=== PATIENT | female | born 1930 | race Hispanic/Latino ===

== ENCOUNTER 2017-12-21 19:34 | Emergency (ER) | payer MEDICARE, OTHER ==
[2017-12-21 19:35] VITALS: PULSE 132; BMI 21.7
[2017-12-21 19:49] VITALS: TEMP 98
--- NOTE | 2017-12-21 20:28 | ED PDOC ---
Lower Extremity Pain/Injury Time Seen by Provider: 12/21/17 20:11 Chief Complaint (Nursing): Trauma Chief Complaint (Provider): Left hip pain s/p fall History Per: Patient History/Exam Limitations: no limitations Onset/Duration Of Symptoms: Mins Current Symptoms Are (Timing): Still Present Severity: Moderate Pain Scale Rating Of: 6 Additional Complaint(s): 86 yo female with history of COPD and A.Fib presents with left hip pain after a slip and fall. PT states her daughter was on the phone when her phone rang and she was going to walk into the other room to answer her phone when she tripped over clear tubing from her nebulizer machine. Pt states she landed on the right side. Her family iced the area and had her stay on the floor for a few minutes before she got up. Pt states she was able to walk but had to use the rest room. When she sat on the toilet it resulted in severe left hip pain. PT states after she got up she had some pain on the left side of ribs which spontaneously resolved in a few seconds. Pt denies SOB, diaphoresis, headache, N/V. Past Medical History Reviewed: Historical Data, Nursing Documentation, Vital Signs Vital Signs: Last Vital Signs Temp 98 F 12/21/17 19:45 Pulse 56 L 12/21/17 19:45 Resp 18 12/21/17 19:45 BP 143/55 L 12/21/17 19:45 Pulse Ox 97 12/21/17 19:45 - Medical History PMH: Anxiety, Arthritis, Atrial Fibrillation, COPD, Emphysema, HTN, Hypercholesterolemia, Pneumonia Denies: Chronic Kidney Disease - Surgical History Surgical History: Tonsillectomy - Family History Family History: States: Unknown Family Hx - Living Arrangements Living Arrangements: With Family - Social History Current smoker - smoking cessation education provided: No - Immunization History Hx Tetanus Toxoid Vaccination: No Hx Influenza Vaccination: Yes Hx Pneumococcal Vaccination: Yes - Home Medications Home Medications: Ambulatory Orders Medication Instructions Recorded Aspirin [Ecotrin] 81 mg PO DAILY 05/18/16 Esomeprazole Magnesium [Nexium] 20 mg PO BID 05/18/16 Hydrochlorothiazide [Microzide] 12.5 mg PO DAILY 05/18/16 Lactobacillus Acidophilus 1 cap PO BID 05/18/16 [Acidophilus] diltiaZEM [Cardizem] 60 mg PO BID 05/18/16 - Allergies Allergies/Adverse Reactions: Allergies Allergy/AdvReac Type Severity Reaction Status Date / Time Penicillins Allergy ANAPHYLAXIS Verified 12/21/17 19:43 Review of Systems ROS Statement: Except As Marked, All Systems Reviewed And Found Negative Constitutional: Negative for: Fever, Chills Cardiovascular: Negative for: Chest Pain Respiratory: Negative for: Shortness of Breath Gastrointestinal: Positive for: Other (Left flank pain, resolved ) Musculoskeletal: Positive for: Other (Left hip pain) Skin: Negative for: Bruising Neurological: Negative for: Confusion, Headache, Dizziness Physical Exam - Reviewed Nursing Documentation Reviewed: Yes Vital Signs Reviewed: Yes - Physical Exam Appears: Positive for: Well, Non-toxic, No Acute Distress Head Exam: Positive for: ATRAUMATIC, NORMAL INSPECTION, NORMOCEPHALIC Skin: Positive for: Normal Color, Warm, DRY Eye Exam: Positive for: EOMI, Normal appearance, PERRL ENT: Positive for: Normal ENT Inspection Neck: Positive for: Normal, Painless ROM Cardiovascular/Chest: Positive for: Regular Rate, Rhythm Respiratory: Positive for: Normal Breath Sounds. Negative for: Accessory Muscle Use, Respiratory Distress Gastrointestinal/Abdominal: Positive for: Normal Exam, Soft. Negative for: Tenderness Back: Positive for: Normal Inspection. Negative for: Vertebral Tenderness Extremity: Positive for: Normal ROM. Negative for: Deformity, Swelling Neurologic/Psych: Positive for: Alert, Oriented - ECG O2 Sat by Pulse Oximetry: 97 Medical Decision Making Medical Decision Making: No acute fracture or dislocation seen on hip XR. Head CT normal. EKG - Sinus otilia Disposition - Clinical Impression Clinical Impression: Fall, Hip pain - Patient ED Disposition Is Patient to be Admitted: No Counseled Patient/Family Regarding: Diagnosis, Need For Followup - Disposition Disposition: Routine/Home Disposition Time: 23:08 Condition: STABLE Additional Instructions: Tylenol as needed for pain. Instructions: Preventing Falls in the Older Adult Forms: IWT ([place])
--- NOTE | 2017-12-21 22:15 | CT ---
EXAM: CT Head Without Intravenous Contrast EXAM DATE/TIME: 12/21/2017 8:28 PM CLINICAL HISTORY: 86 years old, female; Injury or trauma; Fall; Initial encounter; Laceration; Consciousness not specified; Without residual foreign body; Head, generalized; Injury date: Today; Injury details: Tripped. Hit head. Lung ca; Additional info: Head injury TECHNIQUE: Axial computed tomography images of the head/brain without intravenous contrast. All CT scans at this facility use one or more dose reduction techniques, viz.: automated exposure control; ma/kV adjustment per patient size (including targeted exams where dose is matched to indication; i.e. head); or iterative reconstruction technique. Coronal and sagittal reformatted images were created and reviewed. COMPARISON: No relevant prior studies available. FINDINGS: BRAIN: Areas of hypodensity in the white matter bilaterally, nonspecific in appearance, but most likely representing chronic small vessel ischemic changes, in a patient of this age. No acute abnormality identified. No acute hemorrhage seen within the brain. No acute extra-axial fluid collections visualized. No evidence of significant mass effect within the brain. VENTRICLES: No evidence of significant hydrocephalus. BONES/JOINTS: No acute fractures or other acute bony abnormality noted. SOFT TISSUES: No acute abnormality of the visualized soft tissues is seen. SINUSES: Visualized paranasal sinuses appear clear. MASTOID AIR CELLS: Small amount of fluid in the right mastoid air cells, consistent with mild right mastoiditis. No evidence of significant left mastoid fluid. IMPRESSION: - No evidence of acute intracranial injury or fractures. - See above for remaining findings.
[2017-12-21 23:35] VITALS: BP 137/54; PULSE 55; RESP 14; O2SAT 98
--- NOTE | 2017-12-22 09:41 | RAD ---
PROCEDURE: Left Hip X-ray Radiographs. HISTORY: Left hip pain s/p fall COMPARISON: None. FINDINGS: BONES: Bone alignment is normal. There is diffuse bone demineralization.There is no acute displaced fracture or bone destruction. JOINTS: Normal. SOFT TISSUES: Normal. OTHER FINDINGS: None. IMPRESSION: No acute displaced fracture or dislocation. Please note occult fractures cannot be excluded on plain radiographs. If there is a persistent clinical concern, an MRI of the hip may be performed for further evaluation.
--- NOTE | 2017-12-22 14:51 | CARD ---
APPROVED REPORT EKG Measurement Heart [id number] CO [id number] <Conclusion> Sinus bradycardia Otherwise normal ECG
== END 2017-12-21 23:47 | disposition home or self-care (01) ==
LOC: H.ER 19:34
DX: S79.912A Unspecified injury of left hip, initial encounter (principal); W01.0XXA Fall on same level from slipping, tripping and stumbling without subsequent striking against object, initial encounter; I10 Essential (primary) hypertension; J44.9 Chronic obstructive pulmonary disease, unspecified; Z79.82 Long term (current) use of aspirin; Z88.0 Allergy status to penicillin

== ENCOUNTER 2018-04-17 21:40 | Inpatient (IN) | payer MEDICARE, OTHER ==
[2018-04-17 21:40] VITALS: PULSE 132; BMI 21.7
[2018-04-17] MEDS ORDERED: Albuterol-Ipratrop 3 mg / 0.5 (3 ml) UD INH STA (22:18)
[2018-04-17] MEDS ORDERED: Albuterol-Ipratrop 3 mg / 0.5 (3 ml) UD ONE (22:26)
[2018-04-17 22:31] LABS: VENOUS BLOOD GAS BASE EXCESS 1.8 mmol/L (0.0-2.0); VENOUS BLOOD GAS PCO2 53 mmHg (40-60); VENOUS BLOOD GAS PO2 29 mm/Hg (30-55); VENOUS BLOOD PH 7.34 (7.32-7.43)
[2018-04-17 22:36] LABS: BASO # 0.1 K/uL (0.0-0.2); BASO % 1.1 % (0.0-2.0); EOS # 0.3 K/uL (0.0-0.7); EOS % 3.3 % (0.0-4.0); HEMOGLOBIN 12.7 g/dL (12.0-16.0); LYMPH # 1.2 K/uL (1.0-4.3); LYMPH % 15.7 % (20.0-40.0); MEAN CELL VOLUME 96.4 fl (81.0-99.0); MEAN CORPUSCULAR HEMOGLOBIN 32.7 pg (27.0-31.0); MEAN CORPUSCULAR HGB CONC 33.9 g/dL (33.0-37.0); MEAN PLATELET VOLUME 8.5 fl (7.2-11.7); MONO # 0.6 K/uL (0.0-0.8); MONO % 7.7 % (0.0-10.0); NEUT # 5.7 K/uL (1.8-7.0); NEUT % 72.2 % (50.0-75.0); RBC 3.89 Mil/uL (3.80-5.20); RED CELL DISTRIBUTION WIDTH 13.3 % (11.5-14.5); WHITE BLOOD COUNT 7.8 K/uL (4.8-10.8)
[2018-04-17 22:48] LABS: ALB/GLOB RATIO 1.3 (1.0-2.1); ALBUMIN 4.1 g/dL (3.5-5.0); CALCIUM 10.3 mg/dL (8.4-10.2)
--- NOTE | 2018-04-17 22:59 | ED PDOC ---
HPI: SOB/CHF/COPD Time Seen by Provider: 04/17/18 22:03 Chief Complaint (Nursing): Shortness Of Breath Chief Complaint (Provider): Shortness Of Breath History Per: Patient History/Exam Limitations: no limitations Onset/Duration Of Symptoms: Days (x 1) Current Symptoms Are (Timing): Still Present Additional Complaint(s): 87 year old female with a history of COPD and atrial fibrillation presents with worsening shortness of breath throughout today. At one point, patient felt like she had something stuck in her throat that she was unable to cough up. She then forced herself to vomit and excised a large ball of mucus with some relief. Patient had multiple UTIs and was started on bactrim 1 week ago. Patient then discovered she has an allergy to Bactrim and was started to macrobid. [place] like symptoms went away. Denies chest pain and cough. PMD: Dr. Rivera Past Medical History Reviewed: Historical Data, Nursing Documentation, Vital Signs Vital Signs: Last Vital Signs Temp 98.2 F 04/22/18 16:09 Pulse 62 04/22/18 16:09 Resp 20 04/22/18 16:09 BP 127/51 L 04/22/18 16:09 Pulse Ox 98 04/22/18 16:09 - Medical History PMH: Anxiety, Arthritis, Atrial Fibrillation, COPD, Emphysema, HTN, Hypercholesterolemia, Pneumonia Denies: Chronic Kidney Disease - Surgical History Surgical History: Tonsillectomy - Family History Family History: States: Unknown Family Hx - Social History Current smoker - smoking cessation education provided: No Alcohol: None Drugs: Denies - Immunization History Hx Tetanus Toxoid Vaccination: No Hx Influenza Vaccination: Yes Hx Pneumococcal Vaccination: Yes - Home Medications Home Medications: Ambulatory Orders Medication Instructions Recorded RX: Aspirin [Ecotrin] 81 mg PO DAILY 05/18/16 RX: Esomeprazole Magnesium [Nexium] 20 mg PO BID 05/18/16 RX: Hydrochlorothiazide [Microzide] 12.5 mg PO DAILY 05/18/16 RX: Lactobacillus Acidophilus 1 cap PO BID 05/18/16 [Acidophilus] RX: diltiaZEM [Cardizem] 60 mg PO BID 05/18/16 RX: traMADol [Ultram] 50 mg PO Q6H PRN #10 tab 12/21/17 RX: Albuterol 0.083% [Albuterol 3 ml NEB PRN PRN 04/17/18 0.083% Inhal Paulina (2.5 mg/3 ml) UD] RX: Esomeprazole Sodium [Nexium] 20 mg PO DAILY 04/17/18 RX: Losartan Potassium 100 mg PO DAILY 04/17/18 - Allergies Allergies/Adverse Reactions: Allergies Allergy/AdvReac Type Severity Reaction Status Date / Time Penicillins Allergy ANAPHYLAXIS Verified 04/17/18 21:51 Sulfa (Sulfonamide Allergy RASH Verified 04/17/18 21:51 Antibiotics) sulfamethoxazole Allergy RASH Verified 04/17/18 21:51 [From Bactrim] trimethoprim [From Bactrim] Allergy RASH Verified 04/17/18 21:51 Review of Systems ROS Statement: Except As Marked, All Systems Reviewed And Found Negative Respiratory: Positive for: Shortness of Breath Physical Exam - Reviewed Nursing Documentation Reviewed: Yes Vital Signs Reviewed: Yes - Physical Exam Appears: Positive for: No Acute Distress (short of breath on Room Air with saturation of 94%) Head Exam: Positive for: ATRAUMATIC, NORMAL INSPECTION, NORMOCEPHALIC Skin: Positive for: Normal Color, Warm, Dry Eye Exam: Positive for: EOMI, Normal appearance, PERRL Neck: Positive for: Normal, Painless ROM, Supple Cardiovascular/Chest: Positive for: Regular Rate, Rhythm. Negative for: Murmur Respiratory: Positive for: Normal Breath Sounds. Negative for: Respiratory Distress Gastrointestinal/Abdominal: Positive for: Normal Exam, Soft. Negative for: Tenderness Extremity: Positive for: Normal ROM (full x 4). Negative for: Calf Tenderness, Deformity, Swelling Neurologic/Psych: Positive for: Alert, Oriented. Negative for: Motor/Sensory Deficits - Laboratory Results Result Diagrams: 04/21/18 04:20 04/22/18 04:20 - ECG O2 Sat by Pulse Oximetry: 92 (RA) Pulse Ox Interpretation: Normal Medical Decision Making Medical Decision Makin;15 MDM: worsening sob workup for COPD exacerbation vs infectious process vs cardiac etiology Initially EKG with artifact otherwise normal; will repeat EKG Labs including POC lactate, troponin, chest x-ray, Nebs and Solumedrol Reassess 23:56 Labs reviewed, patient with elevated BNP and troponin, indicative of new onset CHF. Patient admitted to [facility] under Dr. Cornejo who is covering for Dr. Rivera. Patient given Aspirin 325mg PO and Lasix 60mg IV. Patient currently on O2 as well. Order placed for repeat Troponin Q8 x 2. Family at bedside and agreeable with plan. - Scribe Attestation: Documented by Jazmyn Barron acting as a scribe for Monique Craven MD Provider Scribe Attestation: All medical record entries made by the Scribe were at my direction and person ally dictated by me. I have reviewed the chart and agree that the record accurately reflects my personal performance of the history, physical exam, medical decision making, and the department course for this patient. I have also personally directed, reviewed, and agree with the discharge instructions and disposition. Disposition - Clinical Impression Clinical Impression: Chronic congestive heart failure, Chr obstructive pulmonary disease w/ acute lower respiratory infxn, Respiratory tract infection - Patient ED Disposition Is Patient to be Admitted: Yes - Disposition Disposition Time: 23:50 Condition: GUARDED
[2018-04-17 23:03] LABS: TROPONIN I 0.024 ng/mL (0.00-0.120)
[2018-04-18] MEDS ORDERED: Pneumococcal 23-Valent Vaccine IM ONE (06:30)
[2018-04-18] MEDS ORDERED: Influenza Vaccine (5 YR UP)/PF 60 MCG/0.5 ML SYR IM ONE (06:30)
[2018-04-18] MEDS ORDERED: Albuterol-Ipratrop 3 mg / 0.5 (3 ml) UD INH PRN (06:37)
--- NOTE | 2018-04-18 07:45 | CARD ---
APPROVED REPORT Date of service: 04/17/2018 EKG Measurement Heart [id number] <Conclusion> Normal sinus rhythm Possible Left atrial enlargement Borderline ECG
[2018-04-18] MEDS ORDERED: Lactobacillus Acidophilus 500 MU Cap PO SCH (09:00)
[2018-04-18] MEDS: Pantoprazole 40 mg EC Tab PO SCH (09:56)
--- NOTE | 2018-04-18 11:34 | RAD ---
Date of service: 04/17/2018 HISTORY: possible admission COMPARISON: 03/26/2016 FINDINGS: LUNGS: No active pulmonary disease. PLEURA: No significant pleural effusion identified, no pneumothorax apparent. CARDIOVASCULAR: No radiographic findings to suggest acute or significant cardiovascular disease. OSSEOUS STRUCTURES: No significant abnormalities. VISUALIZED UPPER ABDOMEN: Normal. OTHER FINDINGS: None. IMPRESSION: No active disease. No significant interval change compared to the prior examination(s).
[2018-04-18 12:32] LABS: CALCIUM 10.2 mg/dL (8.4-10.2)
--- NOTE | 2018-04-18 12:39 | CP.PCM.CON ---
History of Present Illness - History of Present Illness History of Present Illness: This 87-year-old female is well-known to me from the outpatient setting as well as prior hospitalization. She presented to the emergency room with a chief complaint of chest tightness and shortness of breath which had been present for a few days [employer]. She denied cough or sputum production and also denied any hemoptysis. She continued to take all her regular medications as instructed and was using her nebulizer as well without improvement in her symptomatology. There was no recorded fever or chills but she did have some sweats. There was 1 episode of self-induced vomiting which returned mucoid material without any blood. She denies any recent change in her bowel movements although she has been constipated. Her appetite has been extremely poor and she has lost a significant amount of weight, having lost approximately 22 pounds over the last few months. Review of Systems - Constitutional Constitutional: Anorexia, Weight Loss - Respiratory Respiratory: As Per HPI - Musculoskeletal Musculoskeletal: Back Pain - Psychiatric Psychiatric: Anxiety, Change in Appetite Past Patient History - Infectious Disease Hx of Infectious Diseases: None - Tetanus Immunizations Tetanus Immunization: Unknown - Past Medical History & Family History Past Medical History?: Yes Pertinent Family History: Lung cancer, degenerative joint disease, sarcoidosis, thyroid disease, stroke - Past Social History Smoking Status: Former Smoker Chewing Tobacco Use: No Cigar Use: No Alcohol: None Drugs: Denies Home Situation {Lives}: Alone - CARDIAC Hx Atrial Fibrillation: Yes Hx Congestive Heart Failure: Yes Hx Hypercholesterolemia: Yes Hx Hypertension: Yes - PULMONARY Hx Chronic Obstructive Pulmonary Disease (COPD): Yes Hx Lung Cancer: Yes (Adenocarcinoma, right upper lobe) Hx Pneumonia: Yes - NEUROLOGICAL Hx Neurological Disorder: No - HEENT Hx Glaucoma: Yes Hx Macular Degeneration: Yes - RENAL Hx Chronic Kidney Disease: No - ENDOCRINE/METABOLIC Hx Endocrine Disorders: No - HEMATOLOGICAL/ONCOLOGICAL Hx Anemia: Yes - INTEGUMENTARY Hx Dermatological Problems: No - MUSCULOSKELETAL/RHEUMATOLOGICAL Hx Arthritis: Yes Hx Falls: No Hx Fractures: Yes (Microfracture left tibial plateau) - GASTROINTESTINAL Other/Comment: Hiatal hernia - GENITOURINARY/GYNECOLOGICAL Hx Urinary Tract Infection: Yes (Recent) - PSYCHIATRIC Hx Anxiety: Yes Hx Substance Use: No Other/Comment: Insomnia - SURGICAL HISTORY Hx Orthopedic Surgery: Yes Hx Pulmonary Surgery: Yes Hx Tonsillectomy: Yes - ANESTHESIA Hx Anesthesia: Yes Hx Anesthesia Reactions: No Hx Malignant Hyperthermia: No Meds Allergies/Adverse Reactions: Allergies Allergy/AdvReac Type Severity Reaction Status Date / Time Penicillins Allergy ANAPHYLAXIS Verified 04/17/18 21:51 Sulfa (Sulfonamide Allergy RASH Verified 04/17/18 21:51 Antibiotics) sulfamethoxazole Allergy RASH Verified 04/17/18 21:51 [From Bactrim] trimethoprim [From Bactrim] Allergy RASH Verified 04/17/18 21:51 - Medications Medications: Current Medications Albuterol/Ipratropium (Duoneb 3 Mg/0.5 Mg (3 Ml) Ud) 3 ml INH RQ6 PRN PRN Reason: Shortness of Breath Aspirin (Ecotrin) 81 mg PO DAILY [facility] Last Admin: 04/18/18 09:57 Dose: 81 mg Diltiazem HCl (Cardizem) 60 mg PO BID [facility] Last Admin: 04/18/18 12:04 Dose: 60 mg Enoxaparin Sodium (Lovenox) 40 mg SC DAILY [facility] PRN Reason: Protocol Furosemide (Lasix) 20 mg IVP BID [facility] Last Admin: 04/18/18 09:57 Dose: 20 mg Hydrochlorothiazide (Microzide) 12.5 mg PO DAILY [facility] Last Admin: 04/18/18 12:05 Dose: Not Given Lactobacillus Acidophilus (Bacid Acidophilus) 1 cap PO BID [facility] Last Admin: 04/18/18 09:56 Dose: 1 cap Losartan Potassium (Cozaar) 100 mg PO DAILY [facility] Last Admin: 04/18/18 09:56 Dose: 100 mg Pantoprazole Sodium (Protonix Ec Tab) 40 mg PO DAILY [facility] Last Admin: 04/18/18 09:56 Dose: 40 mg Physical Exam - Additional Findings Additional findings: Thin female who appears comfortable during the examination. SPO2 98% with oxygen at 3 L/m. Appears forgetful but otherwise unremarkable neuro exam. No palpable lymphadenopathy. The neck is supple and trachea is midline. No neck vein distention or carotid bruit. No palpable thyromegaly. Pharynx is pink and mucous membranes are moist without exudate. Nasal passages are patent bilaterally without bleeding or exudate. Conjunctivae are pink and there is no scleral icterus. No dullness on chest percussion. Healed surgical scar in the right hemithorax. Slightly asymmetric expansion. Breath sounds are diminished bilaterally without any rales or wheezes appreciated. No bronchial breathing or egophony. No audible rhonchi. Heart sounds are distant and the rhythm is regular without murmur. Abdomen is soft and nontender with no CVA tenderness. Bowel sounds are normal. No dependent edema of the lower extremities. No calf tenderness or palpable venous cords. No cyanosis. Peripheral pulses are diminished in both feet. Results - Vital Signs Recent Vital Signs: Last Vital Signs Temp 97.0 F L 04/18/18 09:30 Pulse 63 04/18/18 09:56 Resp 16 04/18/18 09:30 BP 154/71 H 04/18/18 09:57 Pulse Ox 99 04/18/18 09:30 - Labs Result Diagrams: 04/17/18 22:20 04/18/18 12:19 Labs: Laboratory Results - last 24 hr 04/17/18 04/17/18 04/17/18 22:20 22:20 22:20 WBC 7.8 RBC 3.89 Hgb 12.7 Hct 37.5 MCV 96.4 D MCH 32.7 H MCHC 33.9 RDW 13.3 Plt Count 204 MPV 8.5 Neut % (Auto) 72.2 Lymph % (Auto) 15.7 L [place] % (Auto) 7.7 Eos % (Auto) 3.3 Baso % (Auto) 1.1 Neut # (Auto) 5.7 Lymph # (Auto) 1.2 [place] # (Auto) 0.6 Eos # (Auto) 0.3 Baso # (Auto) 0.1 pO2 VBG pH VBG pCO2 VBG HCO3 VBG Total CO2 VBG O2 Sat (Calc) VBG Base Excess VBG Potassium Glucose Lactate FiO2 Sodium 130 L Potassium 4.0 Chloride 92 L Carbon Dioxide 27 Anion Gap 15 BUN 27 H Creatinine 1.1 Est GFR ( Amer) 57 Est GFR (Non-Af Amer) 47 Random Glucose 130 H Calcium 10.3 H Total Bilirubin 0.6 AST 25 ALT 28 Alkaline Phosphatase 75 Troponin I 0.0240 NT-Pro-B Natriuret Pep 1150 H Total Protein 7.3 Albumin 4.1 Globulin 3.2 Albumin/Globulin Ratio 1.3 Lipase 38 Venous Blood Potassium Blood Type O NEGATIVE Antibody Screen Positive Antibody Identification Anti D BBK History Checked Patient has bt 04/17/18 04/18/18 04/18/18 22:27 02:30 08:42 WBC RBC Hgb Hct MCV MCH MCHC RDW Plt Count MPV Neut % (Auto) Lymph % (Auto) [place] % (Auto) Eos % (Auto) Baso % (Auto) Neut # (Auto) Lymph # (Auto) [place] # (Auto) Eos # (Auto) Baso # (Auto) pO2 29 L VBG pH 7.34 VBG pCO2 53 VBG HCO3 25.1 VBG Total CO2 30.2 H VBG O2 Sat (Calc) 59.1 VBG Base Excess 1.8 VBG Potassium 4.0 Glucose 137 H Lactate 1.2 FiO2 21.0 Sodium 126.0 L Potassium Chloride 92.0 L Carbon Dioxide Anion Gap BUN Creatinine Est GFR ( Amer) Est GFR (Non-Af Amer) Random Glucose Calcium Total Bilirubin AST ALT Alkaline Phosphatase Troponin I 0.0610 NT-Pro-B Natriuret Pep 4000 H Total Protein Albumin Globulin Albumin/Globulin Ratio Lipase Venous Blood Potassium 4.0 Blood Type Antibody Screen Antibody Identification BBK History Checked 04/18/18 04/18/18 10:12 12:19 WBC RBC Hgb Hct MCV MCH MCHC RDW Plt Count MPV Neut % (Auto) Lymph % (Auto) [place] % (Auto) Eos % (Auto) Baso % (Auto) Neut # (Auto) Lymph # (Auto) [place] # (Auto) Eos # (Auto) Baso # (Auto) pO2 VBG pH VBG pCO2 VBG HCO3 VBG Total CO2 VBG O2 Sat (Calc) VBG Base Excess VBG Potassium Glucose Lactate FiO2 Sodium 132 Potassium 4.4 Chloride 92 L Carbon Dioxide 29 Anion Gap 15 BUN 34 H Creatinine 1.2 Est GFR ( Amer) 51 Est GFR (Non-Af Amer) 42 Random Glucose 143 H Calcium 10.2 Total Bilirubin AST ALT Alkaline Phosphatase Troponin I 0.0560 NT-Pro-B Natriuret Pep Total Protein Albumin Globulin Albumin/Globulin Ratio Lipase Venous Blood Potassium Blood Type Antibody Screen Antibody Identification BBK History Checked Assessment & Plan (1) Congestive heart failure Status: Acute Priority: High (2) COPD (chronic obstructive pulmonary disease) Status: Chronic Priority: High (3) Status post thoracotomy Status: Inactive Priority: Medium Comment: Adenocarcinoma right upper lobe (4) Pulmonary nodules Status: Chronic Priority: High Comment: Stable on last CT thorax 3 months prior - Assessment and Plan (Free Text) Plan: Agree with current medical management. We'll request CT thorax without contrast because of elevated BUN/creatinine and decreased GFR. We will order VQ lung scan to rule out occult pulmonary emboli. Avoid long-acting muscarinic agents because of glaucoma history. Short acting beta adrenergic aerosol therapy on an as-needed basis. Request overnight recorded pulse oximetry on room air to look for oxygen desaturations. Arterial blood gas requested to assess oxygenation and possible hypercapnia. - Date & Time Date: 04/18/18 Time: 12:39
[2018-04-18] MEDS ORDERED: Albuterol 0.083% Inhal Sol (2.5 mg/3 mL) UD INH PRN (14:06)
--- NOTE | 2018-04-18 15:30 | CT ---
Date of service: 04/18/2018 PROCEDURE: CT Chest without contrast HISTORY: SOB COMPARISON: Comparison made with chest radiograph and CT scan chest dated 04/17/2018 and 01/02/2017 respectively. TECHNIQUE: Contiguous axial images were obtained through the chest without intravenous contrast enhancement. Sagittal and coronal reconstructions were performed. Radiation dose (DLP): 162.67 mGy-cm. This CT exam was performed using one or more of the following dose reduction techniques: Automated exposure control, adjustment of the mA and/or kV according to patient size, and/or use of iterative reconstruction technique. FINDINGS: LUNGS: Significant centrilobular-panlobular emphysematous changes with upper lobe predominance. There also on scattered areas of scarring in both lung bases including the middle lobe and lingular regions.. There is also a small elliptical shaped somewhat translucent opacity in the left lateral upper lobe bordering left lateral pleural surface.. No parenchymal masses. MEDIASTINUM: Heart size is within range of normal. Questionable trace or minimal pericardial effusion or pericardial thickening. Ascending thoracic aorta measures approximately 3.4 cm and descending thoracic aorta measures approximately 2.55 cm. Pulmonary trunk measures approximately 3.16 cm. There is prominence of the right and left main pulmonary arteries form larger than latter (2.7 cm and 2.1 cm respectively) . Several small nonspecific mediastinal lymph nodes are present. Evaluation for hilar adenopathy is limited due to the lack of circulating intravenous contrast material. Central airways midline and patent. No large central endoluminal lesions. Tiny hiatal hernia. PLEURA: No evidence of pleural effusion or pneumothorax. BONES: No fracture. No destructive lesion. UPPER ABDOMEN: Grossly unremarkable. OTHER FINDINGS: None. IMPRESSION: Significant centrilobular emphysematous changes with areas of linear/curvilinear scarring both lung bases including the lingular and middle lobe regions. There is a vague elliptical shaped translucent opacity in the left lateral upper lung field bordering the lateral pleural surface likely postinflammatory. A prominent right and left main pulmonary arteries.
[2018-04-18 16:07] LABS: ABG ALLEN TEST YES; ARTERIAL BLOOD GAS HCO3 28.8 mmol/L (21-28); ARTERIAL BLOOD GAS HEMOGLOBIN 13.7 g/dL (11.7-17.4); ARTERIAL BLOOD GAS O2 CAPACITY 18.8 mL/dL (16-24); ARTERIAL BLOOD GAS O2 CONTENT 18.5 ML/dL (15-23); ARTERIAL BLOOD GAS O2 SAT 98.6 % (95-98); ARTERIAL BLOOD GAS PCO2 40 mm/Hg (35-45); ARTERIAL BLOOD GAS PH 7.47 (7.35-7.45); ARTERIAL BLOOD GAS PO2 91 mm/Hg (80-100); ARTERIAL BLOOD GAS TCO2 30.3 mmol/L (22-28)
--- NOTE | 2018-04-18 17:08 | CP.PCM.HP ---
History of Present Illness - History of Present Illness History of Present Illness: HPI: Pt is an 87 y/o female with hx of COPD, Afibb, and Lung Ca (s/p Lobectomy 10+ years ago) who presented to [facility] ED with complaints of worsening SOB for the past week. States that the night before she had an coughing episode where she self induced herself to vomit/cough up a large amount of mucous. She has attempted to relief her sob with albuteral inhaler treatements without much relief. Also reports for the past year, her exercise capacity has reduced. currently she can only walk down hill but becomes very short of breathing walking up hill <1block. Also sleeps upright on a cough most nights due to orthopnea. Denies LE edema, weight gain, sick contacts, URI symptoms, recent travel, calf pain, wheezing, fever/chills, GI/ symptoms, or hemoptysis. ROS: 20lb + weight loss, loss of appetite, recent hx of UTI treated with Macrobid (course completed yesterday) PMD: Prior was Dr. Rivera. States Dr. Washington will be her new primary care provider. [employer] Consultant: Dr. Washington Supervisor Residential: Dr. Adam PMHX: Anxiety, Arthritis, Atrial Fibrillation, COPD, Emphysema, HTN, Hypercholesterolemia, Hx of Pneumonia SurgHx: Tonsillectomy Social: Non smoker Significant Radiology & Labs: - Chest Xray: no active disease - Elevated proBNP, 3k - Patient given Aspirin 325mg PO and Lasix 60mg IV. -Patient currently on O2 as well. - Order placed for repeat Troponin Q8 x 2. Present on Admission - Present on Admission Any Indicators Present on Admission: No History of DVT/PE: No Past Patient History - Infectious Disease Hx of Infectious Diseases: None - Tetanus Immunizations Tetanus Immunization: Unknown - Past Medical History & Family History Past Medical History?: Yes - Past Social History Smoking Status: Former Smoker Chewing Tobacco Use: No Cigar Use: No Alcohol: None Drugs: Denies Home Situation {Lives}: Alone - CARDIAC Hx Atrial Fibrillation: Yes Hx Congestive Heart Failure: Yes Hx Hypercholesterolemia: Yes Hx Hypertension: Yes - PULMONARY Hx Chronic Obstructive Pulmonary Disease (COPD): Yes Hx Lung Cancer: Yes (Adenocarcinoma, right upper lobe) Hx Pneumonia: Yes - NEUROLOGICAL Hx Neurological Disorder: No - HEENT Hx Glaucoma: Yes Hx Macular Degeneration: Yes - RENAL Hx Chronic Kidney Disease: No - ENDOCRINE/METABOLIC Hx Endocrine Disorders: No - HEMATOLOGICAL/ONCOLOGICAL Hx Anemia: Yes - INTEGUMENTARY Hx Dermatological Problems: No - MUSCULOSKELETAL/RHEUMATOLOGICAL Hx Arthritis: Yes Hx Falls: No Hx Fractures: Yes (Microfracture left tibial plateau) - GASTROINTESTINAL Other/Comment: Hiatal hernia - GENITOURINARY/GYNECOLOGICAL Hx Urinary Tract Infection: Yes (Recent) - PSYCHIATRIC Hx Anxiety: Yes Hx Substance Use: No Other/Comment: Insomnia - SURGICAL HISTORY Hx Orthopedic Surgery: Yes Hx Pulmonary Surgery: Yes Hx Tonsillectomy: Yes - ANESTHESIA Hx Anesthesia: Yes Hx Anesthesia Reactions: No Hx Malignant Hyperthermia: No Meds Allergies/Adverse Reactions: Allergies Allergy/AdvReac Type Severity Reaction Status Date / Time Penicillins Allergy ANAPHYLAXIS Verified 04/17/18 21:51 Sulfa (Sulfonamide Allergy RASH Verified 04/17/18 21:51 Antibiotics) sulfamethoxazole Allergy RASH Verified 04/17/18 21:51 [From Bactrim] trimethoprim [From Bactrim] Allergy RASH Verified 04/17/18 21:51 Physical Exam - Constitutional Appears: Well, Cachectic, Chronically Ill - Head Exam Head Exam: NORMAL INSPECTION - Eye Exam Eye Exam: Normal appearance - ENT Exam ENT Exam: Mucous Membranes Moist - Neck Exam Neck exam: Positive for: Full Rom - Respiratory Exam Respiratory Exam: Clear to Auscultation Bilateral. absent: Rales, Wheezes - Cardiovascular Exam Cardiovascular Exam: REGULAR RHYTHM, +S1, +S2. absent: Systolic Murmur (No JVD) - GI/Abdominal Exam GI & Abdominal Exam: Normal Bowel Sounds - Extremities Exam Extremities exam: Negative for: pedal edema - Neurological Exam Neurological exam: Alert, Oriented x3 - Psychiatric Exam Psychiatric exam: Normal Affect - Skin Skin Exam: Normal Color Results - Vital Signs Recent Vital Signs: Last Vital Signs Temp 98.1 F 04/18/18 16:37 Pulse 58 L 04/18/18 16:37 Resp 17 04/18/18 16:37 BP 116/70 04/18/18 16:37 Pulse Ox 99 04/18/18 16:37 - Labs Result Diagrams: 04/17/18 22:20 04/18/18 12:19 Labs: Laboratory Results - last 24 hr 04/17/18 04/17/18 04/17/18 22:20 22:20 22:20 WBC 7.8 RBC 3.89 Hgb 12.7 Hct 37.5 MCV 96.4 D MCH 32.7 H MCHC 33.9 RDW 13.3 Plt Count 204 MPV 8.5 Neut % (Auto) 72.2 Lymph % (Auto) 15.7 L [place] % (Auto) 7.7 Eos % (Auto) 3.3 Baso % (Auto) 1.1 Neut # (Auto) 5.7 Lymph # (Auto) 1.2 [place] # (Auto) 0.6 Eos # (Auto) 0.3 Baso # (Auto) 0.1 pCO2 pO2 HCO3 ABG pH ABG Total CO2 ABG O2 Saturation ABG O2 Content ABG Base Excess ABG Hemoglobin ABG Carboxyhemoglobin POC ABG HHb (Measured) ABG Methemoglobin ABG O2 Capacity Armando Test VBG pH VBG pCO2 VBG HCO3 VBG Total CO2 VBG O2 Sat (Calc) VBG Base Excess VBG Potassium A-a O2 Difference Hgb O2 Saturation Glucose Lactate FiO2 Sodium 130 L Potassium 4.0 Chloride 92 L Carbon Dioxide 27 Anion Gap 15 BUN 27 H Creatinine 1.1 Est GFR ( Amer) 57 Est GFR (Non-Af Amer) 47 Random Glucose 130 H Calcium 10.3 H Total Bilirubin 0.6 AST 25 ALT 28 Alkaline Phosphatase 75 Troponin I 0.0240 NT-Pro-B Natriuret Pep 1150 H Total Protein 7.3 Albumin 4.1 Globulin 3.2 Albumin/Globulin Ratio 1.3 Lipase 38 Venous Blood Potassium Blood Type O NEGATIVE Antibody Screen Positive Antibody Identification Anti D BBK History Checked Patient has bt 04/17/18 04/18/18 04/18/18 22:27 02:30 08:42 WBC RBC Hgb Hct MCV MCH MCHC RDW Plt Count MPV Neut % (Auto) Lymph % (Auto) [place] % (Auto) Eos % (Auto) Baso % (Auto) Neut # (Auto) Lymph # (Auto) [place] # (Auto) Eos # (Auto) Baso # (Auto) pCO2 pO2 29 L HCO3 ABG pH ABG Total CO2 ABG O2 Saturation ABG O2 Content ABG Base Excess ABG Hemoglobin ABG Carboxyhemoglobin POC ABG HHb (Measured) ABG Methemoglobin ABG O2 Capacity Armando Test VBG pH 7.34 VBG pCO2 53 VBG HCO3 25.1 VBG Total CO2 30.2 H VBG O2 Sat (Calc) 59.1 VBG Base Excess 1.8 VBG Potassium 4.0 A-a O2 Difference Hgb O2 Saturation Glucose 137 H Lactate 1.2 FiO2 21.0 Sodium 126.0 L Potassium Chloride 92.0 L Carbon Dioxide Anion Gap BUN Creatinine Est GFR ( Amer) Est GFR (Non-Af Amer) Random Glucose Calcium Total Bilirubin AST ALT Alkaline Phosphatase Troponin I 0.0610 NT-Pro-B Natriuret Pep 4000 H Total Protein Albumin Globulin Albumin/Globulin Ratio Lipase Venous Blood Potassium 4.0 Blood Type Antibody Screen Antibody Identification BBK History Checked 04/18/18 04/18/18 04/18/18 10:12 12:19 15:59 WBC RBC Hgb Hct MCV MCH MCHC RDW Plt Count MPV Neut % (Auto) Lymph % (Auto) [place] % (Auto) Eos % (Auto) Baso % (Auto) Neut # (Auto) Lymph # (Auto) [place] # (Auto) Eos # (Auto) Baso # (Auto) pCO2 40 pO2 91 HCO3 28.8 H ABG pH 7.47 H ABG Total CO2 30.3 H ABG O2 Saturation 98.6 H ABG O2 Content 18.5 ABG Base Excess 5.0 H ABG Hemoglobin 13.7 ABG Carboxyhemoglobin 1.7 H POC ABG HHb (Measured) 1.4 ABG Methemoglobin 1.5 ABG O2 Capacity 18.8 Armando Test Yes VBG pH VBG pCO2 VBG HCO3 VBG Total CO2 VBG O2 Sat (Calc) VBG Base Excess VBG Potassium A-a O2 Difference 59.0 Hgb O2 Saturation 95.4 Glucose Lactate FiO2 28.0 Sodium 132 Potassium 4.4 Chloride 92 L Carbon Dioxide 29 Anion Gap 15 BUN 34 H Creatinine 1.2 Est GFR ( Amer) 51 Est GFR (Non-Af Amer) 42 Random Glucose 143 H Calcium 10.2 Total Bilirubin AST ALT Alkaline Phosphatase Troponin I 0.0560 NT-Pro-B Natriuret Pep Total Protein Albumin Globulin Albumin/Globulin Ratio Lipase Venous Blood Potassium Blood Type Antibody Screen Antibody Identification BBK History Checked Assessment & Plan (1) Shortness of breath Status: Acute (2) COPD (chronic obstructive pulmonary disease) Status: Chronic Priority: High (3) Atrial fibrillation Status: Acute - Assessment and Plan (Free Text) Assessment: Pt is an 87 y/o female with hx of COPD, Afibb, and Lung Ca (s/p Lobectomy 10+ years ago) who presented to [facility] ED with worsening sob and found to have elevated proBNP. On re-evaluation this am, pt reports sob improved. Was on face mask overnight. #SOB -Unknown etiology: Cardiac vs Pulmonary. Possible CHF given elevated Probnp although pt is euvolemic on exam -Pulmonology and Cardio Consulted -Albuterol nebulizzer prn -Lasix 20mg IVP BID -Echo ordered #Afibb -C/W home meds #HTN -C/W home meds #Prevention of DVT -Lovenox sq daily Discussed case with Dr. Clemente Browning PGY2
--- NOTE | 2018-04-18 17:58 | NM ---
Date of service: 04/18/2018 COMPARISON: April 18, 2018. CT thorax 11/08/2014 ventilation-perfusion scan TECHNIQUE: 39.16 mCi technetium 99-m DTPA aerosol. 5.6 mCI technetium 99-m MAA administered intravenously. FINDINGS: VENTILATION COMPONENT: Markedly heterogeneous ventilation. Retention of radionuclide in the tracheobronchial tree and ingestion of radionuclide in the stomach, incidental findings PERFUSION COMPONENT: Heterogeneous distribution of radionuclide. No geographic, segmental, lobar abnormalities apparent on the present examination. IMPRESSION: Low probability ventilation perfusion scan for pulmonary embolism.
--- NOTE | 2018-04-18 17:59 | CARD ---
APPROVED REPORT Date of service: 04/18/2018 EXAM: Two-dimensional and M-mode echocardiogram with Doppler and color Doppler. Other Information Quality : GoodRhythm : NSR INDICATION Dyspnea Elevated BNP 2D DIMENSIONS IVSd1.02 (0.7-1.1cm)LVDd3.98 (3.9-5.9cm) LVOT Diameter2.09 (1.8-2.4cm)PWd0.89 (0.7-1.1cm) IVSs0.89 (0.8-1.2cm)LVDs2.38 (2.5-4.0cm) FS (%) 40.2 %PWs1.27 (0.8-1.2cm) M-Mode DIMENSIONS Left Atrium (MM)3.76 (2.5-4.0cm)IVSd1.13 (0.7-1.1cm) Aortic Root2.83 (2.2-3.7cm)LVDd4.45 (4.0-5.6cm) Aortic Cusp Exc.1.93 (1.5-2.0cm)PWd1.03 (0.7-1.1cm) IVSs1.52 cmFS (%) 37 % LVDs2.81 (2.0-3.8cm)PWs1.34 cm Aortic Valve AoV Peak Rbzvfnle184.1cm/sAoV VTI32.5cmAO Peak GR.12mmHg LVOT Peak Asctoumw567.9cm/sLVOT VTI28.67cmAO Mean GR.6mmHg Mitral Valve MV E Tzudvumb54.4cm/sMV DECEL [id number] A Anhcdwus90.7cm/s MV IRR86qfA/A ratio0.9MVA (PHT)3.03cm2 TDI Lateral E' Peak V5.70cm/sMedial E' Peak V6.44cm/sE/Lateral E'12.2 E/Medial E'10.8 Pulmonary Valve PV Peak Ddiozziw661.4cm/s Tricuspid Valve TR Peak Qjlealpd920hp/sRAP AKHWQUNB32wbHxJZ Peak Gr.32mmHg [id number] LEFT VENTRICLE The left ventricle is normal size. There is normal left ventricular wall thickness. The left ventricular systolic function is normal. The estimated ejection fraction is 60-65% No regional wall motion abnormalities noted.. Transmitral Doppler flow pattern is Grade I-abnormal relaxation pattern. No left ventricle thrombus noted on this study. There is no ventricular septal defect visualized. There is no mass noted in the left ventricle. RIGHT VENTRICLE The right ventricle is normal size. There is normal right ventricular wall thickness. The right ventricular systolic function is normal. ATRIA The left atrium size is normal. The right atrium size is normal. The interatrial septum is intact with no evidence for an atrial septal defect. AORTIC VALVE The aortic valve is normal in structure. No aortic regurgitation is present. There is no aortic valvular stenosis. MITRAL VALVE The mitral valve is normal in structure. Mild annular calcification There is no mitral valve stenosis. There is mild mitral valve regurgitation noted. TRICUSPID VALVE The tricuspid valve is normal in structure. There is mild tricuspid valve regurgitation noted. PASP mildly elevated PULMONIC VALVE The pulmonary valve is normal in structure. There is no pulmonic valvular regurgitation. GREAT VESSELS The aortic root is normal in size. The ascending aorta is normal in size. The pulmonary artery is normal. The IVC is normal in size and collapses >50% with inspiration. PERICARDIAL EFFUSION There is no pericardial effusion. <Conclusion> Mild mitral insufficiency Mild TR with mild pulmonary hypertension Normal LV systolic function with doppler hemodynamics consistent with abnormal relaxation The estimated ejection fraction is 60-65%
[2018-04-18] MEDS: Enoxaparin 40 mg Syringe SC SCH (20:32)
[2018-04-18 21:49] LABS: SQUAMOUS EPITHIAL < 1 /hpf (0-5); URINE BILIRUBIN NEGATIVE (NEGATIVE); URINE BLOOD SMALL (NEGATIVE); URINE CLARITY SLIGHTY-CLOUDY (Clear); URINE COLOR YELLOW (YELLOW); URINE GLUCOSE (UA) NEG (Normal); URINE LEUKOCYTE ESTERASE NEG Leu/uL (Negative); URINE PROTEIN NEGATIVE (NEGATIVE); URINE UROBILINOGEN 0.2-1.0 mg/dL (0.2-1.0)
[2018-04-19 07:24] LABS: BASO % 0.2 % (0.0-2.0); HEMOGLOBIN 13.8 g/dL (12.0-16.0); LYMPH # 1.3 K/uL (1.0-4.3); LYMPH % 13.3 % (20.0-40.0); MEAN CELL VOLUME 94.6 fl (81.0-99.0); MEAN CORPUSCULAR HEMOGLOBIN 32.7 pg (27.0-31.0); MEAN CORPUSCULAR HGB CONC 34.6 g/dL (33.0-37.0); MEAN PLATELET VOLUME 8.5 fl (7.2-11.7); MONO # 0.6 K/uL (0.0-0.8); MONO % 6.7 % (0.0-10.0); NEUT # 7.7 K/uL (1.8-7.0); NEUT % 79.8 % (50.0-75.0); NRBC % 0.1 % (0.0-0.0); RBC 4.22 Mil/uL (3.80-5.20); RED CELL DISTRIBUTION WIDTH 13.6 % (11.5-14.5); WHITE BLOOD COUNT 9.6 K/uL (4.8-10.8)
[2018-04-19 07:42] LABS: CALCIUM 10.4 mg/dL (8.4-10.2)
[2018-04-19] MEDS: Pantoprazole 40 mg EC Tab PO SCH (08:27)
[2018-04-19] MEDS: Enoxaparin 40 mg Syringe SC SCH (08:27)
--- NOTE | 2018-04-19 10:43 | CP.PCM.PN ---
Subjective - Date & Time of Evaluation Date of Evaluation: 04/19/18 Time of Evaluation: 10:24 - Subjective Subjective: Seen on morning rounds in telemetry. Vital signs remain stable and she continues to be afebrile. Her appetite may be slightly improved, and she apparently slept better last night. CT chest yesterday fails to reveal any new parenchymal lung lesions or pleural effusions, but does show significant emphysematous configuration. V/Q lung scan, also done yesterday because of pulmonary hypertension is 'low probability' for emboli, but ventilation aspect shows significantly poor exchange. Overnight oximetry not recorded, but routine SpO2 monitoring did not show any desaturation. CT chest did not show any obvious problems with liver or kidneys to the extent visualized. Labs show a stable Hgb, but reduced renal function, possibly related to volume contraction. ABG showed good oxygenation and normal CO2, but also suggests some mild alkalosis (met) maybe also from volume contraction. On exam the breath sounds remain very much diminished bilaterally. No audible wheezes are heard, no rhonchi or rales are appreciated. Hyper-resonance with caudally displaced hemidiaphragms bilaterally remains. No palpable lymphadenopathy, midline trachea, no neck vein distension. No dependant edema or peripheral cyanosis. Will add scheduled ipratropium/albuterol despite history of glaucoma and monitor for adverse effect. Patient has visit with furnace cooler this month and she will inquire about alternate eye drop than Timolol (as well as check the eye pressure). Awaiting overnight recorded oximetry, and probably would benefit from outpatient polysomnography. I have taken the liberty of stopping the IV diuretic and changing to low dose PO furosemide with repeat chemistries fro the AM. Objective - Vital Signs/Intake and Output Vital Signs (last 24 hours): Temp Pulse Resp BP Pulse Ox 97.7 F 55 L 18 116/62 96 04/19/18 08:12 04/19/18 08:26 04/19/18 08:12 04/19/18 08:26 04/19/18 08:12 - Medications Medications: Current Medications Albuterol Sulfate (Albuterol 0.083% Inhal Paulina (2.5 Mg/3 Ml) Ud) 2.5 mg INH RQ4 PRN PRN Reason: Shortness of Breath Albuterol/Ipratropium (Duoneb 3 Mg/0.5 Mg (3 Ml) Ud) 3 ml INH RQID TIFFANY Aspirin (Ecotrin) 81 mg PO DAILY [facility] Last Admin: 04/19/18 08:28 Dose: 81 mg Diltiazem HCl (Cardizem) 60 mg PO BID [facility] Stop: 04/19/18 23:59 Last Admin: 04/19/18 08:26 Dose: Not Given Diltiazem HCl (Cardizem Cd) 120 mg PO DAILY [facility] Enoxaparin Sodium (Lovenox) 40 mg SC DAILY [facility] PRN Reason: Protocol Last Admin: 04/19/18 08:27 Dose: 40 mg Furosemide (Lasix) 20 mg PO DAILY [facility] Losartan Potassium (Cozaar) 100 mg PO DAILY [facility] Last Admin: 04/18/18 09:56 Dose: 100 mg Pantoprazole Sodium (Protonix Ec Tab) 40 mg PO DAILY [facility] Last Admin: 04/19/18 08:27 Dose: 40 mg Zolpidem Tartrate (Ambien) 5 mg PO HS PRN PRN Reason: Insomnia Last Admin: 04/18/18 23:22 Dose: 5 mg - Labs Labs: 04/19/18 06:00 04/19/18 06:00 Assessment and Plan (1) Congestive heart failure Status: Acute (2) COPD (chronic obstructive pulmonary disease) Status: Chronic (3) Status post thoracotomy Status: Inactive (4) Pulmonary nodules Status: Chronic
[2018-04-19] MEDS: Albuterol-Ipratrop 3 mg / 0.5 (3 ml) UD INH SCH ×3 (12:16→19:00)
--- NOTE | 2018-04-19 13:32 | CP.PCM.CON ---
History of Present Illness - History of Present Illness History of Present Illness: THE PATIENT IS AN 87 YEAR OLD FEMALE WITH A HISTORY OF BEING A FORMER SMOKER, COPD AND RUL ADENOCARCINOMA WITH SURGERY. SHE STATES THAT SHE HAS HAD RECENT INCREASE IN [place] ESPECIALLY GOING [employer] AND GENERALIZED DECREASED EXERCISE CAPACITY. THE SOB HAS BEEN MUCH WORSE OVER THE PAST FEW DAYS. 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 SHE HAD AN ELEVATED PBNP OF 4000 AND WAS TREATED WITH IV FUROSEMIDE. SHE ALSO HAS A HISTORY OF HYPERTENSION AND ATRIAL FIBRILLATION AT THE TIME OF HER LUNG SURGERY AND WAS ON AMIODARONE BUT IT WAS STOPPED DUE TO HAIR LOSS AND SHE WAS PLACED ON CARDIZEM. CARDIOLOGY WAS ASKED TO SEE HER. Past Patient History - Infectious Disease Hx of Infectious Diseases: None - Tetanus Immunizations Tetanus Immunization: Unknown - Past Medical History & Family History Past Medical History?: Yes - Past Social History Smoking Status: Former Smoker Chewing Tobacco Use: No Cigar Use: No Alcohol: None Drugs: Denies Home Situation {Lives}: Alone - CARDIAC Hx Atrial Fibrillation: Yes Hx Congestive Heart Failure: Yes Hx Hypercholesterolemia: Yes Hx Hypertension: Yes - PULMONARY Hx Chronic Obstructive Pulmonary Disease (COPD): Yes Hx Lung Cancer: Yes (Adenocarcinoma, right upper lobe) Hx Pneumonia: Yes - NEUROLOGICAL Hx Neurological Disorder: No - HEENT Hx Glaucoma: Yes Hx Macular Degeneration: Yes - RENAL Hx Chronic Kidney Disease: No - ENDOCRINE/METABOLIC Hx Endocrine Disorders: No - HEMATOLOGICAL/ONCOLOGICAL Hx Anemia: Yes - INTEGUMENTARY Hx Dermatological Problems: No - MUSCULOSKELETAL/RHEUMATOLOGICAL Hx Arthritis: Yes Hx Falls: No Hx Fractures: Yes (Microfracture left tibial plateau) - GASTROINTESTINAL Other/Comment: Hiatal hernia - GENITOURINARY/GYNECOLOGICAL Hx Urinary Tract Infection: Yes (Recent) - PSYCHIATRIC Hx Anxiety: Yes Hx Substance Use: No Other/Comment: Insomnia - SURGICAL HISTORY Hx Orthopedic Surgery: Yes Hx Pulmonary Surgery: Yes Hx Tonsillectomy: Yes - ANESTHESIA Hx Anesthesia: Yes Hx Anesthesia Reactions: No Hx Malignant Hyperthermia: No Meds Allergies/Adverse Reactions: Allergies Allergy/AdvReac Type Severity Reaction Status Date / Time Penicillins Allergy ANAPHYLAXIS Verified 04/17/18 21:51 Sulfa (Sulfonamide Allergy RASH Verified 04/17/18 21:51 Antibiotics) sulfamethoxazole Allergy RASH Verified 04/17/18 21:51 [From Bactrim] trimethoprim [From Bactrim] Allergy RASH Verified 04/17/18 21:51 - Medications Medications: Current Medications Albuterol Sulfate (Albuterol 0.083% Inhal Paulina (2.5 Mg/3 Ml) Ud) 2.5 mg INH RQ4 PRN PRN Reason: Shortness of Breath Albuterol/Ipratropium (Duoneb 3 Mg/0.5 Mg (3 Ml) Ud) 3 ml INH RQID [facility] Last Admin: 04/19/18 12:16 Dose: 3 ml Aspirin (Ecotrin) 81 mg PO DAILY [facility] Last Admin: 04/19/18 08:28 Dose: 81 mg Diltiazem HCl (Cardizem) 60 mg PO BID [facility] Stop: 04/19/18 23:59 Last Admin: 04/19/18 08:26 Dose: Not Given Diltiazem HCl (Cardizem Cd) 120 mg PO DAILY [facility] Enoxaparin Sodium (Lovenox) 40 mg SC DAILY [facility] PRN Reason: Protocol Last Admin: 04/19/18 08:27 Dose: 40 mg Furosemide (Lasix) 20 mg PO DAILY [facility] Losartan Potassium (Cozaar) 100 mg PO DAILY [facility] Last Admin: 04/19/18 11:01 Dose: Not Given Pantoprazole Sodium (Protonix Ec Tab) 40 mg PO DAILY [facility] Last Admin: 04/19/18 08:27 Dose: 40 mg Zolpidem Tartrate (Ambien) 5 mg PO HS PRN PRN Reason: Insomnia Last Admin: 04/18/18 23:22 Dose: 5 mg Physical Exam - Respiratory Exam Respiratory Exam: Clear to Auscultation Bilateral - Cardiovascular Exam Cardiovascular Exam: REGULAR RHYTHM, +S1, +S2 - Extremities Exam Extremities exam: Positive for: normal inspection - Additional Findings Additional findings: EKG NSR PBNP 400 ON 2329 TODAY TROPONINS NORMAL K+ 4.2 ECHO NORMAL LV SYSTOLIC FUNCTION, DIASTOLIC DYSFUNCTION, LAE LOOKS AT LEAST MILDLY ENLARGED ON THE 2D STUDY, MILD MR AMD MILD TR WITH PASP OF ~ 44 PULMONARY NOTE REVIEWED Results - Vital Signs Recent Vital Signs: Last Vital Signs Temp 97.6 F 04/19/18 12:47 Pulse 57 L 04/19/18 12:47 Resp 18 04/19/18 12:47 BP 147/84 04/19/18 12:47 Pulse Ox 96 04/19/18 12:47 - Labs Result Diagrams: 04/19/18 06:00 04/19/18 06:00 Labs: Laboratory Results - last 24 hr 04/18/18 04/18/18 04/19/18 15:59 21:33 06:00 WBC 9.6 RBC 4.22 Hgb 13.8 Hct 39.9 MCV 94.6 MCH 32.7 H MCHC 34.6 RDW 13.6 Plt Count 246 MPV 8.5 Neut % (Auto) 79.8 H Lymph % (Auto) 13.3 L [place] % (Auto) 6.7 Eos % (Auto) 0.0 Baso % (Auto) 0.2 Neut # (Auto) 7.7 H Lymph # (Auto) 1.3 [place] # (Auto) 0.6 Eos # (Auto) 0.0 Baso # (Auto) 0.0 pCO2 40 pO2 91 HCO3 28.8 H ABG pH 7.47 H ABG Total CO2 30.3 H ABG O2 Saturation 98.6 H ABG O2 Content 18.5 ABG Base Excess 5.0 H ABG Hemoglobin 13.7 ABG Carboxyhemoglobin 1.7 H POC ABG HHb (Measured) 1.4 ABG Methemoglobin 1.5 ABG O2 Capacity 18.8 Armando Test Yes A-a O2 Difference 59.0 Hgb O2 Saturation 95.4 FiO2 28.0 Sodium Potassium Chloride Carbon Dioxide Anion Gap BUN Creatinine Est GFR ( Amer) Est GFR (Non-Af Amer) Random Glucose Calcium NT-Pro-B Natriuret Pep Urine Color Yellow Urine Clarity Slighty-cloudy Urine pH 5.0 Ur Specific [place] 1.010 Urine Protein Negative Urine Glucose (UA) Neg Urine Ketones Negative Urine Blood Small Urine Nitrate Negative Urine Bilirubin Negative Urine Urobilinogen 0.2-1.0 Ur Leukocyte Esterase Neg Urine RBC (Auto) 6 H Urine Microscopic WBC < 1 Ur Squamous Epith Cells < 1 Hyaline Casts 6-10 H 04/19/18 06:00 WBC RBC Hgb Hct MCV MCH MCHC RDW Plt Count MPV Neut % (Auto) Lymph % (Auto) [place] % (Auto) Eos % (Auto) Baso % (Auto) Neut # (Auto) Lymph # (Auto) [place] # (Auto) Eos # (Auto) Baso # (Auto) pCO2 pO2 HCO3 ABG pH ABG Total CO2 ABG O2 Saturation ABG O2 Content ABG Base Excess ABG Hemoglobin ABG Carboxyhemoglobin POC ABG HHb (Measured) ABG Methemoglobin ABG O2 Capacity Armando Test A-a O2 Difference Hgb O2 Saturation FiO2 Sodium 132 Potassium 4.2 Chloride 88 L Carbon Dioxide 33 H Anion Gap 15 BUN 51 H Creatinine 1.8 H Est GFR ( Amer) 32 Est GFR (Non-Af Amer) 27 Random Glucose 153 H Calcium 10.4 H NT-Pro-B Natriuret Pep 2330 H Urine Color Urine Clarity Urine pH Ur Specific [place] Urine Protein Urine Glucose (UA) Urine Ketones Urine Blood Urine Nitrate Urine Bilirubin Urine Urobilinogen Ur Leukocyte Esterase Urine RBC (Auto) Urine Microscopic WBC Ur Squamous Epith Cells Hyaline Casts Assessment & Plan - Assessment and Plan (Free Text) Assessment: MILD ACUTE DIASTOLIC CHF-IMPROVED COPD FORMER SMOKER WITH RUL ADENOCA WITH SURGERY ATRIAL FIBRILLATION HISTORY-NOW IN NSR HYPERTENSION Plan: CONTINUE O2, CARDIZEM, ASA, FUROSEMIDE, COZAAR, LOVENOX AND ALBUTEROL
[2018-04-19 14:04] LABS: SQUAMOUS EPITHIAL 1 /hpf (0-5); URINE BACTERIA RARE (<OCC); URINE BILIRUBIN NEGATIVE (NEGATIVE); URINE BLOOD NEGATIVE (NEGATIVE); URINE CLARITY SLIGHTY-CLOUDY (Clear); URINE COLOR YELLOW (YELLOW); URINE GLUCOSE (UA) NEG (Normal); URINE HYALINE CAST >20 /hpf (0-2); URINE LEUKOCYTE ESTERASE NEG Leu/uL (Negative); URINE PROTEIN NEGATIVE (NEGATIVE); URINE UROBILINOGEN 0.2-1.0 mg/dL (0.2-1.0)
--- NOTE | 2018-04-19 21:03 | CP.PCM.PN ---
Subjective - Date & Time of Evaluation Date of Evaluation: 04/19/18 Time of Evaluation: 09:00 - Subjective Subjective: patient seen and examined this AM. no acute events overnight. patient tolerating po well. no complaints offered at this time. breathing well. pending cardiac and pulm workup. Objective - Vital Signs/Intake and Output Vital Signs (last 24 hours): Temp Pulse Resp BP Pulse Ox 97.7 F 64 18 126/74 98 04/19/18 20:11 04/19/18 20:11 04/19/18 20:11 04/19/18 20:11 04/19/18 20:11 - Medications Medications: Current Medications Albuterol Sulfate (Albuterol 0.083% Inhal Paulina (2.5 Mg/3 Ml) Ud) 2.5 mg INH RQ4 PRN PRN Reason: Shortness of Breath Albuterol/Ipratropium (Duoneb 3 Mg/0.5 Mg (3 Ml) Ud) 3 ml INH RQID [facility] Last Admin: 04/19/18 19:00 Dose: 3 ml Aspirin (Ecotrin) 81 mg PO DAILY [facility] Last Admin: 04/19/18 08:28 Dose: 81 mg Diltiazem HCl (Cardizem) 60 mg PO BID [facility] Stop: 04/19/18 23:59 Last Admin: 04/19/18 17:43 Dose: 60 mg Diltiazem HCl (Cardizem Cd) 120 mg PO DAILY [facility] Enoxaparin Sodium (Lovenox) 40 mg SC DAILY [facility] PRN Reason: Protocol Last Admin: 04/19/18 08:27 Dose: 40 mg Furosemide (Lasix) 20 mg PO DAILY [facility] Losartan Potassium (Cozaar) 100 mg PO DAILY [facility] Last Admin: 04/19/18 11:01 Dose: Not Given Pantoprazole Sodium (Protonix Ec Tab) 40 mg PO DAILY [facility] Last Admin: 04/19/18 08:27 Dose: 40 mg Zolpidem Tartrate (Ambien) 5 mg PO HS PRN PRN Reason: Insomnia Last Admin: 04/18/18 23:22 Dose: 5 mg - Labs Labs: 04/19/18 06:00 04/19/18 06:00 - Constitutional Appears: Well, Non-toxic, No Acute Distress - Head Exam Head Exam: ATRAUMATIC, NORMAL INSPECTION, NORMOCEPHALIC - Eye Exam Eye Exam: Normal appearance - Neck Exam Neck Exam: Normal Inspection - Respiratory Exam Respiratory Exam: Decreased Breath Sounds, Clear to Ausculation Bilateral, NORMAL BREATHING PATTERN - Cardiovascular Exam Cardiovascular Exam: REGULAR RHYTHM, +S1, +S2. absent: Murmur - GI/Abdominal Exam GI & Abdominal Exam: Soft, Normal Bowel Sounds. absent: Tenderness - Extremities Exam Extremities Exam: Normal Inspection - Back Exam Back Exam: NORMAL INSPECTION - Neurological Exam Neurological Exam: Alert, Awake, Oriented x3 - Psychiatric Exam Psychiatric exam: Normal Affect, Normal Mood - Skin Skin Exam: Dry, Intact, Normal Color, Warm Assessment and Plan - Assessment and Plan (Free Text) Assessment: 87 y/o female with hx of COPD, Afibb, and Lung Ca (s/p Lobectomy 10+ years ago) admitted due to CHF exacerbation and COPD. Improvement from yesterday. plan appreciated cardio/pulm recommendations reviewed notes/studies c/w management as prescribed labs in am
[2018-04-20 07:23] LABS: ALB/GLOB RATIO 1.1 (1.0-2.1); ALBUMIN 3.5 g/dL (3.5-5.0); CALCIUM 9.6 mg/dL (8.4-10.2)
[2018-04-20] MEDS: Albuterol-Ipratrop 3 mg / 0.5 (3 ml) UD INH SCH ×4 (07:48→19:10)
[2018-04-20] MEDS: Enoxaparin 40 mg Syringe SC SCH (09:11)
[2018-04-20] MEDS: diltiaZEM 120 mg/24 Hours CD Cap PO SCH (09:12)
[2018-04-20] MEDS: Pantoprazole 40 mg EC Tab PO SCH (09:13)
--- NOTE | 2018-04-20 15:26 | CP.PCM.PN ---
Subjective - Date & Time of Evaluation Date of Evaluation: 04/20/18 Time of Evaluation: 10:00 - Subjective Subjective: patient seen and examined this AM. no acute events overnight. patient tolerating po well. no complaints offered at this time. breathing well. Objective - Vital Signs/Intake and Output Vital Signs (last 24 hours): Temp Pulse Resp BP Pulse Ox 97.8 F 54 L 18 105/68 98 04/20/18 12:12 04/20/18 12:12 04/20/18 12:12 04/20/18 12:12 04/20/18 12:12 - Medications Medications: Current Medications Albuterol Sulfate (Albuterol 0.083% Inhal Paulina (2.5 Mg/3 Ml) Ud) 2.5 mg INH RQ4 PRN PRN Reason: Shortness of Breath Albuterol/Ipratropium (Duoneb 3 Mg/0.5 Mg (3 Ml) Ud) 3 ml INH RQID [facility] Last Admin: 04/20/18 11:37 Dose: 3 ml Aspirin (Ecotrin) 81 mg PO DAILY [facility] Last Admin: 04/20/18 09:12 Dose: 81 mg Diltiazem HCl (Cardizem Cd) 120 mg PO DAILY [facility] Last Admin: 04/20/18 09:12 Dose: 120 mg Enoxaparin Sodium (Lovenox) 40 mg SC DAILY [facility] PRN Reason: Protocol Last Admin: 04/20/18 09:11 Dose: 40 mg Furosemide (Lasix) 20 mg PO DAILY [facility] Last Admin: 04/20/18 09:12 Dose: 20 mg Losartan Potassium (Cozaar) 100 mg PO DAILY [facility] Last Admin: 04/20/18 09:12 Dose: 100 mg Pantoprazole Sodium (Protonix Ec Tab) 40 mg PO DAILY [facility] Last Admin: 04/20/18 09:13 Dose: 40 mg Simethicone (Mylicon Chew Tab) 80 mg PO [facility] PRN PRN Reason: Flatulence Zolpidem Tartrate (Ambien) 5 mg PO HS PRN PRN Reason: Insomnia Last Admin: 04/19/18 21:32 Dose: 5 mg - Labs Labs: 04/19/18 06:00 04/20/18 05:20 - Additional Findings Additional findings: - Constitutional Appears: Well, Non-toxic, No Acute Distress - Head Exam Head Exam: ATRAUMATIC, NORMAL INSPECTION, NORMOCEPHALIC - Eye Exam Eye Exam: Normal appearance - Neck Exam Neck Exam: Normal Inspection - Respiratory Exam Respiratory Exam: Decreased Breath Sounds, Clear to Ausculation Bilateral, NORMAL BREATHING PATTERN - Cardiovascular Exam Cardiovascular Exam: REGULAR RHYTHM, +S1, +S2. absent: Murmur - GI/Abdominal Exam GI & Abdominal Exam: Soft, Normal Bowel Sounds. absent: Tenderness - Extremities Exam Extremities Exam: Normal Inspection - Back Exam Back Exam: NORMAL INSPECTION - Neurological Exam Neurological Exam: Alert, Awake, Oriented x3 - Psychiatric Exam Psychiatric exam: Normal Affect, Normal Mood - Skin Skin Exam: Dry, Intact, Normal Color, Warm Assessment and Plan - Assessment and Plan (Free Text) Assessment: 87 y/o female with hx of COPD, Afibb, and Lung Ca (s/p Lobectomy 10+ years ago) admitted due to CHF exacerbation and COPD. Improvement from yesterday. plan appreciate cardio/pulm recommendations reviewed chart c/w management as prescribed labs in am pending dispo as per cardio/pulm
[2018-04-20] MEDS: Simethicone 80 mg Chewtab PO PRN (17:08)
[2018-04-21 05:59] LABS: HEMOGLOBIN 11.9 g/dL (12.0-16.0); MEAN CELL VOLUME 94.7 fl (81.0-99.0); MEAN CORPUSCULAR HEMOGLOBIN 32.6 pg (27.0-31.0); MEAN CORPUSCULAR HGB CONC 34.4 g/dL (33.0-37.0); RBC 3.65 Mil/uL (3.80-5.20); RED CELL DISTRIBUTION WIDTH 13.3 % (11.5-14.5); WHITE BLOOD COUNT 7.2 K/uL (4.8-10.8)
[2018-04-21 06:13] LABS: CALCIUM 9.2 mg/dL (8.4-10.2)
[2018-04-21] MEDS: Albuterol-Ipratrop 3 mg / 0.5 (3 ml) UD INH SCH ×4 (07:34→18:59)
--- NOTE | 2018-04-21 07:48 | CP.PCM.PN ---
Subjective - Date & Time of Evaluation Date of Evaluation: 04/21/18 Time of Evaluation: 07:46 - Subjective Subjective: this patient whole is 87 years of age female I was called to see her for abnormal kidney function. Patient admitted from the emergency room complaining of coughing shortness of breath difficulty breathing and she was treated with intravenous diuretics with other medication for shortness of breath in addition to pulmonary consultation and cardiology consultation performed. Past medical history and surgical history Mcintosh stated she has right upper lobe lobectomy because of cancer of the lung few years ago H/O hypertension History of atrial fibrillation according to the patient social history not contributory Objective - Vital Signs/Intake and Output Vital Signs (last 24 hours): Temp Pulse Resp BP Pulse Ox 98.0 F 52 L 18 128/79 97 04/21/18 05:49 04/21/18 05:49 04/21/18 05:49 04/21/18 05:49 04/21/18 05:49 - Medications Medications: Current Medications Albuterol Sulfate (Albuterol 0.083% Inhal Paulina (2.5 Mg/3 Ml) Ud) 2.5 mg INH RQ4 PRN PRN Reason: Shortness of Breath Albuterol/Ipratropium (Duoneb 3 Mg/0.5 Mg (3 Ml) Ud) 3 ml INH RQID [facility] Last Admin: 04/21/18 07:34 Dose: 3 ml Aspirin (Ecotrin) 81 mg PO DAILY [facility] Last Admin: 04/20/18 09:12 Dose: 81 mg Diltiazem HCl (Cardizem Cd) 120 mg PO DAILY [facility] Last Admin: 04/20/18 09:12 Dose: 120 mg Enoxaparin Sodium (Lovenox) 40 mg SC DAILY [facility] PRN Reason: Protocol Last Admin: 04/20/18 09:11 Dose: 40 mg Fluticasone Propionate (Flonase) 1 spr JACQUIE BID [facility] Last Admin: 04/20/18 18:12 Dose: 1 spr Ondansetron HCl (Zofran Inj) 4 mg IVP Q6 PRN PRN Reason: Nausea/Vomiting Last Admin: 04/20/18 18:04 Dose: 4 mg Pantoprazole Sodium (Protonix Ec Tab) 40 mg PO DAILY [facility] Last Admin: 04/20/18 09:13 Dose: 40 mg Simethicone (Mylicon Chew Tab) 80 mg PO [facility] PRN PRN Reason: Flatulence Last Admin: 04/20/18 17:08 Dose: 80 mg Zolpidem Tartrate (Ambien) 5 mg PO HS PRN PRN Reason: Insomnia Last Admin: 04/20/18 21:20 Dose: 5 mg - Labs Labs: 04/21/18 04:20 04/21/18 04:20
--- NOTE | 2018-04-21 07:49 | CP.PCM.CON ---
History of Present Illness - History of Present Illness History of Present Illness: this patient whole is 87 years of age female I was called to see her for abnormal kidney function. Patient admitted from the emergency room complaining of coughing shortness of breath difficulty breathing and she was treated with intravenous diuretics with other medication for shortness of breath in addition to pulmonary consultation and cardiology consultation performed. Past medical history and surgical history Mcintosh stated she has right upper lobe lobectomy because of cancer of the lung few years ago H/O hypertension History of atrial fibrillation according to the patient social history not contributory Review of Systems - Constitutional Constitutional: Anorexia. absent: Chills - EENT Nose/Mouth/Throat: absent: Epistaxis - Cardiovascular Cardiovascular: Dyspnea on Exertion. absent: Edema, Irregular Heart Rhythm, Pedal Edema - Respiratory Respiratory: Cough, Dyspnea on Exertion, Chest Congestion - Musculoskeletal Musculoskeletal: Back Pain. absent: Numbness - Neurological Neurological: absent: Abnormal Movements, Confusion, Focal Weakness - Endocrine Endocrine: Fatigue - Hematologic/Lymphatic Hematologic: absent: Easy Bleeding Past Patient History - Infectious Disease Hx of Infectious Diseases: None - Tetanus Immunizations Tetanus Immunization: Unknown - Past Medical History & Family History Past Medical History?: Yes - Past Social History Smoking Status: Former Smoker Chewing Tobacco Use: No Cigar Use: No Alcohol: None Drugs: Denies Home Situation {Lives}: Alone - CARDIAC Hx Atrial Fibrillation: Yes Hx Congestive Heart Failure: Yes Hx Hypercholesterolemia: Yes Hx Hypertension: Yes - PULMONARY Hx Chronic Obstructive Pulmonary Disease (COPD): Yes Hx Lung Cancer: Yes (Adenocarcinoma, right upper lobe) Hx Pneumonia: Yes - NEUROLOGICAL Hx Neurological Disorder: No - HEENT Hx Glaucoma: Yes Hx Macular Degeneration: Yes - RENAL Hx Chronic Kidney Disease: No - ENDOCRINE/METABOLIC Hx Endocrine Disorders: No - HEMATOLOGICAL/ONCOLOGICAL Hx Anemia: Yes - INTEGUMENTARY Hx Dermatological Problems: No - MUSCULOSKELETAL/RHEUMATOLOGICAL Hx Arthritis: Yes Hx Falls: No Hx Fractures: Yes (Microfracture left tibial plateau) - GASTROINTESTINAL Other/Comment: Hiatal hernia - GENITOURINARY/GYNECOLOGICAL Hx Urinary Tract Infection: Yes (Recent) - PSYCHIATRIC Hx Anxiety: Yes Hx Substance Use: No Other/Comment: Insomnia - SURGICAL HISTORY Hx Orthopedic Surgery: Yes Hx Pulmonary Surgery: Yes Hx Tonsillectomy: Yes - ANESTHESIA Hx Anesthesia: Yes Hx Anesthesia Reactions: No Hx Malignant Hyperthermia: No Meds Allergies/Adverse Reactions: Allergies Allergy/AdvReac Type Severity Reaction Status Date / Time Penicillins Allergy ANAPHYLAXIS Verified 04/17/18 21:51 Sulfa (Sulfonamide Allergy RASH Verified 04/17/18 21:51 Antibiotics) sulfamethoxazole Allergy RASH Verified 04/17/18 21:51 [From Bactrim] trimethoprim [From Bactrim] Allergy RASH Verified 04/17/18 21:51 - Medications Medications: Current Medications Albuterol Sulfate (Albuterol 0.083% Inhal Paulina (2.5 Mg/3 Ml) Ud) 2.5 mg INH RQ4 PRN PRN Reason: Shortness of Breath Albuterol/Ipratropium (Duoneb 3 Mg/0.5 Mg (3 Ml) Ud) 3 ml INH RQID [facility] Last Admin: 04/21/18 07:34 Dose: 3 ml Aspirin (Ecotrin) 81 mg PO DAILY [facility] Last Admin: 04/20/18 09:12 Dose: 81 mg Diltiazem HCl (Cardizem Cd) 120 mg PO DAILY [facility] Last Admin: 04/20/18 09:12 Dose: 120 mg Enoxaparin Sodium (Lovenox) 40 mg SC DAILY [facility] PRN Reason: Protocol Last Admin: 04/20/18 09:11 Dose: 40 mg Fluticasone Propionate (Flonase) 1 spr JACQUIE BID [facility] Last Admin: 04/20/18 18:12 Dose: 1 spr Ondansetron HCl (Zofran Inj) 4 mg IVP Q6 PRN PRN Reason: Nausea/Vomiting Last Admin: 04/20/18 18:04 Dose: 4 mg Pantoprazole Sodium (Protonix Ec Tab) 40 mg PO DAILY [facility] Last Admin: 04/20/18 09:13 Dose: 40 mg Simethicone (Mylicon Chew Tab) 80 mg PO HS PRN PRN Reason: Flatulence Last Admin: 04/20/18 17:08 Dose: 80 mg Zolpidem Tartrate (Ambien) 5 mg PO HS PRN PRN Reason: Insomnia Last Admin: 04/20/18 21:20 Dose: 5 mg Physical Exam - Constitutional Appears: No Acute Distress - Eye Exam Eye Exam: Conjunctival injection - ENT Exam ENT Exam: Mucous Membranes Dry - Respiratory Exam Respiratory Exam: Rhonchi, NORMAL BREATHING PATTERN. absent: Chest Wall Tenderness - Cardiovascular Exam Cardiovascular Exam: REGULAR RHYTHM, RRR. absent: Gallop, JVD, Rubs - GI/Abdominal Exam GI & Abdominal Exam: Soft. absent: Guarding - Extremities Exam Extremities exam: Negative for: calf tenderness - Back Exam Back exam: absent: CVA tenderness (L), CVA tenderness (R) - Neurological Exam Neurological exam: Alert - Psychiatric Exam Psychiatric exam: Normal Affect Results - Vital Signs Recent Vital Signs: Last Vital Signs Temp 98.0 F 04/21/18 05:49 Pulse 52 L 04/21/18 05:49 Resp 18 04/21/18 05:49 BP 128/79 04/21/18 05:49 Pulse Ox 97 04/21/18 05:49 - Labs Result Diagrams: 04/21/18 04:20 04/21/18 04:20 Labs: Laboratory Results - last 24 hr 04/21/18 04/21/18 04:20 04:20 WBC 7.2 RBC 3.65 L Hgb 11.9 L Hct 34.5 MCV 94.7 MCH 32.6 H MCHC 34.4 RDW 13.3 Plt Count 211 Sodium 128 L Potassium 3.6 Chloride 88 L Carbon Dioxide 37 H Anion Gap 7 L BUN 48 H Creatinine 1.6 H Est GFR ( Amer) 37 Est GFR (Non-Af Amer) 30 Random Glucose 103 Calcium 9.2 Assessment & Plan (1) BRENDA (acute kidney injury) Assessment and Plan: Rule out acute kidney injury serum creatinine worsening the latest 1.6 perhaps related to dehydration? ARB? Patient also has hyponatremia which has been worsening Hypochloremia Metabolic alkalosis was rising CO2 All above finding appeared to be consistent with the diuretic In addition the patient was history of lung CVA with previous lobal resection history of atrial fibrillation COPD My recommendation and plan Hold losartan temporarily Hold Lasix temporarily Normal saline perhaps 10 mL/h very gently Spot urine for sodium osmolality and creatinine to rule out SIADH Status: Acute (2) Hyponatremia Status: Acute (3) Hypochloremia Status: Acute (4) COPD (chronic obstructive pulmonary disease) Status: Chronic Priority: High (5) Atrial fibrillation Status: Acute
[2018-04-21] MEDS ORDERED: Sodium Chloride 0.9% 1,000 ML IV SCH (08:00)
[2018-04-21] MEDS: Pantoprazole 40 mg EC Tab PO SCH (08:08)
[2018-04-21] MEDS: Simethicone 80 mg Chewtab PO PRN (08:08)
[2018-04-21] MEDS: Enoxaparin 40 mg Syringe SC SCH (08:12)
[2018-04-21] MEDS: diltiaZEM 120 mg/24 Hours CD Cap PO SCH ×2 (08:13→08:44)
--- NOTE | 2018-04-21 09:14 | CP.PCM.PN ---
Subjective - Date & Time of Evaluation Date of Evaluation: 04/21/18 Time of Evaluation: 08:15 - Subjective Subjective: NO CHEST PAIN STILL SOB Objective - Vital Signs/Intake and Output Vital Signs (last 24 hours): Temp Pulse Resp BP Pulse Ox 97.6 F 50 L 18 103/65 97 04/21/18 08:05 04/21/18 08:44 04/21/18 08:05 04/21/18 08:44 04/21/18 08:05 - Medications Medications: Current Medications Albuterol Sulfate (Albuterol 0.083% Inhal Paulina (2.5 Mg/3 Ml) Ud) 2.5 mg INH RQ4 PRN PRN Reason: Shortness of Breath Albuterol/Ipratropium (Duoneb 3 Mg/0.5 Mg (3 Ml) Ud) 3 ml INH RQID [facility] Last Admin: 04/21/18 07:34 Dose: 3 ml Aspirin (Ecotrin) 81 mg PO DAILY [facility] Last Admin: 04/21/18 08:14 Dose: 81 mg Diltiazem HCl (Cardizem Cd) 120 mg PO DAILY [facility] Last Admin: 04/21/18 08:44 Dose: Not Given Enoxaparin Sodium (Lovenox) 40 mg SC DAILY [facility] PRN Reason: Protocol Last Admin: 04/21/18 08:12 Dose: 40 mg Fluticasone Propionate (Flonase) 1 spr JACQUIE BID [facility] Last Admin: 04/20/18 18:12 Dose: 1 spr Sodium Chloride (Sodium Chloride 0.9%) 1,000 mls @ 15 mls/hr IV .Q24H [facility] Stop: 04/22/18 07:59 Last Admin: 04/21/18 08:21 Dose: 15 mls/hr Latanoprost (Xalatan Opht) 1 drop OU HS [facility] Ondansetron HCl (Zofran Inj) 4 mg IVP Q6 PRN PRN Reason: Nausea/Vomiting Last Admin: 04/20/18 18:04 Dose: 4 mg Pantoprazole Sodium (Protonix Ec Tab) 40 mg PO DAILY [facility] Last Admin: 04/21/18 08:08 Dose: 40 mg Simethicone (Mylicon Chew Tab) 80 mg PO [facility] PRN PRN Reason: Flatulence Last Admin: 04/21/18 08:08 Dose: 80 mg Zolpidem Tartrate (Ambien) 5 mg PO HS PRN PRN Reason: Insomnia Last Admin: 04/20/18 21:20 Dose: 5 mg - Labs Labs: 04/21/18 04:20 04/21/18 04:20 - Respiratory Exam Respiratory Exam: Decreased Breath Sounds - Cardiovascular Exam Cardiovascular Exam: REGULAR RHYTHM, +S1, +S2 - Extremities Exam Extremities Exam: Normal Inspection - Additional Findings Additional findings: [employer] NSR NEPHROLOGY NOTE REVIEWED WITH WORSENING RENAL FUNCTION AND STOPPING OF FUROSEMIDE AND LOSARTAN AND POSSIBLE DEHYDRATION Assessment and Plan - Assessment and Plan (Free Text) Assessment: COPD ACUTE DIASTOLIC CHF-TREATED DECREASING RENAL FUNCTION HISTORY OF ATRIAL FIBRILLATION-NOW IN SINUS RHYTHM Plan: LOSARTAN AND FUROSEMIDE WERE STOPPED AND SMALL AMOUNT OF IV NS GIVEN CONTINUE LOVENOX AND ASPIRIN CONTINUE CARDIZEM PER BP
--- NOTE | 2018-04-21 09:28 | CP.PCM.PN ---
Subjective - Date & Time of Evaluation Date of Evaluation: 04/21/18 Time of Evaluation: 09:20 - Subjective Subjective: Continues to complain of poor appetite, early satiety and nausea. Slept poorly again last night despite Ambien. Not complaining of SOB, but remains inactive, mostly in bed. Had small bowel movement yesterday. Renal consult appreciated, BUN/Creat seem a little improved today. Remains hyponatremic, normoglycemic. SpO2 98% on nasal O2 @ 2 LPM. Mood does appear somewhat depressed. No dependant edema, no cyanosis or rash. Neck is supple and trachea midline, no palpable lymphadenopathy. Hyper-resonant chest percussion bilaterally. Diminished breath sounds bilaterally w/o wheezes. Rare dry rales in lower lobes posteriorly, no bronchial breath sounds. Heart sounds are distant, bradycardic at 48BPM. Abdomen is soft and non-tender. COPD exacerbation appears improved. Hyponatemia/BRENDA possibly diuretic related. Bradycardia likely related to Cardizem and Timolol. No ill effect from use of Duoneb; continue to monitor. Psych eval? GI eval? Objective - Vital Signs/Intake and Output Vital Signs (last 24 hours): Temp Pulse Resp BP Pulse Ox 97.6 F 50 L 18 103/65 97 04/21/18 08:05 04/21/18 08:44 04/21/18 08:05 04/21/18 08:44 04/21/18 08:05 - Medications Medications: Current Medications Albuterol Sulfate (Albuterol 0.083% Inhal Paulina (2.5 Mg/3 Ml) Ud) 2.5 mg INH RQ4 PRN PRN Reason: Shortness of Breath Albuterol/Ipratropium (Duoneb 3 Mg/0.5 Mg (3 Ml) Ud) 3 ml INH RQID [facility] Last Admin: 04/21/18 07:34 Dose: 3 ml Aspirin (Ecotrin) 81 mg PO DAILY [facility] Last Admin: 04/21/18 08:14 Dose: 81 mg Diltiazem HCl (Cardizem Cd) 120 mg PO DAILY [facility] Last Admin: 04/21/18 08:44 Dose: Not Given Enoxaparin Sodium (Lovenox) 40 mg SC DAILY [facility] PRN Reason: Protocol Last Admin: 04/21/18 08:12 Dose: 40 mg Fluticasone Propionate (Flonase) 1 spr JACQUIE BID [facility] Last Admin: 04/20/18 18:12 Dose: 1 spr Sodium Chloride (Sodium Chloride 0.9%) 1,000 mls @ 15 mls/hr IV .Q24H [facility] Stop: 04/22/18 07:59 Last Admin: 04/21/18 08:21 Dose: 15 mls/hr Latanoprost (Xalatan Opht) 1 drop OU HS [facility] Ondansetron HCl (Zofran Inj) 4 mg IVP Q6 PRN PRN Reason: Nausea/Vomiting Last Admin: 04/20/18 18:04 Dose: 4 mg Pantoprazole Sodium (Protonix Ec Tab) 40 mg PO DAILY [facility] Last Admin: 04/21/18 08:08 Dose: 40 mg Simethicone (Mylicon Chew Tab) 80 mg PO [facility] PRN PRN Reason: Flatulence Last Admin: 04/21/18 08:08 Dose: 80 mg Zolpidem Tartrate (Ambien) 5 mg PO HS PRN PRN Reason: Insomnia Last Admin: 04/20/18 21:20 Dose: 5 mg - Labs Labs: 04/21/18 04:20 04/21/18 04:20 Assessment and Plan (1) Congestive heart failure Status: Acute (2) COPD (chronic obstructive pulmonary disease) Status: Chronic (3) Status post thoracotomy Status: Inactive (4) Pulmonary nodules Status: Chronic
--- NOTE | 2018-04-21 11:29 | CP.PCM.PN ---
Subjective - Date & Time of Evaluation Date of Evaluation: 04/21/18 Time of Evaluation: 10:29 - Subjective Subjective: patient seen and examined this AM. no acute events overnight. patient tolerating po well though still complaints of poor appetite and weight loss. breathing well. no cp, sob, palpitations, dizziness. continues with occasionally bloating. Objective - Vital Signs/Intake and Output Vital Signs (last 24 hours): Temp Pulse Resp BP Pulse Ox 97.6 F 50 L 18 103/65 97 04/21/18 09:00 04/21/18 09:00 04/21/18 09:00 04/21/18 09:00 04/21/18 09:00 - Medications Medications: Current Medications Albuterol Sulfate (Albuterol 0.083% Inhal Paulina (2.5 Mg/3 Ml) Ud) 2.5 mg INH RQ4 PRN PRN Reason: Shortness of Breath Albuterol/Ipratropium (Duoneb 3 Mg/0.5 Mg (3 Ml) Ud) 3 ml INH RQID [facility] Last Admin: 04/21/18 11:03 Dose: 3 ml Aspirin (Ecotrin) 81 mg PO DAILY [facility] Last Admin: 04/21/18 08:14 Dose: 81 mg Diltiazem HCl (Cardizem Cd) 120 mg PO DAILY [facility] Last Admin: 04/21/18 08:44 Dose: Not Given Enoxaparin Sodium (Lovenox) 40 mg SC DAILY [facility] PRN Reason: Protocol Last Admin: 04/21/18 08:12 Dose: 40 mg Fluticasone Propionate (Flonase) 1 spr JACQUIE BID [facility] Last Admin: 04/21/18 09:30 Dose: 1 spr Sodium Chloride (Sodium Chloride 0.9%) 1,000 mls @ 15 mls/hr IV .Q24H [facility] Stop: 04/22/18 07:59 Last Admin: 04/21/18 08:21 Dose: 15 mls/hr Latanoprost (Xalatan Opht) 1 drop OU HS [facility] Ondansetron HCl (Zofran Inj) 4 mg IVP Q6 PRN PRN Reason: Nausea/Vomiting Last Admin: 04/20/18 18:04 Dose: 4 mg Pantoprazole Sodium (Protonix Ec Tab) 40 mg PO DAILY [facility] Last Admin: 04/21/18 08:08 Dose: 40 mg Simethicone (Mylicon Chew Tab) 80 mg PO [facility] PRN PRN Reason: Flatulence Last Admin: 04/21/18 08:08 Dose: 80 mg Zolpidem Tartrate (Ambien) 5 mg PO HS PRN PRN Reason: Insomnia Last Admin: 04/20/18 21:20 Dose: 5 mg - Labs Labs: 04/21/18 04:20 04/21/18 04:20 - Additional Findings Additional findings: - Constitutional Appears: Well, Non-toxic, No Acute Distress - Head Exam Head Exam: ATRAUMATIC, NORMAL INSPECTION, NORMOCEPHALIC - Eye Exam Eye Exam: Normal appearance - Neck Exam Neck Exam: Normal Inspection - Respiratory Exam Respiratory Exam: Decreased Breath Sounds, Clear to Ausculation Bilateral, NORMAL BREATHING PATTERN - Cardiovascular Exam Cardiovascular Exam: REGULAR RHYTHM, +S1, +S2. absent: Murmur - GI/Abdominal Exam GI & Abdominal Exam: Soft, Normal Bowel Sounds. absent: Tenderness - Extremities Exam Extremities Exam: Normal Inspection - Back Exam Back Exam: NORMAL INSPECTION - Neurological Exam Neurological Exam: Alert, Awake, Oriented x3 - Psychiatric Exam Psychiatric exam: Normal Affect, Normal Mood - Skin Skin Exam: Dry, Intact, Normal Color, Warm Assessment and Plan - Assessment and Plan (Free Text) Assessment: 87 y/o female with hx of COPD, Afibb, and Lung Ca (s/p Lobectomy 10+ years ago) admitted due to CHF exacerbation and COPD. Improvement from yesterday breathing. however still with poor appetite, weight loss, and abdominal bloating. Noted to be bradycardic as well. plan appreciate cardio/pulm recommendations reviewed chart c/w management as prescribed obtain EKG GI consulted labs in AM if EKG normal, will transfer to med/surg
[2018-04-21 11:52] LABS: CREATININE, RANDOM URINE 76.2 mg/dL
--- NOTE | 2018-04-21 11:54 | CP.PCM.CON ---
History of Present Illness - History of Present Illness History of Present Illness: PGY-4 GI Fellow Consult Note Pt is a 87yo WF with COPD, Afib, h/o Lung CA (s/p lobectomy 2 yrs ago), HTN, Anxiety who presented on 04/18/18 with worsening shortness of breath and admitted for COPD/CHF exacerbation and BRENDA. On ROS, she reported 20 lbs weight loss and abd pain; therfore, GI consulted. She states over the last several weeks or more she has had sensation of abdominal fullness and early satiety. States that she has minimal appetite and as a result has lost about 20 lbs over that time period. She reports feeling nauseous but denied any emesis. She cannot identify any precipitating or alleviating factors, but thinks a medication she has been receiving in the hospital has helped some with her symtoms, but she is not sure which one. She denies any dysphagia, melena, hematochezia or abd pain. As far as BMs, she reports that she normally had daily, soft bowel movement, but thinks over the last few weeks she has had less frequent and smaller BMs that are brown in color. She thinks she had a colonoscopy within the last several years but is unsure of results. EGD from Apr 2016 below. 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), denied EtOH or illicits All: Reviewed, PCN, sulfa Past Patient History - Infectious Disease Hx of Infectious Diseases: None - Tetanus Immunizations Tetanus Immunization: Unknown - Past Medical History & Family History Past Medical History?: Yes - Past Social History Smoking Status: Former Smoker Chewing Tobacco Use: No Cigar Use: No Alcohol: None Drugs: Denies Home Situation {Lives}: Alone - CARDIAC Hx Atrial Fibrillation: Yes Hx Congestive Heart Failure: Yes Hx Hypercholesterolemia: Yes Hx Hypertension: Yes - PULMONARY Hx Chronic Obstructive Pulmonary Disease (COPD): Yes Hx Lung Cancer: Yes (Adenocarcinoma, right upper lobe) Hx Pneumonia: Yes - NEUROLOGICAL Hx Neurological Disorder: No - HEENT Hx Glaucoma: Yes Hx Macular Degeneration: Yes - RENAL Hx Chronic Kidney Disease: No - ENDOCRINE/METABOLIC Hx Endocrine Disorders: No - HEMATOLOGICAL/ONCOLOGICAL Hx Anemia: Yes - INTEGUMENTARY Hx Dermatological Problems: No - MUSCULOSKELETAL/RHEUMATOLOGICAL Hx Arthritis: Yes Hx Falls: No Hx Fractures: Yes (Microfracture left tibial plateau) - GASTROINTESTINAL Other/Comment: Hiatal hernia - GENITOURINARY/GYNECOLOGICAL Hx Urinary Tract Infection: Yes (Recent) - PSYCHIATRIC Hx Anxiety: Yes Hx Substance Use: No Other/Comment: Insomnia - SURGICAL HISTORY Hx Orthopedic Surgery: Yes Hx Pulmonary Surgery: Yes Hx Tonsillectomy: Yes - ANESTHESIA Hx Anesthesia: Yes Hx Anesthesia Reactions: No Hx Malignant Hyperthermia: No Meds Allergies/Adverse Reactions: Allergies Allergy/AdvReac Type Severity Reaction Status Date / Time Penicillins Allergy ANAPHYLAXIS Verified 04/17/18 21:51 Sulfa (Sulfonamide Allergy RASH Verified 04/17/18 21:51 Antibiotics) sulfamethoxazole Allergy RASH Verified 04/17/18 21:51 [From Bactrim] trimethoprim [From Bactrim] Allergy RASH Verified 04/17/18 21:51 - Medications Medications: Current Medications Albuterol Sulfate (Albuterol 0.083% Inhal Paulina (2.5 Mg/3 Ml) Ud) 2.5 mg INH RQ4 PRN PRN Reason: Shortness of Breath Albuterol/Ipratropium (Duoneb 3 Mg/0.5 Mg (3 Ml) Ud) 3 ml INH RQID [facility] Last Admin: 04/21/18 11:03 Dose: 3 ml Aspirin (Ecotrin) 81 mg PO DAILY [facility] Last Admin: 04/21/18 08:14 Dose: 81 mg Diltiazem HCl (Cardizem Cd) 120 mg PO DAILY [facility] Last Admin: 04/21/18 08:44 Dose: Not Given Enoxaparin Sodium (Lovenox) 40 mg SC DAILY [facility] PRN Reason: Protocol Last Admin: 04/21/18 08:12 Dose: 40 mg Fluticasone Propionate (Flonase) 1 spr JACQUIE BID [facility] Last Admin: 04/21/18 09:30 Dose: 1 spr Sodium Chloride (Sodium Chloride 0.9%) 1,000 mls @ 15 mls/hr IV .Q24H [facility] Stop: 04/22/18 07:59 Last Admin: 04/21/18 08:21 Dose: 15 mls/hr Latanoprost (Xalatan Opht) 1 drop OU HS [facility] Ondansetron HCl (Zofran Inj) 4 mg IVP Q6 PRN PRN Reason: Nausea/Vomiting Last Admin: 04/20/18 18:04 Dose: 4 mg Pantoprazole Sodium (Protonix Ec Tab) 40 mg PO DAILY [facility] Last Admin: 04/21/18 08:08 Dose: 40 mg Simethicone (Mylicon Chew Tab) 80 mg PO P[facility]S PRN PRN Reason: Flatulence Last Admin: 04/21/18 08:08 Dose: 80 mg Zolpidem Tartrate (Ambien) 5 mg PO HS PRN PRN Reason: Insomnia Last Admin: 04/20/18 21:20 Dose: 5 mg Physical Exam - Constitutional Appears: No Acute Distress, Chronically Ill - Head Exam Head Exam: ATRAUMATIC, NORMAL INSPECTION - Eye Exam Eye Exam: EOMI. absent: Conjunctival injection, Scleral icterus - ENT Exam ENT Exam: Mucous Membranes Moist, Normal External Ear Exam. absent: Mucous Membranes Dry - Respiratory Exam Respiratory Exam: Clear to Auscultation Bilateral, NORMAL BREATHING PATTERN. absent: Accessory Muscle Use, Wheezes - Cardiovascular Exam Cardiovascular Exam: REGULAR RHYTHM, RRR - GI/Abdominal Exam GI & Abdominal Exam: Normal Bowel Sounds, Soft. absent: Bruit, Diminished Bowel Sounds, Distended, Firm, Guarding, Hernia, Hyperactive Bowel Sounds, Hypoactive Bowel Sounds, Mass, Organomegaly, Pulsatile Mass, Rebound, Rigid, Tenderness - Rectal Exam Rectal Exam: Deferred - Extremities Exam Extremities exam: Positive for: normal inspection. Negative for: pedal edema - Neurological Exam Neurological exam: Alert, CN II-XII Intact, Oriented x3 - Psychiatric Exam Psychiatric exam: Normal Affect, Normal Mood - Skin Skin Exam: Normal Color, Warm Results - Vital Signs Recent Vital Signs: Last Vital Signs Temp 97.6 F 04/21/18 09:00 Pulse 50 L 04/21/18 09:00 Resp 18 04/21/18 09:00 BP 103/65 04/21/18 09:00 Pulse Ox 97 04/21/18 09:00 - Labs Result Diagrams: 04/21/18 04:20 04/21/18 04:20 Labs: Laboratory Results - last 24 hr 04/21/18 04/21/18 04/21/18 04:20 04:20 09:45 WBC 7.2 RBC 3.65 L Hgb 11.9 L Hct 34.5 MCV 94.7 MCH 32.6 H MCHC 34.4 RDW 13.3 Plt Count 211 Sodium 128 L Potassium 3.6 Chloride 88 L Carbon Dioxide 37 H Anion Gap 7 L BUN 48 H Creatinine 1.6 H Est GFR ( Amer) 37 Est GFR (Non-Af Amer) 30 Random Glucose 103 Serum Osmolality 286 Calcium 9.2 Carcinoembryonic Ag Urine Osmolality 04/21/18 04/21/18 10:00 11:15 WBC RBC Hgb Hct MCV MCH MCHC RDW Plt Count Sodium Potassium Chloride Carbon Dioxide Anion Gap BUN Creatinine Est GFR ( Amer) Est GFR (Non-Af Amer) Random Glucose Serum Osmolality Calcium Carcinoembryonic Ag 2.0 Urine Osmolality 363 Assessment & Plan - Assessment and Plan (Free Text) Assessment: 87 yo WF with h/o Lung CA, Tob Abuse, COPD, Diastolic CHF admitted for COPD/CHF exacerbation, also complaining of weight loss and abd fullness. # Weight loss, Abd Fullness: Unclear etiology. Concerning given reported weight loss, but no signs of bleeding nor dysphagia. Reassuringly, pt states symptoms somewhat improved with PPI therapy while inpatient. EGD from 2016 w/o sig findings. CSPY done at somepoint in last several years, but patient is not sure where, when nor the results. DDx dyspepsia, malignancy, gastritis, celiac , etc. Plan: - KUB - PPI daily, 30 min before first meal of the day - ADAT - Will reassess in AM Pt seen and examined with Dr. Stern. See attestation for further recs/ changes.
[2018-04-21] MEDS ORDERED: Iohexol 240 (50 ml) PO ONE (12:06)
--- NOTE | 2018-04-21 12:49 | CARD ---
APPROVED REPORT Date of service: 04/21/2018 <Conclusion> Sinus bradycardia Otherwise normal ECG
--- NOTE | 2018-04-21 15:58 | RAD ---
Date of service: 04/21/2018 HISTORY: abdominal pain COMPARISON: No prior. FINDINGS: BOWEL: Retained high density material within small bowel loops. No obstruction. No free air. BONES: Normal. OTHER FINDINGS: None. IMPRESSION: No active disease.
[2018-04-21] MEDS: Latanoprost 0.005% Opht SOUTION OU SCH (21:09)
[2018-04-22 07:18] LABS: CALCIUM 9.6 mg/dL (8.4-10.2)
[2018-04-22] MEDS: Albuterol-Ipratrop 3 mg / 0.5 (3 ml) UD INH SCH ×3 (08:05→19:38)
--- NOTE | 2018-04-22 08:25 | CP.PCM.PN ---
Subjective - Date & Time of Evaluation Date of Evaluation: 04/22/18 Time of Evaluation: 07:40 - Subjective Subjective: PGY-4 GI Fellow Prog Note Pt sitting up in bed when seen this AM. States still with similar epigastric fullness. Breath stable to slightly improved from yesterday. 5 point ROS negative other than stated above Objective - Vital Signs/Intake and Output Vital Signs (last 24 hours): Temp Pulse Resp BP Pulse Ox 97.9 F 55 L 18 149/53 L 98 04/22/18 05:28 04/22/18 05:28 04/22/18 05:28 04/22/18 05:28 04/22/18 05:28 - Medications Medications: Current Medications Albuterol Sulfate (Albuterol 0.083% Inhal Paulina (2.5 Mg/3 Ml) Ud) 2.5 mg INH RQ4 PRN PRN Reason: Shortness of Breath Albuterol/Ipratropium (Duoneb 3 Mg/0.5 Mg (3 Ml) Ud) 3 ml INH RQID [facility] Last Admin: 04/21/18 18:59 Dose: 3 ml Aspirin (Ecotrin) 81 mg PO DAILY [facility] Last Admin: 04/21/18 08:14 Dose: 81 mg Diltiazem HCl (Cardizem Cd) 120 mg PO DAILY [facility] Last Admin: 04/21/18 08:44 Dose: Not Given Enoxaparin Sodium (Lovenox) 40 mg SC DAILY [facility]; Protocol Last Admin: 04/21/18 08:12 Dose: 40 mg Fluticasone Propionate (Flonase) 1 spr JACQUIE BID [facility] Last Admin: 04/21/18 17:17 Dose: 1 spr Latanoprost (Xalatan Opht) 1 drop OU HS [facility] Last Admin: 04/21/18 21:09 Dose: 1 drop Ondansetron HCl (Zofran Inj) 4 mg IVP Q6 PRN PRN Reason: Nausea/Vomiting Last Admin: 04/20/18 18:04 Dose: 4 mg Pantoprazole Sodium (Protonix Ec Tab) 40 mg PO DAILY [facility] Last Admin: 04/21/18 08:08 Dose: 40 mg Simethicone (Mylicon Chew Tab) 80 mg PO PCHS PRN PRN Reason: Flatulence Last Admin: 04/21/18 08:08 Dose: 80 mg Zolpidem Tartrate (Ambien) 5 mg PO HS PRN PRN Reason: Insomnia Last Admin: 04/21/18 21:08 Dose: 5 mg - Labs Labs: 04/21/18 04:20 04/22/18 04:20 - Constitutional Appears: Well, Non-toxic, No Acute Distress, Chronically Ill - Head Exam Head Exam: ATRAUMATIC, NORMAL INSPECTION - Eye Exam Eye Exam: EOMI. absent: Conjunctival injection, Scleral icterus - ENT Exam ENT Exam: Mucous Membranes Moist. absent: Mucous Membranes Dry, Normal External Ear Exam - Respiratory Exam Respiratory Exam: Clear to Ausculation Bilateral, NORMAL BREATHING PATTERN - Cardiovascular Exam Cardiovascular Exam: REGULAR RHYTHM, RRR - GI/Abdominal Exam GI & Abdominal Exam: Soft, Normal Bowel Sounds. absent: Bruit, Distended, Firm, Guarding, Rigid, Tenderness, Diminished Bowel Sounds, Hernia, Hyperactive Bowel Sounds, Mass, Organomegaly, Pulsatile Mass, Rebound Assessment and Plan - Assessment and Plan (Free Text) Assessment: 87 yo WF with h/o Lung CA, Tob Abuse, COPD, Diastolic CHF admitted for COPD/CHF exacerbation, also complaining of weight loss and abd fullness. # Weight loss, Abd Fullness: Unclear etiology. Concerning given reported weight loss, but no signs of bleeding nor dysphagia. Reassuringly, pt states symptoms somewhat improved with PPI therapy while inpatient. EGD from 2016 w/o sig findings. CSPY done at somepoint in last several years, but patient is not sure where, when nor the results. DDx dyspepsia, malignancy, gastritis, celiac, etc. Plan: - PPI daily, 30 min before first meal of the day - ADAT - Recommend outpatient followup of symptoms after PPI trial, consider EGD pending course Pt discussed with Dr. Stern. See attestation for further recs/changes.
--- NOTE | 2018-04-22 09:28 | CP.PCM.PN ---
Subjective - Date & Time of Evaluation Date of Evaluation: 04/22/18 Time of Evaluation: 08:30 - Subjective Subjective: NO CHEST PAIN BREATHING BETTER Objective - Vital Signs/Intake and Output Vital Signs (last 24 hours): Temp Pulse Resp BP Pulse Ox 97.9 F 55 L 18 149/53 L 98 04/22/18 05:28 04/22/18 05:28 04/22/18 05:28 04/22/18 05:28 04/22/18 05:28 - Medications Medications: Current Medications Albuterol Sulfate (Albuterol 0.083% Inhal Paulina (2.5 Mg/3 Ml) Ud) 2.5 mg INH RQ4 PRN PRN Reason: Shortness of Breath Albuterol/Ipratropium (Duoneb 3 Mg/0.5 Mg (3 Ml) Ud) 3 ml INH RQID [facility] Last Admin: 04/21/18 18:59 Dose: 3 ml Aspirin (Ecotrin) 81 mg PO DAILY [facility] Last Admin: 04/21/18 08:14 Dose: 81 mg Diltiazem HCl (Cardizem Cd) 120 mg PO DAILY [facility] Last Admin: 04/21/18 08:44 Dose: Not Given Enoxaparin Sodium (Lovenox) 40 mg SC DAILY [facility]; Protocol Last Admin: 04/21/18 08:12 Dose: 40 mg Fluticasone Propionate (Flonase) 1 spr JACQUIE BID [facility] Last Admin: 04/21/18 17:17 Dose: 1 spr Latanoprost (Xalatan Opht) 1 drop OU HS [facility] Last Admin: 04/21/18 21:09 Dose: 1 drop Ondansetron HCl (Zofran Inj) 4 mg IVP Q6 PRN PRN Reason: Nausea/Vomiting Last Admin: 04/20/18 18:04 Dose: 4 mg Pantoprazole Sodium (Protonix Ec Tab) 40 mg PO DAILY [facility] Last Admin: 04/21/18 08:08 Dose: 40 mg Simethicone (Mylicon Chew Tab) 80 mg PO PCHS PRN PRN Reason: Flatulence Last Admin: 04/21/18 08:08 Dose: 80 mg Trazodone HCl (Desyrel) 50 mg PO [facility] - Labs Labs: 04/21/18 04:20 04/22/18 04:20 - Respiratory Exam Respiratory Exam: Decreased Breath Sounds - Cardiovascular Exam Cardiovascular Exam: REGULAR RHYTHM, +S1, +S2 - Extremities Exam Extremities Exam: Normal Inspection - Additional Findings Additional findings: [employer] [facility] Assessment and Plan - Assessment and Plan (Free Text) Assessment: RECENT MILD DIASTOLIC CHF COPD HISTORY OF ATRIAL FIBRILLATION-REMAINS IN NSR Plan: CONTINUE CARDIZEM, ASPIRIN, LOVENOX AND PULMONARY MEDS
[2018-04-22] MEDS: Pantoprazole 40 mg EC Tab PO SCH (09:47)
[2018-04-22] MEDS: Enoxaparin 40 mg Syringe SC SCH (09:47)
[2018-04-22] MEDS: diltiaZEM 120 mg/24 Hours CD Cap PO SCH (09:47)
--- NOTE | 2018-04-22 10:12 | CP.PCM.PN ---
Subjective - Date & Time of Evaluation Date of Evaluation: 04/22/18 Time of Evaluation: 10:09 - Subjective Subjective: Seen on morning rounds in telemetry. Sitting up in bed, eating bkfst, but still c/o 'full feeling'. Appears to become disoriented and confused intermittently. Apparently had some visual hallucinations last night. Seems calm at the present time when interviewed. Had flat plate of abdomen done yesterday. Claims she had two large BM's, one last night another this morning. No documentation of same by nursing. Found in the bathroom last night, as well as walking in the hallway. Found to be 'very forgetful' requiring redirection. Vital signs appear to have remained stable, and she remains afebrile. Renal function has improved significantly, still hyponatremic, slightly better chloride. No cyanosis or dependant edema, no ecchymosis. speech is fluent, memory poor. Follows simple commands, +fine tremors. No focal motor weakness, gait not tested. Neck is supple and trachea is midline. No dullness on chest percussion. Markedly diminished breath sounds bilaterally w/o audible wheezing. Few scattered dependant rhonchi and rare dry rales. Appears to have improved CHF and exacerbation of COPD. Has significant/advanced emphysematous changes in the upper lobes. Needs to have a follow up PFT done after discharge. Has tolerated the use of ipratropium and albuterol w/o adverse effect thus far. May have now developed some degree of delirium compounding cognitive decline or dementia. Persistent GI complaint is confounding. Probably would do well with ADRIANA. May need psych eval as well. Objective - Vital Signs/Intake and Output Vital Signs (last 24 hours): Temp Pulse Resp BP Pulse Ox 97.9 F 55 L 18 149/53 L 98 04/22/18 05:28 04/22/18 05:28 04/22/18 05:28 04/22/18 05:28 04/22/18 05:28 Intake and Output: 04/21/18 04/22/18 23:59 11:59 Intake Total 1150 Balance 1150 - Medications Medications: Current Medications Albuterol Sulfate (Albuterol 0.083% Inhal Paulina (2.5 Mg/3 Ml) Ud) 2.5 mg INH RQ4 PRN PRN Reason: Shortness of Breath Albuterol/Ipratropium (Duoneb 3 Mg/0.5 Mg (3 Ml) Ud) 3 ml INH RQID [facility] Last Admin: 04/21/18 18:59 Dose: 3 ml Aspirin (Ecotrin) 81 mg PO DAILY [facility] Last Admin: 04/22/18 09:47 Dose: 81 mg Diltiazem HCl (Cardizem Cd) 120 mg PO DAILY [facility] Last Admin: 04/22/18 09:47 Dose: 120 mg Enoxaparin Sodium (Lovenox) 40 mg SC DAILY [facility]; Protocol Last Admin: 04/22/18 09:47 Dose: 40 mg Fluticasone Propionate (Flonase) 1 spr JACQUIE BID [facility] Last Admin: 04/22/18 09:47 Dose: 1 spr Latanoprost (Xalatan Opht) 1 drop OU HS [facility] Last Admin: 04/21/18 21:09 Dose: 1 drop Ondansetron HCl (Zofran Inj) 4 mg IVP Q6 PRN PRN Reason: Nausea/Vomiting Last Admin: 04/20/18 18:04 Dose: 4 mg Pantoprazole Sodium (Protonix Ec Tab) 40 mg PO DAILY [facility] Last Admin: 04/22/18 09:47 Dose: 40 mg Simethicone (Mylicon Chew Tab) 80 mg PO PCHS PRN PRN Reason: Flatulence Last Admin: 04/21/18 08:08 Dose: 80 mg Trazodone HCl (Desyrel) 50 mg PO HS [facility] - Labs Labs: 04/21/18 04:20 04/22/18 04:20 Assessment and Plan (1) Congestive heart failure Status: Acute (2) COPD (chronic obstructive pulmonary disease) Status: Chronic (3) Status post thoracotomy Status: Inactive (4) Pulmonary nodules Status: Chronic
--- NOTE | 2018-04-22 12:13 | CP.PCM.PN ---
Subjective - Date & Time of Evaluation Date of Evaluation: 04/22/18 Time of Evaluation: 08:00 - Subjective Subjective: Pt seen and examined this morning. States she had an episode of confusion and hallucinations (dream?). Also states she had periods last week that she cannot remember anything. Otherwise states sob has improved. Had 2 BM this morning, st ill feels abdominal fullness with slight improvement. Appetite low but she is attempting to eat what she can. Objective - Vital Signs/Intake and Output Vital Signs (last 24 hours): Temp Pulse Resp BP Pulse Ox 97.9 F 55 L 18 149/53 L 98 04/22/18 05:28 04/22/18 05:28 04/22/18 05:28 04/22/18 05:28 04/22/18 05:28 - Medications Medications: Current Medications Albuterol Sulfate (Albuterol 0.083% Inhal Paulina (2.5 Mg/3 Ml) Ud) 2.5 mg INH RQ4 PRN PRN Reason: Shortness of Breath Albuterol/Ipratropium (Duoneb 3 Mg/0.5 Mg (3 Ml) Ud) 3 ml INH RQID [facility] Last Admin: 04/22/18 08:05 Dose: Not Given Aspirin (Ecotrin) 81 mg PO DAILY [facility] Last Admin: 04/22/18 09:47 Dose: 81 mg Diltiazem HCl (Cardizem Cd) 120 mg PO DAILY [facility] Last Admin: 04/22/18 09:47 Dose: 120 mg Enoxaparin Sodium (Lovenox) 40 mg SC DAILY [facility]; Protocol Last Admin: 04/22/18 09:47 Dose: 40 mg Fluticasone Propionate (Flonase) 1 spr JACQUIE BID [facility] Last Admin: 04/22/18 09:47 Dose: 1 spr Latanoprost (Xalatan Opht) 1 drop OU HS [facility] Last Admin: 04/21/18 21:09 Dose: 1 drop Ondansetron HCl (Zofran Inj) 4 mg IVP Q6 PRN PRN Reason: Nausea/Vomiting Last Admin: 04/20/18 18:04 Dose: 4 mg Pantoprazole Sodium (Protonix Ec Tab) 40 mg PO DAILY [facility] Last Admin: 04/22/18 09:47 Dose: 40 mg Simethicone (Mylicon Chew Tab) 80 mg PO [facility] PRN PRN Reason: Flatulence Last Admin: 04/21/18 08:08 Dose: 80 mg Trazodone HCl (Desyrel) 50 mg PO HS [facility] - Labs Labs: 04/21/18 04:20 04/22/18 04:20 - Constitutional Appears: Cachectic - Head Exam Head Exam: NORMAL INSPECTION - Eye Exam Eye Exam: Normal appearance - ENT Exam ENT Exam: Mucous Membranes Moist - Respiratory Exam Respiratory Exam: Clear to Ausculation Bilateral. absent: Rales, Wheezes - Cardiovascular Exam Cardiovascular Exam: REGULAR RHYTHM, +S1, +S2 - GI/Abdominal Exam GI & Abdominal Exam: Soft, Normal Bowel Sounds. absent: Tenderness - Extremities Exam Extremities Exam: Normal Inspection. absent: Pedal Edema - Neurological Exam Neurological Exam: Alert, Awake, Oriented x3 - Psychiatric Exam Psychiatric exam: Anxious - Skin Skin Exam: Normal Color Assessment and Plan (1) Shortness of breath Status: Acute (2) COPD (chronic obstructive pulmonary disease) Status: Chronic (3) Atrial fibrillation Status: Acute - Assessment and Plan (Free Text) Assessment: 87 y/o female with hx of COPD, Afibb, and Lung Ca (s/p Lobectomy 10+ years ago) admitted due to CHF exacerbation and COPD. Additionally complaining of poor varsha etite, fullness, and weight loss. Plan: -Transfer to Med/Surg -Walk Test ordered -PT: home, no rec for TCU/Rehab -Psych consulted for episodes of impaired sensorium -appreciate cardio/pulm recommendations -c/w management as prescribed -GI recs appreciated- ADAT, PPI trial, Outpatient f/u Discussed case w/ Dr. Clemente Browning, PGY2
[2018-04-22] MEDS ORDERED: Sodium Chloride 0.9% 1,000 ML IV SCH (14:45)
[2018-04-22] MEDS: Latanoprost 0.005% Opht SOUTION OU SCH (22:39)
[2018-04-22 23:43] VITALS: RESP 18
[2018-04-23 06:00] LABS: CALCIUM 9.1 mg/dL (8.4-10.2)
[2018-04-23] MEDS: Albuterol-Ipratrop 3 mg / 0.5 (3 ml) UD INH SCH ×2 (07:58→11:15)
[2018-04-23 08:27] VITALS: BP 117/49; PULSE 57; TEMP 97.5; O2SAT 100
--- NOTE | 2018-04-23 08:49 | PN ---
DATE: 04/22/2018 SUBJECTIVE: The patient up and around, out of bed with less shortness of breath, complaining of weakness. No nausea. No vomiting. OBJECTIVE: VITAL SIGNS: Noted to be stable. CHEST: Few rhonchi. HEART: No rubs. ABDOMEN: Soft. EXTREMITIES: No edema. LABORATORY DATA: Still pending at this point. We have to follow up serum sodium and serum creatinine. PLAN: Continue normal saline gently and continue monitoring electrolytes. Jeremiah Pastor MD
[2018-04-23] MEDS: Pantoprazole 40 mg EC Tab PO SCH (09:04)
[2018-04-23] MEDS: diltiaZEM 120 mg/24 Hours CD Cap PO SCH (09:04)
[2018-04-23] MEDS: Enoxaparin 40 mg Syringe SC SCH (09:05)
--- NOTE | 2018-04-23 09:14 | CP.PCM.PN ---
Subjective - Date & Time of Evaluation Date of Evaluation: 04/13/18 Time of Evaluation: 08:30 - Subjective Subjective: NO CHEST PAIN BREATHING BETTER TODAY Objective - Vital Signs/Intake and Output Vital Signs (last 24 hours): Temp Pulse Resp BP Pulse Ox 97.5 F L 57 L 18 117/49 L 100 04/23/18 08:27 04/23/18 08:27 04/23/18 08:27 04/23/18 08:27 04/23/18 08:27 - Medications Medications: Current Medications Albuterol Sulfate (Albuterol 0.083% Inhal Paulina (2.5 Mg/3 Ml) Ud) 2.5 mg INH RQ4 PRN PRN Reason: Shortness of Breath Albuterol/Ipratropium (Duoneb 3 Mg/0.5 Mg (3 Ml) Ud) 3 ml INH RQID [facility] Last Admin: 04/23/18 07:58 Dose: 3 ml Aspirin (Ecotrin) 81 mg PO DAILY [facility] Last Admin: 04/23/18 09:04 Dose: 81 mg Diltiazem HCl (Cardizem Cd) 120 mg PO DAILY [facility] Last Admin: 04/23/18 09:04 Dose: 120 mg Enoxaparin Sodium (Lovenox) 40 mg SC DAILY [facility]; Protocol Last Admin: 04/23/18 09:05 Dose: 40 mg Fluticasone Propionate (Flonase) 1 spr JACQUIE BID [facility] Last Admin: 04/23/18 09:05 Dose: 1 spr Sodium Chloride (Sodium Chloride 0.9%) 1,000 mls @ 20 mls/hr IV .Q24H [facility] Stop: 04/23/18 14:39 Latanoprost (Xalatan Opht) 1 drop OU HS [facility] Last Admin: 04/22/18 22:39 Dose: 1 drop Ondansetron HCl (Zofran Inj) 4 mg IVP Q6 PRN PRN Reason: Nausea/Vomiting Last Admin: 04/20/18 18:04 Dose: 4 mg Pantoprazole Sodium (Protonix Ec Tab) 40 mg PO DAILY [facility] Last Admin: 04/23/18 09:04 Dose: 40 mg Simethicone (Mylicon Chew Tab) 80 mg PO P[facility] PRN PRN Reason: Flatulence Last Admin: 04/21/18 08:08 Dose: 80 mg Trazodone HCl (Desyrel) 50 mg PO HS [facility] Last Admin: 04/22/18 22:38 Dose: 50 mg - Labs Labs: 04/21/18 04:20 04/23/18 04:50 - Respiratory Exam Respiratory Exam: Decreased Breath Sounds - Cardiovascular Exam Cardiovascular Exam: REGULAR RHYTHM, +S1, +S2 - Extremities Exam Extremities Exam: Normal Inspection Assessment and Plan - Assessment and Plan (Free Text) Assessment: S/P MILD DIASTOLIC CHF HISTORY OF ATRIAL FIBRILLATION HYPERTENSION COPD DECONDITIONING Plan: CONTINUE ASPIRIN, CARDIZEM, LOVENOX AND PULMONARY MEDICATIONS FOR POSSIBLE DISCHARGE TO TCU TODAY
--- NOTE | 2018-04-23 10:42 | CP.PCM.PN ---
Subjective - Date & Time of Evaluation Date of Evaluation: 04/23/18 Time of Evaluation: 10:36 - Subjective Subjective: Seen on morning rounds in telemetry. Seated on edge of bed conversing on the phone with family. Appears comfortable, well oriented this morning. Admits to failing memory, but seems more alert. Not aware of any 'dreams' or 'hallucinations'. Found wandering in hallway looking for bathroom last night. Awaiting psych consultation. Not complaining of that bloated/full feeling as before. Had first dose of trazodone last night. No dependant edema, no cyanosis. SpO2 on room air at rest 93%. Had ambulatory testing done with drop in SpO2 to 87%, qualifying for home O2. Pharynx is pink and moist w/o exudate. Neck is supple and trachea midline. Breath sounds are diminished equalli in both lungs. No audible wheezes are appreciated. Few scattered dry rales in lower lobes. Heart sounds are very distant, rhythm is regular. Appears her diastolic CHF has improved and her COPD exacerbation as well. Now appears to be approaching her baseline functional status. Her neurological/psych status still needs better understanding. She has had no ill effect from using ipratropium as far as her glaucoma. I agree she would likely do well with short course of physical therapy. Medical regimen will remain the same. Home oxygen on discharge. Objective - Vital Signs/Intake and Output Vital Signs (last 24 hours): Temp Pulse Resp BP Pulse Ox 97.5 F L 57 L 18 117/49 L 100 04/23/18 08:27 04/23/18 08:27 04/23/18 08:27 04/23/18 08:27 04/23/18 08:27 - Medications Medications: Current Medications Albuterol Sulfate (Albuterol 0.083% Inhal Paulina (2.5 Mg/3 Ml) Ud) 2.5 mg INH RQ4 PRN PRN Reason: Shortness of Breath Albuterol/Ipratropium (Duoneb 3 Mg/0.5 Mg (3 Ml) Ud) 3 ml INH RQID [facility] Last Admin: 04/23/18 07:58 Dose: 3 ml Aspirin (Ecotrin) 81 mg PO DAILY [facility] Last Admin: 04/23/18 09:04 Dose: 81 mg Diltiazem HCl (Cardizem Cd) 120 mg PO DAILY [facility] Last Admin: 04/23/18 09:04 Dose: 120 mg Enoxaparin Sodium (Lovenox) 40 mg SC DAILY [facility]; Protocol Last Admin: 04/23/18 09:05 Dose: 40 mg Fluticasone Propionate (Flonase) 1 spr JACQUIE BID [facility] Last Admin: 04/23/18 09:05 Dose: 1 spr Sodium Chloride (Sodium Chloride 0.9%) 1,000 mls @ 20 mls/hr IV .Q24H [facility] Stop: 04/23/18 14:39 Latanoprost (Xalatan Opht) 1 drop OU HS [facility] Last Admin: 04/22/18 22:39 Dose: 1 drop Ondansetron HCl (Zofran Inj) 4 mg IVP Q6 PRN PRN Reason: Nausea/Vomiting Last Admin: 04/20/18 18:04 Dose: 4 mg Pantoprazole Sodium (Protonix Ec Tab) 40 mg PO DAILY [facility] Last Admin: 04/23/18 09:04 Dose: 40 mg Simethicone (Mylicon Chew Tab) 80 mg PO HS PRN PRN Reason: Flatulence Last Admin: 04/21/18 08:08 Dose: 80 mg Trazodone HCl (Desyrel) 50 mg PO HS [facility] Last Admin: 04/22/18 22:38 Dose: 50 mg - Labs Labs: 04/21/18 04:20 04/23/18 04:50 Assessment and Plan (1) Congestive heart failure Status: Acute (2) COPD (chronic obstructive pulmonary disease) Status: Chronic (3) Status post thoracotomy Status: Inactive (4) Pulmonary nodules Status: Chronic
--- NOTE | 2018-04-23 13:57 | CP.PCM.DIS ---
Addendum entered and electronically signed by Bryanna Browning MD 04/23/18 14:39: Physical Exam: Elderly women, alert and oriented, derek cute distress Cardiac: RRR, no murmurs Pulm: CTABL Ex:no edema Psych: Mood normal, linear thought process Addendum entered and electronically signed by Bryanna Browning MD 04/23/18 14:31: Discussed case with Dr. Clemente Browning, PGY2 Original Note: Provider - Provider Date of Admission: 04/18/18 00:06 Attending physician: Tim Cornejo MD Time Spent in preparation of Discharge (in minutes): 35 Diagnosis - Discharge Diagnosis (1) Shortness of breath Status: Resolved (2) COPD (chronic obstructive pulmonary disease) Status: Chronic Priority: High (3) Atrial fibrillation Status: Acute (4) Chronic congestive heart failure Status: Chronic Hospital Course - Lab Results Lab Results: Most Recent Lab Values WBC 7.2 K/uL (4.8-10.8) 04/21/18 04:20 RBC 3.65 Mil/uL (3.80-5.20) L 04/21/18 04:20 Hgb 11.9 g/dL (12.0-16.0) L 04/21/18 04:20 Hct 34.5 % (34.0-47.0) 04/21/18 04:20 MCV 94.7 fl (81.0-99.0) 04/21/18 04:20 MCH 32.6 pg (27.0-31.0) H 04/21/18 04:20 MCHC 34.4 g/dL (33.0-37.0) 04/21/18 04:20 RDW 13.3 % (11.5-14.5) 04/21/18 04:20 Plt Count 211 K/uL (130-400) 04/21/18 04:20 MPV 8.5 fl (7.2-11.7) 04/19/18 06:00 Neut % (Auto) 79.8 % (50.0-75.0) H 04/19/18 06:00 Lymph % (Auto) 13.3 % (20.0-40.0) L 04/19/18 06:00 Saunders % (Auto) 6.7 % (0.0-10.0) 04/19/18 06:00 Eos % (Auto) 0.0 % (0.0-4.0) 04/19/18 06:00 Baso % (Auto) 0.2 % (0.0-2.0) 04/19/18 06:00 Neut # (Auto) 7.7 K/uL (1.8-7.0) H 04/19/18 06:00 Lymph # (Auto) 1.3 K/uL (1.0-4.3) 04/19/18 06:00 Saunders # (Auto) 0.6 K/uL (0.0-0.8) 04/19/18 06:00 Eos # (Auto) 0.0 K/uL (0.0-0.7) 04/19/18 06:00 Baso # (Auto) 0.0 K/uL (0.0-0.2) 04/19/18 06:00 pCO2 40 mm/Hg (35-45) 04/18/18 15:59 pO2 91 mm/Hg (80-100) 04/18/18 15:59 HCO3 28.8 mmol/L (21-28) H 04/18/18 15:59 ABG pH 7.47 (7.35-7.45) H 04/18/18 15:59 ABG Total CO2 30.3 mmol/L (22-28) H 04/18/18 15:59 ABG O2 Saturation 98.6 % (95-98) H 04/18/18 15:59 ABG O2 Content 18.5 ML/dL (15-23) 04/18/18 15:59 ABG Base Excess 5.0 mmol/L (-2.0-3.0) H 04/18/18 15:59 ABG Hemoglobin 13.7 g/dL (11.7-17.4) 04/18/18 15:59 ABG Carboxyhemoglobin 1.7 % (0.5-1.5) H 04/18/18 15:59 POC ABG HHb (Measured) 1.4 % (0.0-5.0) 04/18/18 15:59 ABG Methemoglobin 1.5 % (0.0-3.0) 04/18/18 15:59 ABG O2 Capacity 18.8 mL/dL (16-24) 04/18/18 15:59 Armando Test Yes 04/18/18 15:59 VBG pH 7.34 (7.32-7.43) 04/17/18 22:27 VBG pCO2 53 mmHg (40-60) 04/17/18 22:27 VBG HCO3 25.1 mmol/L 04/17/18 22:27 VBG Total CO2 30.2 mmol/L (22-28) H 04/17/18 22:27 VBG O2 Sat (Calc) 59.1 % (40-65) 04/17/18 22:27 VBG Base Excess 1.8 mmol/L (0.0-2.0) 04/17/18 22: VBG Potassium 4.0 mmol/L (3.6-5.2) 04/17/18 22:27 A-a O2 Difference 59.0 mm/Hg 04/18/18 15:59 Hgb O2 Saturation 95.4 % (95.0-98.0) 04/18/18 15:59 Sodium 126.0 mmol/L (132-148) L 04/17/18 22:27 Chloride 92.0 mmol/L (98-107) L 04/17/18 22:27 Glucose 137 mg/dL (65-105) H 04/17/18 22:27 Lactate 1.2 mmol/L (0.7-2.1) 04/17/18 22:27 FiO2 28.0 % 04/18/18 15:59 Sodium 130 mmol/l (132-148) L 04/23/18 04:50 Potassium 3.7 MMOL/L (3.6-5.0) 04/23/18 04:50 Chloride 89 mmol/L (98-107) L 04/23/18 04:50 Carbon Dioxide 33 mmol/L (22-30) H 04/23/18 04:50 Anion Gap 12 (10-20) 04/23/18 04:50 BUN 30 mg/dl (7-17) H 04/23/18 04:50 Creatinine 1.1 mg/dl (0.7-1.2) 04/23/18 04:50 Est GFR ( Amer) 57 04/23/18 04:50 Est GFR (Non-Af Amer) 47 04/23/18 04:50 Random Glucose 100 mg/dL (65-105) 04/23/18 04:50 Serum Osmolality 286 mosm/kg (272-300) 04/21/18 09:45 Calcium 9.1 mg/dL (8.4-10.2) 04/23/18 04:50 Total Bilirubin 0.4 mg/dl (0.2-1.3) 04/20/18 05:20 AST 29 U/L (14-36) 04/20/18 05:20 ALT 33 U/L (9-52) 04/20/18 05:20 Alkaline Phosphatase 54 U/L (38-126) 04/20/18 05:20 Troponin I 0.0560 ng/mL (0.00-0.120) 04/18/18 10:12 NT-Pro-B Natriuret Pep 632 pg/ml (0-900) 04/20/18 05:20 Total Protein 6.6 G/DL (6.3-8.2) 04/20/18 05:20 Albumin 3.5 g/dL (3.5-5.0) 04/20/18 05:20 Globulin 3.1 gm/dL (2.2-3.9) 04/20/18 05:20 Albumin/Globulin Ratio 1.1 (1.0-2.1) 04/20/18 05:20 Lipase 38 U/L (23-300) 04/17/18 22:20 Carcinoembryonic Ag 2.0 ng/mL (0-3.0) 04/21/18 10:00 CA 19-9 Antigen 8.8 U/mL (0-37) 04/21/18 10:00 CA 125 Antigen 14.6 U/mL (0-35) 04/21/18 10:00 Venous Blood Potassium 4.0 mmol/L (3.6-5.2) 04/17/18 22:27 Urine Color Yellow (YELLOW) 04/19/18 13:52 Urine Clarity Slighty-cloudy (Clear) 04/19/18 13:52 Urine pH 5.0 (5.0-8.0) 04/19/18 13:52 Ur Specific [place] 1.009 (1.003-1.030) 04/19/18 13:52 Urine Protein Negative mg/dL (NEGATIVE) 04/19/18 13:52 Urine Glucose (UA) Neg mg/dL (Normal) 04/19/18 13:52 Urine Ketones Negative mg/dL (NEGATIVE) 04/19/18 13:52 Urine Blood Negative (NEGATIVE) 04/19/18 13:52 Urine Nitrate Negative (NEGATIVE) 04/19/18 13:52 Urine Bilirubin Negative (NEGATIVE) 04/19/18 13:52 Urine Urobilinogen 0.2-1.0 mg/dL (0.2-1.0) 04/19/18 13:52 Ur Leukocyte Esterase Neg [place]/uL (Negative) 04/19/18 13:52 Urine RBC (Auto) 6 /hpf (0-3) H 04/18/18 21:33 Urine Microscopic WBC 2 /hpf (0-5) 04/19/18 13:52 Ur Squamous Epith Cells 1 /hpf (0-5) 04/19/18 13:52 Urine Bacteria Rare (<OCC) 04/19/18 13:52 Hyaline Casts >20 /hpf (0-2) H 04/19/18 13:52 Urine Osmolality 363 mosm/kg (300-1000) 04/21/18 11:15 Ur Random Creatinine 76.2 mg/dL 04/21/18 11:15 Ur Random Sodium 14 mmol/L 04/21/18 11:15 Blood Type O NEGATIVE 04/17/18 22:20 Antibody Screen Positive 04/17/18 22:20 Antibody Identification Anti D 04/17/18 22:20 BBK History Checked Patient has bt 04/17/18 22:20 - Hospital Course Hospital Course: Pt is a 87 y/o female who presented to [facility] with complaints of worsening SOB for the past week and admitted for Diastolic CHF exacerbation. Pt was treated with bronchodilators, lasix, and intermittent BIPAP until clinical improvement. She was followed by Knit Goods Mender, Dr. Washington, and Client Technical Support Associate, Dr. Adam. During her stay, pt complained of chronic abdominal fullness and weight loss for which GI was consulted. She was instructed to complete a trial of PPI's and f/u with GI outpatient for possible endoscopy. Pt was noted to have episodes of confusion and hallucinations in the evening and psych was consulted. Pt was stable for discharge to TCU for gait training and functional mobility. Discharge Medication: Pantoprazole 40mg po daily x 14 days Activity: Ambulating independently Discharge Instructions: F/U with Dr. Rivera, Dr. Washington, Dr. Adam, and GI in 1-2 weeks. Discharge Exam - Head Exam Head Exam: ATRAUMATIC, NORMAL INSPECTION, NORMOCEPHALIC Discharge Plan - Discharge Medications Prescriptions: Pantoprazole [Protonix EC Tab] 40 mg PO DAILY 14 Days #14 ect - Follow Up Plan Condition: GUARDED Disposition: REHAB FACILITY/REHAB UNIT Instructions: Heart Failure, Adult (DC), Exacerbation of COPD (DC) Referrals: Rohan Rivera MD [Family Provider] - Rajiv Washington MD [Staff Provider] - Rush Adam MD [Staff Provider] -
--- NOTE | 2018-04-23 14:12 | CP.PCM.PN ---
Subjective - Date & Time of Evaluation Date of Evaluation: 04/23/18 Time of Evaluation: 14:11 - Subjective Subjective: patient is up and around awake not in acute distress No significant chest pain reported Minor coughing Objective - Vital Signs/Intake and Output Vital Signs (last 24 hours): Temp Pulse Resp BP Pulse Ox 97.5 F L 57 L 18 117/49 L 100 04/23/18 08:27 04/23/18 08:27 04/23/18 08:27 04/23/18 08:27 04/23/18 08:27 - Medications Medications: Current Medications Albuterol Sulfate (Albuterol 0.083% Inhal Paulina (2.5 Mg/3 Ml) Ud) 2.5 mg INH RQ4 PRN PRN Reason: Shortness of Breath Albuterol/Ipratropium (Duoneb 3 Mg/0.5 Mg (3 Ml) Ud) 3 ml INH RQID [facility] Last Admin: 04/23/18 11:15 Dose: 3 ml Aspirin (Ecotrin) 81 mg PO DAILY [facility] Last Admin: 04/23/18 09:04 Dose: 81 mg Diltiazem HCl (Cardizem Cd) 120 mg PO DAILY [facility] Last Admin: 04/23/18 09:04 Dose: 120 mg Enoxaparin Sodium (Lovenox) 40 mg SC DAILY [facility]; Protocol Last Admin: 04/23/18 09:05 Dose: 40 mg Fluticasone Propionate (Flonase) 1 spr JACQUIE BID [facility] Last Admin: 04/23/18 09:05 Dose: 1 spr Latanoprost (Xalatan Opht) 1 drop OU HS [facility] Last Admin: 04/22/18 22:39 Dose: 1 drop Mirtazapine (Remeron) 7.5 mg PO HS [facility] Ondansetron HCl (Zofran Inj) 4 mg IVP Q6 PRN PRN Reason: Nausea/Vomiting Last Admin: 04/20/18 18:04 Dose: 4 mg Pantoprazole Sodium (Protonix Ec Tab) 40 mg PO DAILY [facility] Last Admin: 04/23/18 09:04 Dose: 40 mg Simethicone (Mylicon Chew Tab) 80 mg PO [facility] PRN PRN Reason: Flatulence Last Admin: 04/21/18 08:08 Dose: 80 mg Tolvaptan (Samsca) 15 mg PO ONCE ONE Stop: 04/23/18 14:10 - Labs Labs: 04/21/18 04:20 04/23/18 04:50 - Constitutional Appears: No Acute Distress - Eye Exam Eye Exam: Conjunctival injection - ENT Exam ENT Exam: Mucous Membranes Moist - Neck Exam Neck Exam: absent: Lymphadenopathy - Respiratory Exam Respiratory Exam: absent: Chest Wall Tenderness - GI/Abdominal Exam GI & Abdominal Exam: Soft, Normal Bowel Sounds - Back Exam Back Exam: absent: CVA tenderness (L) - Neurological Exam Neurological Exam: Alert - Psychiatric Exam Psychiatric exam: Anxious - Skin Skin Exam: absent: Cyanosis Assessment and Plan (1) BRENDA (acute kidney injury) Assessment & Plan: acute kidney injury appeared to be improving serum creatinine coming down Metabolic alkalosis improving CO2 came down from 37 to 33 hyponatremia improving somewhat up to 130 The plan Urine osmolality inappropriately higher than serum osmolarity consistent with SIADH We will give Samsca 15 mg dose now monitor serum sodium not to exceed 10 mEq in the next 24 hours DC intravenous normal saline Status: Acute (2) Hyponatremia Status: Acute (3) Hypochloremia Status: Acute (4) COPD (chronic obstructive pulmonary disease) Status: Chronic (5) Atrial fibrillation Status: Acute
[2018-04-23] MEDS ORDERED: Tolvaptan 15 MG TAB PO ONE (14:30)
--- NOTE | 2018-04-23 17:25 | CP.PCM.CON ---
History of Present Illness - History of Present Illness History of Present Illness: pt evaluated for dementia and depression Pt is an 87 y/o female with hx of COPD, Afibb, and Lung Ca (s/p Lobectomy 10+ years ago) who presented to [facility] ED with complaints of worsening SOB pt on evaluation reported has been feeling down for past few weeks, related that to her current medical condition which limits her ability to go outside the house and to practice any activity,she also feels frustrated as she has been having recent memory problems, forgetting conversations and misplacing objects pt stated at times she feels edgy and irritable, reported decreased sleep and decreased appetite, pt denied any suicidal ideation denied perceptual disturbances, no reported substance use Past Patient History - Infectious Disease Hx of Infectious Diseases: None - Tetanus Immunizations Tetanus Immunization: Unknown - Past Medical History & Family History Past Medical History?: Yes - Past Social History Alcohol: None Drugs: Denies - CARDIAC Hx Atrial Fibrillation: Yes Hx Hypercholesterolemia: Yes Hx Hypertension: Yes - PULMONARY Hx Chronic Obstructive Pulmonary Disease (COPD): Yes Hx Emphysema: Yes Hx Pneumonia: Yes - NEUROLOGICAL Hx Neurological Disorder: No - HEENT Hx Glaucoma: Yes Hx Macular Degeneration: Yes - RENAL Hx Chronic Kidney Disease: No - ENDOCRINE/METABOLIC Hx Endocrine Disorders: No - HEMATOLOGICAL/ONCOLOGICAL Hx Anemia: Yes - INTEGUMENTARY Hx Dermatological Problems: No - MUSCULOSKELETAL/RHEUMATOLOGICAL Hx Arthritis: Yes - GASTROINTESTINAL Other/Comment: Hiatal hernia - GENITOURINARY/GYNECOLOGICAL Hx Urinary Tract Infection: Yes (Recent) - PSYCHIATRIC Hx Anxiety: Yes - SURGICAL HISTORY Hx Tonsillectomy: Yes - ANESTHESIA Hx Anesthesia: Yes Hx Anesthesia Reactions: No Hx Malignant Hyperthermia: No Meds Home Medications: Home Medication List Medication Instructions Recorded Confirmed Type Albuterol 0.083% [Albuterol 0.083% 2.5 mg INH RQ4 PRN neb 04/23/18 Rx Inhal Paulina (2.5 mg/3 ml) UD] Albuterol/Ipratropium [Duoneb 3 3 ml INH RQID neb 04/23/18 Rx mg/0.5 mg (3 ml) UD] Enoxaparin [Lovenox] 40 mg SC DAILY syr 04/23/18 Rx Fluticasone Propionate [Flonase] 1 spr JACQUIE BID bottle 04/23/18 Rx Latanoprost 0.005% Opht [Xalatan 1 drop OU HS bottle 04/23/18 Rx Opht] Mirtazapine [Remeron] 7.5 mg PO HS tab 04/23/18 Rx Pantoprazole [Protonix EC Tab] 40 mg PO DAILY 14 Days #14 ect 04/23/18 Rx Simethicone [Mylicon Chew Tab] 80 mg PO [facility] PRN chew 04/23/18 Rx diltiaZEM CD [Cardizem CD] 120 mg PO DAILY cap 04/23/18 Rx Allergies/Adverse Reactions: Allergies Allergy/AdvReac Type Severity Reaction Status Date / Time Penicillins Allergy ANAPHYLAXIS Verified 04/23/18 15:24 Sulfa (Sulfonamide Allergy RASH Verified 04/23/18 15:24 Antibiotics) sulfamethoxazole Allergy RASH Verified 04/23/18 15:24 [From Bactrim] trimethoprim [From Bactrim] Allergy RASH Verified 04/23/18 15:24 Results - Vital Signs Recent Vital Signs: Last Vital Signs Temp 97.5 F L 04/23/18 08:27 Pulse 57 L 04/23/18 08:27 Resp 18 04/23/18 08:27 BP 117/49 L 04/23/18 08:27 Pulse Ox 100 04/23/18 08:27 - Labs Result Diagrams: 04/21/18 04:20 04/23/18 04:50 Labs: Laboratory Results - last 24 hr 04/23/18 04:50 Sodium 130 L Potassium 3.7 Chloride 89 L Carbon Dioxide 33 H Anion Gap 12 BUN 30 H Creatinine 1.1 Est GFR ( Amer) 57 Est GFR (Non-Af Amer) 47 Random Glucose 100 Calcium 9.1 Assessment & Plan - Assessment and Plan (Free Text) Assessment: 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
== END 2018-04-23 14:30 | DRG 190 ==
LOC: H.ER 21:40 → H.ERHOLD 04-18 00:06 → H.TEL 04-18 02:04
PROVIDERS: ADMIT Family Medicine; ATTEND Family Medicine
PROC: 3E0234Z Introduction of Serum, Toxoid and Vaccine into Muscle, Percutaneous Approach (ICD-10-PCS; principal; 2018-04-18)
DX: J44.1 Chronic obstructive pulmonary disease with (acute) exacerbation (principal); I50.33 Acute on chronic diastolic (congestive) heart failure; N17.9 Acute kidney failure, unspecified; E87.1 Hypo-osmolality and hyponatremia; E87.3 Alkalosis; I11.0 Hypertensive heart disease with heart failure; Z87.891 Personal history of nicotine dependence; Z88.2 Allergy status to sulfonamides; Z88.0 Allergy status to penicillin; Z23 Encounter for immunization; Z85.118 Personal history of other malignant neoplasm of bronchus and lung; I48.91 Unspecified atrial fibrillation; F41.9 Anxiety disorder, unspecified; R00.1 Bradycardia, unspecified; T46.1X5A Adverse effect of calcium-channel blockers, initial encounter; T44.7X5A Adverse effect of beta-adrenoreceptor antagonists, initial encounter; I27.20 Pulmonary hypertension, unspecified; E78.00 Pure hypercholesterolemia, unspecified

== ENCOUNTER 2018-04-23 13:46 | Inpatient (IN) | payer OTHER ==
[2018-04-23 15:24] VITALS: BMI 17.0
[2018-04-23] MEDS ORDERED: Simethicone 80 mg Chewtab PO PRN (16:05)
[2018-04-23] MEDS: Latanoprost 0.005% Opht SOUTION OU SCH (21:08)
[2018-04-24] MEDS: Albuterol-Ipratrop 3 mg / 0.5 (3 ml) UD INH SCH ×4 (07:38→19:02)
[2018-04-24] MEDS: Enoxaparin 30 mg Syringe SC SCH (08:24)
[2018-04-24] MEDS: diltiaZEM 120 mg/24 Hours CD Cap PO SCH (08:25)
[2018-04-24] MEDS: Pantoprazole 40 mg EC Tab PO SCH (08:25)
--- NOTE | 2018-04-24 09:02 | CP.PCM.CON ---
History of Present Illness - History of Present Illness History of Present Illness: Psychiatry consult Patient seen by Psychiatry Consult yesterday at 17:[address] Harkins, see note below: pt evaluated for dementia and depression Pt is an 87 y/o female with hx of COPD, Afibb, and Lung Ca (s/p Lobectomy 10+ years ago) who presented to [facility] ED with complaints of worsening SOB pt on evaluation reported has been feeling down for past few weeks, related that to her current medical condition which limits her ability to go outside the house and to practice any activity,she also feels frustrated as she has been having recent memory problems, forgetting conversations and misplacing objects pt stated at times she feels edgy and irritable, reported decreased sleep and decreased appetite, pt denied any suicidal ideation denied perceptual disturbances, no reported substance use Assessment: 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 Past Patient History - Infectious Disease Hx of Infectious Diseases: None - Tetanus Immunizations Tetanus Immunization: Unknown - Past Medical History & Family History Past Medical History?: Yes - Past Social History Smoking Status: Never Smoked - CARDIAC Hx Atrial Fibrillation: Yes Hx Hypercholesterolemia: Yes Hx Hypertension: Yes - PULMONARY Hx Chronic Obstructive Pulmonary Disease (COPD): Yes Hx Emphysema: Yes Hx Pneumonia: Yes Hx Respiratory Tract Infection: Yes - NEUROLOGICAL Hx Neurological Disorder: No - HEENT Hx Glaucoma: Yes Hx Macular Degeneration: Yes - RENAL Hx Chronic Kidney Disease: No - ENDOCRINE/METABOLIC Hx Endocrine Disorders: No - HEMATOLOGICAL/ONCOLOGICAL Hx AIDS: No Hx Anemia: Yes Hx Human Immunodeficiency Virus (HIV): No - INTEGUMENTARY Hx Dermatological Problems: No - MUSCULOSKELETAL/RHEUMATOLOGICAL Hx Arthritis: Yes Hx Falls: Yes Hx Unsteady Gait: Yes - GASTROINTESTINAL Other/Comment: Hiatal hernia - GENITOURINARY/GYNECOLOGICAL Hx Urinary Tract Infection: Yes (Recent) - PSYCHIATRIC Hx Anxiety: Yes Hx Substance Use: No - SURGICAL HISTORY Hx Tonsillectomy: Yes - ANESTHESIA Hx Anesthesia: Yes Hx Anesthesia Reactions: No Hx Malignant Hyperthermia: No Meds Allergies/Adverse Reactions: Allergies Allergy/AdvReac Type Severity Reaction Status Date / Time Penicillins Allergy ANAPHYLAXIS Verified 04/23/18 15:24 Sulfa (Sulfonamide Allergy RASH Verified 04/23/18 15:24 Antibiotics) sulfamethoxazole Allergy RASH Verified 04/23/18 15:24 [From Bactrim] trimethoprim [From Bactrim] Allergy RASH Verified 04/23/18 15:24 - Medications Medications: Current Medications Albuterol/Ipratropium (Duoneb 3 Mg/0.5 Mg (3 Ml) Ud) 3 ml INH RQID [facility] Last Admin: 04/24/18 07:38 Dose: 3 ml Aspirin (Ecotrin) 81 mg PO DAILY [facility] Last Admin: 04/24/18 08:25 Dose: 81 mg Diltiazem HCl (Cardizem Cd) 120 mg PO DAILY [facility] Last Admin: 04/24/18 08:25 Dose: 120 mg Enoxaparin Sodium (Lovenox) 30 mg SC DAILY [facility]; Protocol Last Admin: 04/24/18 08:24 Dose: 30 mg Fluticasone Propionate (Flonase) 1 spr JACQUIE BID [facility] Last Admin: 04/24/18 08:23 Dose: 1 spr Latanoprost (Xalatan Opht) 1 drop OU HS [facility] Last Admin: 04/23/18 21:08 Dose: 1 drop Pantoprazole Sodium (Protonix Ec Tab) 40 mg PO DAILY [facility] Last Admin: 04/24/18 08:25 Dose: 40 mg Simethicone (Mylicon Chew Tab) 80 mg PO [facility] PRN PRN Reason: Flatulence Results - Vital Signs Recent Vital Signs: Last Vital Signs Temp 97.6 F 04/24/18 08:50 Pulse 63 04/24/18 08:50 Resp 20 04/24/18 08:50 BP 128/61 04/24/18 08:50 Pulse Ox 97 04/24/18 08:50
--- NOTE | 2018-04-24 09:47 | CP.PCM.CON ---
History of Present Illness - History of Present Illness History of Present Illness: This 87 year old female with COPD was admitted to the acute medical floor with SOB and was treated for diastolic CHF and exacerbation of her underlying COPD. She has had very poor oral intake and has lost over 20 pounds in weight. There has been significant cognitive decline associated with some dementia and a depressed mood because of chronic medical illness. She did well with medical therapy and has been seen by Cardiology as well as Psychiatry apart from myself. She is now discharged to Transitional Care for continued medical treatment and physical therapy. She does have oxygen desaturation with ambulation, and I suspect there is probably nocturnal desaturation as well. At rest, on room air she has had stable, acceptable O2 saturation. Past Patient History - Infectious Disease Hx of Infectious Diseases: None - Tetanus Immunizations Tetanus Immunization: Unknown - Past Medical History & Family History Past Medical History?: Yes - Past Social History Smoking Status: Former Smoker Chewing Tobacco Use: No Cigar Use: No Alcohol: None Drugs: Denies Home Situation {Lives}: Alone - CARDIAC Hx Atrial Fibrillation: Yes Hx Congestive Heart Failure: Yes Hx Hypercholesterolemia: Yes Hx Hypertension: Yes - PULMONARY Hx Chronic Obstructive Pulmonary Disease (COPD): Yes Hx Emphysema: Yes Hx Lung Cancer: Yes Hx Pneumonia: Yes - NEUROLOGICAL Other/Comment: currently diagnosed with dementia - HEENT Hx Glaucoma: Yes Hx Macular Degeneration: Yes - RENAL Hx Chronic Kidney Disease: No - ENDOCRINE/METABOLIC Hx Endocrine Disorders: No - HEMATOLOGICAL/ONCOLOGICAL Hx Anemia: Yes Hx Human Immunodeficiency Virus (HIV): No - INTEGUMENTARY Hx Dermatological Problems: No - MUSCULOSKELETAL/RHEUMATOLOGICAL Hx Arthritis: Yes Hx Falls: Yes Hx Fractures: Yes (tibial plateau) Hx Unsteady Gait: Yes - GASTROINTESTINAL Other/Comment: Hiatal hernia - GENITOURINARY/GYNECOLOGICAL Hx Urinary Tract Infection: Yes (Recent) - PSYCHIATRIC Hx Anxiety: Yes Hx Depression: Yes Hx Substance Use: No - SURGICAL HISTORY 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) Hx Tonsillectomy: Yes - ANESTHESIA Hx Anesthesia: Yes Hx Anesthesia Reactions: No Hx Malignant Hyperthermia: No Meds Allergies/Adverse Reactions: Allergies Allergy/AdvReac Type Severity Reaction Status Date / Time Penicillins Allergy ANAPHYLAXIS Verified 04/23/18 15:24 Sulfa (Sulfonamide Allergy RASH Verified 04/23/18 15:24 Antibiotics) sulfamethoxazole Allergy RASH Verified 04/23/18 15:24 [From Bactrim] trimethoprim [From Bactrim] Allergy RASH Verified 04/23/18 15:24 - Medications Medications: Current Medications Albuterol/Ipratropium (Duoneb 3 Mg/0.5 Mg (3 Ml) Ud) 3 ml INH RQID [facility] Last Admin: 04/24/18 07:38 Dose: 3 ml Aspirin (Ecotrin) 81 mg PO DAILY [facility] Last Admin: 04/24/18 08:25 Dose: 81 mg Diltiazem HCl (Cardizem Cd) 120 mg PO DAILY [facility] Last Admin: 04/24/18 08:25 Dose: 120 mg Enoxaparin Sodium (Lovenox) 30 mg SC DAILY [facility]; Protocol Last Admin: 04/24/18 08:24 Dose: 30 mg Fluticasone Propionate (Flonase) 1 spr JACQUIE BID [facility] Last Admin: 04/24/18 08:23 Dose: 1 spr Latanoprost (Xalatan Opht) 1 drop OU HS [facility] Last Admin: 04/23/18 21:08 Dose: 1 drop Memantine (Namenda) 5 mg PO DAILY [facility] Mirtazapine (Remeron) 7.5 mg PO HS [facility] Pantoprazole Sodium (Protonix Ec Tab) 40 mg PO DAILY [facility] Last Admin: 04/24/18 08:25 Dose: 40 mg Simethicone (Mylicon Chew Tab) 80 mg PO [facility] PRN PRN Reason: Flatulence Physical Exam - Additional Findings Additional findings: Thin, pleasant, lying in bed in no distress. Memory is fair, but she is very forgetful. Speech is fluent, no focal motor weakness. Pharynx is pink and moist w/o exudate. Neck is supple and trachea midline, no JVD. Chest is hyper-resonant on percussion bilaterally. Breath sounds are diminished bilaterallt w/o audible wheezing. Few scattered dry basal rales, occasional sonorous rhonchi. No bronchial breath sounds or egophony. Heart sounds are distant, rhythm regular w/o murmur. Abdomen is soft and non-tender with normal BS. No dependant edema, no cyanosis. Results - Vital Signs Recent Vital Signs: Last Vital Signs Temp 97.6 F 04/24/18 08:50 Pulse 63 04/24/18 08:50 Resp 20 04/24/18 08:50 BP 128/61 04/24/18 08:50 Pulse Ox 97 04/24/18 08:50 Assessment & Plan (1) Hyponatremia Status: Acute Priority: High (2) COPD (chronic obstructive pulmonary disease) Status: Chronic Priority: High (3) Dementia Status: Chronic Priority: High (4) Depression Status: Chronic Priority: High - Assessment and Plan (Free Text) Plan: Continue present medical regimen and physical therapy. Have added Mirtazapine 7.5MG at HS and Namenda 5MG OD. Labs requested for AM. - Date & Time Date: 04/24/18 Time: 09:44
[2018-04-24] MEDS: Cholecalciferol 1,000 INTLU TAB PO SCH (11:51)
[2018-04-24] MEDS: Multivitamin With Minerals Tab PO SCH (11:51)
--- NOTE | 2018-04-24 16:17 | CP.PCM.HP ---
History of Present Illness - History of Present Illness History of Present Illness: Pt is a 87 y/o female w/ pmh xof CHF, COPD, HTN, Lung resection 2 years ago, HLD, and mood disorder, who was recently admitted and treated for Diastolic CHF exacerbation to full resolution. She is now being admitted to TCU for functional mobility and gait training. Of note: Pt has chronic abdominal fullness, was evaluated by GI and placed on trial of PPI's to be f/u outpatient. Also evaluated by Psych for "sundowning" and night time hallucinations- started on Namenda and Remeron. PMD: Prior was Dr. Rivera. States Dr. Washington will be her new primary care provider. Plant Maintenance Supervisor: Dr. Washington Meat Passer: Dr. Adam PMHX: Anxiety, Arthritis, Atrial Fibrillation, COPD, Emphysema, HTN, Hypercholesterolemia, Hx of Pneumonia SurgHx: Tonsillectomy Social: Non smoker Present on Admission - Present on Admission Any Indicators Present on Admission: No Past Patient History - Infectious Disease Hx of Infectious Diseases: None - Tetanus Immunizations Tetanus Immunization: Unknown - Past Medical History & Family History Past Medical History?: Yes - Past Social History Smoking Status: Former Smoker Chewing Tobacco Use: No Cigar Use: No Alcohol: None Drugs: Denies Home Situation {Lives}: Alone - CARDIAC Hx Congestive Heart Failure: Yes Hx Hypercholesterolemia: Yes Hx Hypertension: Yes - PULMONARY Hx Chronic Obstructive Pulmonary Disease (COPD): Yes - NEUROLOGICAL Other/Comment: currently diagnosed with dementia - HEENT Hx Glaucoma: Yes Hx Macular Degeneration: Yes - RENAL Hx Chronic Kidney Disease: No - ENDOCRINE/METABOLIC Hx Endocrine Disorders: No - HEMATOLOGICAL/ONCOLOGICAL Hx Anemia: Yes Hx Human Immunodeficiency Virus (HIV): No - INTEGUMENTARY Hx Dermatological Problems: No - MUSCULOSKELETAL/RHEUMATOLOGICAL Hx Arthritis: Yes - GASTROINTESTINAL Other/Comment: Hiatal hernia - GENITOURINARY/GYNECOLOGICAL Hx Urinary Tract Infection: Yes (Recent) - PSYCHIATRIC Hx Anxiety: Yes Hx Depression: Yes Hx Substance Use: No - SURGICAL HISTORY 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) Hx Tonsillectomy: Yes - ANESTHESIA Hx Anesthesia: Yes Hx Anesthesia Reactions: No Hx Malignant Hyperthermia: No Meds Allergies/Adverse Reactions: Allergies Allergy/AdvReac Type Severity Reaction Status Date / Time Penicillins Allergy ANAPHYLAXIS Verified 04/23/18 15:24 Sulfa (Sulfonamide Allergy RASH Verified 04/23/18 15:24 Antibiotics) sulfamethoxazole Allergy RASH Verified 04/23/18 15:24 [From Bactrim] trimethoprim [From Bactrim] Allergy RASH Verified 04/23/18 15:24 Physical Exam - Constitutional Appears: No Acute Distress, Cachectic - Head Exam Head Exam: NORMAL INSPECTION - Eye Exam Eye Exam: Normal appearance - ENT Exam ENT Exam: Mucous Membranes Moist - Respiratory Exam Respiratory Exam: Clear to Auscultation Bilateral. absent: Rales, Wheezes - Cardiovascular Exam Cardiovascular Exam: REGULAR RHYTHM. absent: Systolic Murmur - Extremities Exam Extremities exam: Negative for: pedal edema - Neurological Exam Neurological exam: Alert, Altered, Oriented x3 - Psychiatric Exam Psychiatric exam: Normal Affect - Skin Skin Exam: Normal Color Results - Vital Signs Recent Vital Signs: Last Vital Signs Temp 97.6 F 04/24/18 08:50 Pulse 63 04/24/18 08:50 Resp 20 04/24/18 08:50 BP 128/61 04/24/18 08:50 Pulse Ox 97 04/24/18 08:50 Assessment & Plan - Assessment and Plan (Free Text) Assessment: Pt is a 87 y/o female w/ pmh xof CHF, COPD, HTN, Lung resection 2 years ago, HLD, and mood disorder, who was recently admitted and treated for Diastolic CHF exacerbation to full resolution. She is now being admitted to TCU for functional mobility and gait training. -Physical therapy -COPD,chronic, duonecherie angel, Dr. Washington following -CHF, diastolic, ASA -Afibb, chronic, diltiazem -GERD, Pantaprazole -Lovenox for DVT ppx -Mood disorder/Dementia (?) Remeron, Memantine Discussed case with Dr. Clemente Browning, PGY2
[2018-04-24] MEDS: Latanoprost 0.005% Opht SOUTION OU SCH (21:29)
[2018-04-25 06:30] LABS: HEMOGLOBIN 11.2 g/dL (12.0-16.0); MEAN CELL VOLUME 95.7 fl (81.0-99.0); MEAN CORPUSCULAR HEMOGLOBIN 32.4 pg (27.0-31.0); MEAN CORPUSCULAR HGB CONC 33.9 g/dL (33.0-37.0); RBC 3.47 Mil/uL (3.80-5.20); RED CELL DISTRIBUTION WIDTH 13.2 % (11.5-14.5)
[2018-04-25 06:47] LABS: BLOOD UREA NITROGEN 23 mg/dl (7-17); CALCIUM 9.4 mg/dL (8.4-10.2); GFR NON-AFRICAN AMERICAN > 60
[2018-04-25] MEDS: Albuterol-Ipratrop 3 mg / 0.5 (3 ml) UD INH SCH ×4 (08:39→19:02)
[2018-04-25] MEDS: Enoxaparin 30 mg Syringe SC SCH (08:46)
[2018-04-25] MEDS: Cholecalciferol 1,000 INTLU TAB PO SCH (08:46)
[2018-04-25] MEDS: Pantoprazole 40 mg EC Tab PO SCH (08:46)
[2018-04-25] MEDS: Multivitamin With Minerals Tab PO SCH (08:47)
[2018-04-25] MEDS: diltiaZEM 120 mg/24 Hours CD Cap PO SCH (08:48)
--- NOTE | 2018-04-25 10:10 | CP.PCM.CON ---
History of Present Illness - History of Present Illness History of Present Illness: THE PATIENT IS AN 87 YEAR OLD FEMALE WHO WAS RECENT ADMITTED TO FOR SOB WITH ACUTE MILD DIASTOLIC CHF AND COPD. SHE HAD RUL SURGERY IN 2016 FOR LUNG CA AND STATES THAT SHE WAS IN ATRIAL FIBRILLATION AFTER THAT AND WAS IN SINUS RHYTHM ON AMIODARONE BUT IT WAS CHANGED TO CARDIZEM DUE TO HAIR LOSS. SHE ALSO HAS HYPERTENSION, DEPRESSION, MILD DEMENTIA AND IS VERY DECONDITIONED. SHE IS BREATHING BETTER NOW AND WAS ADMITTED TO TCU TO CONTINUE HER MEDICAL TREATMENT AND TO RECEIVE SUBACUTE REHAB. SHE DENIES CHEST PAIN. CARDIOLOGY WAS ASKED TO FOLLOW HER. Past Patient History - Infectious Disease Hx of Infectious Diseases: None - Tetanus Immunizations Tetanus Immunization: Unknown - Past Medical History & Family History Past Medical History?: Yes - Past Social History Smoking Status: Former Smoker Chewing Tobacco Use: No Cigar Use: No Alcohol: None Drugs: Denies Home Situation {Lives}: Alone - CARDIAC Hx Congestive Heart Failure: Yes Hx Hypercholesterolemia: Yes Hx Hypertension: Yes - PULMONARY Hx Chronic Obstructive Pulmonary Disease (COPD): Yes - NEUROLOGICAL Other/Comment: currently diagnosed with dementia - HEENT Hx Glaucoma: Yes Hx Macular Degeneration: Yes - RENAL Hx Chronic Kidney Disease: No - ENDOCRINE/METABOLIC Hx Endocrine Disorders: No - HEMATOLOGICAL/ONCOLOGICAL Hx Anemia: Yes Hx Human Immunodeficiency Virus (HIV): No - INTEGUMENTARY Hx Dermatological Problems: No - MUSCULOSKELETAL/RHEUMATOLOGICAL Hx Arthritis: Yes - GASTROINTESTINAL Other/Comment: Hiatal hernia - GENITOURINARY/GYNECOLOGICAL Hx Urinary Tract Infection: Yes (Recent) - PSYCHIATRIC Hx Anxiety: Yes Hx Depression: Yes Hx Substance Use: No - SURGICAL HISTORY 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) Hx Tonsillectomy: Yes - ANESTHESIA Hx Anesthesia: Yes Hx Anesthesia Reactions: No Hx Malignant Hyperthermia: No Meds Allergies/Adverse Reactions: Allergies Allergy/AdvReac Type Severity Reaction Status Date / Time Penicillins Allergy ANAPHYLAXIS Verified 04/23/18 15:24 Sulfa (Sulfonamide Allergy RASH Verified 04/23/18 15:24 Antibiotics) sulfamethoxazole Allergy RASH Verified 04/23/18 15:24 [From Bactrim] trimethoprim [From Bactrim] Allergy RASH Verified 04/23/18 15:24 - Medications Medications: Current Medications Acetaminophen (Tylenol 325mg Tab) 650 mg PO Q6 PRN PRN Reason: Pain, Mild (1-3) Last Admin: 04/25/18 08:49 Dose: 650 mg Albuterol/Ipratropium (Duoneb 3 Mg/0.5 Mg (3 Ml) Ud) 3 ml INH RQID [facility] Last Admin: 04/25/18 08:39 Dose: Not Given Aspirin (Ecotrin) 81 mg PO DAILY [facility] Last Admin: 04/25/18 08:47 Dose: 81 mg Cholecalciferol (Vitamin D) 1,000 intlu PO DAILY [facility] Last Admin: 04/25/18 08:46 Dose: 1,000 intlu Diltiazem HCl (Cardizem Cd) 120 mg PO DAILY [facility] Last Admin: 04/25/18 08:48 Dose: 120 mg Enoxaparin Sodium (Lovenox) 30 mg SC DAILY [facility]; Protocol Last Admin: 04/25/18 08:46 Dose: 30 mg Fluticasone Propionate (Flonase) 1 spr JACQUIE BID [facility] Last Admin: 04/25/18 08:47 Dose: 1 spr Gabapentin (Neurontin) 100 mg PO DAILY [facility] Lactulose (Enulose) 20 gm PO DAILY PRN PRN Reason: Constipation Latanoprost (Xalatan Opht) 1 drop OU HS [facility] Last Admin: 04/24/18 21:29 Dose: 1 drop Memantine (Namenda) 5 mg PO DAILY [facility] Last Admin: 04/25/18 08:46 Dose: 5 mg Mirtazapine (Remeron) 7.5 mg PO HS [facility] Last Admin: 04/24/18 21:26 Dose: 7.5 mg Multivitamins/Minerals (Therapeutic-M Tab) 1 tab PO DAILY [facility] Last Admin: 04/25/18 08:47 Dose: 1 tab Pantoprazole Sodium (Protonix Ec Tab) 40 mg PO DAILY [facility] Last Admin: 04/25/18 08:46 Dose: 40 mg Simethicone (Mylicon Chew Tab) 80 mg PO HS PRN PRN Reason: Flatulence Physical Exam - Respiratory Exam Respiratory Exam: Decreased Breath Sounds - Cardiovascular Exam Cardiovascular Exam: REGULAR RHYTHM, +S1, +S2 - Extremities Exam Extremities exam: Positive for: normal inspection - Additional Findings Additional findings: EKGS AND TELEMETRY MONITORING ON 4N SHOWED THAT SHE IS IN SINUS RHYTHM Results - Vital Signs Recent Vital Signs: Last Vital Signs Temp 98.2 F 04/25/18 09:17 Pulse 62 04/25/18 09:17 Resp 18 04/25/18 09:17 BP 148/52 L 04/25/18 09:17 Pulse Ox 96 04/25/18 09:17 - Labs Result Diagrams: 04/25/18 05:45 04/25/18 05:45 Labs: Laboratory Results - last 24 hr 04/25/18 04/25/18 05:45 05:45 WBC 7.0 RBC 3.47 L Hgb 11.2 L Hct 33.2 L MCV 95.7 MCH 32.4 H MCHC 33.9 RDW 13.2 Plt Count 210 Sodium 134 Potassium 4.5 Chloride 96 L Carbon Dioxide 36 H Anion Gap 7 L BUN 23 H Creatinine 0.8 Est GFR ( Amer) > 60 Est GFR (Non-Af Amer) > 60 Random Glucose 91 Calcium 9.4 Assessment & Plan - Assessment and Plan (Free Text) Assessment: DECONDITIONING RECENT MILD DIASTOLIC CHF S/P ATRIAL FIBRILLATION-NOW IN NSR HYPERTENSION SMOKING HISTORY WITH RUL CA WITH SURGERY AND COPD DEPRESSION MILD DEMENTIA Plan: CONTINUE DILTIAZEM, ASPIRIN, LOVENOX AND COPD MEDICATIONS CONTINUE SUBACUTE REHAB
--- NOTE | 2018-04-25 13:44 | CP.PCM.PN ---
Subjective - Date & Time of Evaluation Date of Evaluation: 04/25/18 Time of Evaluation: 13:44 - Subjective Subjective: Patient was seen on rounds in transitional care. She appears to be comfortable seated in the bedside chair with her daughter present. Her appetite appears to be improving slightly over time. She has gained approximately 2 pounds of weight. She does relate a feeling of "numbness" over her entire body. This was present yesterday but limited to the pelvic region. Her breathing is comfortable at rest and her oxygenation is satisfactory. Namenda and mirtazapine have been begun and she was given a low dose of gabapentin today because of her complaint of paresthesia. Objective - Vital Signs/Intake and Output Vital Signs (last 24 hours): Temp Pulse Resp BP Pulse Ox 98.2 F 62 18 148/52 L 96 04/25/18 09:17 04/25/18 09:17 04/25/18 09:17 04/25/18 09:17 04/25/18 09:17 - Medications Medications: Current Medications Acetaminophen (Tylenol 325mg Tab) 650 mg PO Q6 PRN PRN Reason: Pain, Mild (1-3) Last Admin: 04/25/18 08:49 Dose: 650 mg Albuterol/Ipratropium (Duoneb 3 Mg/0.5 Mg (3 Ml) Ud) 3 ml INH RQID [facility] Last Admin: 04/25/18 11:42 Dose: 3 ml Aspirin (Ecotrin) 81 mg PO DAILY [facility] Last Admin: 04/25/18 08:47 Dose: 81 mg Cholecalciferol (Vitamin D) 1,000 intlu PO DAILY [facility] Last Admin: 04/25/18 08:46 Dose: 1,000 intlu Diltiazem HCl (Cardizem Cd) 120 mg PO DAILY [facility] Last Admin: 04/25/18 08:48 Dose: 120 mg Enoxaparin Sodium (Lovenox) 30 mg SC DAILY [facility]; Protocol Last Admin: 04/25/18 08:46 Dose: 30 mg Fluticasone Propionate (Flonase) 1 spr JACQUIE BID [facility] Last Admin: 04/25/18 08:47 Dose: 1 spr Gabapentin (Neurontin) 100 mg PO DAILY [facility] Last Admin: 04/25/18 10:09 Dose: 100 mg Lactulose (Enulose) 20 gm PO DAILY PRN PRN Reason: Constipation Latanoprost (Xalatan Opht) 1 drop OU HS [facility] Last Admin: 04/24/18 21:29 Dose: 1 drop Memantine (Namenda) 5 mg PO DAILY [facility] Last Admin: 04/25/18 08:46 Dose: 5 mg Mirtazapine (Remeron) 7.5 mg PO HS [facility] Last Admin: 04/24/18 21:26 Dose: 7.5 mg Multivitamins/Minerals (Therapeutic-M Tab) 1 tab PO DAILY [facility] Last Admin: 04/25/18 08:47 Dose: 1 tab Pantoprazole Sodium (Protonix Ec Tab) 40 mg PO DAILY [facility] Last Admin: 04/25/18 08:46 Dose: 40 mg Simethicone (Mylicon Chew Tab) 80 mg PO [facility] PRN PRN Reason: Flatulence - Labs Labs: 04/25/18 05:45 04/25/18 05:45 Assessment and Plan (1) Hyponatremia Status: Acute (2) COPD (chronic obstructive pulmonary disease) Status: Chronic (3) Dementia Status: Chronic (4) Depression Status: Chronic
--- NOTE | 2018-04-25 16:37 | CP.PCM.PN ---
Subjective - Date & Time of Evaluation Date of Evaluation: 04/25/18 Time of Evaluation: 09:00 - Subjective Subjective: Pt seen and examined this am with Dr. Rivera. Complained of duffuse numbness for the past day. States she feels anxious. Denies any motor deficits, headache, blurry vision. Pt has mild tremor and appears anxious. Neurontin ordered. Pt re- examined after receiving medication and feels symptoms improved. Objective - Vital Signs/Intake and Output Vital Signs (last 24 hours): Temp Pulse Resp BP Pulse Ox 98.2 F 62 18 148/52 L 96 04/25/18 09:17 04/25/18 09:17 04/25/18 09:17 04/25/18 09:17 04/25/18 09:17 - Medications Medications: Current Medications Acetaminophen (Tylenol 325mg Tab) 650 mg PO Q6 PRN PRN Reason: Pain, Mild (1-3) Last Admin: 04/25/18 08:49 Dose: 650 mg Albuterol/Ipratropium (Duoneb 3 Mg/0.5 Mg (3 Ml) Ud) 3 ml INH RQID [facility] Last Admin: 04/25/18 15:03 Dose: 3 ml Aspirin (Ecotrin) 81 mg PO DAILY [facility] Last Admin: 04/25/18 08:47 Dose: 81 mg Cholecalciferol (Vitamin D) 1,000 intlu PO DAILY [facility] Last Admin: 04/25/18 08:46 Dose: 1,000 intlu Diltiazem HCl (Cardizem Cd) 120 mg PO DAILY [facility] Last Admin: 04/25/18 08:48 Dose: 120 mg Enoxaparin Sodium (Lovenox) 30 mg SC DAILY [facility]; Protocol Last Admin: 04/25/18 08:46 Dose: 30 mg Fluticasone Propionate (Flonase) 1 spr JACQUIE BID [facility] Last Admin: 04/25/18 08:47 Dose: 1 spr Gabapentin (Neurontin) 100 mg PO DAILY [facility] Last Admin: 04/25/18 10:09 Dose: 100 mg Lactulose (Enulose) 20 gm PO DAILY PRN PRN Reason: Constipation Latanoprost (Xalatan Opht) 1 drop OU HS [facility] Last Admin: 04/24/18 21:29 Dose: 1 drop Memantine (Namenda) 5 mg PO DAILY [facility] Last Admin: 04/25/18 08:46 Dose: 5 mg Mirtazapine (Remeron) 7.5 mg PO [facility] Last Admin: 04/24/18 21:26 Dose: 7.5 mg Multivitamins/Minerals (Therapeutic-M Tab) 1 tab PO DAILY [facility] Last Admin: 04/25/18 08:47 Dose: 1 tab Pantoprazole Sodium (Protonix Ec Tab) 40 mg PO DAILY [facility] Last Admin: 04/25/18 08:46 Dose: 40 mg Simethicone (Mylicon Chew Tab) [address] [facility] PRN PRN Reason: Flatulence - Labs Labs: 04/25/18 05:45 04/25/18 05:45 - Constitutional Appears: No Acute Distress - Eye Exam Eye Exam: Normal appearance, PERRL. absent: Nystagmus - ENT Exam ENT Exam: Mucous Membranes Moist - Neck Exam Neck Exam: Full ROM, Normal Inspection. absent: Meningismus - Respiratory Exam Respiratory Exam: Clear to Ausculation Bilateral. absent: Rales, Wheezes - Cardiovascular Exam Cardiovascular Exam: REGULAR RHYTHM, +S1, +S2. absent: Murmur - GI/Abdominal Exam GI & Abdominal Exam: Soft. absent: Tenderness - Extremities Exam Extremities Exam: absent: Pedal Edema - Neurological Exam Neurological Exam: Alert, CN II-XII Intact, Normal Gait, Reflexes Normal Neuro motor strength exam: Left Upper Extremity: 5, Right Upper Extremity: 5, Left Lower Extremity: 5, Right Lower Extremity: 5 - Psychiatric Exam Psychiatric exam: Anxious - Skin Skin Exam: Normal Color Assessment and Plan - Assessment and Plan (Free Text) Assessment: Pt is a 87 y/o female w/ pmh xof CHF, COPD, HTN, Lung resection 2 years ago, HLD, and mood disorder, who was recently admitted and treated for Diastolic CHF exacerbation to full resolution. She is now being admitted to TCU for functional mobility and gait training. -Paresthesias, may be psychogenic in etiology. Neurontin po daily. Continue to monitor. -Physical therapy -COPD,chronic, duonebs, flonase, Dr. Washington following -CHF, diastolic, ASA -Afibb, chronic, diltiazem -GERD, Pantaprazole -Lovenox for DVT ppx -Mood disorder/Dementia (?) Remeron, Memantine Discussed case with Dr. Miguel Browning, PGY2
[2018-04-25 17:34] LABS: SQUAMOUS EPITHIAL 1 /hpf (0-5); URINE BILIRUBIN NEGATIVE (NEGATIVE); URINE BLOOD NEGATIVE (NEGATIVE); URINE CLARITY SLIGHTY-CLOUDY (Clear); URINE COLOR AMBER (YELLOW); URINE GLUCOSE (UA) NEG (Normal); URINE LEUKOCYTE ESTERASE NEG Leu/uL (Negative); URINE PROTEIN NEGATIVE (NEGATIVE); URINE UROBILINOGEN 0.2-1.0 mg/dL (0.2-1.0)
[2018-04-25] MEDS: Latanoprost 0.005% Opht SOUTION OU SCH (21:14)
[2018-04-26] MEDS: Multivitamin With Minerals Tab PO SCH (08:07)
[2018-04-26] MEDS: diltiaZEM 120 mg/24 Hours CD Cap PO SCH (08:07)
[2018-04-26] MEDS: Enoxaparin 30 mg Syringe SC SCH (08:07)
[2018-04-26] MEDS: Pantoprazole 40 mg EC Tab PO SCH (08:08)
[2018-04-26] MEDS: Cholecalciferol 1,000 INTLU TAB PO SCH (08:08)
[2018-04-26] MEDS: Albuterol-Ipratrop 3 mg / 0.5 (3 ml) UD INH SCH ×4 (08:48→20:01)
--- NOTE | 2018-04-26 15:35 | PN ---
DATE: 04/26/2018 SUBJECTIVE: The patient is seen and examined. The patient is seen for Dr. while he is away. The patient remains in transitional care unit. The patient feels okay. Denies any specific complaint. No chest pain. No shortness of breath. PHYSICAL EXAMINATION: GENERAL: The patient is in no acute distress. VITAL SIGNS: Stable. CARDIOPULMONARY: S1 and S2, normal and regular. LUNGS: Good bilateral air entry. ABDOMEN: Soft, nontender. EXTREMITIES: No edema, no calf swelling, no tenderness, no acute ischemia. MD PHYSICIAN DERMATOLOGIST: Exam is essentially unchanged. LABORATORY DATA: Available diagnostic data reviewed. ASSESSMENT AND PLAN: Overall, the patient's general clinical condition is stable. Plan as ordered. Augie Aleman MD
--- NOTE | 2018-04-26 15:44 | CP.PCM.PN ---
Subjective - Date & Time of Evaluation Date of Evaluation: 04/26/18 Time of Evaluation: 15:00 - Subjective Subjective: NO CHEST PAIN BREATHING SOMEWHAT BETTER Objective - Vital Signs/Intake and Output Vital Signs (last 24 hours): Temp Pulse Resp BP Pulse Ox 98.3 F 97 H 20 131/61 100 04/26/18 08:33 04/26/18 08:33 04/26/18 08:33 04/26/18 09:51 04/26/18 08:33 - Medications Medications: Current Medications Acetaminophen (Tylenol 325mg Tab) 650 mg PO Q6 PRN PRN Reason: Pain, Mild (1-3) Last Admin: 04/25/18 22:33 Dose: 650 mg Albuterol/Ipratropium (Duoneb 3 Mg/0.5 Mg (3 Ml) Ud) 3 ml INH RQID [facility] Last Admin: 04/26/18 11:48 Dose: 3 ml Aspirin (Ecotrin) 81 mg PO DAILY [facility] Last Admin: 04/26/18 08:07 Dose: 81 mg Cholecalciferol (Vitamin D) 1,000 intlu PO DAILY [facility] Last Admin: 04/26/18 08:08 Dose: 1,000 intlu Diltiazem HCl (Cardizem Cd) 120 mg PO DAILY [facility] Last Admin: 04/26/18 08:07 Dose: 120 mg Enoxaparin Sodium (Lovenox) 30 mg SC DAILY [facility]; Protocol Last Admin: 04/26/18 08:07 Dose: 30 mg Fluticasone Propionate (Flonase) 1 spr JACQUIE BID [facility] Last Admin: 04/26/18 08:08 Dose: 1 spr Gabapentin (Neurontin) 100 mg PO DAILY [facility] Last Admin: 04/26/18 08:07 Dose: 100 mg Lactulose (Enulose) 20 gm PO DAILY PRN PRN Reason: Constipation Latanoprost (Xalatan Opht) 1 drop OU HS [facility] Last Admin: 04/25/18 21:14 Dose: 1 drop Memantine (Namenda) 5 mg PO DAILY [facility] Last Admin: 04/26/18 08:07 Dose: 5 mg Mirtazapine (Remeron) 7.5 mg PO HS [facility] Last Admin: 04/25/18 21:13 Dose: 7.5 mg Multivitamins/Minerals (Therapeutic-M Tab) 1 tab PO DAILY [facility] Last Admin: 04/26/18 08:07 Dose: 1 tab Pantoprazole Sodium (Protonix Ec Tab) 40 mg PO DAILY [facility] Last Admin: 04/26/18 08:08 Dose: 40 mg Simethicone (Mylicon Chew Tab) 80 mg PO [facility] PRN PRN Reason: Flatulence - Labs Labs: 04/25/18 05:45 04/25/18 05:45 - Respiratory Exam Respiratory Exam: Clear to Ausculation Bilateral - Cardiovascular Exam Cardiovascular Exam: REGULAR RHYTHM, +S1, +S2 - Extremities Exam Extremities Exam: Normal Inspection Assessment and Plan - Assessment and Plan (Free Text) Assessment: HYPERTENSION HISTORY OF ATRIAL FIBRILLATION-NOW IN SINUS RHYTHM RECENT MILD DIASTOLIC CHF COPD LUNG CA WITH SURGICAL TREATMENT DECONDITIONING Plan: CONTINUE ASPIRIN, LOVENOX, CARDIZEM AND DUONEB CONTINUE SUBACUTE REHAB
[2018-04-26] MEDS: Latanoprost 0.005% Opht SOUTION OU SCH (21:10)
[2018-04-27 07:16] LABS: HEMOGLOBIN 9.9 g/dL (12.0-16.0); MEAN CELL VOLUME 95.4 fl (81.0-99.0); MEAN CORPUSCULAR HEMOGLOBIN 32.6 pg (27.0-31.0); MEAN CORPUSCULAR HGB CONC 34.1 g/dL (33.0-37.0); RBC 3.03 Mil/uL (3.80-5.20); RED CELL DISTRIBUTION WIDTH 13.7 % (11.5-14.5)
[2018-04-27 07:44] LABS: ALB/GLOB RATIO 1.2 (1.0-2.1); CALCIUM 9.1 mg/dL (8.4-10.2)
[2018-04-27] MEDS: Albuterol-Ipratrop 3 mg / 0.5 (3 ml) UD INH SCH ×4 (07:57→19:20)
[2018-04-27] MEDS: diltiaZEM 120 mg/24 Hours CD Cap PO SCH (08:37)
[2018-04-27] MEDS: Enoxaparin 30 mg Syringe SC SCH (08:38)
[2018-04-27] MEDS: Cholecalciferol 1,000 INTLU TAB PO SCH (08:39)
[2018-04-27] MEDS: Multivitamin With Minerals Tab PO SCH (08:39)
[2018-04-27] MEDS: Pantoprazole 40 mg EC Tab PO SCH (08:41)
--- NOTE | 2018-04-27 14:48 | CP.PCM.PN ---
Subjective - Date & Time of Evaluation Date of Evaluation: 04/27/18 Time of Evaluation: 13:30 - Subjective Subjective: NO CHEST PAIN OR SOB Objective - Vital Signs/Intake and Output Vital Signs (last 24 hours): Temp Pulse Resp BP Pulse Ox 97.7 F 68 18 127/52 L 98 04/27/18 09:03 04/27/18 09:03 04/27/18 09:03 04/27/18 09:03 04/27/18 09:03 - Medications Medications: Current Medications Acetaminophen (Tylenol 325mg Tab) 650 mg PO Q6 PRN PRN Reason: Pain, Mild (1-3) Last Admin: 04/25/18 22:33 Dose: 650 mg Albuterol/Ipratropium (Duoneb 3 Mg/0.5 Mg (3 Ml) Ud) 3 ml INH RQID [facility] Last Admin: 04/27/18 11:41 Dose: 3 ml Aspirin (Ecotrin) 81 mg PO DAILY [facility] Last Admin: 04/27/18 08:37 Dose: 81 mg Cholecalciferol (Vitamin D) 1,000 intlu PO DAILY [facility] Last Admin: 04/27/18 08:39 Dose: 1,000 intlu Diltiazem HCl (Cardizem Cd) 120 mg PO DAILY [facility] Last Admin: 04/27/18 08:37 Dose: 120 mg Enoxaparin Sodium (Lovenox) 30 mg SC DAILY [facility]; Protocol Last Admin: 04/27/18 08:38 Dose: 30 mg Fluticasone Propionate (Flonase) 1 spr JACQUIE BID [facility] Last Admin: 04/27/18 08:38 Dose: 1 spr Gabapentin (Neurontin) 100 mg PO DAILY [facility] Last Admin: 04/27/18 08:39 Dose: 100 mg Lactulose (Enulose) 20 gm PO DAILY PRN PRN Reason: Constipation Last Admin: 04/26/18 17:01 Dose: 20 gm Latanoprost (Xalatan Opht) 1 drop OU HS [facility] Last Admin: 04/26/18 21:10 Dose: 1 drop Memantine (Namenda) 5 mg PO DAILY [facility] Last Admin: 04/27/18 08:38 Dose: 5 mg Mirtazapine (Remeron) 7.5 mg PO HS@2100 [facility] Multivitamins/Minerals (Therapeutic-M Tab) 1 tab PO DAILY [facility] Last Admin: 04/27/18 08:39 Dose: 1 tab Pantoprazole Sodium (Protonix Ec Tab) 40 mg PO DAILY [facility] Last Admin: 04/27/18 08:41 Dose: 40 mg Simethicone (Mylicon Chew Tab) 80 mg PO [facility] PRN PRN Reason: Flatulence - Labs Labs: 04/27/18 05:30 04/27/18 05:30 - Respiratory Exam Respiratory Exam: Decreased Breath Sounds - Cardiovascular Exam Cardiovascular Exam: REGULAR RHYTHM, +S1, +S2 - Extremities Exam Extremities Exam: Normal Inspection Assessment and Plan - Assessment and Plan (Free Text) Assessment: S/P ATRIAL FIBRILLATION-NOW IN NSR HYPERTENSION COPD DECONDITIONING Plan: CONTINUE ASPIRIN, CARDIZEM, LOVENOX AND PULMONARY MEDICATIONS
--- NOTE | 2018-04-27 16:59 | PN ---
DATE: 04/27/2018 SUBJECTIVE: The patient seen and examined. The patient remains in Transitional Care Unit. Denies any specific complaint. No specific issue reported by Nursing staff. PHYSICAL EXAMINATION: GENERAL: The patient is in no acute distress. VITAL SIGNS: Stable. Physical exam is essentially unchanged. DIAGNOSTIC DATA: Available diagnostic data reviewed. ASSESSMENT AND PLAN: Overall, the patient's general medical condition is stable. Plan as ordered. Augie Aleman MD
[2018-04-27] MEDS: Latanoprost 0.005% Opht SOUTION OU SCH (21:10)
[2018-04-28] MEDS: Albuterol-Ipratrop 3 mg / 0.5 (3 ml) UD INH SCH ×4 (06:59→19:40)
[2018-04-28] MEDS: diltiaZEM 120 mg/24 Hours CD Cap PO SCH (08:21)
[2018-04-28] MEDS: Enoxaparin 30 mg Syringe SC SCH (08:21)
[2018-04-28] MEDS: Multivitamin With Minerals Tab PO SCH (08:22)
[2018-04-28] MEDS: Cholecalciferol 1,000 INTLU TAB PO SCH (08:22)
[2018-04-28] MEDS: Pantoprazole 40 mg EC Tab PO SCH (08:23)
--- NOTE | 2018-04-28 10:20 | CP.PCM.PN ---
Subjective - Date & Time of Evaluation Date of Evaluation: 04/28/18 Time of Evaluation: 10:20 - Subjective Subjective: Seen on morning rounds in transitional care. Interim events were reviewed. Vital signs are grossly within normal limits/stable. Oxygenation is 96%. The patient continues to have difficulty with sleep and awakens confused. She remains very forgetful and there appears to be continued visual hallucinations overnight. She continues to complain of a generalized sense of "numbness" over her entire body except for her hands. Pharynx is pink and the mucous membranes are moist. The neck is supple and trachea is midline. Carotid impulse is well felt bilaterally without any bruit. No palpable lymphadenopathy. No dullness on chest percussion. Breath sounds are relatively well heard bilaterally with only occasional, scattered dry rales. No audible wheezing or bronchial breath sounds. Heart sounds are well heard the rhythm is regular. Abdomen is soft with normal bowel sounds. No dependent edema. No peripheral cyanosis. No calf tenderness. Current medical regimen will remain unchanged. We'll consult neurology regarding dementia and sleep abnormality as well as her complaint of generalized numbness. Objective - Vital Signs/Intake and Output Vital Signs (last 24 hours): Temp Pulse Resp BP Pulse Ox 97.9 F 68 20 148/102 H 95 04/28/18 09:31 04/28/18 09:31 04/28/18 09:31 04/28/18 09:31 04/28/18 09:31 - Medications Medications: Current Medications Acetaminophen (Tylenol 325mg Tab) 650 mg PO Q6 PRN PRN Reason: Pain, Mild (1-3) Last Admin: 04/25/18 22:33 Dose: 650 mg Albuterol/Ipratropium (Duoneb 3 Mg/0.5 Mg (3 Ml) Ud) 3 ml INH RQID [facility] Last Admin: 04/28/18 06:59 Dose: 3 ml Aspirin (Ecotrin) 81 mg PO DAILY [facility] Last Admin: 04/28/18 08:22 Dose: 81 mg Cholecalciferol (Vitamin D) 1,000 intlu PO DAILY [facility] Last Admin: 04/28/18 08:22 Dose: 1,000 intlu Diltiazem HCl (Cardizem Cd) 120 mg PO DAILY [facility] Last Admin: 04/28/18 08:21 Dose: 120 mg Enoxaparin Sodium (Lovenox) 30 mg SC DAILY [facility]; Protocol Last Admin: 04/28/18 08:21 Dose: 30 mg Fluticasone Propionate (Flonase) 1 spr JACQUIE BID [facility] Last Admin: 04/28/18 08:21 Dose: 1 spr Gabapentin (Neurontin) 100 mg PO DAILY [facility] Last Admin: 04/28/18 08:21 Dose: 100 mg Lactulose (Enulose) 20 gm PO DAILY PRN PRN Reason: Constipation Last Admin: 04/26/18 17:01 Dose: 20 gm Latanoprost (Xalatan Opht) 1 drop OU HS [facility] Last Admin: 04/27/18 21:10 Dose: 1 drop Memantine (Namenda) 5 mg PO DAILY [facility] Last Admin: 04/28/18 08:22 Dose: 5 mg Mirtazapine (Remeron) 7.5 mg PO HS@2100 [facility] Last Admin: 04/27/18 21:11 Dose: 7.5 mg Multivitamins/Minerals (Therapeutic-M Tab) 1 tab PO DAILY [facility] Last Admin: 04/28/18 08:22 Dose: 1 tab Pantoprazole Sodium (Protonix Ec Tab) 40 mg PO DAILY [facility] Last Admin: 04/28/18 08:23 Dose: 40 mg Simethicone (Mylicon Chew Tab) 80 mg PO [facility] PRN PRN Reason: Flatulence - Labs Labs: 04/27/18 05:30 04/27/18 05:30 Assessment and Plan (1) Hyponatremia Status: Acute (2) COPD (chronic obstructive pulmonary disease) Status: Chronic (3) Dementia Status: Chronic (4) Depression Status: Chronic
--- NOTE | 2018-04-28 14:10 | PN ---
DATE: 04/28/2018 SUBJECTIVE: The patient seen and examined. Interim events noted. The patient remains in transitional care unit. The patient feels okay. Denies any specific complaint. No specific issue reported by nursing staff. PHYSICAL EXAMINATION: GENERAL: The patient is in no acute distress. VITAL SIGNS: Stable. Physical exam is essentially unchanged. DIAGNOSTIC DATA: Available diagnostic data reviewed. ASSESSMENT AND PLAN: Overall, the patient's general medical condition is stable. Plan as ordered. Augie Aleman MD
[2018-04-28] MEDS: Latanoprost 0.005% Opht SOUTION OU SCH (21:14)
[2018-04-29] MEDS: Albuterol-Ipratrop 3 mg / 0.5 (3 ml) UD INH SCH ×4 (07:38→20:06)
[2018-04-29] MEDS: diltiaZEM 120 mg/24 Hours CD Cap PO SCH (08:13)
[2018-04-29] MEDS: Enoxaparin 30 mg Syringe SC SCH (08:13)
[2018-04-29] MEDS: Multivitamin With Minerals Tab PO SCH (08:14)
[2018-04-29] MEDS: Cholecalciferol 1,000 INTLU TAB PO SCH (08:14)
[2018-04-29] MEDS: Pantoprazole 40 mg EC Tab PO SCH (08:15)
--- NOTE | 2018-04-29 10:07 | CP.PCM.PN ---
Subjective - Date & Time of Evaluation Date of Evaluation: 04/29/18 Time of Evaluation: 09:30 - Subjective Subjective: NO COMPLAINTS BREATHING BETTER TODAY PATIENT HAS DECIDED TO STAY ON ASPIRIN AND NOT ELIQUIS Objective - Vital Signs/Intake and Output Vital Signs (last 24 hours): Temp Pulse Resp BP Pulse Ox 97.7 F 60 20 114/53 L 95 04/29/18 08:08 04/29/18 08:13 04/29/18 08:08 04/29/18 08:13 04/29/18 08:08 - Medications Medications: Current Medications Acetaminophen (Tylenol 325mg Tab) 650 mg PO Q6 PRN PRN Reason: Pain, Mild (1-3) Last Admin: 04/25/18 22:33 Dose: 650 mg Albuterol/Ipratropium (Duoneb 3 Mg/0.5 Mg (3 Ml) Ud) 3 ml INH RQID [facility] Last Admin: 04/29/18 07:38 Dose: 3 ml Aspirin (Ecotrin) 81 mg PO DAILY [facility] Last Admin: 04/29/18 08:13 Dose: 81 mg Cholecalciferol (Vitamin D) 1,000 intlu PO DAILY [facility] Last Admin: 04/29/18 08:14 Dose: 1,000 intlu Diltiazem HCl (Cardizem Cd) 120 mg PO DAILY [facility] Last Admin: 04/29/18 08:13 Dose: 120 mg Enoxaparin Sodium (Lovenox) 30 mg SC DAILY [facility]; Protocol Last Admin: 04/29/18 08:13 Dose: 30 mg Fluticasone Propionate (Flonase) 1 spr JACQUIE BID [facility] Last Admin: 04/29/18 08:13 Dose: 1 spr Gabapentin (Neurontin) 100 mg PO DAILY [facility] Last Admin: 04/29/18 08:14 Dose: 100 mg Lactulose (Enulose) 20 gm PO DAILY PRN PRN Reason: Constipation Last Admin: 04/26/18 17:01 Dose: 20 gm Latanoprost (Xalatan Opht) 1 drop OU HS [facility] Last Admin: 04/28/18 21:14 Dose: 1 drop Memantine (Namenda) 5 mg PO DAILY [facility] Last Admin: 04/29/18 08:14 Dose: 5 mg Mirtazapine (Remeron) 7.5 mg PO HS@2100 [facility] Last Admin: 04/28/18 20:15 Dose: 7.5 mg Multivitamins/Minerals (Therapeutic-M Tab) 1 tab PO DAILY [facility] Last Admin: 04/29/18 08:14 Dose: 1 tab Pantoprazole Sodium (Protonix Ec Tab) 40 mg PO DAILY [facility] Last Admin: 04/29/18 08:15 Dose: 40 mg Simethicone (Mylicon Chew Tab) 80 mg PO [facility] PRN PRN Reason: Flatulence - Labs Labs: 04/27/18 05:30 04/27/18 05:30 - Respiratory Exam Respiratory Exam: Decreased Breath Sounds - Cardiovascular Exam Cardiovascular Exam: REGULAR RHYTHM, +S1, +S2 - Extremities Exam Extremities Exam: Normal Inspection Assessment and Plan - Assessment and Plan (Free Text) Assessment: HISTORY OF ATRIAL FIBRILLATION-NOW IN SINUS RHYTHM HYPERTENSION COPD DECONDITIONING Plan: CONTINUE ASPIRIN, CARDIZEM AND LOVENOX NEUROLOGY TO SEE FOR NUMBNESS
--- NOTE | 2018-04-29 11:02 | CP.PCM.PN ---
Subjective - Date & Time of Evaluation Date of Evaluation: 04/29/18 Time of Evaluation: 10:57 - Subjective Subjective: Seen on rounds lying in bed. Mood appears good, slept better w/o any hallucinations. No confusion this morning, but memory is still poor. Appetite has improved gradually as well. No cyanosis or dependant edema. Breath sounds are equally heard in both lungs. Occasional dry rales in bases, no wheezes. For 6 minute walk test with SpO2. Neuro to evaluate later today. Tentative for discharge to home or Saturday. Objective - Vital Signs/Intake and Output Vital Signs (last 24 hours): Temp Pulse Resp BP Pulse Ox 97.7 F 60 20 114/53 L 95 04/29/18 08:08 04/29/18 08:13 04/29/18 08:08 04/29/18 08:13 04/29/18 08:08 - Medications Medications: Current Medications Acetaminophen (Tylenol 325mg Tab) 650 mg PO Q6 PRN PRN Reason: Pain, Mild (1-3) Last Admin: 04/25/18 22:33 Dose: 650 mg Albuterol/Ipratropium (Duoneb 3 Mg/0.5 Mg (3 Ml) Ud) 3 ml INH RQID [facility] Last Admin: 04/29/18 07:38 Dose: 3 ml Aspirin (Ecotrin) 81 mg PO DAILY [facility] Last Admin: 04/29/18 08:13 Dose: 81 mg Cholecalciferol (Vitamin D) 1,000 intlu PO DAILY [facility] Last Admin: 04/29/18 08:14 Dose: 1,000 intlu Diltiazem HCl (Cardizem Cd) 120 mg PO DAILY [facility] Last Admin: 04/29/18 08:13 Dose: 120 mg Enoxaparin Sodium (Lovenox) 30 mg SC DAILY [facility]; Protocol Last Admin: 04/29/18 08:13 Dose: 30 mg Fluticasone Propionate (Flonase) 1 spr JACQUIE BID [facility] Last Admin: 04/29/18 08:13 Dose: 1 spr Gabapentin (Neurontin) 100 mg PO DAILY [facility] Last Admin: 04/29/18 08:14 Dose: 100 mg Lactulose (Enulose) 20 gm PO DAILY PRN PRN Reason: Constipation Last Admin: 04/26/18 17:01 Dose: 20 gm Latanoprost (Xalatan Opht) 1 drop OU HS [facility] Last Admin: 04/28/18 21:14 Dose: 1 drop Memantine (Namenda) 5 mg PO DAILY [facility] Last Admin: 04/29/18 08:14 Dose: 5 mg Mirtazapine (Remeron) 7.5 mg PO HS@2100 [facility] Last Admin: 04/28/18 20:15 Dose: 7.5 mg Multivitamins/Minerals (Therapeutic-M Tab) 1 tab PO DAILY [facility] Last Admin: 04/29/18 08:14 Dose: 1 tab Pantoprazole Sodium (Protonix Ec Tab) 40 mg PO DAILY [facility] Last Admin: 04/29/18 08:15 Dose: 40 mg Simethicone (Mylicon Chew Tab) 80 mg PO [facility] PRN PRN Reason: Flatulence - Labs Labs: 04/27/18 05:30 04/27/18 05:30 Assessment and Plan (1) Hyponatremia Status: Acute (2) COPD (chronic obstructive pulmonary disease) Status: Chronic (3) Dementia Status: Chronic (4) Depression Status: Chronic
[2018-04-29 11:25] LABS: HEMOGLOBIN 10.2 g/dL (12.0-16.0); MEAN CELL VOLUME 95.7 fl (81.0-99.0); MEAN CORPUSCULAR HEMOGLOBIN 32.4 pg (27.0-31.0); MEAN CORPUSCULAR HGB CONC 33.9 g/dL (33.0-37.0); RBC 3.16 Mil/uL (3.80-5.20); RED CELL DISTRIBUTION WIDTH 13.9 % (11.5-14.5); WHITE BLOOD COUNT 5.9 K/uL (4.8-10.8)
[2018-04-29 11:36] LABS: BLOOD UREA NITROGEN 26 mg/dl (7-17); CALCIUM 9.2 mg/dL (8.4-10.2); GFR NON-AFRICAN AMERICAN 52
--- NOTE | 2018-04-29 16:10 | CP.PCM.CON ---
History of Present Illness - History of Present Illness History of Present Illness: neurology consult dictated Plan: 1. MRI brain 2. neurontin 300mg qhs if discomfort continues Thank you for consulting neurology Dr. fontanez Past Patient History - Infectious Disease Hx of Infectious Diseases: None - Tetanus Immunizations Tetanus Immunization: Unknown - Past Medical History & Family History Past Medical History?: Yes - Past Social History Smoking Status: Former Smoker Chewing Tobacco Use: No Cigar Use: No Alcohol: None Drugs: Denies Home Situation {Lives}: Alone - CARDIAC Hx Congestive Heart Failure: Yes Hx Hypercholesterolemia: Yes Hx Hypertension: Yes - PULMONARY Hx Chronic Obstructive Pulmonary Disease (COPD): Yes - NEUROLOGICAL Other/Comment: currently diagnosed with dementia - HEENT Hx Glaucoma: Yes Hx Macular Degeneration: Yes - RENAL Hx Chronic Kidney Disease: No - ENDOCRINE/METABOLIC Hx Endocrine Disorders: No - HEMATOLOGICAL/ONCOLOGICAL Hx Anemia: Yes Hx Human Immunodeficiency Virus (HIV): No - INTEGUMENTARY Hx Dermatological Problems: No - MUSCULOSKELETAL/RHEUMATOLOGICAL Hx Arthritis: Yes - GASTROINTESTINAL Other/Comment: Hiatal hernia - GENITOURINARY/GYNECOLOGICAL Hx Urinary Tract Infection: Yes (Recent) - PSYCHIATRIC Hx Anxiety: Yes Hx Depression: Yes Hx Substance Use: No - SURGICAL HISTORY 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) Hx Tonsillectomy: Yes - ANESTHESIA Hx Anesthesia: Yes Hx Anesthesia Reactions: No Hx Malignant Hyperthermia: No Meds Allergies/Adverse Reactions: Allergies Allergy/AdvReac Type Severity Reaction Status Date / Time Penicillins Allergy ANAPHYLAXIS Verified 04/23/18 15:24 Sulfa (Sulfonamide Allergy RASH Verified 04/23/18 15:24 Antibiotics) sulfamethoxazole Allergy RASH Verified 04/23/18 15:24 [From Bactrim] trimethoprim [From Bactrim] Allergy RASH Verified 04/23/18 15:24 - Medications Medications: Current Medications Acetaminophen (Tylenol 325mg Tab) 650 mg PO Q6 PRN PRN Reason: Pain, Mild (1-3) Last Admin: 04/25/18 22:33 Dose: 650 mg Albuterol/Ipratropium (Duoneb 3 Mg/0.5 Mg (3 Ml) Ud) 3 ml INH RQID [facility] Last Admin: 04/29/18 15:55 Dose: 3 ml Aspirin (Ecotrin) 81 mg PO DAILY [facility] Last Admin: 04/29/18 08:13 Dose: 81 mg Cholecalciferol (Vitamin D) 1,000 intlu PO DAILY [facility] Last Admin: 04/29/18 08:14 Dose: 1,000 intlu Diltiazem HCl (Cardizem Cd) 120 mg PO DAILY [facility] Last Admin: 04/29/18 08:13 Dose: 120 mg Enoxaparin Sodium (Lovenox) 30 mg SC DAILY [facility]; Protocol Fluticasone Propionate (Flonase) 1 spr JACQUIE BID [facility] Last Admin: 04/29/18 08:13 Dose: 1 spr Gabapentin (Neurontin) 100 mg PO DAILY [facility] Last Admin: 04/29/18 08:14 Dose: 100 mg Lactulose (Enulose) 20 gm PO DAILY PRN PRN Reason: Constipation Last Admin: 04/26/18 17:01 Dose: 20 gm Latanoprost (Xalatan Opht) 1 drop OU HS [facility] Last Admin: 04/28/18 21:14 Dose: 1 drop Memantine (Namenda) 5 mg PO DAILY [facility] Last Admin: 04/29/18 08:14 Dose: 5 mg Mirtazapine (Remeron) 7.5 mg PO HS@2100 [facility] Last Admin: 04/28/18 20:15 Dose: 7.5 mg Multivitamins/Minerals (Therapeutic-M Tab) 1 tab PO DAILY [facility] Last Admin: 04/29/18 08:14 Dose: 1 tab Pantoprazole Sodium (Protonix Ec Tab) 40 mg PO DAILY [facility] Last Admin: 04/29/18 08:15 Dose: 40 mg Simethicone (Mylicon Chew Tab) 80 mg PO HS PRN PRN Reason: Flatulence Results - Vital Signs Recent Vital Signs: Last Vital Signs Temp 97.7 F 04/29/18 15:40 Pulse 57 L 04/29/18 15:40 Resp 20 04/29/18 15:40 BP 129/56 L 04/29/18 15:40 Pulse Ox 100 04/29/18 15:40 - Labs Result Diagrams: 04/29/18 11:19 04/29/18 11:19 Labs: Laboratory Results - last 24 hr 04/29/18 04/29/18 11:19 11:19 WBC 5.9 RBC 3.16 L Hgb 10.2 L Hct 30.2 L MCV 95.7 MCH 32.4 H MCHC 33.9 RDW 13.9 Plt Count 213 Sodium 135 Potassium 4.2 Chloride 100 Carbon Dioxide 32 H Anion Gap 7 L BUN 26 H Creatinine 1.0 Est GFR ( Amer) > 60 Est GFR (Non-Af Amer) 52 Random Glucose 98 Calcium 9.2
[2018-04-29] MEDS: Latanoprost 0.005% Opht SOUTION OU SCH (21:13)
[2018-04-30] MEDS: Albuterol-Ipratrop 3 mg / 0.5 (3 ml) UD INH SCH ×4 (07:20→19:09)
[2018-04-30] MEDS: diltiaZEM 120 mg/24 Hours CD Cap PO SCH (08:33)
[2018-04-30] MEDS: Enoxaparin 30 mg Syringe SC SCH (08:34)
[2018-04-30] MEDS: Multivitamin With Minerals Tab PO SCH (08:34)
[2018-04-30] MEDS: Cholecalciferol 1,000 INTLU TAB PO SCH (08:35)
[2018-04-30] MEDS: Pantoprazole 40 mg EC Tab PO SCH (08:37)
--- NOTE | 2018-04-30 08:43 | CON ---
DATE: 04/29/2018 HISTORY OF PRESENT ILLNESS: This is an 87-year-old woman, who was admitted and treated for diastolic CHF exacerbation. She is admitted to TCU for gait training and physical therapy. PAST MEDICAL HISTORY: Mrs. Hooper has a past medical history of CHF, COPD, hypertension, lung resection two years ago, HIV and mood disorder. There is a history in the chart of her owning . Neurology consult was placed for numbness and tingling of arms, legs, toes, torso and all areas below the neck. Duration throughout the day exacerbated by movement, relived by rest and not responsive to any medications. REVIEW OF SYSTEMS: Negative for nausea, vomiting, diarrhea, weakness, aphagia or any other complaints. A 12-point review of system was done and was found to be negative. PAST SURGICAL HISTORY: As above, including tonsillectomy. FAMILY AND SOCIAL HISTORY: She is nonsmoker. ALLERGIES: ALLERGIC TO PENICILLIN, SULPHA, AND SULFAMETHIZOLE. PHYSICAL EXAMINATION: GENERAL: Alert and oriented x3. NEUROLOGIC: Pupils equal, round, and reactive to light. Cranial nerves II through XII normal. , motor strength is 5/5 upper and lower bilaterally. . Mrs. Hooper is very intelligent and is able to converse with me . There is no sensory level appreciated. +1 upper and lower limb bilaterally deep tendon refluxes. Toes are downgoing. There is clonus. LABORATORY DATA: CT scan was done in the past and it was normal. White count 5.9, hemoglobin 10.2, hematocrit 30.2, platelets 213. Chemistry; sodium 135, potassium 4.2, chloride 100, bicarb 32, BUN 26, and creatinine 1. AST is 42 and ALT is 48. Urine is normal except for 3-5 hyaline cast. 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 There is no anatomical location for her numbness, but we will obtain MRI of the brain without contrast to assure that there is no thalamic stroke. Thanku for consulting neurology. Cesar Mullen MD
--- NOTE | 2018-04-30 11:19 | CP.PCM.PN ---
Subjective - Date & Time of Evaluation Date of Evaluation: 04/30/18 Time of Evaluation: 11:19 - Subjective Subjective: Seems to be doing well on the current regimen. A little more nervous today with c/o 'numbness'. Respiratory status is stable. Vital signs remain stable. Tentative for discharge to home tomorrow. Objective - Vital Signs/Intake and Output Vital Signs (last 24 hours): Temp Pulse Resp BP Pulse Ox 97.0 F L 62 18 134/59 L 96 04/30/18 08:02 04/30/18 09:08 04/30/18 08:02 04/30/18 08:33 04/30/18 09:08 - Medications Medications: Current Medications Acetaminophen (Tylenol 325mg Tab) 650 mg PO Q6 PRN PRN Reason: Pain, Mild (1-3) Last Admin: 04/25/18 22:33 Dose: 650 mg Albuterol/Ipratropium (Duoneb 3 Mg/0.5 Mg (3 Ml) Ud) 3 ml INH RQID [facility] Last Admin: 04/30/18 07:20 Dose: 3 ml Aspirin (Ecotrin) 81 mg PO DAILY [facility] Last Admin: 04/30/18 08:33 Dose: 81 mg Cholecalciferol (Vitamin D) 1,000 intlu PO DAILY [facility] Last Admin: 04/30/18 08:35 Dose: 1,000 intlu Diltiazem HCl (Cardizem Cd) 120 mg PO DAILY [facility] Last Admin: 04/30/18 08:33 Dose: 120 mg Enoxaparin Sodium (Lovenox) 30 mg SC DAILY [facility]; Protocol Last Admin: 04/30/18 08:34 Dose: 30 mg Fluticasone Propionate (Flonase) 1 spr JACQUIE BID [facility] Last Admin: 04/30/18 08:33 Dose: 1 spr Gabapentin (Neurontin) 100 mg PO DAILY [facility] Last Admin: 04/30/18 08:34 Dose: 100 mg Lactulose (Enulose) 20 gm PO DAILY PRN PRN Reason: Constipation Last Admin: 04/26/18 17:01 Dose: 20 gm Latanoprost (Xalatan Opht) 1 drop OU HS [facility] Last Admin: 04/29/18 21:13 Dose: 1 drop Memantine (Namenda) 5 mg PO DAILY [facility] Last Admin: 04/30/18 08:34 Dose: 5 mg Mirtazapine (Remeron) 7.5 mg PO HS@2100 [facility] Last Admin: 04/29/18 21:09 Dose: 7.5 mg Multivitamins/Minerals (Therapeutic-M Tab) 1 tab PO DAILY [facility] Last Admin: 04/30/18 08:34 Dose: 1 tab Pantoprazole Sodium (Protonix Ec Tab) 40 mg PO DAILY [facility] Last Admin: 04/30/18 08:37 Dose: 40 mg Simethicone (Mylicon Chew Tab) 80 mg PO [facility] PRN PRN Reason: Flatulence - Labs Labs: 04/29/18 11:19 04/29/18 11:19 Assessment and Plan (1) Hyponatremia Status: Acute (2) COPD (chronic obstructive pulmonary disease) Status: Chronic (3) Dementia Status: Chronic (4) Depression Status: Chronic
[2018-04-30 21:01] VITALS: O2SAT 98
[2018-04-30] MEDS: Latanoprost 0.005% Opht SOUTION OU SCH (21:17)
[2018-05-01] MEDS: Albuterol-Ipratrop 3 mg / 0.5 (3 ml) UD INH SCH ×2 (07:49→11:40)
[2018-05-01] MEDS: Enoxaparin 30 mg Syringe SC SCH (08:38)
[2018-05-01] MEDS: Cholecalciferol 1,000 INTLU TAB PO SCH (08:39)
[2018-05-01] MEDS: Pantoprazole 40 mg EC Tab PO SCH (08:39)
[2018-05-01] MEDS: diltiaZEM 120 mg/24 Hours CD Cap PO SCH (08:39)
[2018-05-01] MEDS: Multivitamin With Minerals Tab PO SCH (08:39)
[2018-05-01 08:40] VITALS: BP 134/52; PULSE 63
[2018-05-01 09:55] VITALS: RESP 18; TEMP 97.9
--- NOTE | 2018-05-01 10:20 | CP.PCM.PN ---
Subjective - Date & Time of Evaluation Date of Evaluation: 05/01/18 Time of Evaluation: 10:10 - Subjective Subjective: Doing well on current regimen. For discharge to home today. Mood appears good, memory is fair. Respiratory status seems quite stable. Medications reviewed: new rx at this time will be- Cardizem CD 120 daily, ASA 81MG OD, Flonase spray OD, Namenda 5MG OD, Gabapentin 100MG HS, Mirtazapine 7.5MG HS, Xalatan ophthalmic OU HS. Continued rx are- Albuterol neb and inhaler, Alprazolam prn, Calcium, Vitamin D, Bevespi Aerosphere 2 puffs Q12H, MVI/Preservision. Asked to call for followup appt next week. Objective - Vital Signs/Intake and Output Vital Signs (last 24 hours): Temp Pulse Resp BP Pulse Ox 97.9 F 63 18 134/52 L 98 05/01/18 08:00 05/01/18 08:39 05/01/18 08:00 05/01/18 08:39 04/30/18 21:00 - Medications Medications: Current Medications Acetaminophen (Tylenol 325mg Tab) 650 mg PO Q6 PRN PRN Reason: Pain, Mild (1-3) Last Admin: 04/25/18 22:33 Dose: 650 mg Albuterol/Ipratropium (Duoneb 3 Mg/0.5 Mg (3 Ml) Ud) 3 ml INH RQID [facility] Last Admin: 05/01/18 07:49 Dose: 3 ml Aspirin (Ecotrin) 81 mg PO DAILY [facility] Last Admin: 05/01/18 08:39 Dose: 81 mg Cholecalciferol (Vitamin D) 1,000 intlu PO DAILY [facility] Last Admin: 05/01/18 08:39 Dose: 1,000 intlu Diltiazem HCl (Cardizem Cd) 120 mg PO DAILY [facility] Last Admin: 05/01/18 08:39 Dose: 120 mg Enoxaparin Sodium (Lovenox) 30 mg SC DAILY [facility]; Protocol Last Admin: 05/01/18 08:38 Dose: 30 mg Fluticasone Propionate (Flonase) 1 spr JACQUIE BID [facility] Last Admin: 05/01/18 08:41 Dose: 1 spr Gabapentin (Neurontin) 100 mg PO DAILY [facility] Last Admin: 05/01/18 08:39 Dose: 100 mg Lactulose (Enulose) 20 gm PO DAILY PRN PRN Reason: Constipation Last Admin: 04/26/18 17:01 Dose: 20 gm Latanoprost (Xalatan Opht) 1 drop OU HS [facility] Last Admin: 04/30/18 21:17 Dose: 1 drop Memantine (Namenda) 5 mg PO DAILY [facility] Last Admin: 05/01/18 08:38 Dose: 5 mg Mirtazapine (Remeron) 7.5 mg PO HS@2100 [facility] Last Admin: 04/30/18 21:17 Dose: 7.5 mg Multivitamins/Minerals (Therapeutic-M Tab) 1 tab PO DAILY [facility] Last Admin: 05/01/18 08:39 Dose: 1 tab Pantoprazole Sodium (Protonix Ec Tab) 40 mg PO DAILY [facility] Last Admin: 05/01/18 08:39 Dose: 40 mg Simethicone (Mylicon Chew Tab) 80 mg PO [facility] PRN PRN Reason: Flatulence - Labs Labs: 04/29/18 11:19 04/29/18 11:19 Assessment and Plan (1) Hyponatremia Status: Acute (2) COPD (chronic obstructive pulmonary disease) Status: Chronic (3) Dementia Status: Chronic (4) Depression Status: Chronic
--- NOTE | 2018-05-01 10:42 | CP.PCM.PN ---
Subjective - Date & Time of Evaluation Date of Evaluation: 05/01/18 Time of Evaluation: 09:00 - Subjective Subjective: NO CHEST PAIN OR PALPITATIONS BREATHING BETTER BELIEVES SHE BENEFITTED FROM [facility] Objective - Vital Signs/Intake and Output Vital Signs (last 24 hours): Temp Pulse Resp BP Pulse Ox 97.9 F 63 18 134/52 L 98 05/01/18 08:00 05/01/18 08:39 05/01/18 08:00 05/01/18 08:39 04/30/18 21:00 - Medications Medications: Current Medications Acetaminophen (Tylenol 325mg Tab) 650 mg PO Q6 PRN PRN Reason: Pain, Mild (1-3) Last Admin: 04/25/18 22:33 Dose: 650 mg Albuterol/Ipratropium (Duoneb 3 Mg/0.5 Mg (3 Ml) Ud) 3 ml INH RQID [facility] Last Admin: 05/01/18 07:49 Dose: 3 ml Aspirin (Ecotrin) 81 mg PO DAILY [facility] Last Admin: 05/01/18 08:39 Dose: 81 mg Cholecalciferol (Vitamin D) 1,000 intlu PO DAILY [facility] Last Admin: 05/01/18 08:39 Dose: 1,000 intlu Diltiazem HCl (Cardizem Cd) 120 mg PO DAILY [facility] Last Admin: 05/01/18 08:39 Dose: 120 mg Enoxaparin Sodium (Lovenox) 30 mg SC DAILY [facility]; Protocol Last Admin: 05/01/18 08:38 Dose: 30 mg Fluticasone Propionate (Flonase) 1 spr JACQUIE BID [facility] Last Admin: 05/01/18 08:41 Dose: 1 spr Gabapentin (Neurontin) 100 mg PO DAILY [facility] Last Admin: 05/01/18 08:39 Dose: 100 mg Lactulose (Enulose) 20 gm PO DAILY PRN PRN Reason: Constipation Last Admin: 04/26/18 17:01 Dose: 20 gm Latanoprost (Xalatan Opht) 1 drop OU HS [facility] Last Admin: 04/30/18 21:17 Dose: 1 drop Memantine (Namenda) 5 mg PO DAILY [facility] Last Admin: 05/01/18 08:38 Dose: 5 mg Mirtazapine (Remeron) 7.5 mg PO HS@2100 [facility] Last Admin: 04/30/18 21:17 Dose: 7.5 mg Multivitamins/Minerals (Therapeutic-M Tab) 1 tab PO DAILY [facility] Last Admin: 05/01/18 08:39 Dose: 1 tab Pantoprazole Sodium (Protonix Ec Tab) 40 mg PO DAILY [facility] Last Admin: 05/01/18 08:39 Dose: 40 mg Simethicone (Mylicon Chew Tab) 80 mg PO [facility] PRN PRN Reason: Flatulence - Labs Labs: 04/29/18 11:19 04/29/18 11:19 - Respiratory Exam Respiratory Exam: Clear to Ausculation Bilateral - Cardiovascular Exam Cardiovascular Exam: REGULAR RHYTHM, +S1, +S2 - Extremities Exam Extremities Exam: Normal Inspection Assessment and Plan - Assessment and Plan (Free Text) Assessment: STABLE CARDIAC STATUS. HISTORY OF ATRIAL FIBRILLATION BUT REMAINS IN SINUS RHYTHM HYPERTENSION COPD DECONDITIONING Plan: FOR DISCHARGE TO HOME TODAY PATIENT ADVISED TO SEE ME IN THE OFFICE IN ABOUT 2-3 WEEKS AND WILL HAVE AN EKG
--- NOTE | 2018-05-01 11:20 | CP.PCM.DIS ---
Provider - Provider Date of Admission: 04/23/18 15:24 Attending physician: Tim Cornejo MD Time Spent in preparation of Discharge (in minutes): 35 Diagnosis - Discharge Diagnosis (1) BRENDA (acute kidney injury) Status: Resolved (2) Atrial fibrillation Status: Chronic (3) Congestive heart failure Status: Chronic Priority: High (4) Anemia in chronic illness Status: Chronic (5) COPD (chronic obstructive pulmonary disease) Status: Chronic Priority: High (6) Dementia Status: Chronic Priority: High (7) Depression Status: Chronic Priority: High Hospital Course - Lab Results Lab Results: Most Recent Lab Values WBC 5.9 K/uL (4.8-10.8) 04/29/18 11:19 RBC 3.16 Mil/uL (3.80-5.20) L 04/29/18 11:19 Hgb 10.2 g/dL (12.0-16.0) L 04/29/18 11:19 Hct 30.2 % (34.0-47.0) L 04/29/18 11:19 MCV 95.7 fl (81.0-99.0) 04/29/18 11:19 MCH 32.4 pg (27.0-31.0) H 04/29/18 11:19 MCHC 33.9 g/dL (33.0-37.0) 04/29/18 11:19 RDW 13.9 % (11.5-14.5) 04/29/18 11:19 Plt Count 213 K/uL (130-400) 04/29/18 11:19 Sodium 135 mmol/l (132-148) 04/29/18 11:19 Potassium 4.2 MMOL/L (3.6-5.0) 04/29/18 11:19 Chloride 100 mmol/L (98-107) 04/29/18 11:19 Carbon Dioxide 32 mmol/L (22-30) H 04/29/18 11:19 Anion Gap 7 (10-20) L 04/29/18 11:19 BUN 26 mg/dl (7-17) H 04/29/18 11:19 Creatinine 1.0 mg/dl (0.7-1.2) 04/29/18 11:19 Est GFR ( Amer) > 60 04/29/18 11:19 Est GFR (Non-Af Amer) 52 04/29/18 11:19 Random Glucose 98 mg/dL (65-105) 04/29/18 11:19 Calcium 9.2 mg/dL (8.4-10.2) 04/29/18 11:19 Total Bilirubin 0.3 mg/dl (0.2-1.3) 04/27/18 05:30 AST 42 U/L (14-36) H D 04/27/18 05:30 ALT 48 U/L (9-52) 04/27/18 05:30 Alkaline Phosphatase 52 U/L (38-126) 04/27/18 05:30 Total Protein 5.6 G/DL (6.3-8.2) L 04/27/18 05:30 Albumin 3.0 g/dL (3.5-5.0) L 04/27/18 05:30 Globulin 2.6 gm/dL (2.2-3.9) 04/27/18 05:30 Albumin/Globulin Ratio 1.2 (1.0-2.1) 04/27/18 05:30 Vitamin B12 615 pg/mL (239-931) 04/26/18 08:40 TSH 3rd Generation 0.60 mIU/ML (0.46-4.68) 04/26/18 08:40 Urine Color Ani (YELLOW) 04/25/18 17:16 Urine Clarity Slighty-cloudy (Clear) 04/25/18 17:16 Urine pH 5.0 (5.0-8.0) 04/25/18 17:16 Ur Specific [place] 1.017 (1.003-1.030) 04/25/18 17:16 Urine Protein Negative mg/dL (NEGATIVE) 04/25/18 17:16 Urine Glucose (UA) Neg mg/dL (Normal) 04/25/18 17:16 Urine Ketones Negative mg/dL (NEGATIVE) 04/25/18 17:16 Urine Blood Negative (NEGATIVE) 04/25/18 17:16 Urine Nitrate Negative (NEGATIVE) 04/25/18 17:16 Urine Bilirubin Negative (NEGATIVE) 04/25/18 17:16 Urine Urobilinogen 0.2-1.0 mg/dL (0.2-1.0) 04/25/18 17:16 Ur Leukocyte Esterase Neg [place]/uL (Negative) 04/25/18 17:16 Urine RBC (Auto) 3 /hpf (0-3) 04/25/18 17:16 Urine Microscopic WBC 5 /hpf (0-5) 04/25/18 17:16 Ur Squamous Epith Cells 1 /hpf (0-5) 04/25/18 17:16 Hyaline Casts 3-5 /hpf (0-2) H 04/25/18 17:16 - Hospital Course Hospital Course: 87 y/o female w/ pmhx of CHF, COPD, HTN, Lung resection 2 years ago, HLD, and mood disorder, who was admitted on 04/18/18 and treated for Diastolic CHF exacerbation to full resolution. She was admitted to TCU on 04/24/18 for functional mobility and gait training. Of note: Pt has chronic abdominal fullness, was evaluated by GI and placed on trial of PPI's to be f/u outpatient. Also evaluated by Psych for "sundowning" and night time hallucinations- started on Namenda and Remeron. While in TCU, patients gait and strength improved and medically stable to discharge to home today. Advised to F/U with PMD in 1 week. Patients daughter discussed with Dr. Washington about medication reconciliation Discharge Exam - Head Exam Head Exam: NORMAL INSPECTION - Eye Exam Eye Exam: Normal appearance - ENT Exam ENT Exam: Mucous Membranes Moist - Respiratory Exam Respiratory Exam: Clear to PA & Lateral, NORMAL BREATHING PATTERN. absent: Rhonchi, Wheezes - Cardiovascular Exam Cardiovascular Exam: REGULAR RHYTHM, +S1, +S2 - GI/Abdominal Exam GI & Abdominal Exam: Normal Bowel Sounds, Soft. absent: Tenderness - Extremities Exam Extremities exam: normal inspection - Neurological Exam Neurological exam: Alert, Oriented x3 - Psychiatric Exam Psychiatric exam: Normal Affect - Skin Skin Exam: Normal Color, Warm Discharge Plan - Discharge Medications Prescriptions: diltiaZEM CD [Cardizem CD] 120 mg PO DAILY #30 cap Gabapentin [Neurontin] 100 mg PO HS #30 cap Latanoprost 0.005% Opht [Xalatan Opht] 1 drop OU HS #1 bottle Memantine [Namenda] 5 mg PO DAILY #30 tab Mirtazapine [Remeron] 7.5 mg PO HS@2100 #30 tab - Follow Up Plan Condition: GOOD Disposition: HOME/ ROUTINE Instructions: Preventing Falls, Heart Failure (DC), Heart Failure (GEN), Pacemaker (DC), Pacemaker (GEN), Pulmonary Edema (DC), Pulmonary Edema (GEN), Ascites (DC), Ascites (GEN), Depression (DC) Referrals: Rohan Rivera MD [Family Provider] - Rajiv Washington MD [Staff Provider] - Cesar Mullen MD [Medical Doctor] -
== END 2018-05-01 13:40 | disposition home or self-care (01) | DRG 191 ==
LOC: H.TCU 15:24
PROVIDERS: ADMIT Family Medicine; ATTEND Family Medicine
PROC: F07Z9FZ Gait Training/Functional Ambulation Treatment using Assistive, Adaptive, Supportive or Protective Equipment (ICD-10-PCS; 2018-04-23)
PROC: F07K6ZZ Therapeutic Exercise Treatment of Musculoskeletal System - Upper Back / Upper Extremity (ICD-10-PCS; 2018-04-23)
PROC: F07Z5FZ Bed Mobility Treatment using Assistive, Adaptive, Supportive or Protective Equipment (ICD-10-PCS; 2018-04-23)
PROC: F07Z8FZ Transfer Training Treatment using Assistive, Adaptive, Supportive or Protective Equipment (ICD-10-PCS; 2018-04-23)
PROC: 3E02340 Introduction of Influenza Vaccine into Muscle, Percutaneous Approach (ICD-10-PCS; principal; 2018-04-30)
DX: J43.9 Emphysema, unspecified (principal); N17.9 Acute kidney failure, unspecified; I50.32 Chronic diastolic (congestive) heart failure; I11.0 Hypertensive heart disease with heart failure; Z85.118 Personal history of other malignant neoplasm of bronchus and lung; I48.2 Chronic atrial fibrillation; E78.00 Pure hypercholesterolemia, unspecified; E78.5 Hyperlipidemia, unspecified; K21.9 Gastro-esophageal reflux disease without esophagitis; Z87.891 Personal history of nicotine dependence; M19.90 Unspecified osteoarthritis, unspecified site; F41.9 Anxiety disorder, unspecified; Z88.0 Allergy status to penicillin; Z88.2 Allergy status to sulfonamides; Z23 Encounter for immunization; F06.31 Mood disorder due to known physiological condition with depressive features; D63.8 Anemia in other chronic diseases classified elsewhere; R20.0 Anesthesia of skin

== ENCOUNTER 2018-05-07 15:47 | Inpatient (IN) | payer MEDICARE, OTHER ==
[2018-05-07 15:47] VITALS: PULSE 132; BMI 17.0
[2018-05-07] MEDS ORDERED: Albuterol-Ipratrop 3 mg / 0.5 (3 ml) UD INH STA ×2 (16:27→17:58)
[2018-05-07] MEDS ORDERED: Albuterol-Ipratrop 3 mg / 0.5 (3 ml) UD ONE ×2 (16:45→18:36)
--- NOTE | 2018-05-07 16:55 | ED PDOC ---
HPI: SOB/CHF/COPD Time Seen by Provider: 05/07/18 16:03 Chief Complaint (Nursing): Shortness Of Breath Chief Complaint (Provider): Shortness Of Breath History Per: Patient History/Exam Limitations: no limitations Onset/Duration Of Symptoms: Days (x1) Current Symptoms Are (Timing): Still Present Additional Complaint(s): 87 year old female presenting for evaluation of shortness of breath x1 day. Patient reports 102 fever at home and states she took Mucinex and Tylenol. Patient states she feels like there's mucous stuck in her chest. Patient reports using 2L O2 at home. Patient denies any chest pain. Of note, patient was discharged from the hospital 05/01/2018. Past Medical History Reviewed: Historical Data, Nursing Documentation, Vital Signs Vital Signs: Last Vital Signs Temp 99.8 F H 05/07/18 15:56 Pulse 81 05/07/18 15:56 Resp 19 05/07/18 16:03 BP 141/60 05/07/18 15:56 Pulse Ox 98 05/07/18 16:03 - Medical History PMH: Anemia, Anxiety, Arthritis, Atrial Fibrillation, CHF, COPD, Depression, Emphysema, Fractures (tibial plateau), HTN, Hypercholesterolemia, Pneumonia Denies: HIV, Chronic Kidney Disease - Surgical History Surgical History: Tonsillectomy - Family History Family History: States: Unknown Family Hx - Immunization History Hx Tetanus Toxoid Vaccination: No Hx Influenza Vaccination: Yes Hx Pneumococcal Vaccination: Yes - Home Medications Home Medications: Ambulatory Orders Medication Instructions Recorded Aspirin [Ecotrin] 81 mg PO DAILY 05/18/16 Albuterol 0.083% [Albuterol 0.083% 2.5 mg INH RQ4 PRN neb 04/23/18 Inhal Paulina (2.5 mg/3 ml) UD] Albuterol/Ipratropium [Duoneb 3 3 ml INH RQID neb 04/23/18 mg/0.5 mg (3 ml) UD] Fluticasone Propionate [Flonase] 1 spr JACQUIE BID bottle 04/23/18 Mirtazapine [Remeron] 7.5 mg PO HS tab 04/23/18 Cholecalciferol [Vitamin D 1000 IU] 1,000 intlu PO DAILY tab 05/01/18 Gabapentin [Neurontin] 100 mg PO HS #30 cap 05/01/18 Latanoprost 0.005% Opht [Xalatan 1 drop OU HS #1 bottle 05/01/18 Opht] Memantine [Namenda] 5 mg PO DAILY #30 tab 05/01/18 Mirtazapine [Remeron] 7.5 mg PO HS@2100 #30 tab 05/01/18 diltiaZEM CD [Cardizem CD] 120 mg PO DAILY #30 cap 05/01/18 - Allergies Allergies/Adverse Reactions: Allergies Allergy/AdvReac Type Severity Reaction Status Date / Time Penicillins Allergy ANAPHYLAXIS Verified 05/07/18 15:55 Sulfa (Sulfonamide Allergy RASH Verified 05/07/18 15:55 Antibiotics) sulfamethoxazole Allergy RASH Verified 05/07/18 15:55 [From Bactrim] trimethoprim [From Bactrim] Allergy RASH Verified 05/07/18 15:55 Review of Systems ROS Statement: Except As Marked, All Systems Reviewed And Found Negative Constitutional: Positive for: Fever Cardiovascular: Negative for: Chest Pain Respiratory: Positive for: Shortness of Breath Physical Exam - Reviewed Nursing Documentation Reviewed: Yes Vital Signs Reviewed: Yes - Physical Exam Appears: Positive for: Non-toxic, No Acute Distress Head Exam: Positive for: ATRAUMATIC, NORMAL INSPECTION, NORMOCEPHALIC Skin: Positive for: Normal Color, Warm, Dry. Negative for: Rash Eye Exam: Positive for: EOMI, Normal appearance, PERRL ENT: Positive for: Normal ENT Inspection Neck: Positive for: Normal, Painless ROM, Supple Cardiovascular/Chest: Positive for: Regular Rate, Rhythm. Negative for: Murmur Respiratory: Positive for: Wheezing (bilateral). Negative for: Respiratory Distress (Patient is speaking in full sentences) Gastrointestinal/Abdominal: Positive for: Normal Exam, Soft. Negative for: Tenderness Back: Positive for: Normal Inspection. Negative for: L CVA Tenderness, R CVA Tenderness, Vertebral Tenderness Extremity: Positive for: Normal ROM. Negative for: Deformity Neurologic/Psych: Positive for: Alert, Oriented. Negative for: Motor/Sensory Deficits - ECG O2 Sat by Pulse Oximetry: 98 (RA) Pulse Ox Interpretation: Normal Medical Decision Making Medical Decision Making: Impression: COPD vs pneumonia vs bronchitis Plan: -VBG shock panel -EKG -CMP -CBC -PTT/PT -CXR -Duoneb 3mL INH -Solu-Medrol 125mg IVP -Blood culture -PEFR -Reevaluation Scribe Attestation: Documented by Ken Bragg, acting as a scribe for Kelsey Grigsby MD. Provider Scribe Attestation: All medical record entries made by the Scribe were at my direction and personally dictated by me. I have reviewed the chart and agree that the record accurately reflects my personal performance of the history, physical exam, medical decision making, and the department course for this patient. I have also personally directed, reviewed, and agree with the discharge instructions and disposition. Disposition - Disposition Forms: 1bib (Telugu)
--- NOTE | 2018-05-07 17:27 | RAD ---
Date of service: 05/07/2018 PROCEDURE: CHEST RADIOGRAPH, 1 VIEW HISTORY: Shortness of breath COMPARISON: CT chest without contrast from 04/18/2018 FINDINGS: LUNGS: The lungs are hyperinflated and there is peribronchial thickening with chronic changes in both lungs. No focal consolidation. There is bibasilar atelectasis/scarring. PLEURA: No pneumothorax or pleural fluid seen. CARDIOVASCULAR: There is mild cardiomegaly. OSSEOUS STRUCTURES: No significant abnormalities. VISUALIZED UPPER ABDOMEN: Normal. OTHER FINDINGS: None. IMPRESSION: No active pulmonary disease. COPD.
[2018-05-07 17:34] LABS: VENOUS BLOOD GAS BASE EXCESS 8.2 mmol/L (0.0-2.0); VENOUS BLOOD GAS PCO2 61 mmHg (40-60); VENOUS BLOOD GAS PO2 18 mm/Hg (30-55); VENOUS BLOOD PH 7.37 (7.32-7.43)
[2018-05-07 17:43] LABS: BASO % 0.4 % (0.0-2.0); EOS % 0.1 % (0.0-4.0); HEMOGLOBIN 10.8 g/dL (12.0-16.0); LYMPH # 1.3 K/uL (1.0-4.3); LYMPH % 11.3 % (20.0-40.0); MEAN CELL VOLUME 96.6 fl (81.0-99.0); MEAN CORPUSCULAR HEMOGLOBIN 32.8 pg (27.0-31.0); MEAN CORPUSCULAR HGB CONC 33.9 g/dL (33.0-37.0); MEAN PLATELET VOLUME 8.9 fl (7.2-11.7); MONO # 0.8 K/uL (0.0-0.8); MONO % 7.2 % (0.0-10.0); NEUT # 9.5 K/uL (1.8-7.0); RBC 3.28 Mil/uL (3.80-5.20); RED CELL DISTRIBUTION WIDTH 14.6 % (11.5-14.5); WHITE BLOOD COUNT 11.8 K/uL (4.8-10.8)
[2018-05-07 17:47] LABS: PROTHROMBIN TIME 11.1 Seconds (9.8-13.1)
[2018-05-07 17:50] LABS: PARTIAL THROMBOPLASTIN TIME 31.7 Seconds (25.6-37.1)
[2018-05-07 17:54] LABS: ALB/GLOB RATIO 1.2 (1.0-2.1); ALBUMIN 3.7 g/dL (3.5-5.0); ALT/SGPT 43 U/L (9-52); AST/SGOT 39 U/L (14-36); BLOOD UREA NITROGEN 20 mg/dl (7-17); CALCIUM 9.6 mg/dL (8.4-10.2); GFR NON-AFRICAN AMERICAN > 60
[2018-05-07] MEDS ORDERED: Azithromycin 500 MG in Sodium Chloride 0.9% 250 ML IV STA (18:56)
[2018-05-07] MEDS ORDERED: Sodium Chloride 0.9% 0 ML IV ONE (19:44)
[2018-05-07] MEDS ORDERED: Iohexol 300 100 ML IJ ONE (19:44)
[2018-05-07] MEDS ORDERED: Azithromycin 500 MG IV IVPB ONE (19:53)
[2018-05-07 21:30] LABS: URINE BACTERIA RARE (<OCC); URINE BILIRUBIN NEGATIVE (NEGATIVE); URINE BLOOD NEGATIVE (NEGATIVE); URINE CLARITY CLEAR (Clear); URINE COLOR YELLOW (YELLOW); URINE GLUCOSE (UA) NEG (Normal); URINE LEUKOCYTE ESTERASE NEG Leu/uL (Negative); URINE PROTEIN NEGATIVE (NEGATIVE); URINE UROBILINOGEN 0.2-1.0 mg/dL (0.2-1.0)
[2018-05-07] MEDS ORDERED: Albuterol 0.083% Inhal Sol (2.5 mg/3 mL) UD INH PRN (22:44)
[2018-05-08 05:31] LABS: HEMOGLOBIN 10.1 g/dL (12.0-16.0); MEAN CELL VOLUME 96.2 fl (81.0-99.0); MEAN CORPUSCULAR HGB CONC 34.3 g/dL (33.0-37.0); RBC 3.05 Mil/uL (3.80-5.20); RED CELL DISTRIBUTION WIDTH 14.5 % (11.5-14.5); WHITE BLOOD COUNT 9.2 K/uL (4.8-10.8)
[2018-05-08] MEDS: Albuterol-Ipratrop 3 mg / 0.5 (3 ml) UD INH SCH ×4 (08:16→19:38)
--- NOTE | 2018-05-08 08:41 | CP.PCM.CON ---
History of Present Illness - History of Present Illness History of Present Illness: This 87 year old female is well known to me from the outpatient setting as well as prior admission. She had been discharged to home from [facility] only one week ago after being interned for exacerbation COPD, diastolic CHF and new onset Dementis with depression. She complained of a congested cough with inability to expectorate, increased shortness of breath and developed fever of 101.2 degrees prompting referral to the emergency room. On presentation there was noted to be a mild elevation of her leukocyte count and her chest x-ray showed increased markings in the lower lobes bilaterally without consolidation when compared to her prior study. She denied chest pain, chills and hemoptysis. Past Patient History - Infectious Disease Hx of Infectious Diseases: None - Tetanus Immunizations Tetanus Immunization: Unknown - Past Medical History & Family History Past Medical History?: Yes - Past Social History Smoking Status: Former Smoker Chewing Tobacco Use: No Cigar Use: No Alcohol: None Drugs: Denies Home Situation {Lives}: Alone - CARDIAC Hx Atrial Fibrillation: Yes Hx Congestive Heart Failure: Yes (diastolic) Hx Hypertension: Yes - PULMONARY Hx Chronic Obstructive Pulmonary Disease (COPD): Yes Hx Lung Cancer: Yes - NEUROLOGICAL Hx Dementia: Yes - HEENT Hx Glaucoma: Yes Other/Comment: Rhinitis - RENAL Hx Chronic Kidney Disease: No Other/Comment: BRENDA-resolved - ENDOCRINE/METABOLIC Hx Endocrine Disorders: No - HEMATOLOGICAL/ONCOLOGICAL Hx Anemia: Yes Hx Cancer: Yes (adenocarcinoma lung; resected) - INTEGUMENTARY Hx Dermatological Problems: No - MUSCULOSKELETAL/RHEUMATOLOGICAL Hx Arthritis: Yes - GASTROINTESTINAL Other/Comment: Hiatal hernia - PSYCHIATRIC Hx Depression: Yes - SURGICAL HISTORY Hx Pulmonary Surgery: Yes (RUL resected) Hx Tonsillectomy: Yes - ANESTHESIA Hx Anesthesia: Yes Hx Anesthesia Reactions: No Hx Malignant Hyperthermia: No Meds Allergies/Adverse Reactions: Allergies Allergy/AdvReac Type Severity Reaction Status Date / Time Penicillins Allergy ANAPHYLAXIS Verified 05/07/18 15:55 Sulfa (Sulfonamide Allergy RASH Verified 05/07/18 15:55 Antibiotics) sulfamethoxazole Allergy RASH Verified 05/07/18 15:55 [From Bactrim] trimethoprim [From Bactrim] Allergy RASH Verified 05/07/18 15:55 - Medications Medications: Current Medications Albuterol Sulfate (Albuterol 0.083% Inhal Paulina (2.5 Mg/3 Ml) Ud) 2.5 mg INH RQ4 PRN PRN Reason: Shortness of Breath Albuterol/Ipratropium (Duoneb 3 Mg/0.5 Mg (3 Ml) Ud) 3 ml INH RQID [facility] Last Admin: 05/08/18 08:16 Dose: 3 ml Alprazolam (Xanax) 1 mg PO BID [facility] Aspirin (Ecotrin) 81 mg PO DAILY [facility] Cholecalciferol (Vitamin D) 1,000 intlu PO DAILY [facility] Diltiazem HCl (Cardizem Cd) 120 mg PO DAILY [facility] Fluticasone Propionate (Flonase) 1 spr JACQUIE BID [facility] Gabapentin (Neurontin) 100 mg PO HS [facility] Latanoprost (Xalatan Opht) 1 drop OU HS [facility] Memantine (Namenda) 5 mg PO DAILY [facility] Methylprednisolone (Solu-Medrol) 60 mg IVP Q8H [facility] Mirtazapine (Remeron) 7.5 mg PO HS [facility] Physical Exam - Additional Findings Additional findings: Thin, pleasant, sitting up in bed in no distress. Memory is fair, but she is very forgetful. Speech is fluent, no focal motor weakness. Pharynx is pink and moist w/o exudate. Neck is supple and trachea midline, no JVD. Chest is hyper-resonant on percussion bilaterally. Breath sounds are diminished bilaterally w/o audible wheezing. Medium rales are present in the lower lobes, L>R with sonorous rhonchi. No bronchial breath sounds or egophony. Heart sounds are distant, rhythm regular w/o murmur. Abdomen is soft and non-tender with normal BS. No dependant edema, no cyanosis, no calf tenderness. Results - Vital Signs Recent Vital Signs: Last Vital Signs Temp 97.5 F L 05/08/18 08:16 Pulse 60 05/08/18 08:16 Resp 20 05/08/18 08:16 BP 130/68 05/08/18 08:16 Pulse Ox 97 05/08/18 08:16 - Labs Result Diagrams: 05/08/18 05:19 05/07/18 17:33 Labs: Laboratory Results - last 24 hr 05/07/18 05/07/18 05/07/18 16:42 17:33 17:33 WBC 11.8 H D RBC 3.28 L Hgb 10.8 L Hct 31.7 L MCV 96.6 MCH 32.8 H MCHC 33.9 RDW 14.6 H Plt Count 166 MPV 8.9 Neut % (Auto) 81.0 H Lymph % (Auto) 11.3 L [place] % (Auto) 7.2 Eos % (Auto) 0.1 Baso % (Auto) 0.4 Neut # (Auto) 9.5 H Lymph # (Auto) 1.3 [place] # (Auto) 0.8 Eos # (Auto) 0.0 Baso # (Auto) 0.0 PT INR APTT pO2 18 L VBG pH 7.37 VBG pCO2 61 H VBG HCO3 29.8 VBG Total CO2 37.2 H VBG O2 Sat (Calc) 31.7 L VBG Base Excess 8.2 H VBG Potassium 4.1 Sodium 132.0 134 Chloride 99.0 99 Glucose 109 H Lactate 1.0 FiO2 21.0 Potassium 5.1 H Carbon Dioxide 28 Anion Gap 12 BUN 20 H Creatinine 0.7 Est GFR ( Amer) > 60 Est GFR (Non-Af Amer) > 60 Random Glucose 106 H Calcium 9.6 Total Bilirubin 0.6 AST 39 H ALT 43 Alkaline Phosphatase 76 Troponin I Total Protein 7.0 Albumin 3.7 Globulin 3.2 Albumin/Globulin Ratio 1.2 Venous Blood Potassium 4.1 Urine Color Urine Clarity Urine pH Ur Specific [place] Urine Protein Urine Glucose (UA) Urine Ketones Urine Blood Urine Nitrate Urine Bilirubin Urine Urobilinogen Ur Leukocyte Esterase Urine RBC (Auto) Urine Microscopic WBC Urine Bacteria 05/07/18 05/07/18 05/07/18 17:33 21:14 23:50 WBC RBC Hgb Hct MCV MCH MCHC RDW Plt Count MPV Neut % (Auto) Lymph % (Auto) [place] % (Auto) Eos % (Auto) Baso % (Auto) Neut # (Auto) Lymph # (Auto) [place] # (Auto) Eos # (Auto) Baso # (Auto) PT 11.1 INR 1.0 APTT 31.7 pO2 VBG pH VBG pCO2 VBG HCO3 VBG Total CO2 VBG O2 Sat (Calc) VBG Base Excess VBG Potassium Sodium Chloride Glucose Lactate FiO2 Potassium Carbon Dioxide Anion Gap BUN Creatinine Est GFR ( Amer) Est GFR (Non-Af Amer) Random Glucose Calcium Total Bilirubin AST ALT Alkaline Phosphatase Troponin I 0.0520 Total Protein Albumin Globulin Albumin/Globulin Ratio Venous Blood Potassium Urine Color Yellow Urine Clarity Clear Urine pH 7.0 Ur Specific [place] 1.011 Urine Protein Negative Urine Glucose (UA) Neg Urine Ketones Negative Urine Blood Negative Urine Nitrate Negative Urine Bilirubin Negative Urine Urobilinogen 0.2-1.0 Ur Leukocyte Esterase Neg Urine RBC (Auto) 3 Urine Microscopic WBC < 1 Urine Bacteria Rare 05/08/18 05/08/18 05:19 07:50 WBC 9.2 RBC 3.05 L Hgb 10.1 L Hct 29.3 L MCV 96.2 MCH 33.0 H MCHC 34.3 RDW 14.5 Plt Count 149 MPV Neut % (Auto) Lymph % (Auto) [place] % (Auto) Eos % (Auto) Baso % (Auto) Neut # (Auto) Lymph # (Auto) [place] # (Auto) Eos # (Auto) Baso # (Auto) PT INR APTT pO2 VBG pH VBG pCO2 VBG HCO3 VBG Total CO2 VBG O2 Sat (Calc) VBG Base Excess VBG Potassium Sodium Chloride Glucose Lactate FiO2 Potassium Carbon Dioxide Anion Gap BUN Creatinine Est GFR ( Amer) Est GFR (Non-Af Amer) Random Glucose Calcium Total Bilirubin AST ALT Alkaline Phosphatase Troponin I 0.0260 Total Protein Albumin Globulin Albumin/Globulin Ratio Venous Blood Potassium Urine Color Urine Clarity Urine pH Ur Specific [place] Urine Protein Urine Glucose (UA) Urine Ketones Urine Blood Urine Nitrate Urine Bilirubin Urine Urobilinogen Ur Leukocyte Esterase Urine RBC (Auto) Urine Microscopic WBC Urine Bacteria Assessment & Plan (1) Shortness of breath Status: Acute Priority: High (2) Chr obstructive pulmonary disease w/ acute lower respiratory infxn Status: Acute Priority: High (3) Atrial fibrillation Status: Resolved Priority: Medium (4) Dementia Status: Chronic Priority: High (5) Anemia in chronic illness Status: Chronic Priority: Medium - Assessment and Plan (Free Text) Assessment: Appears to have developed acute exacerbation of chronic bronchitis. Need to have follow up chest x-ray to check increased BV markings seen in lower lobes, especially left, to rule in/out pneumonia. Will treat with azithromycin initially because of PCN and Sulfa allergies. Hesitant to use Quinolones in consideration of her Dementia. Recent discharge makes hospital acquired infection a possibility so I will give one dose of Vancomycin at this time to cover for staph. Will need to monitor electrolytes and renal function because of recent BRENDA and Hyponatremia. Reduce corticosteroid dosing as early as tomorrow. CPT and PO mucolytic; sputum culture. - Date & Time Date: 05/08/18 Time: 08:41
[2018-05-08] MEDS: diltiaZEM 120 mg/24 Hours CD Cap PO SCH (08:43)
[2018-05-08] MEDS: Cholecalciferol 1,000 INTLU TAB PO SCH (08:45)
[2018-05-08] MEDS ORDERED: Sodium Chloride 3% for Inhalation 4 ML VIAL.NEB IH PRN (09:16)
--- NOTE | 2018-05-08 09:52 | CARD ---
APPROVED REPORT Date of service: 05/07/2018 EKG Measurement Heart [id number] <Conclusion> Normal sinus rhythm Possible Left atrial enlargement Borderline ECG
[2018-05-08] MEDS: guaiFENesin 600 mg ER Tab PO SCH ×2 (12:25→21:20)
--- NOTE | 2018-05-08 17:01 | CP.PCM.HP ---
History of Present Illness - History of Present Illness History of Present Illness: 87 y/o female w/ pmhx of CHF, COPD, HTN, Lung resection 2 years ago, HLD , dementia and depression presented to [facility] ED yesterday with complaints of cough, shortness of breath and fever of 102 F at home. Denies chest pain, nausea, vomi ting, headache, dizziness or focal weakness. Of note, patient was admitted to hospital on 04/18/18 for CHF exacerbation and discharged to home from TCU on 05/01/18. Patient is admitted yesterday for COPD exacerbation with bronchitis. PMD: Dr. Washington (Prior was Dr. Rivera) Assembler Wire Mesh Gate: Dr. Washington Log Handling Equipment Operator: Dr. Adam PMHX: Anxiety, Arthritis, Atrial Fibrillation, COPD, Emphysema, HTN, Hypercholesterolemia, Hx of Pneumonia SurgHx: Tonsillectomy Social: Non smoker This morning, patient seen and examined with Dr. Rivera. States her shortness of breath and cough are improving. Denies any other complaints. Present on Admission - Present on Admission Any Indicators Present on Admission: No Review of Systems - Review of Systems All systems: reviewed and no additional remarkable complaints except (as mentioned in HPI) Past Patient History - Infectious Disease Hx of Infectious Diseases: None - Tetanus Immunizations Tetanus Immunization: Unknown - Past Medical History & Family History Past Medical History?: Yes - Past Social History Smoking Status: Former Smoker Chewing Tobacco Use: No Cigar Use: No Alcohol: None Drugs: Denies Home Situation {Lives}: Alone - CARDIAC Hx Atrial Fibrillation: Yes Hx Congestive Heart Failure: Yes (diastolic) Hx Hypertension: Yes - PULMONARY Hx Chronic Obstructive Pulmonary Disease (COPD): Yes Hx Lung Cancer: Yes - NEUROLOGICAL Hx Dementia: Yes - HEENT Hx Glaucoma: Yes Other/Comment: Rhinitis - RENAL Hx Chronic Kidney Disease: No Other/Comment: BRENDA-resolved - ENDOCRINE/METABOLIC Hx Endocrine Disorders: No - HEMATOLOGICAL/ONCOLOGICAL Hx Anemia: Yes Hx Cancer: Yes (adenocarcinoma lung; resected) - INTEGUMENTARY Hx Dermatological Problems: No - MUSCULOSKELETAL/RHEUMATOLOGICAL Hx Arthritis: Yes - GASTROINTESTINAL Other/Comment: Hiatal hernia - GENITOURINARY/GYNECOLOGICAL Hx Genitourinary Disorders: Yes - PSYCHIATRIC Hx Depression: Yes - SURGICAL HISTORY Hx Pulmonary Surgery: Yes (RUL resected) Hx Tonsillectomy: Yes - ANESTHESIA Hx Anesthesia: Yes Hx Anesthesia Reactions: No Hx Malignant Hyperthermia: No Meds Allergies/Adverse Reactions: Allergies Allergy/AdvReac Type Severity Reaction Status Date / Time Penicillins Allergy ANAPHYLAXIS Verified 05/07/18 15:55 Sulfa (Sulfonamide Allergy RASH Verified 05/07/18 15:55 Antibiotics) sulfamethoxazole Allergy RASH Verified 05/07/18 15:55 [From Bactrim] trimethoprim [From Bactrim] Allergy RASH Verified 05/07/18 15:55 Physical Exam - Constitutional Appears: Non-toxic, No Acute Distress - Head Exam Head Exam: NORMAL INSPECTION - Eye Exam Eye Exam: Normal appearance - ENT Exam ENT Exam: Mucous Membranes Moist - Respiratory Exam Respiratory Exam: Rales (B/L lower lobes). absent: Accessory Muscle Use, Respiratory Distress - Cardiovascular Exam Cardiovascular Exam: REGULAR RHYTHM, +S1, +S2 - GI/Abdominal Exam GI & Abdominal Exam: Normal Bowel Sounds, Soft. absent: Tenderness - Extremities Exam Extremities exam: Positive for: normal inspection - Neurological Exam Neurological exam: Alert - Psychiatric Exam Psychiatric exam: Normal Affect, Normal Mood - Skin Skin Exam: Normal Color, Warm Results - Vital Signs Recent Vital Signs: Last Vital Signs Temp 97.6 F 05/08/18 16:43 Pulse 67 05/08/18 16:43 Resp 18 05/08/18 16:43 BP 111/53 L 05/08/18 16:43 Pulse Ox 98 05/08/18 16:43 - Labs Result Diagrams: 05/08/18 05:19 05/07/18 17:33 Labs: Laboratory Results - last 24 hr 05/07/18 05/07/18 05/07/18 16:42 17:33 17:33 WBC 11.8 H D RBC 3.28 L Hgb 10.8 L Hct 31.7 L MCV 96.6 MCH 32.8 H MCHC 33.9 RDW 14.6 H Plt Count 166 MPV 8.9 Neut % (Auto) 81.0 H Lymph % (Auto) 11.3 L [place] % (Auto) 7.2 Eos % (Auto) 0.1 Baso % (Auto) 0.4 Neut # (Auto) 9.5 H Lymph # (Auto) 1.3 [place] # (Auto) 0.8 Eos # (Auto) 0.0 Baso # (Auto) 0.0 PT INR APTT pO2 18 L VBG pH 7.37 VBG pCO2 61 H VBG HCO3 29.8 VBG Total CO2 37.2 H VBG O2 Sat (Calc) 31.7 L VBG Base Excess 8.2 H VBG Potassium 4.1 Sodium 132.0 134 Chloride 99.0 99 Glucose 109 H Lactate 1.0 FiO2 21.0 Potassium 5.1 H Carbon Dioxide 28 Anion Gap 12 BUN 20 H Creatinine 0.7 Est GFR ( Amer) > 60 Est GFR (Non-Af Amer) > 60 Random Glucose 106 H Calcium 9.6 Total Bilirubin 0.6 AST 39 H ALT 43 Alkaline Phosphatase 76 Troponin I Total Protein 7.0 Albumin 3.7 Globulin 3.2 Albumin/Globulin Ratio 1.2 Venous Blood Potassium 4.1 Urine Color Urine Clarity Urine pH Ur Specific Crocker Urine Protein Urine Glucose (UA) Urine Ketones Urine Blood Urine Nitrate Urine Bilirubin Urine Urobilinogen Ur Leukocyte Esterase Urine RBC (Auto) Urine Microscopic WBC Urine Bacteria 05/07/18 05/07/18 05/07/18 17:33 21:14 23:50 WBC RBC Hgb Hct MCV MCH MCHC RDW Plt Count MPV Neut % (Auto) Lymph % (Auto) [place] % (Auto) Eos % (Auto) Baso % (Auto) Neut # (Auto) Lymph # (Auto) [place] # (Auto) Eos # (Auto) Baso # (Auto) PT 11.1 INR 1.0 APTT 31.7 pO2 VBG pH VBG pCO2 VBG HCO3 VBG Total CO2 VBG O2 Sat (Calc) VBG Base Excess VBG Potassium Sodium Chloride Glucose Lactate FiO2 Potassium Carbon Dioxide Anion Gap BUN Creatinine Est GFR ( Amer) Est GFR (Non-Af Amer) Random Glucose Calcium Total Bilirubin AST ALT Alkaline Phosphatase Troponin I 0.0520 Total Protein Albumin Globulin Albumin/Globulin Ratio Venous Blood Potassium Urine Color Yellow Urine Clarity Clear Urine pH 7.0 Ur Specific Crocker 1.011 Urine Protein Negative Urine Glucose (UA) Neg Urine Ketones Negative Urine Blood Negative Urine Nitrate Negative Urine Bilirubin Negative Urine Urobilinogen 0.2-1.0 Ur Leukocyte Esterase Neg Urine RBC (Auto) 3 Urine Microscopic WBC < 1 Urine Bacteria Rare 05/08/18 05/08/18 05:19 07:50 WBC 9.2 RBC 3.05 L Hgb 10.1 L Hct 29.3 L MCV 96.2 MCH 33.0 H MCHC 34.3 RDW 14.5 Plt Count 149 MPV Neut % (Auto) Lymph % (Auto) [place] % (Auto) Eos % (Auto) Baso % (Auto) Neut # (Auto) Lymph # (Auto) [place] # (Auto) Eos # (Auto) Baso # (Auto) PT INR APTT pO2 VBG pH VBG pCO2 VBG HCO3 VBG Total CO2 VBG O2 Sat (Calc) VBG Base Excess VBG Potassium Sodium Chloride Glucose Lactate FiO2 Potassium Carbon Dioxide Anion Gap BUN Creatinine Est GFR ( Amer) Est GFR (Non-Af Amer) Random Glucose Calcium Total Bilirubin AST ALT Alkaline Phosphatase Troponin I 0.0260 Total Protein Albumin Globulin Albumin/Globulin Ratio Venous Blood Potassium Urine Color Urine Clarity Urine pH Ur Specific Crocker Urine Protein Urine Glucose (UA) Urine Ketones Urine Blood Urine Nitrate Urine Bilirubin Urine Urobilinogen Ur Leukocyte Esterase Urine RBC (Auto) Urine Microscopic WBC Urine Bacteria Assessment & Plan - Assessment and Plan (Free Text) Assessment: 87 y/o female w/ pmhx of CHF, COPD, HTN, Lung resection 2 years ago, HLD , dementia and depression presented to [facility] ED yesterday with complaints of cough, shortness of breath and fever of 102 F at home. Patient was admitted yesterday for COPD exacerbation with bronchitis. Plan: Pulmonary consult Dr. Washington, recommendation appreciated. c/w azithromycin c/w duoneb and methylprednisolone ( will taper from tomorrow AM) c/w home medications. f/u labs, CXR Rest of the plan as ordered. Patient seen, examined and plan d/w Dr. Miguel Erazo, pgy-2
[2018-05-08] MEDS: Azithromycin 500 MG in Sodium Chloride 0.9% 250 ML IVPB SCH (17:46)
[2018-05-08] MEDS: Latanoprost 0.005% Opht SOUTION OU SCH (21:20)
[2018-05-09 05:52] LABS: MEAN CORPUSCULAR HEMOGLOBIN 32.7 pg (27.0-31.0); MEAN CORPUSCULAR HGB CONC 34.4 g/dL (33.0-37.0); RBC 3.05 Mil/uL (3.80-5.20); RED CELL DISTRIBUTION WIDTH 14.4 % (11.5-14.5); WHITE BLOOD COUNT 8.9 K/uL (4.8-10.8)
[2018-05-09 05:57] LABS: BLOOD UREA NITROGEN 37 mg/dl (7-17); CALCIUM 9.4 mg/dL (8.4-10.2); GFR NON-AFRICAN AMERICAN 59
[2018-05-09] MEDS: Albuterol-Ipratrop 3 mg / 0.5 (3 ml) UD INH SCH ×4 (07:13→19:54)
[2018-05-09] MEDS: diltiaZEM 120 mg/24 Hours CD Cap PO SCH (08:51)
[2018-05-09] MEDS: Cholecalciferol 1,000 INTLU TAB PO SCH (08:52)
[2018-05-09] MEDS: guaiFENesin 600 mg ER Tab PO SCH ×2 (08:52→21:18)
--- NOTE | 2018-05-09 10:27 | RAD ---
Date of service: 05/09/2018 HISTORY: SOB COMPARISON: 05/07/2018 TECHNIQUE: Chest PA and lateral FINDINGS: LUNGS: No active pulmonary disease. PLEURA: Small bilateral pleural effusion, right greater than left. No pneumothorax. CARDIOVASCULAR: Normal. OSSEOUS STRUCTURES: No significant abnormalities. VISUALIZED UPPER ABDOMEN: Normal. OTHER FINDINGS: None. IMPRESSION: Small bilateral pleural effusion.
--- NOTE | 2018-05-09 11:53 | CP.PCM.PN ---
Subjective - Date & Time of Evaluation Date of Evaluation: 05/09/18 Time of Evaluation: 10:35 - Subjective Subjective: Patient seen and examined this morning with Dr. Rivera. Reports +wheezing and cough but improving with treatment. No chest pain, fever, chills,nausea, or vomiting. No other complaints. Objective - Vital Signs/Intake and Output Vital Signs (last 24 hours): Temp Pulse Resp BP Pulse Ox 97.6 F 70 18 110/50 L 97 05/09/18 09:34 05/09/18 09:34 05/09/18 09:34 05/09/18 09:34 05/09/18 09:34 - Medications Medications: Current Medications Albuterol Sulfate (Albuterol 0.083% Inhal Paulina (2.5 Mg/3 Ml) Ud) 2.5 mg INH RQ4 PRN PRN Reason: Shortness of Breath Albuterol/Ipratropium (Duoneb 3 Mg/0.5 Mg (3 Ml) Ud) 3 ml INH RQID [facility] Last Admin: 05/09/18 11:26 Dose: 3 ml Alprazolam (Xanax) 1 mg PO BID [facility] Last Admin: 05/09/18 09:04 Dose: 1 mg Aspirin (Ecotrin) 81 mg PO DAILY [facility] Last Admin: 05/09/18 08:51 Dose: 81 mg Cholecalciferol (Vitamin D) 1,000 intlu PO DAILY [facility] Last Admin: 05/09/18 08:52 Dose: 1,000 intlu Diltiazem HCl (Cardizem Cd) 120 mg PO DAILY [facility] Last Admin: 05/09/18 08:51 Dose: 120 mg Fluticasone Propionate (Flonase) 1 spr JACQUIE BID [facility] Last Admin: 05/09/18 08:52 Dose: 1 spr Gabapentin (Neurontin) 100 mg PO HS [facility] Last Admin: 05/08/18 21:20 Dose: 100 mg Guaifenesin (Mucinex La) 600 mg PO Q12 [facility] Last Admin: 05/09/18 08:52 Dose: 600 mg Azithromycin 500 mg/ Sodium (Chloride) 250 mls @ 250 mls/hr IVPB QPM [facility]; Protocol Last Admin: 05/08/18 17:46 Dose: 250 mls/hr Latanoprost (Xalatan Opht) 1 drop OU HS [facility] Last Admin: 05/08/18 21:20 Dose: 1 drop Memantine (Namenda) 5 mg PO DAILY [facility] Last Admin: 05/09/18 08:53 Dose: 5 mg Methylprednisolone (Solu-Medrol) 40 mg IVP Q12 [facility] Mirtazapine (Remeron) 7.5 mg PO HS [facility] Last Admin: 05/08/18 21:20 Dose: 7.5 mg - Labs Labs: 05/09/18 05:00 05/09/18 05:00 PT 11.1 Seconds (9.8-13.1) 05/07/18 17:33 INR 1.0 05/07/18 17:33 APTT 31.7 Seconds (25.6-37.1) 05/07/18 17:33 - Constitutional Appears: Non-toxic, No Acute Distress - Head Exam Head Exam: NORMAL INSPECTION - Eye Exam Eye Exam: Normal appearance - ENT Exam ENT Exam: Mucous Membranes Moist - Respiratory Exam Respiratory Exam: Prolonged Expiratory Phase, Wheezes (diffuse), NORMAL BREATHING PATTERN. absent: Accessory Muscle Use, Respiratory Distress - Cardiovascular Exam Cardiovascular Exam: REGULAR RHYTHM, +S1, +S2 - GI/Abdominal Exam GI & Abdominal Exam: Soft, Normal Bowel Sounds. absent: Tenderness - Extremities Exam Extremities Exam: absent: Calf Tenderness - Neurological Exam Neurological Exam: Alert, Awake - Psychiatric Exam Psychiatric exam: Normal Affect, Normal Mood - Skin Skin Exam: Normal Color, Warm Assessment and Plan - Assessment and Plan (Free Text) Assessment: 87 y/o female w/ pmhx of CHF, COPD, HTN, Lung resection 2 years ago, HLD , dementia and depression presented to [facility] ED yesterday with complaints of cough, shortness of breath and fever of 102 F at home. Patient was admitted yesterday for COPD exacerbation with bronchitis. Plan: Pulmonary consult Dr. Washington, recommendation appreciated. CXR this morning: small B/L pleural effusion. c/w azithromycin c/w duoneb Reduce methylprednisolone to 40 mg q12 hr c/w home medications. f/u AM labs, Rest of the plan as ordered. Patient seen, examined and plan d/w Dr. Miguel Erazo, pgy-2
--- NOTE | 2018-05-09 12:41 | CP.PCM.PN ---
Subjective - Date & Time of Evaluation Date of Evaluation: 05/09/18 Time of Evaluation: 12:41 - Subjective Subjective: Seen on rounds in telemetry in the p.m. The patient is seated upright in bed having finished lunch. She appears comfortable and her mood is good. She claims to have slept relatively well and has not had any nocturnal hallucinations or bizarre dreams. She has been receiving chest physical therapy and is able to expectorate a small quantity of yellowish sputum. Culture has been obtained and sent to the laboratory. Blood culture (one bottle) has been reported as showing gram-positive bacilli on stain. She has remained afebrile since presentation. Leukocytosis has resolved. She remains on azithromycin 500 mg once daily and did receive 1 dose of vancomycin, 1 g, yesterday. There has been slight increase in her BUN/creatinine and decreased in her eGFR after having this single dose. She has had acute kidney injury on her last admission recently. The pharynx is pink and the mucous membranes are moist without exudate. The neck is supple and trachea is midline. No neck vein distention or carotid bruit. No dullness on chest percussion. Both hemidiaphragms displaced caudally. Breath sounds are markedly diminished bilaterally and scattered rhonchi and medium rales are heard more so in the right base than the left. No audible whe ezes. No bronchial breathing or egophony. Heart sounds are distant and rhythm is regular. No dependent edema or cyanosis. Case was discussed with the infectious disease specialist and further antibiotic therapy will be dependent on the results of the culture. Remainder of her current medical regimen will continue unchanged. Physical therapy as well as continued chest PT are required. Agree with rapid decrease in methylprednisolone. Objective - Vital Signs/Intake and Output Vital Signs (last 24 hours): Temp Pulse Resp BP Pulse Ox 97.6 F 70 18 110/50 L 97 05/09/18 09:34 05/09/18 09:34 05/09/18 09:34 05/09/18 09:34 05/09/18 09:34 - Medications Medications: Current Medications Albuterol Sulfate (Albuterol 0.083% Inhal Paulina (2.5 Mg/3 Ml) Ud) 2.5 mg INH RQ4 PRN PRN Reason: Shortness of Breath Albuterol/Ipratropium (Duoneb 3 Mg/0.5 Mg (3 Ml) Ud) 3 ml INH RQID [facility] Last Admin: 05/09/18 11:26 Dose: 3 ml Alprazolam (Xanax) 1 mg PO BID [facility] Last Admin: 05/09/18 09:04 Dose: 1 mg Aspirin (Ecotrin) 81 mg PO DAILY [facility] Last Admin: 05/09/18 08:51 Dose: 81 mg Cholecalciferol (Vitamin D) 1,000 intlu PO DAILY [facility] Last Admin: 05/09/18 08:52 Dose: 1,000 intlu Diltiazem HCl (Cardizem Cd) 120 mg PO DAILY [facility] Last Admin: 05/09/18 08:51 Dose: 120 mg Fluticasone Propionate (Flonase) 1 spr JACQUIE BID [facility] Last Admin: 05/09/18 08:52 Dose: 1 spr Gabapentin (Neurontin) 100 mg PO HS [facility] Last Admin: 05/08/18 21:20 Dose: 100 mg Guaifenesin (Mucinex La) 600 mg PO Q12 [facility] Last Admin: 05/09/18 08:52 Dose: 600 mg Azithromycin 500 mg/ Sodium (Chloride) 250 mls @ 250 mls/hr IVPB QPM [facility]; Protocol Last Admin: 05/08/18 17:46 Dose: 250 mls/hr Latanoprost (Xalatan Opht) 1 drop OU HS [facility] Last Admin: 05/08/18 21:20 Dose: 1 drop Memantine (Namenda) 5 mg PO DAILY [facility] Last Admin: 05/09/18 08:53 Dose: 5 mg Methylprednisolone (Solu-Medrol) 40 mg IVP Q12 [facility] Mirtazapine (Remeron) 7.5 mg PO HS [facility] Last Admin: 05/08/18 21:20 Dose: 7.5 mg - Labs Labs: 05/09/18 05:00 05/09/18 05:00 PT 11.1 Seconds (9.8-13.1) 05/07/18 17:33 INR 1.0 05/07/18 17:33 APTT 31.7 Seconds (25.6-37.1) 05/07/18 17:33 Assessment and Plan (1) Shortness of breath Status: Acute (2) Chr obstructive pulmonary disease w/ acute lower respiratory infxn Status: Acute (3) Atrial fibrillation Status: Resolved (4) Dementia Status: Chronic (5) Anemia in chronic illness Status: Chronic
[2018-05-09] MEDS: MethylPREDNISolone 40 mg Vial IVP SCH ×2 (12:46→21:18)
--- NOTE | 2018-05-09 13:04 | PQF ---
PROVIDER RESPONSE TEXT: Chronic Diastolic CHF REVIEWER QUERY TEXT: CHF Acuity and Type Congestive Heart Failure Diastolic is documented in the Medical Record. Please document the acuity (i ncludes probable or suspected) Such as: Acuity: -- Acute Diastolic CHF -- Chronic Diastolic CHF -- Acute on chronic Diastolic CHF -- Other, please specify The patient's Clinical Indicators include: Pulmonary consult: Recent admission for COPD exacerbation, Diastolic CHF and new onset Dementia Query created by: Ericka Vargas on 05/09/2018 8:08 AM Electronically signed by: Rohan Rivera MD 05/09/2018 1:01 PM
[2018-05-09] MEDS: Azithromycin 500 MG in Sodium Chloride 0.9% 250 ML IVPB SCH (17:01)
[2018-05-09] MEDS: Latanoprost 0.005% Opht SOUTION OU SCH (21:19)
[2018-05-10] MEDS: Albuterol-Ipratrop 3 mg / 0.5 (3 ml) UD INH SCH ×4 (07:22→19:32)
[2018-05-10] MEDS: diltiaZEM 120 mg/24 Hours CD Cap PO SCH (09:09)
[2018-05-10] MEDS: guaiFENesin 600 mg ER Tab PO SCH ×2 (09:10→21:47)
[2018-05-10] MEDS: MethylPREDNISolone 40 mg Vial IVP SCH ×2 (09:10→21:46)
[2018-05-10] MEDS: Cholecalciferol 1,000 INTLU TAB PO SCH (09:11)
--- NOTE | 2018-05-10 12:16 | CP.PCM.PN ---
Subjective - Date & Time of Evaluation Date of Evaluation: 05/10/18 Time of Evaluation: 12:03 - Subjective Subjective: Semi-upright in bed, just finishing aerosol treatment. Still has congested cough. Coached on proper use of Acapella and coughing technique. Awake and alert, easily confused, but terminal operations manager memory appears intact. Vital signs have been stable and she remains afebrile. Neck is supple and trachea midline. No dullness on chest percussion. Breath sounds very much diminished bilaterally. Sonorous rhonchi in both lower lobes, no wheezes or bronchial breath sounds. Heart sounds are distant, rhythm regular ~80. No cyanosis or dependant edema. Continue present regimen. CPT and aerosol therapy. Increase mucinex to 1200 BID. Physical therapy. Reduce steroids. Objective - Vital Signs/Intake and Output Vital Signs (last 24 hours): Temp Pulse Resp BP Pulse Ox 98.3 F 66 97 H 123/53 L 97 05/10/18 04:00 05/10/18 09:09 05/10/18 04:00 05/10/18 09:09 05/10/18 04:00 - Medications Medications: Current Medications Albuterol Sulfate (Albuterol 0.083% Inhal Paulina (2.5 Mg/3 Ml) Ud) 2.5 mg INH RQ4 PRN PRN Reason: Shortness of Breath Albuterol/Ipratropium (Duoneb 3 Mg/0.5 Mg (3 Ml) Ud) 3 ml INH RQID [facility] Last Admin: 05/10/18 11:35 Dose: 3 ml Alprazolam (Xanax) 1 mg PO BID [facility] Last Admin: 05/10/18 09:14 Dose: 1 mg Aspirin (Ecotrin) 81 mg PO DAILY [facility] Last Admin: 05/10/18 09:08 Dose: 81 mg Cholecalciferol (Vitamin D) 1,000 intlu PO DAILY [facility] Last Admin: 05/10/18 09:11 Dose: 1,000 intlu Diltiazem HCl (Cardizem Cd) 120 mg PO DAILY [facility] Last Admin: 05/10/18 09:09 Dose: 120 mg Fluticasone Propionate (Flonase) 1 spr JACQUIE BID [facility] Last Admin: 05/10/18 09:09 Dose: 1 spr Gabapentin (Neurontin) 100 mg PO HS [facility] Last Admin: 05/09/18 21:18 Dose: 100 mg Guaifenesin (Mucinex La) 600 mg PO Q12 [facility] Last Admin: 05/10/18 09:10 Dose: 600 mg Azithromycin 500 mg/ Sodium (Chloride) 250 mls @ 250 mls/hr IVPB QPM [facility]; Protocol Last Admin: 05/09/18 17:01 Dose: 250 mls/hr Latanoprost (Xalatan Opht) 1 drop OU HS [facility] Last Admin: 05/09/18 21:19 Dose: 1 drop Memantine (Namenda) 5 mg PO DAILY [facility] Last Admin: 05/10/18 09:10 Dose: 5 mg Methylprednisolone (Solu-Medrol) 40 mg IVP Q12 [facility] Last Admin: 05/10/18 09:10 Dose: 40 mg Mirtazapine (Remeron) 7.5 mg PO HS [facility] Last Admin: 05/09/18 21:18 Dose: 7.5 mg - Labs Labs: 05/09/18 05:00 05/09/18 05:00 PT 11.1 Seconds (9.8-13.1) 05/07/18 17:33 INR 1.0 05/07/18 17:33 APTT 31.7 Seconds (25.6-37.1) 05/07/18 17:33 Assessment and Plan (1) Shortness of breath Status: Acute (2) Chr obstructive pulmonary disease w/ acute lower respiratory infxn Status: Acute (3) Dementia Status: Chronic (4) Anemia in chronic illness Status: Chronic
[2018-05-10] MEDS: Azithromycin 500 MG in Sodium Chloride 0.9% 250 ML IVPB SCH (17:23)
[2018-05-10] MEDS: Latanoprost 0.005% Opht SOUTION OU SCH (21:48)
[2018-05-11] MEDS: Albuterol-Ipratrop 3 mg / 0.5 (3 ml) UD INH SCH ×2 (08:46→11:20)
[2018-05-11] MEDS ORDERED: methylPREDNISolone 30 MG in Sodium Chloride 0.9% 50 ML IV SCH (09:00)
[2018-05-11] MEDS ORDERED: MethylPREDNISolone 40 mg Vial IVP SCH (09:00)
[2018-05-11] MEDS: guaiFENesin 600 mg ER Tab PO SCH (09:17)
[2018-05-11] MEDS: MethylPREDNISolone 40 mg Vial IVP SCH ×2 (09:17→09:19)
[2018-05-11] MEDS: Cholecalciferol 1,000 INTLU TAB PO SCH (09:17)
[2018-05-11] MEDS: diltiaZEM 120 mg/24 Hours CD Cap PO SCH (09:20)
[2018-05-11 09:48] VITALS: O2SAT 96
--- NOTE | 2018-05-11 12:30 | CP.PCM.PN ---
Subjective - Date & Time of Evaluation Date of Evaluation: 05/10/18 Time of Evaluation: 17:00 - Subjective Subjective: patient is doing a lot better. Objective - Vital Signs/Intake and Output Vital Signs (last 24 hours): Temp Pulse Resp BP Pulse Ox 97.7 F 65 18 145/67 96 05/11/18 09:46 05/11/18 09:46 05/11/18 09:46 05/11/18 09:46 05/11/18 09:46 - Medications Medications: Current Medications Albuterol Sulfate (Albuterol 0.083% Inhal Paulina (2.5 Mg/3 Ml) Ud) 2.5 mg INH RQ4 PRN PRN Reason: Shortness of Breath Albuterol/Ipratropium (Duoneb 3 Mg/0.5 Mg (3 Ml) Ud) 3 ml INH RQID [facility] Last Admin: 05/11/18 11:20 Dose: 3 ml Aspirin (Ecotrin) 81 mg PO DAILY [facility] Last Admin: 05/11/18 09:17 Dose: 81 mg Cholecalciferol (Vitamin D) 1,000 intlu PO DAILY [facility] Last Admin: 05/11/18 09:17 Dose: 1,000 intlu Diltiazem HCl (Cardizem Cd) 120 mg PO DAILY [facility] Last Admin: 05/11/18 09:20 Dose: 120 mg Fluticasone Propionate (Flonase) 1 spr JACQUIE BID [facility] Last Admin: 05/11/18 09:16 Dose: 1 spr Gabapentin (Neurontin) 100 mg PO HS [facility] Last Admin: 05/10/18 21:46 Dose: 100 mg Guaifenesin (Mucinex La) 1,200 mg PO Q12 [facility] Last Admin: 05/11/18 09:17 Dose: 1,200 mg Azithromycin 500 mg/ Sodium (Chloride) 250 mls @ 250 mls/hr IVPB QPM [facility]; Protocol Last Admin: 05/10/18 17:23 Dose: 250 mls/hr Latanoprost (Xalatan Opht) 1 drop OU HS [facility] Last Admin: 05/10/18 21:48 Dose: 1 drop Memantine (Namenda) 5 mg PO DAILY [facility] Last Admin: 05/11/18 09:19 Dose: 5 mg Methylprednisolone (Solu-Medrol) 30 mg IVP Q12 [facility] Last Admin: 05/11/18 09:18 Dose: 30 mg Mirtazapine (Remeron) 7.5 mg PO HS [facility] Last Admin: 05/10/18 21:47 Dose: 7.5 mg - Labs Labs: 05/09/18 05:00 05/09/18 05:00 PT 11.1 Seconds (9.8-13.1) 05/07/18 17:33 INR 1.0 05/07/18 17:33 APTT 31.7 Seconds (25.6-37.1) 05/07/18 17:33
--- NOTE | 2018-05-11 12:31 | CP.PCM.DIS ---
Provider - Provider Date of Admission: 05/07/18 20:12 Attending physician: Tim Cornejo MD Hospital Course - Lab Results Lab Results: Micro Results 05/07/18 18:00 Blood Blood Culture - Final Corynebacterium Species 05/07/18 18:00 Blood Gram Stain - Final 05/08/18 10:10 Blood-Venous Blood Culture - Preliminary NO GROWTH AFTER 3 DAYS 05/08/18 08:00 Sputum Gram Stain - Final 05/08/18 08:00 Sputum Sputum Culture - Final NORMAL ORAL DANIEL 05/07/18 17:33 Blood Blood Culture - Final Corynebacterium Species 05/07/18 17:33 Blood Gram Stain - Final 05/09/18 14:50 Blood Blood Culture - Preliminary NO GROWTH AFTER 24 HOURS 05/07/18 21:14 Urine,Clean Catch Urine Culture - Final No Growth (<1,000 CFU/ML) Most Recent Lab Values WBC 8.9 K/uL (4.8-10.8) 05/09/18 05:00 RBC 3.05 Mil/uL (3.80-5.20) L 05/09/18 05:00 Hgb 10.0 g/dL (12.0-16.0) L 05/09/18 05:00 Hct 28.9 % (34.0-47.0) L 05/09/18 05:00 MCV 95.0 fl (81.0-99.0) 05/09/18 05:00 MCH 32.7 pg (27.0-31.0) H 05/09/18 05:00 MCHC 34.4 g/dL (33.0-37.0) 05/09/18 05:00 RDW 14.4 % (11.5-14.5) 05/09/18 05:00 Plt Count 155 K/uL (130-400) 05/09/18 05:00 MPV 8.9 fl (7.2-11.7) 05/07/18 17:33 Neut % (Auto) 81.0 % (50.0-75.0) H 05/07/18 17:33 Lymph % (Auto) 11.3 % (20.0-40.0) L 05/07/18 17:33 [place] % (Auto) 7.2 % (0.0-10.0) 05/07/18 17:33 Eos % (Auto) 0.1 % (0.0-4.0) 05/07/18 17:33 Baso % (Auto) 0.4 % (0.0-2.0) 05/07/18 17:33 Neut # (Auto) 9.5 K/uL (1.8-7.0) H 05/07/18 17:33 Lymph # (Auto) 1.3 K/uL (1.0-4.3) 05/07/18 17:33 [place] # (Auto) 0.8 K/uL (0.0-0.8) 05/07/18 17:33 Eos # (Auto) 0.0 K/uL (0.0-0.7) 05/07/18 17:33 Baso # (Auto) 0.0 K/uL (0.0-0.2) 05/07/18 17:33 PT 11.1 Seconds (9.8-13.1) 05/07/18 17:33 INR 1.0 05/07/18 17:33 APTT 31.7 Seconds (25.6-37.1) 05/07/18 17:33 pO2 18 mm/Hg (30-55) L 05/07/18 16:42 VBG pH 7.37 (7.32-7.43) 05/07/18 16:42 VBG pCO2 61 mmHg (40-60) H 05/07/18 16:42 VBG HCO3 29.8 mmol/L 05/07/18 16:42 VBG Total CO2 37.2 mmol/L (22-28) H 05/07/18 16:42 VBG O2 Sat (Calc) 31.7 % (40-65) L 05/07/18 16:42 VBG Base Excess 8.2 mmol/L (0.0-2.0) H 05/07/18 16:42 VBG Potassium 4.1 mmol/L (3.6-5.2) 05/07/18 16:42 Sodium 132.0 mmol/L (132-148) 05/07/18 16:42 Chloride 99.0 mmol/L (98-107) 05/07/18 16:42 Glucose 109 mg/dL (65-105) H 05/07/18 16:42 Lactate 1.0 mmol/L (0.7-2.1) 05/07/18 16:42 FiO2 21.0 % 05/07/18 16:42 Sodium 135 mmol/l (132-148) 05/09/18 05:00 Potassium 4.5 MMOL/L (3.6-5.0) 05/09/18 05:00 Chloride 101 mmol/L (98-107) 05/09/18 05:00 Carbon Dioxide 31 mmol/L (22-30) H 05/09/18 05:00 Anion Gap 8 (10-20) L 05/09/18 05:00 BUN 37 mg/dl (7-17) H 05/09/18 05:00 Creatinine 0.9 mg/dl (0.7-1.2) 05/09/18 05:00 Est GFR ( Amer) > 60 05/09/18 05:00 Est GFR (Non-Af Amer) 59 05/09/18 05:00 Random Glucose 156 mg/dL (65-105) H 05/09/18 05:00 Calcium 9.4 mg/dL (8.4-10.2) 05/09/18 05:00 Total Bilirubin 0.6 mg/dl (0.2-1.3) 05/07/18 17:33 AST 39 U/L (14-36) H 05/07/18 17:33 ALT 43 U/L (9-52) 05/07/18 17:33 Alkaline Phosphatase 76 U/L (38-126) 05/07/18 17:33 Troponin I 0.0260 ng/mL (0.00-0.120) 05/08/18 07:50 Total Protein 7.0 G/DL (6.3-8.2) 05/07/18 17:33 Albumin 3.7 g/dL (3.5-5.0) 05/07/18 17:33 Globulin 3.2 gm/dL (2.2-3.9) 05/07/18 17:33 Albumin/Globulin Ratio 1.2 (1.0-2.1) 05/07/18 17:33 Oglgu-[id number] 221 mg/dL (83-199) H 05/08/18 10:10 25-OH Vitamin D Total 61 ng/mL (30-100) 05/08/18 10:10 Venous Blood Potassium 4.1 mmol/L (3.6-5.2) 05/07/18 16:42 Urine Color Yellow (YELLOW) 05/07/18 21:14 Urine Clarity Clear (Clear) 05/07/18 21:14 Urine pH 7.0 (5.0-8.0) 05/07/18 21:14 Ur Specific [place] 1.011 (1.003-1.030) 05/07/18 21:14 Urine Protein Negative mg/dL (NEGATIVE) 05/07/18 21:14 Urine Glucose (UA) Neg mg/dL (Normal) 05/07/18 21:14 Urine Ketones Negative mg/dL (NEGATIVE) 05/07/18 21:14 Urine Blood Negative (NEGATIVE) 05/07/18 21:14 Urine Nitrate Negative (NEGATIVE) 05/07/18 21:14 Urine Bilirubin Negative (NEGATIVE) 05/07/18 21:14 Urine Urobilinogen 0.2-1.0 mg/dL (0.2-1.0) 05/07/18 21:14 Ur Leukocyte Esterase Neg [place]/uL (Negative) 05/07/18 21:14 Urine RBC (Auto) 3 /hpf (0-3) 05/07/18 21:14 Urine Microscopic WBC < 1 /hpf (0-5) 05/07/18 21:14 Urine Bacteria Rare (<OCC) 05/07/18 21:14 - Hospital Course Hospital Course: This is an 87 y/o female amitted for exacerbation of COPD. Discharge Exam - Head Exam Head Exam: NORMAL INSPECTION Discharge Plan - Follow Up Plan Condition: FAIR Disposition: HOME/ ROUTINE
[2018-05-11 13:27] VITALS: BP 136/80; PULSE 80; RESP 16; TEMP 97.8
== END 2018-05-11 14:14 | DRG 191 ==
LOC: H.ER 15:47 → H.ERHOLD 20:12 → H.TEL 21:49
PROVIDERS: ADMIT Family Medicine; ATTEND Family Medicine
PROC: 3E0F7GC Introduction of Other Therapeutic Substance into Respiratory Tract, Via Natural or Artificial Opening (ICD-10-PCS; principal; 2018-05-08)
DX: J44.0 Chronic obstructive pulmonary disease with (acute) lower respiratory infection (principal); I50.32 Chronic diastolic (congestive) heart failure; E87.1 Hypo-osmolality and hyponatremia; N17.9 Acute kidney failure, unspecified; J20.9 Acute bronchitis, unspecified; I11.0 Hypertensive heart disease with heart failure; J44.1 Chronic obstructive pulmonary disease with (acute) exacerbation; F03.90 Unspecified dementia, unspecified severity, without behavioral disturbance, psychotic disturbance, mood disturbance, and anxiety; F32.9 Major depressive disorder, single episode, unspecified; H40.9 Unspecified glaucoma; I48.91 Unspecified atrial fibrillation; J31.0 Chronic rhinitis; Z79.82 Long term (current) use of aspirin; Z85.118 Personal history of other malignant neoplasm of bronchus and lung; Z87.01 Personal history of pneumonia (recurrent); Z87.891 Personal history of nicotine dependence; Z88.2 Allergy status to sulfonamides; Z99.81 Dependence on supplemental oxygen; D64.9 Anemia, unspecified; E78.00 Pure hypercholesterolemia, unspecified; F41.9 Anxiety disorder, unspecified; K44.9 Diaphragmatic hernia without obstruction or gangrene; M19.90 Unspecified osteoarthritis, unspecified site; Z87.81 Personal history of (healed) traumatic fracture; D63.8 Anemia in other chronic diseases classified elsewhere; E78.5 Hyperlipidemia, unspecified

== ENCOUNTER 2018-05-11 13:50 | Inpatient (IN) | payer OTHER ==
[2018-05-11 14:23] VITALS: BMI 21.0
[2018-05-11] MEDS ORDERED: Albuterol 0.083% Inhal Sol (2.5 mg/3 mL) UD INH PRN (15:38)
[2018-05-11] MEDS: Albuterol-Ipratrop 3 mg / 0.5 (3 ml) UD INH SCH ×2 (16:26→19:22)
[2018-05-11] MEDS: Azithromycin 500 MG in Sodium Chloride 0.9% 250 ML IVPB SCH (20:35)
[2018-05-11] MEDS: MethylPREDNISolone 40 mg Vial IVP SCH (20:39)
[2018-05-11] MEDS: guaiFENesin 600 mg ER Tab PO SCH (20:47)
[2018-05-11] MEDS: Latanoprost 0.005% Opht SOUTION OU SCH (21:29)
[2018-05-12 07:04] LABS: HEMOGLOBIN 9.6 g/dL (12.0-16.0); MEAN CELL VOLUME 95.2 fl (81.0-99.0); MEAN CORPUSCULAR HEMOGLOBIN 31.8 pg (27.0-31.0); MEAN CORPUSCULAR HGB CONC 33.3 g/dL (33.0-37.0); RBC 3.02 Mil/uL (3.80-5.20); RED CELL DISTRIBUTION WIDTH 14.6 % (11.5-14.5); WHITE BLOOD COUNT 5.3 K/uL (4.8-10.8)
[2018-05-12 07:20] LABS: BLOOD UREA NITROGEN 42 mg/dl (7-17); CALCIUM 8.9 mg/dL (8.4-10.2); GFR NON-AFRICAN AMERICAN 59
[2018-05-12] MEDS: Albuterol-Ipratrop 3 mg / 0.5 (3 ml) UD INH SCH ×4 (07:25→19:26)
[2018-05-12] MEDS: diltiaZEM 120 mg/24 Hours CD Cap PO SCH (08:13)
[2018-05-12] MEDS: guaiFENesin 600 mg ER Tab PO SCH ×2 (08:13→20:39)
[2018-05-12] MEDS: MethylPREDNISolone 40 mg Vial IVP SCH (08:13)
[2018-05-12] MEDS: Cholecalciferol 1,000 INTLU TAB PO SCH (08:14)
--- NOTE | 2018-05-12 10:50 | CP.PCM.CON ---
Past Patient History - Infectious Disease Hx of Infectious Diseases: None - Tetanus Immunizations Tetanus Immunization: Unknown - Past Medical History & Family History Past Medical History?: Yes - Past Social History Smoking Status: Former Smoker - CARDIAC Hx Atrial Fibrillation: Yes Hx Congestive Heart Failure: Yes (diastolic) Hx Hypertension: Yes - PULMONARY Hx Chronic Obstructive Pulmonary Disease (COPD): Yes Hx Lung Cancer: Yes - NEUROLOGICAL Hx Dementia: Yes (forgetful at times) - HEENT Hx Glaucoma: Yes Other/Comment: Rhinitis - RENAL Hx Chronic Kidney Disease: No Other/Comment: BRENDA-resolved - ENDOCRINE/METABOLIC Hx Endocrine Disorders: No - HEMATOLOGICAL/ONCOLOGICAL Hx Anemia: Yes Hx Cancer: Yes (adenocarcinoma lung; resected) - INTEGUMENTARY Hx Dermatological Problems: No - MUSCULOSKELETAL/RHEUMATOLOGICAL Hx Arthritis: Yes Hx Falls: No - GASTROINTESTINAL Other/Comment: Hiatal hernia - GENITOURINARY/GYNECOLOGICAL Hx Genitourinary Disorders: Yes - PSYCHIATRIC Hx Anxiety: Yes Hx Depression: Yes Hx Substance Use: No - SURGICAL HISTORY Hx Pulmonary Surgery: Yes (RUL resected) Hx Tonsillectomy: Yes - ANESTHESIA Hx Anesthesia: Yes Hx Anesthesia Reactions: No Hx Malignant Hyperthermia: No Meds Allergies/Adverse Reactions: Allergies Allergy/AdvReac Type Severity Reaction Status Date / Time Penicillins Allergy ANAPHYLAXIS Verified 05/11/18 14:22 Sulfa (Sulfonamide Allergy RASH Verified 05/11/18 14:22 Antibiotics) sulfamethoxazole Allergy RASH Verified 05/11/18 14:22 [From Bactrim] trimethoprim [From Bactrim] Allergy RASH Verified 05/11/18 14:22 - Medications Medications: Current Medications Albuterol Sulfate (Albuterol 0.083% Inhal Paulina (2.5 Mg/3 Ml) Ud) 2.5 mg INH RQ4 PRN PRN Reason: Shortness of Breath Albuterol/Ipratropium (Duoneb 3 Mg/0.5 Mg (3 Ml) Ud) 3 ml INH RQID [facility] Last Admin: 05/12/18 07:25 Dose: 3 ml Alprazolam (Xanax) 1 mg PO Q12 [facility] Last Admin: 05/12/18 08:16 Dose: 1 mg Aspirin (Ecotrin) 81 mg PO DAILY [facility] Last Admin: 05/12/18 08:16 Dose: 81 mg Cholecalciferol (Vitamin D) 1,000 intlu PO DAILY [facility] Last Admin: 05/12/18 08:14 Dose: 1,000 intlu Diltiazem HCl (Cardizem Cd) 120 mg PO DAILY [facility] Last Admin: 05/12/18 08:13 Dose: 120 mg Fluticasone Propionate (Flonase) 1 spr JACQUIE BID [facility] Last Admin: 05/12/18 08:14 Dose: 1 spr Gabapentin (Neurontin) 100 mg PO HS [facility] Last Admin: 05/11/18 21:26 Dose: 100 mg Guaifenesin (Mucinex La) 1,200 mg PO Q12 [facility] Last Admin: 05/12/18 08:13 Dose: 1,200 mg Azithromycin 500 mg/ Sodium (Chloride) 250 mls @ 250 mls/hr IVPB DAILY@2100 [facility]; Protocol Last Admin: 05/11/18 20:35 Dose: 250 mls/hr Latanoprost (Xalatan Opht) 1 drop OU HS [facility] Last Admin: 05/11/18 21:29 Dose: 1 drop Memantine (Namenda) 5 mg PO DAILY [facility] Last Admin: 05/12/18 08:14 Dose: 5 mg Methylprednisolone (Medrol) 12 mg PO DAILY [facility] Mirtazapine (Remeron) 7.5 mg PO HS [facility] Last Admin: 05/11/18 21:26 Dose: 7.5 mg Results - Vital Signs Recent Vital Signs: Last Vital Signs Temp 97.1 F L 05/12/18 07:51 Pulse 61 05/12/18 09:39 Resp 20 05/12/18 07:51 BP 130/54 L 05/12/18 09:39 Pulse Ox 98 05/12/18 09:39 - Labs Result Diagrams: 05/12/18 05:45 05/12/18 05:45 Labs: Laboratory Results - last 24 hr 05/12/18 05/12/18 05:45 05:45 WBC 5.3 RBC 3.02 L Hgb 9.6 L Hct 28.8 L MCV 95.2 MCH 31.8 H MCHC 33.3 RDW 14.6 H Plt Count 177 Sodium 135 Potassium 5.1 H Chloride 101 Carbon Dioxide 31 H Anion Gap 8 L BUN 42 H Creatinine 0.9 Est GFR ( Amer) > 60 Est GFR (Non-Af Amer) 59 Random Glucose 137 H Calcium 8.9 TSH 3rd Generation < 0.02 L Assessment & Plan (1) Anemia in chronic illness Status: Chronic Priority: Medium Comment: Check folate and iron levels, has normal B12 level. Heather guiac was negative. (2) Dementia Status: Chronic Priority: High Comment: Appears to be doing better with addition of Namenda. (3) Emphysema with chronic bronchitis Status: Chronic Priority: High Comment: Recent exacerbation appears to be improved on current drug regimen. Continue Aerosol therapy with DuoNeb QID and change steroid dosing to PO medrol 12MG daily. Continue azithromycin and discontinue after tomorrow's dose. (4) Depression Status: Chronic Priority: High Comment: Beneficial effect of mirtazapine noted. - Date & Time Date: 05/12/18 Time: 11:02
[2018-05-12 11:56] LABS: IRON 33 ug/dL (37-170)
[2018-05-12 12:05] LABS: % IRON SATURATION 12 % (20-55); TOTAL IRON BINDING CAPACITY 265 ug/dL (250-450)
[2018-05-12 16:53] LABS: FOLATE 14.7 ng/mL
[2018-05-12] MEDS: Azithromycin 500 MG in Sodium Chloride 0.9% 250 ML IVPB SCH (20:40)
[2018-05-12] MEDS: Latanoprost 0.005% Opht SOUTION OU SCH (22:02)
[2018-05-13] MEDS: Albuterol-Ipratrop 3 mg / 0.5 (3 ml) UD INH SCH ×4 (07:35→19:32)
[2018-05-13] MEDS: diltiaZEM 120 mg/24 Hours CD Cap PO SCH (09:27)
[2018-05-13] MEDS: guaiFENesin 600 mg ER Tab PO SCH ×2 (09:29→21:32)
[2018-05-13] MEDS: Cholecalciferol 1,000 INTLU TAB PO SCH (09:29)
--- NOTE | 2018-05-13 10:43 | CP.PCM.PN ---
Subjective - Date & Time of Evaluation Date of Evaluation: 05/13/18 Time of Evaluation: 10:43 - Subjective Subjective: Seated in the bedside chair when seen on rounds. She appears comfortable and is well oriented. She continues to use her chest physical therapy device appropriately. She claimed to expectorated small amount of pale yellow sputum earlier this morning. Her cough appears much less congested than it had been previously. Breath sounds are markedly diminished bilaterally with only few sonorous rhonchi heard in the lower lobes posteriorly. No audible wheezes. No bronchial breath sounds. Rare dry rales are present bilaterally as well in the lower lobes. Progressing appropriately on current regimen. We'll maintain present dose of oral Medrol at 12 mg today and tomorrow after which it will be reduced to 8 mg daily. Discontinue azithromycin after tonight's dose. Objective - Vital Signs/Intake and Output Vital Signs (last 24 hours): Temp Pulse Resp BP Pulse Ox 97.7 F 60 20 129/66 100 05/13/18 09:37 05/13/18 09:37 05/13/18 09:37 05/13/18 09:37 05/13/18 09:37 - Medications Medications: Current Medications Albuterol Sulfate (Albuterol 0.083% Inhal Paulina (2.5 Mg/3 Ml) Ud) 2.5 mg INH RQ4 PRN PRN Reason: Shortness of Breath Albuterol/Ipratropium (Duoneb 3 Mg/0.5 Mg (3 Ml) Ud) 3 ml INH RQID [facility] Last Admin: 05/13/18 07:35 Dose: 3 ml Alprazolam (Xanax) 1 mg PO Q12 [facility] Last Admin: 05/13/18 09:29 Dose: 1 mg Aspirin (Ecotrin) 81 mg PO DAILY [facility] Last Admin: 05/13/18 09:28 Dose: 81 mg Cholecalciferol (Vitamin D) 1,000 intlu PO DAILY [facility] Last Admin: 05/13/18 09:29 Dose: 1,000 intlu Diltiazem HCl (Cardizem Cd) 120 mg PO DAILY [facility] Last Admin: 05/13/18 09:27 Dose: 120 mg Fluticasone Propionate (Flonase) 1 spr JACQUIE BID [facility] Last Admin: 05/13/18 09:28 Dose: 1 spr Gabapentin (Neurontin) 100 mg PO HS [facility] Last Admin: 05/12/18 22:01 Dose: 100 mg Guaifenesin (Mucinex La) 1,200 mg PO Q12 [facility] Last Admin: 05/13/18 09:29 Dose: 1,200 mg Azithromycin 500 mg/ Sodium (Chloride) 250 mls @ 250 mls/hr IVPB DAILY@2100 [facility]; Protocol Stop: 05/13/18 23:59 Last Admin: 05/12/18 20:40 Dose: 250 mls/hr Latanoprost (Xalatan Opht) 1 drop OU [facility] Last Admin: 05/12/18 22:02 Dose: 1 drop Memantine (Namenda) 5 mg PO DAILY [facility] Last Admin: 05/13/18 09:29 Dose: 5 mg Methylprednisolone (Medrol) 12 mg PO DAILY [facility] Last Admin: 05/13/18 09:29 Dose: 12 mg Mirtazapine (Remeron) 7.5 mg PO [facility] Last Admin: 05/12/18 22:01 Dose: 7.5 mg - Labs Labs: 05/12/18 05:45 05/12/18 05:45 Assessment and Plan (1) Anemia in chronic illness Status: Chronic (2) Dementia Status: Chronic (3) Emphysema with chronic bronchitis Status: Chronic (4) Depression Status: Chronic
--- NOTE | 2018-05-13 12:01 | CP.PCM.HP ---
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 Denies chest pain, nausea, vomiting, headache, dizziness or focal weakness. Of note, patient was transferred to TCU to continue with chest therapy and treatment. PMD: Dr. Washington (Prior was Dr. Rivera) Frame Table Operator: Dr. Washington Quality Engineer Medical Device: Dr. Adam PMHX: Anxiety, Arthritis, Atrial Fibrillation, COPD, Emphysema, HTN, Hypercholesterolemia, Hx of Pneumonia SurgHx: Tonsillectomy Social: Non smoker Present on Admission - Present on Admission Any Indicators Present on Admission: No Past Patient History - Infectious Disease Hx of Infectious Diseases: None - Tetanus Immunizations Tetanus Immunization: Unknown - Past Medical History & Family History Past Medical History?: Yes - Past Social History Smoking Status: Former Smoker - CARDIAC Hx Atrial Fibrillation: Yes Hx Congestive Heart Failure: Yes (diastolic) Hx Hypertension: Yes - PULMONARY Hx Chronic Obstructive Pulmonary Disease (COPD): Yes Hx Lung Cancer: Yes - NEUROLOGICAL Hx Dementia: Yes (forgetful at times) - HEENT Hx Glaucoma: Yes Other/Comment: Rhinitis - RENAL Hx Chronic Kidney Disease: No Other/Comment: BRENDA-resolved - ENDOCRINE/METABOLIC Hx Endocrine Disorders: No - HEMATOLOGICAL/ONCOLOGICAL Hx Anemia: Yes Hx Cancer: Yes (adenocarcinoma lung; resected) - INTEGUMENTARY Hx Dermatological Problems: No - MUSCULOSKELETAL/RHEUMATOLOGICAL Hx Arthritis: Yes Hx Falls: No - GASTROINTESTINAL Other/Comment: Hiatal hernia - GENITOURINARY/GYNECOLOGICAL Hx Genitourinary Disorders: Yes - PSYCHIATRIC Hx Anxiety: Yes Hx Depression: Yes Hx Substance Use: No - SURGICAL HISTORY Hx Pulmonary Surgery: Yes (RUL resected) Hx Tonsillectomy: Yes - ANESTHESIA Hx Anesthesia: Yes Hx Anesthesia Reactions: No Hx Malignant Hyperthermia: No Meds Allergies/Adverse Reactions: Allergies Allergy/AdvReac Type Severity Reaction Status Date / Time Penicillins Allergy ANAPHYLAXIS Verified 05/11/18 14:22 Sulfa (Sulfonamide Allergy RASH Verified 05/11/18 14:22 Antibiotics) sulfamethoxazole Allergy RASH Verified 05/11/18 14:22 [From Bactrim] trimethoprim [From Bactrim] Allergy RASH Verified 05/11/18 14:22 Physical Exam - Constitutional Appears: No Acute Distress - Head Exam Head Exam: NORMAL INSPECTION - Respiratory Exam Respiratory Exam: Decreased Breath Sounds. absent: Wheezes - Cardiovascular Exam Cardiovascular Exam: REGULAR RHYTHM, +S1, +S2 - GI/Abdominal Exam GI & Abdominal Exam: Soft. absent: Distended, Normal Bowel Sounds - Extremities Exam Extremities exam: Negative for: calf tenderness - Neurological Exam Neurological exam: Alert, CN II-XII Intact, Oriented x3 - Skin Skin Exam: Dry, Warm Results - Vital Signs Recent Vital Signs: Last Vital Signs Temp 97.7 F 05/13/18 09:37 Pulse 60 05/13/18 09:37 Resp 20 05/13/18 09:37 BP 129/66 05/13/18 09:37 Pulse Ox 100 05/13/18 09:37 - Labs Result Diagrams: 05/12/18 05:45 05/12/18 05:45 Labs: Laboratory Results - last 24 hr 05/12/18 05/12/18 11:40 11:40 TIBC 265 % Saturation 12 L Ferritin 128.0 Folate 14.7 Assessment & Plan - Assessment and Plan (Free Text) Assessment: 87 y/o female w/ pmhx of CHF, COPD, HTN, Lung resection 2 years ago, HLD , dementia and depression admitted to TCU for COPD exacerbation with bronchitis. Plan: Pulmonary consult Dr. Washington, recommendation appreciated. c/w azithromycin c/w duoneb Taper methylprednisolone to 12 mg PO daily c/w home medications. f/u AM labs, Rest of the plan as ordered. Patient seen, examined and plan d/w Dr Cornejo
[2018-05-13] MEDS: Azithromycin 500 MG in Sodium Chloride 0.9% 250 ML IVPB SCH (20:22)
[2018-05-13] MEDS: Latanoprost 0.005% Opht SOUTION OU SCH (21:33)
[2018-05-14 06:40] LABS: BLOOD UREA NITROGEN 28 mg/dl (7-17); CALCIUM 8.9 mg/dL (8.4-10.2); GFR NON-AFRICAN AMERICAN > 60
[2018-05-14] MEDS: Albuterol-Ipratrop 3 mg / 0.5 (3 ml) UD INH SCH ×4 (08:42→19:07)
[2018-05-14] MEDS: diltiaZEM 120 mg/24 Hours CD Cap PO SCH (09:19)
[2018-05-14] MEDS: Cholecalciferol 1,000 INTLU TAB PO SCH (09:20)
[2018-05-14] MEDS: guaiFENesin 600 mg ER Tab PO SCH ×2 (09:22→21:19)
--- NOTE | 2018-05-14 09:44 | CP.PCM.PN ---
Subjective - Date & Time of Evaluation Date of Evaluation: 05/14/18 Time of Evaluation: 09:43 - Subjective Subjective: Patient seen in AM ambulating with physical therapist. She has been improving steadily on the current regimen. Methylprednisolone decreased to 8MG PO OD. Objective - Vital Signs/Intake and Output Vital Signs (last 24 hours): Temp Pulse Resp BP Pulse Ox 97.3 F L 61 20 129/57 L 94 L 05/14/18 08:12 05/14/18 09:19 05/14/18 08:12 05/14/18 09:19 05/14/18 08:12 - Medications Medications: Current Medications Albuterol Sulfate (Albuterol 0.083% Inhal Paulina (2.5 Mg/3 Ml) Ud) 2.5 mg INH RQ4 PRN PRN Reason: Shortness of Breath Albuterol/Ipratropium (Duoneb 3 Mg/0.5 Mg (3 Ml) Ud) 3 ml INH RQID [facility] Last Admin: 05/14/18 08:42 Dose: 3 ml Alprazolam (Xanax) 1 mg PO Q12 [facility] Last Admin: 05/14/18 09:24 Dose: 1 mg Aspirin (Ecotrin) 81 mg PO DAILY [facility] Last Admin: 05/14/18 09:19 Dose: 81 mg Cholecalciferol (Vitamin D) 1,000 intlu PO DAILY [facility] Last Admin: 05/14/18 09:20 Dose: 1,000 intlu Diltiazem HCl (Cardizem Cd) 120 mg PO DAILY [facility] Last Admin: 05/14/18 09:19 Dose: 120 mg Fluticasone Propionate (Flonase) 1 spr JACQUIE BID [facility] Last Admin: 05/14/18 09:21 Dose: 1 spr Gabapentin (Neurontin) 100 mg PO HS [facility] Last Admin: 05/13/18 21:32 Dose: 100 mg Guaifenesin (Mucinex La) 1,200 mg PO Q12 [facility] Last Admin: 05/14/18 09:22 Dose: 1,200 mg Lactulose (Enulose) 20 gm PO DAILY PRN PRN Reason: Constipation Last Admin: 05/13/18 18:10 Dose: 20 gm Latanoprost (Xalatan Opht) 1 drop OU HS [facility] Last Admin: 05/13/18 21:33 Dose: 1 drop Memantine (Namenda) 5 mg PO DAILY [facility] Last Admin: 05/14/18 09:20 Dose: 5 mg Methylprednisolone (Medrol) 8 mg PO DAILY [facility] Mirtazapine (Remeron) 7.5 mg PO [facility] Last Admin: 05/13/18 21:32 Dose: 7.5 mg - Labs Labs: 05/12/18 05:45 05/14/18 05:30 Assessment and Plan (1) Anemia in chronic illness Status: Chronic (2) Dementia Status: Chronic (3) Emphysema with chronic bronchitis Status: Chronic (4) Depression Status: Chronic
[2018-05-14] MEDS ORDERED: Simethicone 80 mg Chewtab PO PRN (13:26)
--- NOTE | 2018-05-14 16:14 | CP.PCM.PN ---
Subjective - Date & Time of Evaluation Date of Evaluation: 05/14/18 Time of Evaluation: 11:00 - Subjective Subjective: patient seen and examined at bedside. no acute events overnight. feels well. tolerating po well. spoke with daughter. no complaints offered at this time. participating in PT. Objective - Vital Signs/Intake and Output Vital Signs (last 24 hours): Temp Pulse Resp BP Pulse Ox 97.3 F L 61 20 129/57 L 95 05/14/18 08:12 05/14/18 14:28 05/14/18 08:12 05/14/18 14:28 05/14/18 14:28 - Medications Medications: Current Medications Albuterol Sulfate (Albuterol 0.083% Inhal Paulina (2.5 Mg/3 Ml) Ud) 2.5 mg INH RQ4 PRN PRN Reason: Shortness of Breath Albuterol/Ipratropium (Duoneb 3 Mg/0.5 Mg (3 Ml) Ud) 3 ml INH RQID [facility] Last Admin: 05/14/18 15:22 Dose: Not Given Alprazolam (Xanax) 1 mg PO Q12 [facility] Last Admin: 05/14/18 09:24 Dose: 1 mg Aspirin (Ecotrin) 81 mg PO DAILY [facility] Last Admin: 05/14/18 09:19 Dose: 81 mg Cholecalciferol (Vitamin D) 1,000 intlu PO DAILY [facility] Last Admin: 05/14/18 09:20 Dose: 1,000 intlu Diltiazem HCl (Cardizem Cd) 120 mg PO DAILY [facility] Last Admin: 05/14/18 09:19 Dose: 120 mg Fluticasone Propionate (Flonase) 1 spr JACQUIE BID [facility] Last Admin: 05/14/18 09:21 Dose: 1 spr Gabapentin (Neurontin) 100 mg PO HS [facility] Last Admin: 05/13/18 21:32 Dose: 100 mg Guaifenesin (Mucinex La) 1,200 mg PO Q12 [facility] Last Admin: 05/14/18 09:22 Dose: 1,200 mg Lactulose (Enulose) 20 gm PO DAILY PRN PRN Reason: Constipation Last Admin: 05/13/18 18:10 Dose: 20 gm Latanoprost (Xalatan Opht) 1 drop OU HS [facility] Last Admin: 05/13/18 21:33 Dose: 1 drop Memantine (Namenda) 5 mg PO DAILY [facility] Last Admin: 05/14/18 09:20 Dose: 5 mg Methylprednisolone (Medrol) 8 mg PO DAILY [facility] Mirtazapine (Remeron) 7.5 mg PO HS [facility] Last Admin: 05/13/18 21:32 Dose: 7.5 mg Simethicone (Mylicon Chew Tab) 80 mg PO Q8 PRN PRN Reason: Flatulence - Labs Labs: 05/12/18 05:45 05/14/18 05:30 - Constitutional Appears: Well, Non-toxic, No Acute Distress - Head Exam Head Exam: NORMAL INSPECTION - Eye Exam Eye Exam: Normal appearance - Respiratory Exam Respiratory Exam: Clear to Ausculation Bilateral, NORMAL BREATHING PATTERN - Cardiovascular Exam Cardiovascular Exam: +S1, +S2 - GI/Abdominal Exam GI & Abdominal Exam: Soft, Normal Bowel Sounds. absent: Tenderness - Neurological Exam Neurological Exam: Alert, Awake, Oriented x3 - Psychiatric Exam Psychiatric exam: Normal Affect, Normal Mood - Skin Skin Exam: Dry, Normal Color, Warm Assessment and Plan - Assessment and Plan (Free Text) Assessment: 87 y/o female w/ pmhx of CHF, COPD, HTN, Lung resection 2 years ago, HLD , de mentia and depression admitted recently due to COPD exacerbation with bronchitis. Now in TCU for transitional care and rehabilitation. Plan: Pulmonary consult Dr. Washington, recommendation appreciated. c/w PT c/w duoneb c/w home medications. Rest of the plan as ordered.
[2018-05-14] MEDS: Latanoprost 0.005% Opht SOUTION OU SCH (21:20)
[2018-05-15] MEDS: Albuterol-Ipratrop 3 mg / 0.5 (3 ml) UD INH SCH ×4 (07:29→19:38)
[2018-05-15 07:47] LABS: T3 0.366 nmol/L (1.49-2.60)
[2018-05-15] MEDS: guaiFENesin 600 mg ER Tab PO SCH ×2 (08:12→22:06)
[2018-05-15] MEDS: diltiaZEM 120 mg/24 Hours CD Cap PO SCH (08:12)
[2018-05-15] MEDS: Cholecalciferol 1,000 INTLU TAB PO SCH (08:12)
--- NOTE | 2018-05-15 09:53 | CP.PCM.PN ---
Subjective - Date & Time of Evaluation Date of Evaluation: 05/15/18 Time of Evaluation: 09:52 - Subjective Subjective: Presently ambulating with PT. Chest is much clearer with Acapella use and Mucinex. Vital signs have remained stable; afebrile and well oxygenated. Objective - Vital Signs/Intake and Output Vital Signs (last 24 hours): Temp Pulse Resp BP Pulse Ox 97.2 F L 55 L 18 148/65 100 05/15/18 08:04 05/15/18 08:12 05/15/18 08:04 05/15/18 08:12 05/15/18 08:04 - Medications Medications: Current Medications Albuterol Sulfate (Albuterol 0.083% Inhal Paulina (2.5 Mg/3 Ml) Ud) 2.5 mg INH RQ4 PRN PRN Reason: Shortness of Breath Albuterol/Ipratropium (Duoneb 3 Mg/0.5 Mg (3 Ml) Ud) 3 ml INH RQID [facility] Last Admin: 05/15/18 07:29 Dose: 3 ml Alprazolam (Xanax) 1 mg PO Q12 [facility] Last Admin: 05/15/18 08:16 Dose: 1 mg Aspirin (Ecotrin) 81 mg PO DAILY [facility] Last Admin: 05/15/18 08:12 Dose: 81 mg Cholecalciferol (Vitamin D) 1,000 intlu PO DAILY [facility] Last Admin: 05/15/18 08:12 Dose: 1,000 intlu Diltiazem HCl (Cardizem Cd) 120 mg PO DAILY [facility] Last Admin: 05/15/18 08:12 Dose: 120 mg Fluticasone Propionate (Flonase) 1 spr JACQUIE BID [facility] Last Admin: 05/15/18 08:10 Dose: 1 spr Gabapentin (Neurontin) 100 mg PO HS [facility] Last Admin: 05/14/18 21:42 Dose: 100 mg Guaifenesin (Mucinex La) 1,200 mg PO Q12 [facility] Last Admin: 05/15/18 08:12 Dose: 1,200 mg Lactulose (Enulose) 20 gm PO DAILY PRN PRN Reason: Constipation Last Admin: 05/13/18 18:10 Dose: 20 gm Latanoprost (Xalatan Opht) 1 drop OU HS [facility] Last Admin: 05/14/18 21:20 Dose: 1 drop Memantine (Namenda) 5 mg PO DAILY [facility] Last Admin: 05/15/18 08:12 Dose: 5 mg Methylprednisolone (Medrol) 8 mg PO DAILY [facility] Last Admin: 05/15/18 08:10 Dose: 8 mg Mirtazapine (Remeron) 7.5 mg PO HS [facility] Last Admin: 05/14/18 21:43 Dose: 7.5 mg Simethicone (Mylicon Chew Tab) 80 mg PO Q8 PRN PRN Reason: Flatulence - Labs Labs: 05/12/18 05:45 05/14/18 05:30 Assessment and Plan (1) Anemia in chronic illness Status: Chronic (2) Dementia Status: Chronic (3) Emphysema with chronic bronchitis Status: Chronic (4) Depression Status: Chronic
[2018-05-15] MEDS: Latanoprost 0.005% Opht SOUTION OU SCH (22:05)
[2018-05-16] MEDS: Albuterol-Ipratrop 3 mg / 0.5 (3 ml) UD INH SCH ×4 (07:30→19:33)
[2018-05-16] MEDS: diltiaZEM 120 mg/24 Hours CD Cap PO SCH (10:14)
[2018-05-16] MEDS: Cholecalciferol 1,000 INTLU TAB PO SCH (10:16)
[2018-05-16] MEDS: guaiFENesin 600 mg ER Tab PO SCH (10:16)
--- NOTE | 2018-05-16 13:33 | CP.PCM.PN ---
Subjective - Date & Time of Evaluation Date of Evaluation: 05/16/18 Time of Evaluation: 13:29 - Subjective Subjective: Doing well on current regimen. Chest congestion has finally cleared up. Still having 'bloated' feeling and dependant edema. Vital signs and oxygenation has been good. Rectum filled with soft brown stool, sphincter tone normal. + dependant edema both ankles and calves. No cyanosis or ecchymosis. Mucinex discontinued. Medrol decreased to 4MG PO daily. Senokot-s, 2 tabs nitely. Objective - Vital Signs/Intake and Output Vital Signs (last 24 hours): Temp Pulse Resp BP Pulse Ox 97.2 F L 60 18 141/60 100 05/16/18 08:28 05/16/18 10:14 05/16/18 08:28 05/16/18 10:14 05/16/18 08:28 - Medications Medications: Current Medications Albuterol Sulfate (Albuterol 0.083% Inhal Paulina (2.5 Mg/3 Ml) Ud) 2.5 mg INH RQ4 PRN PRN Reason: Shortness of Breath Albuterol/Ipratropium (Duoneb 3 Mg/0.5 Mg (3 Ml) Ud) 3 ml INH RQID [facility] Last Admin: 05/16/18 12:58 Dose: 3 ml Alprazolam (Xanax) 1 mg PO Q12 [facility] Last Admin: 05/16/18 10:20 Dose: 1 mg Aspirin (Ecotrin) 81 mg PO DAILY [facility] Last Admin: 05/16/18 10:15 Dose: 81 mg Cholecalciferol (Vitamin D) 1,000 intlu PO DAILY [facility] Last Admin: 05/16/18 10:16 Dose: 1,000 intlu Diltiazem HCl (Cardizem Cd) 120 mg PO DAILY [facility] Last Admin: 05/16/18 10:14 Dose: 120 mg Fluticasone Propionate (Flonase) 1 spr JACQUIE BID [facility] Last Admin: 05/16/18 10:15 Dose: 1 spr Gabapentin (Neurontin) 100 mg PO HS [facility] Last Admin: 05/15/18 22:07 Dose: 100 mg Lactulose (Enulose) 20 gm PO DAILY PRN PRN Reason: Constipation Last Admin: 05/13/18 18:10 Dose: 20 gm Latanoprost (Xalatan Opht) 1 drop OU HS [facility] Last Admin: 05/15/18 22:05 Dose: 1 drop Memantine (Namenda) 5 mg PO DAILY [facility] Last Admin: 05/16/18 10:16 Dose: 5 mg Methylprednisolone (Medrol) 4 mg PO DAILY [facility] Mirtazapine (Remeron) 7.5 mg PO HS [facility] Last Admin: 05/15/18 22:06 Dose: 7.5 mg Senna/Docusate Sodium (Senokot S 50 Mg-8.6 Mg) 2 tab PO HS [facility] Simethicone (Mylicon Chew Tab) 80 mg PO Q8 PRN PRN Reason: Flatulence - Labs Labs: 05/12/18 05:45 05/14/18 05:30 Assessment and Plan (1) Anemia in chronic illness Status: Chronic (2) Dementia Status: Chronic (3) Emphysema with chronic bronchitis Status: Chronic (4) Depression Status: Chronic
[2018-05-16] MEDS: Latanoprost 0.005% Opht SOUTION OU SCH (21:56)
[2018-05-16] MEDS: Docusate-Senna 50 mg-8.6 mg Tab PO SCH (21:56)
[2018-05-17] MEDS: Albuterol-Ipratrop 3 mg / 0.5 (3 ml) UD INH SCH ×4 (07:31→19:04)
[2018-05-17] MEDS: diltiaZEM 120 mg/24 Hours CD Cap PO SCH (08:25)
[2018-05-17] MEDS: Cholecalciferol 1,000 INTLU TAB PO SCH (08:26)
[2018-05-17] MEDS: Docusate-Senna 50 mg-8.6 mg Tab PO SCH (21:56)
[2018-05-17] MEDS: Latanoprost 0.005% Opht SOUTION OU SCH (21:57)
[2018-05-18] MEDS: Albuterol-Ipratrop 3 mg / 0.5 (3 ml) UD INH SCH ×4 (07:22→19:12)
[2018-05-18 07:49] LABS: BLOOD UREA NITROGEN 27 mg/dl (7-17); CALCIUM 9.2 mg/dL (8.4-10.2); GFR NON-AFRICAN AMERICAN > 60
[2018-05-18] MEDS: diltiaZEM 120 mg/24 Hours CD Cap PO SCH (08:17)
[2018-05-18] MEDS: Cholecalciferol 1,000 INTLU TAB PO SCH (08:18)
[2018-05-18 08:39] LABS: HEMOGLOBIN 10.6 g/dL (12.0-16.0); MEAN CELL VOLUME 94.9 fl (81.0-99.0); MEAN CORPUSCULAR HEMOGLOBIN 31.8 pg (27.0-31.0); MEAN CORPUSCULAR HGB CONC 33.5 g/dL (33.0-37.0); RBC 3.32 Mil/uL (3.80-5.20); RED CELL DISTRIBUTION WIDTH 15.1 % (11.5-14.5); WHITE BLOOD COUNT 10.9 K/uL (4.8-10.8)
[2018-05-18] MEDS: Latanoprost 0.005% Opht SOUTION OU SCH (21:36)
[2018-05-18] MEDS: Docusate-Senna 50 mg-8.6 mg Tab PO SCH (21:39)
[2018-05-19] MEDS: Albuterol-Ipratrop 3 mg / 0.5 (3 ml) UD INH SCH ×4 (08:39→19:12)
[2018-05-19] MEDS: diltiaZEM 120 mg/24 Hours CD Cap PO SCH (09:21)
[2018-05-19] MEDS: Cholecalciferol 1,000 INTLU TAB PO SCH (09:21)
--- NOTE | 2018-05-19 10:21 | CP.PCM.PN ---
Subjective - Date & Time of Evaluation Date of Evaluation: 05/19/18 Time of Evaluation: 10:18 - Subjective Subjective: The patient has done well on the current regimen. She has been participating with physical therapy and has progressed. Her respiratory status has been stable. Her appetite has been very good, likely because of steroids. Medrol has been discontinued today. Discharge planning apparently set for Saturday. Objective - Vital Signs/Intake and Output Vital Signs (last 24 hours): Temp Pulse Resp BP Pulse Ox 97.3 F L 64 20 155/68 H 97 05/18/18 19:19 05/19/18 09:21 05/18/18 19:19 05/19/18 09:21 05/18/18 19:19 - Medications Medications: Current Medications Albuterol Sulfate (Albuterol 0.083% Inhal Paulina (2.5 Mg/3 Ml) Ud) 2.5 mg INH RQ4 PRN PRN Reason: Shortness of Breath Albuterol/Ipratropium (Duoneb 3 Mg/0.5 Mg (3 Ml) Ud) 3 ml INH RQID [facility] Last Admin: 05/19/18 08:39 Dose: 3 ml Alprazolam (Xanax) 1 mg PO Q12 [facility] Last Admin: 05/19/18 09:23 Dose: 1 mg Aspirin (Ecotrin) 81 mg PO DAILY [facility] Last Admin: 05/19/18 09:20 Dose: 81 mg Cholecalciferol (Vitamin D) 1,000 intlu PO DAILY [facility] Last Admin: 05/19/18 09:21 Dose: 1,000 intlu Diltiazem HCl (Cardizem Cd) 120 mg PO DAILY [facility] Last Admin: 05/19/18 09:21 Dose: 120 mg Fluticasone Propionate (Flonase) 1 spr JACQUIE BID [facility] Last Admin: 05/19/18 09:19 Dose: 1 spr Gabapentin (Neurontin) 100 mg PO HS [facility] Last Admin: 05/18/18 21:40 Dose: 100 mg Lactulose (Enulose) 20 gm PO DAILY PRN PRN Reason: Constipation Last Admin: 05/13/18 18:10 Dose: 20 gm Latanoprost (Xalatan Opht) 1 drop OU HS [facility] Last Admin: 05/18/18 21:36 Dose: 1 drop Memantine (Namenda) 5 mg PO DAILY [facility] Last Admin: 05/19/18 09:21 Dose: 5 mg Methylprednisolone (Medrol) 4 mg PO DAILY [facility] Last Admin: 05/19/18 09:20 Dose: 4 mg Mirtazapine (Remeron) 7.5 mg PO HS [facility] Last Admin: 05/18/18 21:39 Dose: 7.5 mg Senna/Docusate Sodium (Senokot S 50 Mg-8.6 Mg) 2 tab PO HS [facility] Last Admin: 05/18/18 21:39 Dose: 2 tab Simethicone (Mylicon Chew Tab) 80 mg PO Q8 PRN PRN Reason: Flatulence - Labs Labs: 05/18/18 05:25 05/18/18 05:25 Assessment and Plan (1) Anemia in chronic illness Status: Chronic (2) Dementia Status: Chronic (3) Emphysema with chronic bronchitis Status: Chronic (4) Depression Status: Chronic
[2018-05-19] MEDS: Latanoprost 0.005% Opht SOUTION OU SCH (21:22)
[2018-05-19] MEDS: Docusate-Senna 50 mg-8.6 mg Tab PO SCH (21:23)
[2018-05-20] MEDS: Albuterol-Ipratrop 3 mg / 0.5 (3 ml) UD INH SCH ×4 (07:37→19:09)
[2018-05-20] MEDS: diltiaZEM 120 mg/24 Hours CD Cap PO SCH (08:21)
[2018-05-20] MEDS: Cholecalciferol 1,000 INTLU TAB PO SCH (08:21)
[2018-05-20] MEDS: Latanoprost 0.005% Opht SOUTION OU SCH (21:40)
[2018-05-20] MEDS: Docusate-Senna 50 mg-8.6 mg Tab PO SCH (21:41)
[2018-05-21] MEDS: Albuterol-Ipratrop 3 mg / 0.5 (3 ml) UD INH SCH ×4 (07:38→19:05)
[2018-05-21] MEDS: Cholecalciferol 1,000 INTLU TAB PO SCH (08:30)
[2018-05-21] MEDS: diltiaZEM 120 mg/24 Hours CD Cap PO SCH (08:31)
[2018-05-21 15:16] LABS: ABG ALLEN TEST YES; ARTERIAL BLOOD GAS HCO3 31.2 mmol/L (21-28); ARTERIAL BLOOD GAS HEMOGLOBIN 11.4 g/dL (11.7-17.4); ARTERIAL BLOOD GAS O2 CAPACITY 15.6 mL/dL (16-24); ARTERIAL BLOOD GAS O2 CONTENT 14.9 ML/dL (15-23); ARTERIAL BLOOD GAS O2 SAT 95.7 % (95-98); ARTERIAL BLOOD GAS PCO2 48 mm/Hg (35-45); ARTERIAL BLOOD GAS PH 7.45 (7.35-7.45); ARTERIAL BLOOD GAS PO2 63 mm/Hg (80-100); ARTERIAL BLOOD GAS TCO2 34.9 mmol/L (22-28)
[2018-05-21] MEDS: Docusate-Senna 50 mg-8.6 mg Tab PO SCH (22:00)
[2018-05-21] MEDS: Latanoprost 0.005% Opht SOUTION OU SCH (22:01)
[2018-05-22] MEDS: Albuterol-Ipratrop 3 mg / 0.5 (3 ml) UD INH SCH ×4 (07:22→19:12)
[2018-05-22] MEDS: diltiaZEM 120 mg/24 Hours CD Cap PO SCH (08:08)
[2018-05-22] MEDS: Cholecalciferol 1,000 INTLU TAB PO SCH (08:09)
[2018-05-22] MEDS: Docusate-Senna 50 mg-8.6 mg Tab PO SCH (21:19)
[2018-05-22] MEDS: Latanoprost 0.005% Opht SOUTION OU SCH (21:19)
[2018-05-23] MEDS: Albuterol-Ipratrop 3 mg / 0.5 (3 ml) UD INH SCH ×4 (07:53→19:43)
[2018-05-23] MEDS: Cholecalciferol 1,000 INTLU TAB PO SCH (08:21)
[2018-05-23] MEDS: diltiaZEM 120 mg/24 Hours CD Cap PO SCH (08:21)
--- NOTE | 2018-05-23 12:02 | CP.PCM.PN ---
Subjective - Date & Time of Evaluation Date of Evaluation: 05/23/18 Time of Evaluation: 12:02 - Subjective Subjective: Patient seen and examined this morning, doing better, no complaints Planning to d/c home tomorrow Objective - Vital Signs/Intake and Output Vital Signs (last 24 hours): Temp Pulse Resp BP Pulse Ox 97.9 F 59 L 18 128/55 L 100 05/23/18 08:10 05/23/18 08:21 05/23/18 08:10 05/23/18 08:21 05/23/18 08:10 - Medications Medications: Current Medications Albuterol Sulfate (Albuterol 0.083% Inhal Paulina (2.5 Mg/3 Ml) Ud) 2.5 mg INH RQ4 PRN PRN Reason: Shortness of Breath Albuterol/Ipratropium (Duoneb 3 Mg/0.5 Mg (3 Ml) Ud) 3 ml INH RQID [facility] Last Admin: 05/23/18 11:17 Dose: 3 ml Alprazolam (Xanax) 1 mg PO Q12 [facility] Last Admin: 05/23/18 08:25 Dose: 1 mg Aspirin (Ecotrin) 81 mg PO DAILY [facility] Last Admin: 05/23/18 08:21 Dose: 81 mg Cholecalciferol (Vitamin D) 1,000 intlu PO DAILY [facility] Last Admin: 05/23/18 08:21 Dose: 1,000 intlu Diltiazem HCl (Cardizem Cd) 120 mg PO DAILY [facility] Last Admin: 05/23/18 08:21 Dose: 120 mg Fluticasone Propionate (Flonase) 1 spr JACQUIE BID [facility] Last Admin: 05/23/18 08:22 Dose: 1 spr Gabapentin (Neurontin) 100 mg PO HS [facility] Last Admin: 05/22/18 21:18 Dose: 100 mg Lactulose (Enulose) 20 gm PO DAILY PRN PRN Reason: Constipation Last Admin: 05/13/18 18:10 Dose: 20 gm Latanoprost (Xalatan Opht) 1 drop OU HS [facility] Last Admin: 05/22/18 21:19 Dose: 1 drop Memantine (Namenda) 5 mg PO DAILY [facility] Last Admin: 05/23/18 08:21 Dose: 5 mg Mirtazapine (Remeron) 7.5 mg PO HS [facility] Last Admin: 05/22/18 21:18 Dose: 7.5 mg Senna/Docusate Sodium (Senokot S 50 Mg-8.6 Mg) 2 tab PO HS [facility] Last Admin: 05/22/18 21:19 Dose: 2 tab Simethicone (Mylicon Chew Tab) 80 mg PO Q8 PRN PRN Reason: Flatulence - Labs Labs: 05/18/18 05:25 05/18/18 05:25 - Constitutional Appears: No Acute Distress - Head Exam Head Exam: NORMAL INSPECTION - Respiratory Exam Respiratory Exam: Clear to Ausculation Bilateral - Cardiovascular Exam Cardiovascular Exam: REGULAR RHYTHM, +S1, +S2 - GI/Abdominal Exam GI & Abdominal Exam: Soft. absent: Distended, Tenderness - Neurological Exam Neurological Exam: Alert, Awake - Skin Skin Exam: Dry, Warm Assessment and Plan - Assessment and Plan (Free Text) Assessment: 87 y/o female w/ pmhx of CHF, COPD, HTN, Lung resection 2 years ago, HLD , dementia and depression admitted recently due to COPD exacerbation with bronchitis. Now in TCU for transitional care and rehabilitation. Plan: Pulmonary consult Dr. Washington, recommendation appreciated. doing well working on PT c/w duoneb c/w home medications. Plan to d/c home in am Rest of the plan as ordered.
--- NOTE | 2018-05-23 12:21 | CP.PCM.PN ---
Subjective - Date & Time of Evaluation Date of Evaluation: 05/23/18 Time of Evaluation: 12:19 - Subjective Subjective: Seated upright in bed, appears comfortable. Her mood is good and her memory appears good as well. Her vital signs have been stable. She has done well with physical therapy. She no longer has congested cough and her breathing has improved significantly. Scheduled for discharge to home tomorrow with VNA services. Objective - Vital Signs/Intake and Output Vital Signs (last 24 hours): Temp Pulse Resp BP Pulse Ox 97.9 F 59 L 18 128/55 L 100 05/23/18 08:10 05/23/18 08:21 05/23/18 08:10 05/23/18 08:21 05/23/18 08:10 - Medications Medications: Current Medications Albuterol Sulfate (Albuterol 0.083% Inhal Paulina (2.5 Mg/3 Ml) Ud) 2.5 mg INH RQ4 PRN PRN Reason: Shortness of Breath Albuterol/Ipratropium (Duoneb 3 Mg/0.5 Mg (3 Ml) Ud) 3 ml INH RQID [facility] Last Admin: 05/23/18 11:17 Dose: 3 ml Alprazolam (Xanax) 1 mg PO Q12 [facility] Last Admin: 05/23/18 08:25 Dose: 1 mg Aspirin (Ecotrin) 81 mg PO DAILY [facility] Last Admin: 05/23/18 08:21 Dose: 81 mg Cholecalciferol (Vitamin D) 1,000 intlu PO DAILY [facility] Last Admin: 05/23/18 08:21 Dose: 1,000 intlu Diltiazem HCl (Cardizem Cd) 120 mg PO DAILY [facility] Last Admin: 05/23/18 08:21 Dose: 120 mg Fluticasone Propionate (Flonase) 1 spr JACQUIE BID [facility] Last Admin: 05/23/18 08:22 Dose: 1 spr Gabapentin (Neurontin) 100 mg PO HS [facility] Last Admin: 05/22/18 21:18 Dose: 100 mg Lactulose (Enulose) 20 gm PO DAILY PRN PRN Reason: Constipation Last Admin: 05/13/18 18:10 Dose: 20 gm Latanoprost (Xalatan Opht) 1 drop OU HS [facility] Last Admin: 05/22/18 21:19 Dose: 1 drop Memantine (Namenda) 5 mg PO DAILY [facility] Last Admin: 05/23/18 08:21 Dose: 5 mg Mirtazapine (Remeron) 7.5 mg PO HS [facility] Last Admin: 05/22/18 21:18 Dose: 7.5 mg Senna/Docusate Sodium (Senokot S 50 Mg-8.6 Mg) 2 tab PO HS [facility] Last Admin: 05/22/18 21:19 Dose: 2 tab Simethicone (Mylicon Chew Tab) 80 mg PO Q8 PRN PRN Reason: Flatulence - Labs Labs: 05/18/18 05:25 05/18/18 05:25 Assessment and Plan (1) Anemia in chronic illness Status: Chronic (2) Dementia Status: Chronic (3) Emphysema with chronic bronchitis Status: Chronic (4) Depression Status: Chronic
[2018-05-23] MEDS: Latanoprost 0.005% Opht SOUTION OU SCH (22:08)
[2018-05-23] MEDS: Docusate-Senna 50 mg-8.6 mg Tab PO SCH (22:08)
[2018-05-24] MEDS: Albuterol-Ipratrop 3 mg / 0.5 (3 ml) UD INH SCH ×2 (07:43→11:25)
[2018-05-24 08:00] VITALS: BP 125/54; PULSE 65; RESP 20; TEMP 98.4; O2SAT 97
[2018-05-24] MEDS: diltiaZEM 120 mg/24 Hours CD Cap PO SCH (08:30)
[2018-05-24] MEDS: Cholecalciferol 1,000 INTLU TAB PO SCH (08:30)
--- NOTE | 2018-05-26 22:02 | CP.PCM.PN ---
Subjective - Date & Time of Evaluation Date of Evaluation: 05/15/18 Time of Evaluation: 10:00 - Subjective Subjective: Patient remains stable Has slight SOB Noted to have better balance and gait function. Objective - Vital Signs/Intake and Output Vital Signs (last 24 hours): Temp Pulse Resp BP Pulse Ox 98.4 F 65 20 125/54 L 97 05/24/18 08:30 05/24/18 08:30 05/24/18 08:30 05/24/18 08:30 05/24/18 08:30 - Labs Labs: 05/18/18 05:25 05/18/18 05:25 - Head Exam Head Exam: NORMAL INSPECTION - ENT Exam ENT Exam: Mucous Membranes Moist - Respiratory Exam Respiratory Exam: Decreased Breath Sounds - Cardiovascular Exam Cardiovascular Exam: REGULAR RHYTHM - GI/Abdominal Exam GI & Abdominal Exam: Normal Bowel Sounds Assessment and Plan (1) Chr obstructive pulmonary disease w/ acute lower respiratory infxn Status: Acute (2) Debility Status: Acute (3) Anemia in chronic illness Status: Chronic (4) Chronic congestive heart failure Status: Chronic - Assessment and Plan (Free Text) Plan: Cont meds Cont tx Cont PT
--- NOTE | 2018-05-26 22:04 | CP.PCM.PN ---
Subjective - Date & Time of Evaluation Date of Evaluation: 05/16/18 Time of Evaluation: 11:00 - Subjective Subjective: Patient remains stable Has no chest pain or SOB Afebrile Doing well with PT Objective - Vital Signs/Intake and Output Vital Signs (last 24 hours): Temp Pulse Resp BP Pulse Ox 98.4 F 65 20 125/54 L 97 05/24/18 08:30 05/24/18 08:30 05/24/18 08:30 05/24/18 08:30 05/24/18 08:30 - Labs Labs: 05/18/18 05:25 05/18/18 05:25 - Head Exam Head Exam: NORMAL INSPECTION - Eye Exam Eye Exam: Normal appearance - ENT Exam ENT Exam: Mucous Membranes Moist - Respiratory Exam Respiratory Exam: Clear to Ausculation Bilateral - Cardiovascular Exam Cardiovascular Exam: REGULAR RHYTHM - GI/Abdominal Exam GI & Abdominal Exam: Normal Bowel Sounds Assessment and Plan (1) Chr obstructive pulmonary disease w/ acute lower respiratory infxn Status: Acute (2) Debility Status: Acute (3) Anemia in chronic illness Status: Chronic (4) Chronic congestive heart failure Status: Chronic - Assessment and Plan (Free Text) Plan: Cont meds Con ttx Cont PT
--- NOTE | 2018-05-26 22:05 | CP.PCM.PN ---
Subjective - Date & Time of Evaluation Date of Evaluation: 05/17/18 Time of Evaluation: 09:30 - Subjective Subjective: patient is stable Has no chest pain or SOB afebrile Has very poor appetite. Objective - Vital Signs/Intake and Output Vital Signs (last 24 hours): Temp Pulse Resp BP Pulse Ox 98.4 F 65 20 125/54 L 97 05/24/18 08:30 05/24/18 08:30 05/24/18 08:30 05/24/18 08:30 05/24/18 08:30 - Labs Labs: 05/18/18 05:25 05/18/18 05:25 - Head Exam Head Exam: NORMAL INSPECTION - ENT Exam ENT Exam: Mucous Membranes Moist - Respiratory Exam Respiratory Exam: Clear to Ausculation Bilateral - Cardiovascular Exam Cardiovascular Exam: REGULAR RHYTHM - GI/Abdominal Exam GI & Abdominal Exam: Normal Bowel Sounds Assessment and Plan (1) Chr obstructive pulmonary disease w/ acute lower respiratory infxn Status: Acute (2) Debility Status: Acute (3) Anemia in chronic illness Status: Chronic (4) Chronic congestive heart failure Status: Chronic - Assessment and Plan (Free Text) Plan: Cont meds Cont tx Cont PT
--- NOTE | 2018-05-26 22:07 | CP.PCM.PN ---
Subjective - Date & Time of Evaluation Date of Evaluation: 05/19/18 Time of Evaluation: 10:00 - Subjective Subjective: Patient is doign well with PT Has no chest pain or SOB., Objective - Vital Signs/Intake and Output Vital Signs (last 24 hours): Temp Pulse Resp BP Pulse Ox 98.4 F 65 20 125/54 L 97 05/24/18 08:30 05/24/18 08:30 05/24/18 08:30 05/24/18 08:30 05/24/18 08:30 - Labs Labs: 05/18/18 05:25 05/18/18 05:25 - Head Exam Head Exam: NORMAL INSPECTION - Eye Exam Eye Exam: Normal appearance - ENT Exam ENT Exam: Mucous Membranes Moist - Respiratory Exam Respiratory Exam: Chest Wall Tenderness, Clear to Ausculation Bilateral - GI/Abdominal Exam GI & Abdominal Exam: Normal Bowel Sounds - Neurological Exam Neurological Exam: Awake, Oriented x3 Assessment and Plan (1) Chr obstructive pulmonary disease w/ acute lower respiratory infxn Status: Acute (2) Debility Status: Acute (3) Anemia in chronic illness Status: Chronic (4) Chronic congestive heart failure Status: Chronic - Assessment and Plan (Free Text) Plan: Cont meds Cont tx Cont PT
--- NOTE | 2018-05-26 22:08 | CP.PCM.PN ---
Subjective - Date & Time of Evaluation Date of Evaluation: 05/20/18 Time of Evaluation: 11:00 - Subjective Subjective: patient is doing well family is interested with hospice care. Has been doing well Has no chets pain or SOB. Objective - Vital Signs/Intake and Output Vital Signs (last 24 hours): Temp Pulse Resp BP Pulse Ox 98.4 F 65 20 125/54 L 97 05/24/18 08:30 05/24/18 08:30 05/24/18 08:30 05/24/18 08:30 05/24/18 08:30 - Labs Labs: 05/18/18 05:25 05/18/18 05:25 - Head Exam Head Exam: NORMAL INSPECTION - Eye Exam Eye Exam: Normal appearance - Respiratory Exam Respiratory Exam: Clear to Ausculation Bilateral - Cardiovascular Exam Cardiovascular Exam: REGULAR RHYTHM - GI/Abdominal Exam GI & Abdominal Exam: Soft - Neurological Exam Neurological Exam: Awake, Oriented x3 Assessment and Plan (1) Chr obstructive pulmonary disease w/ acute lower respiratory infxn Status: Acute (2) Debility Status: Acute (3) Anemia in chronic illness Status: Chronic (4) Chronic congestive heart failure Status: Chronic - Assessment and Plan (Free Text) Plan: Con tmeds Con ttx Cont PT
--- NOTE | 2018-05-26 22:10 | CP.PCM.PN ---
Subjective - Date & Time of Evaluation Date of Evaluation: 05/21/18 Time of Evaluation: 10:00 - Subjective Subjective: patient remains stable has improved appetite Has no chest pain or SOB. Objective - Vital Signs/Intake and Output Vital Signs (last 24 hours): Temp Pulse Resp BP Pulse Ox 98.4 F 65 20 125/54 L 97 05/24/18 08:30 05/24/18 08:30 05/24/18 08:30 05/24/18 08:30 05/24/18 08:30 - Labs Labs: 05/18/18 05:25 05/18/18 05:25 - Head Exam Head Exam: NORMAL INSPECTION - Eye Exam Eye Exam: Normal appearance - ENT Exam ENT Exam: Mucous Membranes Moist - Respiratory Exam Respiratory Exam: Clear to Ausculation Bilateral - Cardiovascular Exam Cardiovascular Exam: REGULAR RHYTHM - GI/Abdominal Exam GI & Abdominal Exam: Normal Bowel Sounds Assessment and Plan (1) Chr obstructive pulmonary disease w/ acute lower respiratory infxn Status: Acute (2) Debility Status: Acute (3) Anemia in chronic illness Status: Chronic (4) Chronic congestive heart failure Status: Chronic - Assessment and Plan (Free Text) Plan: Con tmeds Cont tx Cont PT
--- NOTE | 2018-05-26 22:13 | CP.PCM.PN ---
Subjective - Date & Time of Evaluation Date of Evaluation: 05/22/18 Time of Evaluation: 10:35 - Subjective Subjective: patient is doing a lot better Able to walk with assistance better. Has no fever Appetite has improved. Objective - Vital Signs/Intake and Output Vital Signs (last 24 hours): Temp Pulse Resp BP Pulse Ox 98.4 F 65 20 125/54 L 97 05/24/18 08:30 05/24/18 08:30 05/24/18 08:30 05/24/18 08:30 05/24/18 08:30 - Labs Labs: 05/18/18 05:25 05/18/18 05:25 - Head Exam Head Exam: NORMAL INSPECTION - Eye Exam Eye Exam: Normal appearance - ENT Exam ENT Exam: Mucous Membranes Moist - Respiratory Exam Respiratory Exam: Clear to Ausculation Bilateral - Cardiovascular Exam Cardiovascular Exam: REGULAR RHYTHM - GI/Abdominal Exam GI & Abdominal Exam: Normal Bowel Sounds Assessment and Plan (1) Chr obstructive pulmonary disease w/ acute lower respiratory infxn Status: Acute (2) Debility Status: Acute (3) Anemia in chronic illness Status: Chronic (4) Chronic congestive heart failure Status: Chronic - Assessment and Plan (Free Text) Plan: Cont meds Cont tx Cont PT discharge plans
--- NOTE | 2018-05-26 22:16 | CP.PCM.DIS ---
Provider - Provider Date of Admission: 05/11/18 14:24 Attending physician: Tim Cornejo MD Time Spent in preparation of Discharge (in minutes): 30 Diagnosis - Discharge Diagnosis (1) Chr obstructive pulmonary disease w/ acute lower respiratory infxn Status: Acute Priority: High (2) Debility Status: Acute (3) Anemia in chronic illness Status: Chronic Priority: Medium (4) Chronic congestive heart failure Status: Chronic Hospital Course - Lab Results Lab Results: Most Recent Lab Values WBC 10.9 K/uL (4.8-10.8) H D 05/18/18 05:25 RBC 3.32 Mil/uL (3.80-5.20) L 05/18/18 05:25 Hgb 10.6 g/dL (12.0-16.0) L 05/18/18 05:25 Hct 31.5 % (34.0-47.0) L 05/18/18 05:25 MCV 94.9 fl (81.0-99.0) 05/18/18 05:25 MCH 31.8 pg (27.0-31.0) H 05/18/18 05:25 MCHC 33.5 g/dL (33.0-37.0) 05/18/18 05:25 RDW 15.1 % (11.5-14.5) H 05/18/18 05:25 Plt Count 185 K/uL (130-400) 05/18/18 05:25 Retic Count 1.2 % (0.5-1.5) 05/18/18 05:25 pCO2 48 mm/Hg (35-45) H 05/21/18 15:02 pO2 63 mm/Hg (80-100) L 05/21/18 15:02 HCO3 31.2 mmol/L (21-28) H 05/21/18 15:02 ABG pH 7.45 (7.35-7.45) 05/21/18 15:02 ABG Total CO2 34.9 mmol/L (22-28) H 05/21/18 15:02 ABG O2 Saturation 95.7 % (95-98) 05/21/18 15:02 ABG O2 Content 14.9 ML/dL (15-23) L 05/21/18 15:02 ABG Base Excess 8.2 mmol/L (-2.0-3.0) H 05/21/18 15:02 ABG Hemoglobin 11.4 g/dL (11.7-17.4) L 05/21/18 15:02 ABG Carboxyhemoglobin 2.1 % (0.5-1.5) H 05/21/18 15:02 POC ABG HHb (Measured) 4.2 % (0.0-5.0) 05/21/18 15:02 ABG Methemoglobin 1.3 % (0.0-3.0) 05/21/18 15:02 ABG O2 Capacity 15.6 mL/dL (16-24) L 05/21/18 15:02 Armando Test Yes 05/21/18 15:02 A-a O2 Difference 27.0 mm/Hg 05/21/18 15:02 Hgb O2 Saturation 92.5 % (95.0-98.0) L 05/21/18 15:02 FiO2 21.0 % 05/21/18 15:02 Sodium 135 mmol/l (132-148) 05/18/18 05:25 Potassium 4.4 MMOL/L (3.6-5.0) 05/18/18 05:25 Chloride 100 mmol/L (98-107) 05/18/18 05:25 Carbon Dioxide 30 mmol/L (22-30) 05/18/18 05:25 Anion Gap 9 (10-20) L 05/18/18 05:25 BUN 27 mg/dl (7-17) H 05/18/18 05:25 Creatinine 0.7 mg/dl (0.7-1.2) 05/18/18 05:25 Est GFR ( Amer) > 60 05/18/18 05:25 Est GFR (Non-Af Amer) > 60 05/18/18 05:25 Random Glucose 72 mg/dL (65-105) 05/18/18 05:25 Calcium 9.2 mg/dL (8.4-10.2) 05/18/18 05:25 Iron 33 ug/dL (37-170) L 05/12/18 11:40 TIBC 265 ug/dL (250-450) 05/12/18 11:40 % Saturation 12 % (20-55) L 05/12/18 11:40 Ferritin 128.0 ng/Ml (11.1-264.0) 05/12/18 11:40 Folate 14.7 ng/mL 05/12/18 11:40 Free T4 1.29 ng/dL (0.78-2.19) 05/15/18 07:01 Free T3 pg/mL 1.41 pg/mL (2.77-5.27) L 05/15/18 07:01 Total T3 0.366 nmol/L (1.49-2.60) L 05/15/18 07:01 TSH 3rd Generation 0.08 mIU/ML (0.46-4.68) L 05/14/18 05:30 - Hospital Course Hospital Course: This is an 87 y/o female admitted for gen debility after recurrent exacerbation of COPD. She was started on phys therapy At first she had some difficulty due to debility but was able to do all the tasks in last few days of her stay in TCU She was maintained on all her meds. She was discharged to home. Rx were called to the pharmacy. Discharge Exam - Head Exam Head Exam: NORMAL INSPECTION - Eye Exam Eye Exam: Normal appearance - Respiratory Exam Respiratory Exam: NORMAL BREATHING PATTERN - Cardiovascular Exam Cardiovascular Exam: REGULAR RHYTHM - GI/Abdominal Exam GI & Abdominal Exam: Normal Bowel Sounds Discharge Plan - Follow Up Plan Condition: GOOD Disposition: DISCHARGED TO HOME CARE Instructions: Exacerbation of COPD (DC) Additional Instructions: advised follow up in few weeks rx were called to pharmacy.
== END 2018-05-24 13:15 | disposition home health service (06) | DRG 191 ==
LOC: H.TCU 14:24
PROVIDERS: ADMIT Family Medicine; ATTEND Family Medicine
PROC: 3E0F7GC Introduction of Other Therapeutic Substance into Respiratory Tract, Via Natural or Artificial Opening (ICD-10-PCS; principal; 2018-05-11)
PROC: F07M6FZ Therapeutic Exercise Treatment of Musculoskeletal System - Whole Body using Assistive, Adaptive, Supportive or Protective Equipment (ICD-10-PCS; 2018-05-12)
PROC: F08Z4FZ Home Management Treatment using Assistive, Adaptive, Supportive or Protective Equipment (ICD-10-PCS; 2018-05-12)
DX: J44.1 Chronic obstructive pulmonary disease with (acute) exacerbation (principal); N17.9 Acute kidney failure, unspecified; I50.30 Unspecified diastolic (congestive) heart failure; Z85.118 Personal history of other malignant neoplasm of bronchus and lung; E78.00 Pure hypercholesterolemia, unspecified; Z87.01 Personal history of pneumonia (recurrent); Z87.891 Personal history of nicotine dependence; D63.8 Anemia in other chronic diseases classified elsewhere; E78.5 Hyperlipidemia, unspecified; F03.90 Unspecified dementia, unspecified severity, without behavioral disturbance, psychotic disturbance, mood disturbance, and anxiety; F32.9 Major depressive disorder, single episode, unspecified; H40.9 Unspecified glaucoma; I11.0 Hypertensive heart disease with heart failure; I48.91 Unspecified atrial fibrillation; J31.0 Chronic rhinitis; F41.9 Anxiety disorder, unspecified; K44.9 Diaphragmatic hernia without obstruction or gangrene; M19.90 Unspecified osteoarthritis, unspecified site; R09.89 Other specified symptoms and signs involving the circulatory and respiratory systems

== ENCOUNTER 2018-11-26 14:59 | Observation (INO) | payer MEDICARE, OTHER ==
[2018-11-26 15:00] VITALS: PULSE 132; BMI 17.0
--- NOTE | 2018-11-26 15:34 | ED PDOC ---
HPI: Neurologic - General Time Seen by Provider: 11/26/18 15:13 Chief Complaint (Nursing): Shortness Of Breath Chief Complaint (Provider): parasthesias bilateral arms Source: patient Exam Limitations: other (mild age-related cognitive decline) - History of Present Illness Timing/Duration: 1 week Severity: severe Associated Symptoms: paresthesia. denies: confusion, fatigue, fever/chills, insomnia, loss of consciousness, muscle spasms, nausea/vomiting, numbness in legs/feet, slurred speech, tingling in legs/feet Allergies/Adverse Reactions: Allergies Penicillins Allergy (Verified 05/11/18 14:22) ANAPHYLAXIS Sulfa (Sulfonamide Antibiotics) Allergy (Verified 05/11/18 14:22) RASH sulfamethoxazole [From Bactrim] Allergy (Verified 05/11/18 14:22) RASH trimethoprim [From Bactrim] Allergy (Verified 05/11/18 14:22) RASH Home Medications: Ambulatory Orders Latanoprost 0.005% Opht [Xalatan Opht] 1 drop OU HS #1 bottle 05/01/18 ALPRAZolam [Xanax] 1 mg PO Q12 tab 05/24/18 Albuterol 0.083% [Albuterol 0.083% Inhal Paulina (2.5 mg/3 ml) UD] 2.5 mg INH RQ4 PRN neb 05/24/18 Aspirin [Ecotrin] 81 mg PO DAILY #30 11/27/18 Cholecalciferol [Vitamin D 1000 IU] 1,000 intlu PO DAILY #30 tab 11/27/18 Fluticasone Propionate [Flonase] 1 spr JACQUIE BID #1 bottle 11/27/18 Gabapentin 300 mg PO TID #90 capsule 11/27/18 Memantine [Namenda] 10 mg PO HS #30 tab 11/27/18 Mirtazapine [Remeron] 7.5 mg PO HS #15 tab 11/27/18 Simethicone [Mylicon Chew Tab] 80 mg PO Q8 PRN #30 chew 11/27/18 diltiaZEM CD [Cardizem CD] 120 mg PO DAILY #30 cap 11/27/18 Additional Complaint(s): severe parasthesias "pins and needles" to both arms that occurs when patient is sleeping but worse this morning. resolves over the course of the morning but today seemed more severe. RIGHT arm worse than LEFT arm. associated lightheadedness. denies neck pain or headache or weakness or blurry vision or difficulty with speech or gait. recently (4 weeks) started levothyroxine 25 mcg daily for hypothyroidism. also reports shortness of breath worse than baseline and anxiety. also developed rash to both arms. PMD Dr Washington Past Medical History Reviewed: Historical Data, Nursing Documentation, Vital Signs Vital Signs: Last Vital Signs Temp 97.6 F 11/26/18 15:10 Pulse 65 11/26/18 15:10 Resp 18 11/26/18 15:10 BP 170/61 H 11/26/18 15:10 Pulse Ox 98 11/26/18 15:10 Primary Care Provider: Rajiv Washington - Medical History PMH: Anemia, Anxiety, Arthritis, Atrial Fibrillation, CHF (diastolic), COPD, Dementia (forgetful at times), Depression, Emphysema, Fractures (tibial plateau), HTN, Hypercholesterolemia, Pneumonia Denies: HIV, Chronic Kidney Disease - Surgical History Surgical History: Tonsillectomy - Family History Family History: States: Unknown Family Hx - Social History Current smoker - smoking cessation education provided: No - Immunization History Hx Tetanus Toxoid Vaccination: No Hx Influenza Vaccination: Yes Hx Pneumococcal Vaccination: Yes - Home Medications Home Medications: Ambulatory Orders Medication Instructions Recorded Latanoprost 0.005% Opht [Xalatan 1 drop OU HS #1 bottle 05/01/18 Opht] ALPRAZolam [Xanax] 1 mg PO Q12 tab 05/24/18 Albuterol 0.083% [Albuterol 0.083% 2.5 mg INH RQ4 PRN neb 05/24/18 Inhal Paulina (2.5 mg/3 ml) UD] Aspirin [Ecotrin] 81 mg PO DAILY #30 11/27/18 Cholecalciferol [Vitamin D 1000 IU] 1,000 intlu PO DAILY #30 tab 11/27/18 Fluticasone Propionate [Flonase] 1 spr JACQUIE BID #1 bottle 11/27/18 Gabapentin 300 mg PO TID #90 capsule 11/27/18 Memantine [Namenda] 10 mg PO HS #30 tab 11/27/18 Mirtazapine [Remeron] 7.5 mg PO HS #15 tab 11/27/18 Simethicone [Mylicon Chew Tab] 80 mg PO Q8 PRN #30 chew 11/27/18 diltiaZEM CD [Cardizem CD] 120 mg PO DAILY #30 cap 11/27/18 - Allergies Allergies/Adverse Reactions: Allergies Allergy/AdvReac Type Severity Reaction Status Date / Time Penicillins Allergy ANAPHYLAXIS Verified 05/11/18 14:22 Sulfa (Sulfonamide Allergy RASH Verified 05/11/18 14:22 Antibiotics) sulfamethoxazole Allergy RASH Verified 05/11/18 14:22 [From Bactrim] trimethoprim [From Bactrim] Allergy RASH Verified 05/11/18 14:22 Review of Systems ROS Statement: Except As Marked, All Systems Reviewed And Found Negative (and as per HPI) Constitutional: Positive for: Weakness ENT: Positive for: Nose Congestion Cardiovascular: Positive for: Light Headedness. Negative for: Chest Pain Respiratory: Positive for: Shortness of Breath. Negative for: Cough, Sputum, Wheezing Musculoskeletal: Negative for: Neck Pain, Back Pain Neurological: Negative for: Weakness, Headache, Dizziness Psych: Positive for: Anxiety Physical Exam - Reviewed Nursing Documentation Reviewed: Yes Vital Signs Reviewed: Yes - Physical Exam Appears: Positive for: Non-toxic, No Acute Distress Head Exam: Positive for: ATRAUMATIC, NORMOCEPHALIC Skin: Positive for: Warm, Dry, Rash (faint pink macular rash to bilateral arms, even more subtle on chest/back) Eye Exam: Positive for: EOMI, PERRL ENT: Negative for: Pharyngeal Erythema, Tonsillar Exudate Neck: Positive for: Painless ROM, Supple Cardiovascular/Chest: Positive for: Regular Rate, Rhythm. Negative for: Murmur Respiratory: Positive for: Normal Breath Sounds. Negative for: Accessory Muscle Use, Rales, Rhonchi, Wheezing, Respiratory Distress Gastrointestinal/Abdominal: Positive for: Soft. Negative for: Tenderness, Distended, Guarding Back: Positive for: Normal Inspection. Negative for: Decreased ROM Extremity: Positive for: Normal ROM. Negative for: Deformity Lymphatic: Negative for: Adenopathy Neurological/Psych: Positive for: Awake, Alert, Mood/Affect (anxious mood and affect). Negative for: Motor/Sensory Deficits - Laboratory Results Result Diagrams: 11/27/18 05:30 11/27/18 05:30 - ECG ECG: Positive for: Interpreted By Me ECG Rhythm: Positive for: Normal QRS, Normal ST Segment, Sinus Rhythm O2 Sat by Pulse Oximetry: 98 Pulse Ox Interpretation: Normal - Progress ED Course And Treament: Accession No. : [id number] Patient Name / ID : MATTHEW HENDRICKS / [id number] Exam Date : 11/26/2018 16:17:06 ( Approved ) Study Comment : Sex / Age : F / 87Y Creator : Marisabel Nash MD Dictator : Marisabel Nash MD Medical Clerical Assistant : Thrill Performer : Marisabel Nash MD Approver2 : Report Date : 11/26/2018 16:49:41 My Comment : Date of service: 11/26/2018 PROCEDURE: CT HEAD WITHOUT CONTRAST. HISTORY: Headache and dizziness COMPARISON: 12/21/2017. TECHNIQUE: Axial computed tomography images were obtained through the head/brain without intravenous contrast. Radiation dose: Total exam DLP = 724.26 mGy-cm. This CT exam was performed using one or more of the following dose reduction techniques: Automated exposure control, adjustment of the mA and/or kV according to patient size, and/or use of iterative reconstruction technique. FINDINGS: HEMORRHAGE: No intracranial hemorrhage. BRAIN: There are mild chronic microangiopathic changes. There is no mass, mass effect or abnormal extra-axial fluid collection. There is no territorial infarction. The midline sagittal structures are normal. VENTRICLES: There is mild age-related global parenchymal volume loss and proportionate enlargement of the ventricles and cortical sulci. CALVARIUM: There is no calvarial fracture or extracranial soft tissue swelling. PARANASAL SINUSES: Predominantly clear. MASTOID AIR CELLS: Predominantly clear. OTHER FINDINGS: None. IMPRESSION: No acute intracranial abnormality. Mild chronic microangiopathic changes and mild age-related global parenchymal volume. Accession No. : [id number] Patient Name / ID : MATTHEW HENDRICKS / [id number] Exam Date : 11/26/2018 16:19:33 ( Approved ) Study Comment : Sex / Age : F / 87Y Creator : Marisabel Nash MD Dictator : Marisabel Nash MD Medical Clerical Assistant : Thrill Performer : Marisabel Nash MD Approver2 : Report Date : 11/26/2018 16:58:30 My Comment : Date of service: 11/26/2018 PROCEDURE: CT Cervical Spine without contrast HISTORY: parasthesias bilateral arms COMPARISON: None available. TECHNIQUE: Axial computed tomography images were obtained of the cervical spine without the use of intravenous contrast. Coronal and sagittal reformatted images were created and reviewed. Radiation dose: Total exam DLP = 271.18 mGy-cm. This CT exam was performed using one or more of the following dose reduction techniques: Automated exposure control, adjustment of the mA and/or kV according to patient size, and/or use of iterative reconstruction technique. FINDINGS: VERTEBRAE: There is degenerative 2 mm retrolisthesis of C4 on C5. There is straightening of the cervical spine with loss of normal cervical lordosis. There is diffuse b one demineralization. There is no acute fracture or traumatic anterior listhesis. The craniocervical junction is normal. There is mild degenerative osteoarthrosis at the atlantoaxial joint. DISCS/SPINAL CANAL/NEURAL FORAMINA: Evaluation of the discs and spinal canal is limited on noncontrast CT examination. Allowing for this, C2-3: Disc osteophyte complex without central spinal canal stenosis. Asymmetric left uncovertebral joint hypertrophy and mild bilateral facet arthropathy with mild left neural foraminal narrowing. C3-4: Broad-based disc osteophyte complex without central spinal canal stenosis. Severe right and moderate left facet arthropathy contribute to severe right and moderate left neural foraminal narrowing. C4-5: Broad-based disc osteophyte complex and mild spinal canal stenosis. Moderate bilateral facet arthropathy contribute to severe right and moderate to severe left neural foraminal narrowing. C5-6: Broad-based disc osteophyte complex indents the ventral thecal sac with severe spinal canal stenosis. Moderate bilateral facet arthropathy contribute to severe right neural foraminal narrowing. C6-7: Broad-based disc osteophyte complex without central spinal canal stenosis. Mild bilateral facet arthropathy contribute to moderate right and mild left neural foraminal narrowing. C7-T1: No large disc herniation, neural foraminal or spinal canal stenosis. Discs heights are grossly preserved. Incompletely imaged and characterized is an apparent broad-based elliptical abutting the C5 vertebral body. PARASPINAL SOFT TISSUES: The paraspinous soft tissues are normal. OTHER FINDINGS: There is severe centrilobular emphysema in the visualized lungs. IMPRESSION: 1. Apparent broad-based elliptical lesion abutting the C5 vertebral body, not characterized on this noncontrast CT examination. Please note. This examination is very limited for evaluation of the cervical spinal cord and intraspinal lesions. An MRI of the cervical spine without and with intravenous contrast is recommended for further characterization. 2. Multilevel degenerative disc disease, worse at C5-6 with a broad-based disc osteophyte complex, severe spinal canal stenosis and severe right neural foraminal narrowing. ROOSEVELT [place] PMD Pt to be hospitalized for further evaluation of neurologic disorder and concerning lesion on cervical spine. ROOSEVELT pt and family findings and plan of care ROOSEVELT [facility] Hospitalist admitting for Dr Washington. Condition: Improving,but remains with symptoms Disposition - Clinical Impression Clinical Impression: Radiculopathy of cervical spine, Abnormal CT scan, cervical spine Counseled Patient/Family Regarding: Studies Performed, Diagnosis - Disposition Disposition Time: 19:00 Condition: FAIR - Pt Status Changed To: Hospital Disposition Of: Observation - POA Present On Arrival: None
[2018-11-26 16:01] LABS: BASO % 1.1 % (0.0-2.0); EOS # 0.1 K/uL (0.0-0.7); EOS % 2.2 % (0.0-4.0); HEMOGLOBIN 11.7 g/dL (12.0-16.0); LYMPH # 1.3 K/uL (1.0-4.3); LYMPH % 30.2 % (20.0-40.0); MEAN CELL VOLUME 91.8 fl (81.0-99.0); MEAN CORPUSCULAR HEMOGLOBIN 30.8 pg (27.0-31.0); MEAN CORPUSCULAR HGB CONC 33.5 g/dL (33.0-37.0); MONO # 0.4 K/uL (0.0-0.8); MONO % 9.2 % (0.0-10.0); NEUT # 2.5 K/uL (1.8-7.0); NEUT % 57.3 % (50.0-75.0); NRBC % 0.1 % (0.0-0.0); RBC 3.8 Mil/uL (3.80-5.20); RED CELL DISTRIBUTION WIDTH 17.1 % (11.5-14.5); WHITE BLOOD COUNT 4.3 K/uL (4.8-10.8)
[2018-11-26 16:07] LABS: ALB/GLOB RATIO 1.5 (1.0-2.1); ALBUMIN 4.2 g/dL (3.5-5.0); ALT/SGPT 31 U/L (9-52); AST/SGOT 31 U/L (14-36); BLOOD UREA NITROGEN 18 mg/dl (7-17); CALCIUM 10.1 mg/dL (8.4-10.2); GFR NON-AFRICAN AMERICAN > 60
[2018-11-26] MEDS ORDERED: Potassium & Sodium Phosphate PO STA (16:07)
[2018-11-26 16:08] LABS: INR 0.9; PROTHROMBIN TIME 10.5 Seconds (9.8-13.1)
[2018-11-26 16:10] LABS: PARTIAL THROMBOPLASTIN TIME 34.6 Seconds (25.6-37.1)
--- NOTE | 2018-11-26 16:53 | CT ---
Date of service: 11/26/2018 PROCEDURE: CT HEAD WITHOUT CONTRAST. HISTORY: Headache and dizziness COMPARISON: 12/21/2017. TECHNIQUE: Axial computed tomography images were obtained through the head/brain without intravenous contrast. Radiation dose: Total exam DLP = 724.26 mGy-cm. This CT exam was performed using one or more of the following dose reduction techniques: Automated exposure control, adjustment of the mA and/or kV according to patient size, and/or use of iterative reconstruction technique. FINDINGS: HEMORRHAGE: No intracranial hemorrhage. BRAIN: There are mild chronic microangiopathic changes. There is no mass, mass effect or abnormal extra-axial fluid collection. There is no territorial infarction. The midline sagittal structures are normal. VENTRICLES: There is mild age-related global parenchymal volume loss and proportionate enlargement of the ventricles and cortical sulci. CALVARIUM: There is no calvarial fracture or extracranial soft tissue swelling. PARANASAL SINUSES: Predominantly clear. MASTOID AIR CELLS: Predominantly clear. OTHER FINDINGS: None. IMPRESSION: No acute intracranial abnormality. Mild chronic microangiopathic changes and mild age-related global parenchymal volume.
--- NOTE | 2018-11-26 17:01 | CT ---
Date of service: 11/26/2018 PROCEDURE: CT Cervical Spine without contrast HISTORY: parasthesias bilateral arms COMPARISON: None available. TECHNIQUE: Axial computed tomography images were obtained of the cervical spine without the use of intravenous contrast. Coronal and sagittal reformatted images were created and reviewed. Radiation dose: Total exam DLP = 271.18 mGy-cm. This CT exam was performed using one or more of the following dose reduction techniques: Automated exposure control, adjustment of the mA and/or kV according to patient size, and/or use of iterative reconstruction technique. FINDINGS: VERTEBRAE: There is degenerative 2 mm retrolisthesis of C4 on C5. There is straightening of the cervical spine with loss of normal cervical lordosis. There is diffuse bone demineralization. There is no acute fracture or traumatic anterior listhesis. The craniocervical junction is normal. There is mild degenerative osteoarthrosis at the atlantoaxial joint. DISCS/SPINAL CANAL/NEURAL FORAMINA: Evaluation of the discs and spinal canal is limited on noncontrast CT examination. Allowing for this, C2-3: Disc osteophyte complex without central spinal canal stenosis. Asymmetric left uncovertebral joint hypertrophy and mild bilateral facet arthropathy with mild left neural foraminal narrowing. C3-4: Broad-based disc osteophyte complex without central spinal canal stenosis. Severe right and moderate left facet arthropathy contribute to severe right and moderate left neural foraminal narrowing. C4-5: Broad-based disc osteophyte complex and mild spinal canal stenosis. Moderate bilateral facet arthropathy contribute to severe right and moderate to severe left neural foraminal narrowing. C5-6: Broad-based disc osteophyte complex indents the ventral thecal sac with severe spinal canal stenosis. Moderate bilateral facet arthropathy contribute to severe right neural foraminal narrowing. C6-7: Broad-based disc osteophyte complex without central spinal canal stenosis. Mild bilateral facet arthropathy contribute to moderate right and mild left neural foraminal narrowing. C7-T1: No large disc herniation, neural foraminal or spinal canal stenosis. Discs heights are grossly preserved. Incompletely imaged and characterized is an apparent broad-based elliptical abutting the C5 vertebral body. PARASPINAL SOFT TISSUES: The paraspinous soft tissues are normal. OTHER FINDINGS: There is severe centrilobular emphysema in the visualized lungs. IMPRESSION: 1. Apparent broad-based elliptical lesion abutting the C5 vertebral body, not characterized on this noncontrast CT examination. Please note. This examination is very limited for evaluation of the cervical spinal cord and intraspinal lesions. An MRI of the cervical spine without and with intravenous contrast is recommended for further characterization. 2. Multilevel degenerative disc disease, worse at C5-6 with a broad-based disc osteophyte complex, severe spinal canal stenosis and severe right neural foraminal narrowing.
[2018-11-26 17:30] LABS: T3 1.04 nmol/L (1.49-2.60)
--- NOTE | 2018-11-26 19:33 | CP.PCM.HP ---
<Demarcus Babcock - Last Filed: 11/26/18 20:28> History of Present Illness - History of Present Illness History of Present Illness: 87 yo F with pmhx of COPD, Lung cancer (s/p R partial lobectomy 2016), hypothyroid, HTN, Depression, Anxiety, cognitive decline presents to the ED with parasthesia. Pt states parasthesias of all distal extremities (bl hands and feet) for approximately 4 weeks, however, more noticeable for the past 1 week. Symptoms presented at night, however, symptoms have progressed to intermittently thoughout the day. Denies weakness. Denies loss of hand staff consultant or recent falls. Pt reports intermittent R hand pain and numbness especially at night, waking her up from her sleep. Symptoms, resolve and she is able to then use her hands. Pt ambulates without difficulty. Of note: pt reports recent dx of hypothyroid and started on Levothyroxine 25 mcg Daughter Alexa present at bedside to provide some of the history. PMD: Dr. Washington Soc: former smoker (last use yrs); Denies alcohol or illicit drugs; lives at home with family Famhx: none Surg: partial R lung lobectomy 2016 08/30 cancer; No f/u chemo or radiation therapy. Rx: reconciled Allergy: pcn, sulfa, bactrim Present on Admission - Present on Admission Any Indicators Present on Admission: No History of Uncontrolled Diabetes: No Review of Systems - Constitutional Constitutional: As Per HPI - Neurological Neurological: As Per HPI - Psychiatric Psychiatric: As Per HPI Past Patient History - Infectious Disease Hx of Infectious Diseases: None - Tetanus Immunizations Tetanus Immunization: Unknown - Past Medical History & Family History Past Medical History?: Yes - Past Social History Smoking Status: Former Smoker - CARDIAC Hx Atrial Fibrillation: Yes Hx Congestive Heart Failure: Yes (diastolic) Hx Hypercholesterolemia: Yes Hx Hypertension: Yes - PULMONARY Hx Chronic Obstructive Pulmonary Disease (COPD): Yes Hx Emphysema: Yes Hx Pneumonia: Yes - NEUROLOGICAL Hx Dementia: Yes (forgetful at times) - HEENT Hx Glaucoma: Yes Other/Comment: Rhinitis - RENAL Hx Chronic Kidney Disease: No - ENDOCRINE/METABOLIC Hx Endocrine Disorders: No - HEMATOLOGICAL/ONCOLOGICAL Hx Anemia: Yes Hx Human Immunodeficiency Virus (HIV): No - INTEGUMENTARY Hx Dermatological Problems: No - MUSCULOSKELETAL/RHEUMATOLOGICAL Hx Arthritis: Yes Hx Fractures: Yes (tibial plateau) - GASTROINTESTINAL Other/Comment: Hiatal hernia - GENITOURINARY/GYNECOLOGICAL Hx Genitourinary Disorders: Yes - PSYCHIATRIC Hx Anxiety: Yes Hx Depression: Yes - SURGICAL HISTORY Hx Tonsillectomy: Yes - ANESTHESIA Hx Anesthesia: Yes Hx Anesthesia Reactions: No Hx Malignant Hyperthermia: No Meds Allergies/Adverse Reactions: Allergies Allergy/AdvReac Type Severity Reaction Status Date / Time Penicillins Allergy ANAPHYLAXIS Verified 05/11/18 14:22 Sulfa (Sulfonamide Allergy RASH Verified 05/11/18 14:22 Antibiotics) sulfamethoxazole Allergy RASH Verified 05/11/18 14:22 [From Bactrim] trimethoprim [From Bactrim] Allergy RASH Verified 05/11/18 14:22 Physical Exam - Constitutional Appears: Well, No Acute Distress - Eye Exam Eye Exam: EOMI Results - Vital Signs Recent Vital Signs: Last Vital Signs Temp 97.6 F 11/26/18 15:10 Pulse 66 11/26/18 18:15 Resp 12 11/26/18 18:15 BP 153/61 H 11/26/18 18:15 Pulse Ox 98 11/26/18 18:40 - Labs Result Diagrams: 11/26/18 15:45 11/26/18 15:45 Labs: Laboratory Results - last 24 hr 11/26/18 11/26/18 11/26/18 15:45 15:45 15:45 WBC 4.3 L D RBC 3.80 Hgb 11.7 L Hct 34.9 MCV 91.8 D MCH 30.8 MCHC 33.5 RDW 17.1 H Plt Count 195 MPV 9.0 Neut % (Auto) 57.3 Lymph % (Auto) 30.2 [place] % (Auto) 9.2 Eos % (Auto) 2.2 Baso % (Auto) 1.1 Neut # (Auto) 2.5 Lymph # (Auto) 1.3 [place] # (Auto) 0.4 Eos # (Auto) 0.1 Baso # (Auto) 0.0 PT INR APTT Sodium 138 Potassium 4.6 Chloride 100 Carbon Dioxide 28 Anion Gap 15 BUN 18 H Creatinine 0.8 Est GFR ( Amer) > 60 Est GFR (Non-Af Amer) > 60 Random Glucose 95 Calcium 10.1 Phosphorus 1.9 L Magnesium 2.1 Total Bilirubin 0.4 AST 31 ALT 31 Alkaline Phosphatase 114 Troponin I < 0.0120 Total Protein 7.1 Albumin 4.2 Globulin 2.9 Albumin/Globulin Ratio 1.5 Free T4 1.01 Thyroxine (T4) 8.69 Total T3 1.04 L TSH 3rd Generation 6.84 H Influenza Typ A,B (EIA) Blood Type Antibody Screen BBK History Checked 11/26/18 11/26/18 11/26/18 15:45 15:45 16:27 WBC RBC Hgb Hct MCV MCH MCHC RDW Plt Count MPV Neut % (Auto) Lymph % (Auto) [place] % (Auto) Eos % (Auto) Baso % (Auto) Neut # (Auto) Lymph # (Auto) [place] # (Auto) Eos # (Auto) Baso # (Auto) PT 10.5 INR 0.9 APTT 34.6 Sodium Potassium Chloride Carbon Dioxide Anion Gap BUN Creatinine Est GFR ( Amer) Est GFR (Non-Af Amer) Random Glucose Calcium Phosphorus Magnesium Total Bilirubin AST ALT Alkaline Phosphatase Troponin I Total Protein Albumin Globulin Albumin/Globulin Ratio Free T4 Thyroxine (T4) Total T3 TSH 3rd Generation Influenza Typ A,B (EIA) Negative for flu a/b Blood Type Cancelled Antibody Screen Cancelled BBK History Checked Cancelled Assessment & Plan - Assessment and Plan (Free Text) Assessment: 87 yo F with pmhx of COPD, Lung cancer (s/p R partial lobectomy 2016), hypothy roid, HTN, Depression, Anxiety, cognitive decline presents to the ED with parasthesia. Plan: CT HEAD: No acute intracranial abnormality. Mild chronic microangiopathic changes and mild age-related global parenchymal volume. CT cervical spine: 1. Apparent broad-based elliptical lesion abutting the C5 vertebral body, not characterized on this noncontrast CT examination. Please note. This examination is very limited for evaluation of the cervical spinal cord and intraspinal lesions. An MRI of the cervical spine without and with intravenous contrast is recommended for further characterization. 2. Multilevel degenerative disc disease, worse at C5-6 with a broad-based disc osteophyte complex, severe spinal canal stenosis and severe right neural foraminal narrowing. MRI cervical spine: pending Cervical spine lesion/radiculopathy Parasthesias Admit to Med/Surg Pulm: Dr. Washington consulted: further recs appreciated; r/o mets Neuro: Dr. Costa consulted: further recs appreciated MRI pending remeron and gabapentin held (possible side effect of parasthesias) COPD c/w with home meds Pulm: Dr. Washington consulted: further recs appreciated Hypothyroid held levothyroxine; possible side effects Possible subclinical hypothyroid TSH: 6.84; Free T4: 1.01 Hypophosphatemia: Phos: 1.9 s/p Kphos in ER f/u labs HTN c/w home meds (Diltiazem) monitor vitals Depression and anxiety: c/w home meds: Alprazolam; remeron and gabapentin held (possible side effect of parasthesias) continue to monitor; consider psych consult Cognitive decline c/w home meds: Memantine, Neuro: Dr. Costa consulted: further recs appreciated monitor mental status; reorient PRN DVT/GI prophylaxis -SCDs -Protonix Case and plan d/w Dr. Carleen Babcock MD PGY-2 <Harish Dudley D - Last Filed: 11/27/18 09:44> Results - Vital Signs Recent Vital Signs: Last Vital Signs Temp 98.1 F 11/27/18 07:52 Pulse 61 11/27/18 08:59 Resp 18 11/27/18 07:52 BP 111/60 11/27/18 08:59 Pulse Ox 96 11/27/18 07:52 - Labs Result Diagrams: 11/27/18 05:30 11/27/18 05:30 Labs: Laboratory Results - last 24 hr 11/26/18 11/26/18 11/26/18 15:45 15:45 15:45 WBC 4.3 L D RBC 3.80 Hgb 11.7 L Hct 34.9 MCV 91.8 D MCH 30.8 MCHC 33.5 RDW 17.1 H Plt Count 195 MPV 9.0 Neut % (Auto) 57.3 Lymph % (Auto) 30.2 [place] % (Auto) 9.2 Eos % (Auto) 2.2 Baso % (Auto) 1.1 Neut # (Auto) 2.5 Lymph # (Auto) 1.3 [place] # (Auto) 0.4 Eos # (Auto) 0.1 Baso # (Auto) 0.0 PT INR APTT Sodium 138 Potassium 4.6 Chloride 100 Carbon Dioxide 28 Anion Gap 15 BUN 18 H Creatinine 0.8 Est GFR ( Amer) > 60 Est GFR (Non-Af Amer) > 60 Random Glucose 95 Calcium 10.1 Phosphorus 1.9 L Magnesium 2.1 Total Bilirubin 0.4 AST 31 ALT 31 Alkaline Phosphatase 114 Troponin I < 0.0120 Total Protein 7.1 Albumin 4.2 Globulin 2.9 Albumin/Globulin Ratio 1.5 Free T4 1.01 Thyroxine (T4) 8.69 Total T3 1.04 L TSH 3rd Generation 6.84 H Influenza Typ A,B (EIA) Blood Type Antibody Screen BBK History Checked 11/26/18 11/26/18 11/26/18 15:45 15:45 16:27 WBC RBC Hgb Hct MCV MCH MCHC RDW Plt Count MPV Neut % (Auto) Lymph % (Auto) [place] % (Auto) Eos % (Auto) Baso % (Auto) Neut # (Auto) Lymph # (Auto) [place] # (Auto) Eos # (Auto) Baso # (Auto) PT 10.5 INR 0.9 APTT 34.6 Sodium Potassium Chloride Carbon Dioxide Anion Gap BUN Creatinine Est GFR ( Amer) Est GFR (Non-Af Amer) Random Glucose Calcium Phosphorus Magnesium Total Bilirubin AST ALT Alkaline Phosphatase Troponin I Total Protein Albumin Globulin Albumin/Globulin Ratio Free T4 Thyroxine (T4) Total T3 TSH 3rd Generation Influenza Typ A,B (EIA) Negative for flu a/b Blood Type Cancelled Antibody Screen Cancelled BBK History Checked Cancelled 11/27/18 11/27/18 05:30 05:30 WBC 5.6 RBC 3.44 L Hgb 10.5 L Hct 31.6 L MCV 91.9 MCH 30.6 MCHC 33.3 RDW 16.7 H Plt Count 177 MPV 8.5 Neut % (Auto) 48.0 L Lymph % (Auto) 39.3 [place] % (Auto) 8.6 Eos % (Auto) 3.2 Baso % (Auto) 0.9 Neut # (Auto) 2.7 Lymph # (Auto) 2.2 [place] # (Auto) 0.5 Eos # (Auto) 0.2 Baso # (Auto) 0.0 PT INR APTT Sodium 138 Potassium 3.7 Chloride 102 Carbon Dioxide 29 Anion Gap 11 BUN 18 H Creatinine 1.0 Est GFR ( Amer) > 60 Est GFR (Non-Af Amer) 52 Random Glucose 78 Calcium 9.3 Phosphorus 3.9 Magnesium Total Bilirubin AST ALT Alkaline Phosphatase Troponin I Total Protein Albumin Globulin Albumin/Globulin Ratio Free T4 Thyroxine (T4) Total T3 TSH 3rd Generation Influenza Typ A,B (EIA) Blood Type Antibody Screen BBK History Checked Attending/Attestation - Attestation I have personally seen and examined this patient.: Yes I have fully participated in the care of the patient.: Yes I have reviewed all pertinent clinical information: Yes Notes (Text): 11/27/18 09:44 Patient seen and examined with resident. Case discussed and agreed with assessment and plan of management.
[2018-11-26] MEDS ORDERED: Gadodiamide 287 MG/ML VIAL (15ML) IV ONE (19:34)
[2018-11-26] MEDS ORDERED: Albuterol 0.083% Inhal Sol (2.5 mg/3 mL) UD INH PRN (19:51)
[2018-11-26] MEDS ORDERED: Docusate-Senna 50 mg-8.6 mg Tab PO SCH (22:00)
[2018-11-26] MEDS ORDERED: Latanoprost 0.005% Opht SOUTION OU SCH (22:00)
[2018-11-26 22:21] VITALS: RESP 18
[2018-11-27 07:01] LABS: BASO % 0.9 % (0.0-2.0); EOS # 0.2 K/uL (0.0-0.7); EOS % 3.2 % (0.0-4.0); HEMOGLOBIN 10.5 g/dL (12.0-16.0); LYMPH # 2.2 K/uL (1.0-4.3); LYMPH % 39.3 % (20.0-40.0); MEAN CELL VOLUME 91.9 fl (81.0-99.0); MEAN CORPUSCULAR HEMOGLOBIN 30.6 pg (27.0-31.0); MEAN CORPUSCULAR HGB CONC 33.3 g/dL (33.0-37.0); MEAN PLATELET VOLUME 8.5 fl (7.2-11.7); MONO # 0.5 K/uL (0.0-0.8); MONO % 8.6 % (0.0-10.0); NEUT # 2.7 K/uL (1.8-7.0); NRBC % 0.1 % (0.0-0.0); RBC 3.44 Mil/uL (3.80-5.20); RED CELL DISTRIBUTION WIDTH 16.7 % (11.5-14.5); WHITE BLOOD COUNT 5.6 K/uL (4.8-10.8)
[2018-11-27 07:53] LABS: BLOOD UREA NITROGEN 18 mg/dl (7-17); CALCIUM 9.3 mg/dL (8.4-10.2); GFR NON-AFRICAN AMERICAN 52
[2018-11-27] MEDS ORDERED: Simethicone 80 mg Chewtab PO PRN (08:14)
--- NOTE | 2018-11-27 08:42 | RAD ---
Date of service: 11/26/2018 HISTORY: sob COMPARISON: Chest radiographs 05/09/2018. TECHNIQUE: 1 view obtained. FINDINGS: LUNGS: Hyperinflation reiterated with fibrotic changes at the right base unchanged. Limited volume loss right chest again evident. PLEURA: No significant pleural effusion identified, no pneumothorax apparent. CARDIOVASCULAR: Calcific atherosclerotic changes are seen related to the thoracic aorta. Stable cardiac size. No pulmonary vascular congestion. OSSEOUS STRUCTURES: No significant abnormalities. VISUALIZED UPPER ABDOMEN: Normal. OTHER FINDINGS: None. IMPRESSION: Hyperinflation reiterated with volume loss the right chest including fibrosis right base. No acute cardiopulmonary disease appreciable at this time.
[2018-11-27] MEDS ORDERED: Cholecalciferol 1,000 INTLU TAB PO SCH (09:00)
[2018-11-27] MEDS ORDERED: diltiaZEM 120 mg/24 Hours CD Cap PO SCH (09:00)
[2018-11-27] MEDS ORDERED: Pantoprazole 40 mg EC Tab PO SCH (09:00)
--- NOTE | 2018-11-27 09:01 | CARD ---
APPROVED REPORT Date of service: 11/26/2018 EKG Measurement Heart [id number] <Conclusion> Sinus bradycardia Possible Left atrial enlargement Nonspecific ST changes Borderline ECG
--- NOTE | 2018-11-27 09:59 | CP.PCM.CON ---
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 She was also complaining of worsening paresthesias in the upper extre mities bilaterally. Her respiratory status was found to be stable but a CT of the cervical spine did raise a question regarding a possible lesion abutting the C5 vertebral body. She had been seen by a Neurologist as an outpatien earlier because of Cognitive Decline, but recently began complaining about the upper extremities paresthesias. She takes all her regular medications as prescribed. Past Patient History - Infectious Disease Hx of Infectious Diseases: None - Tetanus Immunizations Tetanus Immunization: Unknown - Past Medical History & Family History Past Medical History?: Yes - Past Social History Smoking Status: Former Smoker (2 PPD for 65 years) Chewing Tobacco Use: No Cigar Use: No Alcohol: None Drugs: Denies Home Situation {Lives}: Alone - CARDIAC Hx Atrial Fibrillation: Yes (transient) Hx Congestive Heart Failure: Yes (diastolic) Hx Hypercholesterolemia: Yes Hx Hypertension: Yes - PULMONARY Hx Chronic Obstructive Pulmonary Disease (COPD): Yes Hx Emphysema: Yes Hx Lung Cancer: Yes Hx Pneumonia: Yes - NEUROLOGICAL Other/Comment: cognitive decline - HEENT Hx Glaucoma: Yes Hx Macular Degeneration: Yes Other/Comment: Rhinitis - RENAL Hx Chronic Kidney Disease: No - ENDOCRINE/METABOLIC Hx Hypothyroidism: Yes - HEMATOLOGICAL/ONCOLOGICAL Hx Anemia: Yes Hx Cancer: Yes (adeno ca RUL) Hx Human Immunodeficiency Virus (HIV): No - INTEGUMENTARY Hx Dermatological Problems: No - MUSCULOSKELETAL/RHEUMATOLOGICAL Hx Arthritis: Yes Hx Falls: No Hx Fractures: Yes (tibial plateau) - GASTROINTESTINAL Hx Gastrointestinal Disorders: Yes Other/Comment: Hiatal hernia - GENITOURINARY/GYNECOLOGICAL Hx Genitourinary Disorders: No - PSYCHIATRIC Hx Anxiety: Yes Hx Depression: Yes Hx Substance Use: No - SURGICAL HISTORY Hx Surgeries: Yes Hx Tonsillectomy: Yes Other/Comment: s/p right upper lobectomy - ANESTHESIA Hx Anesthesia: Yes Hx Anesthesia Reactions: No Hx Malignant Hyperthermia: No Meds Home Medications: Home Medication List Medication Instructions Recorded Confirmed Type Aspirin [Ecotrin] 81 mg PO DAILY #30 11/27/18 11/26/18 Rx Cholecalciferol [Vitamin D 1000 IU] 1,000 intlu PO DAILY #30 tab 11/27/18 11/26/18 Rx Fluticasone Propionate [Flonase] 1 spr JACQUIE BID #1 bottle 11/27/18 11/26/18 Rx Gabapentin 300 mg PO TID #90 capsule 11/27/18 Rx Memantine [Namenda] 10 mg PO HS #30 tab 11/27/18 11/26/18 Rx Mirtazapine [Remeron] 7.5 mg PO HS #15 tab 11/27/18 11/26/18 Rx Simethicone [Mylicon Chew Tab] 80 mg PO Q8 PRN #30 chew 11/27/18 Rx diltiaZEM CD [Cardizem CD] 120 mg PO DAILY #30 cap 11/27/18 11/26/18 Rx Allergies/Adverse Reactions: Allergies Allergy/AdvReac Type Severity Reaction Status Date / Time Penicillins Allergy ANAPHYLAXIS Verified 05/11/18 14:22 Sulfa (Sulfonamide Allergy RASH Verified 05/11/18 14:22 Antibiotics) sulfamethoxazole Allergy RASH Verified 05/11/18 14:22 [From Bactrim] trimethoprim [From Bactrim] Allergy RASH Verified 05/11/18 14:22 - Medications Medications: Current Medications Albuterol Sulfate (Albuterol 0.083% Inhal Paulina (2.5 Mg/3 Ml) Ud) 2.5 mg INH RQ4 PRN PRN Reason: Shortness of Breath Alprazolam (Xanax) 1 mg PO Q12 [facility] Last Admin: 11/27/18 09:04 Dose: 1 mg Aspirin (Ecotrin) 81 mg PO DAILY [facility] Last Admin: 11/27/18 08:59 Dose: 81 mg Cholecalciferol (Vitamin D) 1,000 intlu PO DAILY [facility] Last Admin: 11/27/18 09:00 Dose: 1,000 intlu Diltiazem HCl (Cardizem Cd) 120 mg PO DAILY [facility] Last Admin: 11/27/18 08:59 Dose: 120 mg Fluticasone Propionate (Flonase) 1 spr JACQUIE BID [facility] Gabapentin (Neurontin) 100 mg PO HS [facility] Latanoprost (Xalatan Opht) 1 drop OU HS [facility] Last Admin: 11/26/18 21:32 Dose: 1 drop Memantine (Namenda) 5 mg PO DAILY [facility] Last Admin: 11/27/18 08:59 Dose: 5 mg Memantine (Namenda) 10 mg PO HS [facility] Mirtazapine (Remeron) 7.5 mg PO HS [facility] Pantoprazole Sodium (Protonix Ec Tab) 40 mg PO DAILY [facility] Last Admin: 11/27/18 09:00 Dose: 40 mg Senna/Docusate Sodium (Senokot S 50 Mg-8.6 Mg) 2 tab PO HS [facility] Last Admin: 11/26/18 21:31 Dose: 2 tab Simethicone (Mylicon Chew Tab) 80 mg PO Q8 PRN PRN Reason: Flatulence Physical Exam - Additional Findings Additional findings: Awake, alert, talkative, cooperative with exam. No palpable lymphadenopathy. Neck is supple and trachea midline, no JVD or carotid bruit. All extremities are warm to touch, pink in color w/o cyanosis or edema. Pharynx is pink and moist w/o exudate. No dullness on chest percussion. Healed surgical incisions. Breath sounds are markedly diminished bilaterally w/o audible wheezes. Dry rales are heard in the lower lobes posteriorly. No bronchial breath sounds or egophony. Heart sounds are distant, rhythm regular, no murmur. Abdomen is soft and non-tender with + bowel sounds. Results - Vital Signs Recent Vital Signs: Last Vital Signs Temp 98.1 F 11/27/18 07:52 Pulse 61 11/27/18 08:59 Resp 18 11/27/18 07:52 BP 111/60 11/27/18 08:59 Pulse Ox 96 11/27/18 07:52 - Labs Result Diagrams: 11/27/18 05:30 11/27/18 05:30 Labs: Laboratory Results - last 24 hr 11/26/18 11/26/18 11/26/18 15:45 15:45 15:45 WBC 4.3 L D RBC 3.80 Hgb 11.7 L Hct 34.9 MCV 91.8 D MCH 30.8 MCHC 33.5 RDW 17.1 H Plt Count 195 MPV 9.0 Neut % (Auto) 57.3 Lymph % (Auto) 30.2 [place] % (Auto) 9.2 Eos % (Auto) 2.2 Baso % (Auto) 1.1 Neut # (Auto) 2.5 Lymph # (Auto) 1.3 [place] # (Auto) 0.4 Eos # (Auto) 0.1 Baso # (Auto) 0.0 PT INR APTT Sodium 138 Potassium 4.6 Chloride 100 Carbon Dioxide 28 Anion Gap 15 BUN 18 H Creatinine 0.8 Est GFR ( Amer) > 60 Est GFR (Non-Af Amer) > 60 Random Glucose 95 Calcium 10.1 Phosphorus 1.9 L Magnesium 2.1 Total Bilirubin 0.4 AST 31 ALT 31 Alkaline Phosphatase 114 Troponin I < 0.0120 Total Protein 7.1 Albumin 4.2 Globulin 2.9 Albumin/Globulin Ratio 1.5 Free T4 1.01 Thyroxine (T4) 8.69 Total T3 1.04 L TSH 3rd Generation 6.84 H Influenza Typ A,B (EIA) Blood Type Antibody Screen BBK History Checked 11/26/18 11/26/18 11/26/18 15:45 15:45 16:27 WBC RBC Hgb Hct MCV MCH MCHC RDW Plt Count MPV Neut % (Auto) Lymph % (Auto) [place] % (Auto) Eos % (Auto) Baso % (Auto) Neut # (Auto) Lymph # (Auto) [place] # (Auto) Eos # (Auto) Baso # (Auto) PT 10.5 INR 0.9 APTT 34.6 Sodium Potassium Chloride Carbon Dioxide Anion Gap BUN Creatinine Est GFR ( Amer) Est GFR (Non-Af Amer) Random Glucose Calcium Phosphorus Magnesium Total Bilirubin AST ALT Alkaline Phosphatase Troponin I Total Protein Albumin Globulin Albumin/Globulin Ratio Free T4 Thyroxine (T4) Total T3 TSH 3rd Generation Influenza Typ A,B (EIA) Negative for flu a/b Blood Type Cancelled Antibody Screen Cancelled BBK History Checked Cancelled 11/27/18 11/27/18 05:30 05:30 WBC 5.6 RBC 3.44 L Hgb 10.5 L Hct 31.6 L MCV 91.9 MCH 30.6 MCHC 33.3 RDW 16.7 H Plt Count 177 MPV 8.5 Neut % (Auto) 48.0 L Lymph % (Auto) 39.3 [place] % (Auto) 8.6 Eos % (Auto) 3.2 Baso % (Auto) 0.9 Neut # (Auto) 2.7 Lymph # (Auto) 2.2 [place] # (Auto) 0.5 Eos # (Auto) 0.2 Baso # (Auto) 0.0 PT INR APTT Sodium 138 Potassium 3.7 Chloride 102 Carbon Dioxide 29 Anion Gap 11 BUN 18 H Creatinine 1.0 Est GFR ( Amer) > 60 Est GFR (Non-Af Amer) 52 Random Glucose 78 Calcium 9.3 Phosphorus 3.9 Magnesium Total Bilirubin AST ALT Alkaline Phosphatase Troponin I Total Protein Albumin Globulin Albumin/Globulin Ratio Free T4 Thyroxine (T4) Total T3 TSH 3rd Generation Influenza Typ A,B (EIA) Blood Type Antibody Screen BBK History Checked Assessment & Plan (1) COPD (chronic obstructive pulmonary disease) Status: Chronic Priority: High (2) Dementia Status: Chronic Priority: High (3) Hypertension Status: Chronic (4) History of lung cancer in adulthood Status: Resolved Comment: Adenocarcinoma right upper lobe, resected. - Assessment and Plan (Free Text) Plan: Respiratory status appears stable on current medications. Pending eval of C spine abnormality and upper extremities paresthesias. - Date & Time Date: 11/27/18 Time: 10:02
--- NOTE | 2018-11-27 12:53 | CP.PCM.CON ---
History of Present Illness - History of Present Illness History of Present Illness: Neurology Consultation Note: Consult requested by Dr. Dudley. The patient is an 87-year-old woman with a past medical history of COPD, lung cancer (s/p right partial lobectomy 2015), hypothyroidism (recently diagnosed and started on Synthroid), HTN, Depression, Anxiety, cognitive decline presents to the ED with parasthesia for the past 4 weeks that appears to be worsening over the last week. Last night, she had right hand weakness and numbness that appears to have resolved now. Neurology was consulted to assist with the manag ement and care. CT of the cervical spine did show a broadbased C5 lesion, but could not evaluate the cervical spinal cord. MRI of the cervical spine was done and showed cord compression at multiple levels (C3-C6, but most severe at C5 with disc herniation). The patient denied weakness at this time and did not have any other complaints other than what she had last night. Review of Systems - Review of Systems All systems: reviewed and no additional remarkable complaints except Past Patient History - Infectious Disease Hx of Infectious Diseases: None - Tetanus Immunizations Tetanus Immunization: Unknown - Past Medical History & Family History Past Medical History?: Yes - Past Social History Smoking Status: Former Smoker - CARDIAC Hx Cardiac Disorders: Yes Hx Atrial Fibrillation: Yes Hx Congestive Heart Failure: Yes (diastolic) Hx Hypercholesterolemia: Yes Hx Hypertension: Yes - PULMONARY Hx Respiratory Disorders: Yes Hx Chronic Obstructive Pulmonary Disease (COPD): Yes Hx Emphysema: Yes Hx Pneumonia: Yes - NEUROLOGICAL Hx Neurological Disorder: Yes Hx Dementia: Yes (forgetful at times) - HEENT Hx HEENT Problems: Yes Hx Glaucoma: Yes Other/Comment: Rhinitis - RENAL Hx Chronic Kidney Disease: No - ENDOCRINE/METABOLIC Hx Endocrine Disorders: No - HEMATOLOGICAL/ONCOLOGICAL Hx Blood Disorders: Yes Hx AIDS: No Hx Anemia: Yes Hx Human Immunodeficiency Virus (HIV): No - INTEGUMENTARY Hx Dermatological Problems: No - MUSCULOSKELETAL/RHEUMATOLOGICAL Hx Musculoskeletal Disorders: Yes Hx Arthritis: Yes Hx Falls: No Hx Fractures: Yes (tibial plateau) - GASTROINTESTINAL Hx Gastrointestinal Disorders: Yes Other/Comment: Hiatal hernia - GENITOURINARY/GYNECOLOGICAL Hx Genitourinary Disorders: No - PSYCHIATRIC Hx Psychophysiologic Disorder: Yes Hx Anxiety: Yes Hx Depression: Yes Hx Substance Use: No - SURGICAL HISTORY Hx Surgeries: Yes Hx Tonsillectomy: Yes Other/Comment: s/p Right LObectomy - ANESTHESIA Hx Anesthesia: Yes Hx Anesthesia Reactions: No Hx Malignant Hyperthermia: No Meds Allergies/Adverse Reactions: Allergies Allergy/AdvReac Type Severity Reaction Status Date / Time Penicillins Allergy ANAPHYLAXIS Verified 05/11/18 14:22 Sulfa (Sulfonamide Allergy RASH Verified 05/11/18 14:22 Antibiotics) sulfamethoxazole Allergy RASH Verified 05/11/18 14:22 [From Bactrim] trimethoprim [From Bactrim] Allergy RASH Verified 05/11/18 14:22 - Medications Medications: Current Medications Albuterol Sulfate (Albuterol 0.083% Inhal Paulina (2.5 Mg/3 Ml) Ud) 2.5 mg INH RQ4 PRN PRN Reason: Shortness of Breath Alprazolam (Xanax) 1 mg PO Q12 [facility] Last Admin: 11/27/18 09:04 Dose: 1 mg Aspirin (Ecotrin) 81 mg PO DAILY [facility] Last Admin: 11/27/18 08:59 Dose: 81 mg Cholecalciferol (Vitamin D) 1,000 intlu PO DAILY [facility] Last Admin: 11/27/18 09:00 Dose: 1,000 intlu Diltiazem HCl (Cardizem Cd) 120 mg PO DAILY [facility] Last Admin: 11/27/18 08:59 Dose: 120 mg Fluticasone Propionate (Flonase) 1 spr JACQUIE BID [facility] Last Admin: 11/27/18 12:19 Dose: Not Given Gabapentin (Neurontin) 100 mg PO HS [facility] Latanoprost (Xalatan Opht) 1 drop OU HS [facility] Last Admin: 11/26/18 21:32 Dose: 1 drop Memantine (Namenda) 5 mg PO DAILY [facility] Last Admin: 11/27/18 08:59 Dose: 5 mg Memantine (Namenda) 10 mg PO HS [facility] Mirtazapine (Remeron) 7.5 mg PO HS [facility] Pantoprazole Sodium (Protonix Ec Tab) 40 mg PO DAILY [facility] Last Admin: 11/27/18 09:00 Dose: 40 mg Senna/Docusate Sodium (Senokot S 50 Mg-8.6 Mg) 2 tab PO HS [facility] Last Admin: 11/26/18 21:31 Dose: 2 tab Simethicone (Mylicon Chew Tab) 80 mg PO Q8 PRN PRN Reason: Flatulence Physical Exam - Constitutional Appears: Well - Head Exam Head Exam: ATRAUMATIC, NORMAL INSPECTION, NORMOCEPHALIC - Eye Exam Eye Exam: EOMI, Normal appearance, PERRL Pupil Exam: NORMAL ACCOMODATION, PERRL - ENT Exam ENT Exam: Mucous Membranes Moist, Normal Exam - Neck Exam Neck exam: Positive for: Normal Inspection - Respiratory Exam Respiratory Exam: Clear to Auscultation Bilateral, NORMAL BREATHING PATTERN - Cardiovascular Exam Cardiovascular Exam: REGULAR RHYTHM, +S1, +S2 - GI/Abdominal Exam GI & Abdominal Exam: Normal Bowel Sounds, Soft. absent: Tenderness - Extremities Exam Extremities exam: Positive for: normal inspection - Back Exam Back exam: NORMAL INSPECTION - Neurological Exam Neurological exam: Alert, CN II-XII Intact, Normal Gait, Oriented x3, Reflexes Normal - Psychiatric Exam Psychiatric exam: Normal Affect, Normal Mood - Skin Skin Exam: Dry, Intact, Normal Color, Warm Results - Vital Signs Recent Vital Signs: Last Vital Signs Temp 98.1 F 11/27/18 07:52 Pulse 61 11/27/18 08:59 Resp 18 11/27/18 07:52 BP 111/60 11/27/18 08:59 Pulse Ox 96 11/27/18 07:52 - Labs Result Diagrams: 11/27/18 05:30 11/27/18 05:30 Labs: Laboratory Results - last 24 hr 11/26/18 11/26/18 11/26/18 15:45 15:45 15:45 WBC 4.3 L D RBC 3.80 Hgb 11.7 L Hct 34.9 MCV 91.8 D MCH 30.8 MCHC 33.5 RDW 17.1 H Plt Count 195 MPV 9.0 Neut % (Auto) 57.3 Lymph % (Auto) 30.2 Edwards % (Auto) 9.2 Eos % (Auto) 2.2 Baso % (Auto) 1.1 Neut # (Auto) 2.5 Lymph # (Auto) 1.3 Edwards # (Auto) 0.4 Eos # (Auto) 0.1 Baso # (Auto) 0.0 PT INR APTT Sodium 138 Potassium 4.6 Chloride 100 Carbon Dioxide 28 Anion Gap 15 BUN 18 H Creatinine 0.8 Est GFR ( Amer) > 60 Est GFR (Non-Af Amer) > 60 Random Glucose 95 Calcium 10.1 Phosphorus 1.9 L Magnesium 2.1 Total Bilirubin 0.4 AST 31 ALT 31 Alkaline Phosphatase 114 Troponin I < 0.0120 Total Protein 7.1 Albumin 4.2 Globulin 2.9 Albumin/Globulin Ratio 1.5 Free T4 1.01 Thyroxine (T4) 8.69 Free T3 pg/mL 2.73 L Total T3 1.04 L TSH 3rd Generation 6.84 H Influenza Typ A,B (EIA) Blood Type Antibody Screen BBK History Checked 11/26/18 11/26/18 11/26/18 15:45 15:45 16:27 WBC RBC Hgb Hct MCV MCH MCHC RDW Plt Count MPV Neut % (Auto) Lymph % (Auto) Edwards % (Auto) Eos % (Auto) Baso % (Auto) Neut # (Auto) Lymph # (Auto) Edwards # (Auto) Eos # (Auto) Baso # (Auto) PT 10.5 INR 0.9 APTT 34.6 Sodium Potassium Chloride Carbon Dioxide Anion Gap BUN Creatinine Est GFR ( Amer) Est GFR (Non-Af Amer) Random Glucose Calcium Phosphorus Magnesium Total Bilirubin AST ALT Alkaline Phosphatase Troponin I Total Protein Albumin Globulin Albumin/Globulin Ratio Free T4 Thyroxine (T4) Free T3 pg/mL Total T3 TSH 3rd Generation Influenza Typ A,B (EIA) Negative for flu a/b Blood Type Cancelled Antibody Screen Cancelled BBK History Checked Cancelled 11/27/18 11/27/18 05:30 05:30 WBC 5.6 RBC 3.44 L Hgb 10.5 L Hct 31.6 L MCV 91.9 MCH 30.6 MCHC 33.3 RDW 16.7 H Plt Count 177 MPV 8.5 Neut % (Auto) 48.0 L Lymph % (Auto) 39.3 Edwards % (Auto) 8.6 Eos % (Auto) 3.2 Baso % (Auto) 0.9 Neut # (Auto) 2.7 Lymph # (Auto) 2.2 Edwards # (Auto) 0.5 Eos # (Auto) 0.2 Baso # (Auto) 0.0 PT INR APTT Sodium 138 Potassium 3.7 Chloride 102 Carbon Dioxide 29 Anion Gap 11 BUN 18 H Creatinine 1.0 Est GFR ( Amer) > 60 Est GFR (Non-Af Amer) 52 Random Glucose 78 Calcium 9.3 Phosphorus 3.9 Magnesium Total Bilirubin AST ALT Alkaline Phosphatase Troponin I Total Protein Albumin Globulin Albumin/Globulin Ratio Free T4 Thyroxine (T4) Free T3 pg/mL Total T3 TSH 3rd Generation Influenza Typ A,B (EIA) Blood Type Antibody Screen BBK History Checked Assessment & Plan (1) Cervical cord compression with myelopathy Assessment and Plan: This appears to be chronic. The patient does not have significant clinical findings or focal weakness. Due to her advanced age, surgery may not be a good option. However, neurosurgery should be consulted for further evaluation and recommendations. For the pain, neurontin at 300 mg TID and/or NSAIDs may be used. PT/OT is also recommended for evaluation and treatment. Thank you for this consultation. Status: Acute
--- NOTE | 2018-11-27 13:02 | CP.PCM.PN ---
<Maite Nava - Last Filed: 11/27/18 13:06> Subjective - Date & Time of Evaluation Date of Evaluation: 11/27/18 Time of Evaluation: 13:04 - Subjective Subjective: Pt seen and examined bedside. No acute events overnight, no current complaints. Reports numbness and tingling in bilateral hands is improved. Objective - Vital Signs/Intake and Output Vital Signs (last 24 hours): Temp Pulse Resp BP Pulse Ox 98.1 F 61 18 111/60 96 11/27/18 07:52 11/27/18 08:59 11/27/18 07:52 11/27/18 08:59 11/27/18 07:52 - Medications Medications: Current Medications Albuterol Sulfate (Albuterol 0.083% Inhal Paulina (2.5 Mg/3 Ml) Ud) 2.5 mg INH RQ4 PRN PRN Reason: Shortness of Breath Alprazolam (Xanax) 1 mg PO Q12 [facility] Last Admin: 11/27/18 09:04 Dose: 1 mg Aspirin (Ecotrin) 81 mg PO DAILY [facility] Last Admin: 11/27/18 08:59 Dose: 81 mg Cholecalciferol (Vitamin D) 1,000 intlu PO DAILY [facility] Last Admin: 11/27/18 09:00 Dose: 1,000 intlu Diltiazem HCl (Cardizem Cd) 120 mg PO DAILY [facility] Last Admin: 11/27/18 08:59 Dose: 120 mg Fluticasone Propionate (Flonase) 1 spr JACQUIE BID [facility] Last Admin: 11/27/18 12:19 Dose: Not Given Gabapentin (Neurontin) 100 mg PO HS [facility] Latanoprost (Xalatan Opht) 1 drop OU HS [facility] Last Admin: 11/26/18 21:32 Dose: 1 drop Memantine (Namenda) 5 mg PO DAILY [facility] Last Admin: 11/27/18 08:59 Dose: 5 mg Memantine (Namenda) 10 mg PO HS [facility] Mirtazapine (Remeron) 7.5 mg PO HS [facility] Pantoprazole Sodium (Protonix Ec Tab) 40 mg PO DAILY [facility] Last Admin: 11/27/18 09:00 Dose: 40 mg Senna/Docusate Sodium (Senokot S 50 Mg-8.6 Mg) 2 tab PO [facility] Last Admin: 11/26/18 21:31 Dose: 2 tab Simethicone (Mylicon Chew Tab) 80 mg PO Q8 PRN PRN Reason: Flatulence - Labs Labs: 11/27/18 05:30 11/27/18 05:30 PT 10.5 Seconds (9.8-13.1) 11/26/18 15:45 INR 0.9 11/26/18 15:45 APTT 34.6 Seconds (25.6-37.1) 11/26/18 15:45 - Constitutional Appears: Non-toxic, No Acute Distress - Eye Exam Eye Exam: Normal appearance - ENT Exam ENT Exam: Mucous Membranes Moist - Neck Exam Neck Exam: Full ROM - Respiratory Exam Respiratory Exam: NORMAL BREATHING PATTERN. absent: Respiratory Distress - Cardiovascular Exam Cardiovascular Exam: REGULAR RHYTHM - GI/Abdominal Exam GI & Abdominal Exam: Soft. absent: Tenderness - Extremities Exam Extremities Exam: Full ROM, Normal Inspection. absent: Joint Swelling, Tenderness - Neurological Exam Neurological Exam: Alert, Awake, Oriented x3 Neuro motor strength exam: Left Upper Extremity: 5, Right Upper Extremity: 5, Left Lower Extremity: 5, Right Lower Extremity: 5 - Psychiatric Exam Psychiatric exam: Normal Affect, Normal Mood - Skin Skin Exam: Normal Color, Warm Assessment and Plan - Assessment and Plan (Free Text) Assessment: 87 yo F with pmhx of COPD, Lung cancer (s/p R partial lobectomy 2016), hypothyroid, HTN, Depression, Anxiety, cognitive decline presents to the ED with parasthesia. CT HEAD: No acute intracranial abnormality. Mild chronic microangiopathic changes and mild age-related global parenchymal volume. CT cervical spine: 1. Apparent broad-based elliptical lesion abutting the C5 tatiana tebral body, not characterized on this noncontrast CT examination. Please note. This examination is very limited for evaluation of the cervical spinal cord and intraspinal lesions. An MRI of the cervical spine without and with intravenous contrast is recommended for further characterization. 2. Multilevel degenerative disc disease, worse at C5-6 with a broad-based disc osteophyte complex, severe spinal canal stenosis and severe right neural foraminal narrowing. MRI cervical spine: pending Plan: Cervical spine lesion/radiculopathy Parasthesias Admit to Med/Surg Pulm: Dr. Washington consulted: further recs appreciated; r/o mets Neuro: Dr. Costa consulted: further recs appreciated MRI pending remeron and gabapentin held (possible side effect of parasthesias) COPD c/w with home meds Pulm: Dr. Washington consulted: further recs appreciated Hypothyroid held levothyroxine; possible side effects Possible subclinical hypothyroid TSH: 6.84; Free T4: 1.01 Hypophosphatemia: Phos: 1.9 s/p Kphos in ER f/u labs HTN c/w home meds (Diltiazem) monitor vitals Depression and anxiety: c/w home meds: Alprazolam; remeron and gabapentin continue to monitor; consider psych consult Cognitive decline c/w home meds: Memantine, Neuro: Dr. Costa consulted: further recs appreciated monitor mental status; reorient PRN DVT/GI prophylaxis -SCDs -Protonix <Harish Dudley D - Last Filed: 11/27/18 14:34> Objective - Vital Signs/Intake and Output Vital Signs (last 24 hours): Temp Pulse Resp BP Pulse Ox 98.1 F 61 18 111/60 96 11/27/18 07:52 11/27/18 08:59 11/27/18 07:52 11/27/18 08:59 11/27/18 07:52 - Medications Medications: Current Medications Albuterol Sulfate (Albuterol 0.083% Inhal Paulina (2.5 Mg/3 Ml) Ud) 2.5 mg INH RQ4 PRN PRN Reason: Shortness of Breath Alprazolam (Xanax) 1 mg PO Q12 [facility] Last Admin: 11/27/18 09:04 Dose: 1 mg Aspirin (Ecotrin) 81 mg PO DAILY [facility] Last Admin: 11/27/18 08:59 Dose: 81 mg Cholecalciferol (Vitamin D) 1,000 intlu PO DAILY [facility] Last Admin: 11/27/18 09:00 Dose: 1,000 intlu Diltiazem HCl (Cardizem Cd) 120 mg PO DAILY [facility] Last Admin: 11/27/18 08:59 Dose: 120 mg Fluticasone Propionate (Flonase) 1 spr JACQUIE BID [facility] Last Admin: 11/27/18 12:19 Dose: Not Given Gabapentin (Neurontin) 100 mg PO HS [facility] Latanoprost (Xalatan Opht) 1 drop OU HS [facility] Last Admin: 11/26/18 21:32 Dose: 1 drop Memantine (Namenda) 5 mg PO DAILY [facility] Last Admin: 11/27/18 08:59 Dose: 5 mg Memantine (Namenda) 10 mg PO HS [facility] Mirtazapine (Remeron) 7.5 mg PO HS [facility] Pantoprazole Sodium (Protonix Ec Tab) 40 mg PO DAILY [facility] Last Admin: 11/27/18 09:00 Dose: 40 mg Senna/Docusate Sodium (Senokot S 50 Mg-8.6 Mg) 2 tab PO HS [facility] Last Admin: 11/26/18 21:31 Dose: 2 tab Simethicone (Mylicon Chew Tab) 80 mg PO Q8 PRN PRN Reason: Flatulence - Labs Labs: 11/27/18 05:30 11/27/18 05:30 PT 10.5 Seconds (9.8-13.1) 11/26/18 15:45 INR 0.9 11/26/18 15:45 APTT 34.6 Seconds (25.6-37.1) 11/26/18 15:45 Attending/Attestation - Attestation I have personally seen and examined this patient.: Yes I have fully participated in the care of the patient.: Yes I have reviewed all pertinent clinical information, including history, physical exam and plan: Yes Notes (Text): 11/27/18 14:33 Patient seen and examined with resident. Case discussed and agreed with assessment and plan.
--- NOTE | 2018-11-27 13:49 | MRI ---
Date of service: 11/26/2018 PROCEDURE: MR CERVICAL SPINE WITH AND WITHOUT CONTRAST HISTORY: lesion on C5 on CT COMPARISON: None available. TECHNIQUE: Multiecho multiplanar sequences were performed through the cervical spine with and without the use of intravenous contrast (Omniscan 12cc). FINDINGS: Slight reversal the upper cervical curvature with the lordotic curvature otherwise normal. Marked degenerative disc changes are seen diffusely including gross disc height loss at C3-4 and C4-5. Marked C1-2 degenerative changes are identified without disruption of this odontoid process. Craniocervical junction appears intact. Minimal grade 1 spondylolisthesis reiterated at C4-5. Vertebral body heights preserved. No marrow signal abnormality. Normal cervical cord. No prevertebral or paraspinal abnormality. No definite abnormal enhancement C2-3: No disc herniation, spinal canal stenosis or neural foraminal narrowing. C3-4: No disc herniation. There is a mild disc osteophyte complex flattening the ventral thecal sac and encroaching ventral nerve roots causing borderline central stenosis. Degenerative uncovertebral and facet arthropathy result in a moderate to severe bilateral neural foraminal stenosis. C4-5: No disc herniation. Minimal grade 1 spondylolisthesis identified with a posterior disc osteophyte complex flattens the ventral thecal sac and causes moderate central stenosis with moderate to severe degenerative neural foraminal stenosis appreciated bilaterally, slightly greater the left than right. C5-C6: No disc herniation. Prominent disc osteophyte complex is identified posteriorly which compresses the cervical cord and results in a severe central stenosis without obvious cord reaction apparent. Mild degenerative neural foraminal stenoses identified bilaterally. C6-C7: No disc herniation or significant central canal or neural foraminal stenosis though minimal posterior disc bulge identified. C7-T1: No disc herniation, spinal canal stenosis or neural foraminal narrowing. OTHER FINDINGS: None. IMPRESSION: 1. Multilevel spinal stenosis with central canal severely stenosed by disc osteophyte complex at C5-6 with similar degenerative changes causing cough causing moderate central canal stenosis C4-5 and mild at C3-4. 2. Multilevel bilateral neural foraminal stenoses are identified greater at the upper and mid than lower cervical spine. 3. Although severe stenosis is present at C5-6, no definitive reactive cord signal changes appreciated. No abnormal epidural or intrathecal enhancement appreciable. 4. Limited grade 1 spondylolisthesis C4 posterior to C5 once again. 5. No mass is seen related to the C5 vertebral body or within the central canal.
[2018-11-27 16:01] VITALS: BP 113/43; PULSE 60; TEMP 97.8
--- NOTE | 2018-11-28 06:41 | CP.PCM.DIS ---
<Maite Nava - Last Filed: 11/28/18 12:41> Provider - Provider Date of Admission: 11/26/18 19:16 Attending physician: Harish Dudley MD Consults: 11/26/18 19:58 Neurology Consult Stat Comment: Consulting Provider: Kodak Costa Consulting Physician: Kodak Costa Reason for Consult: paresthesia on all limbs 11/26/18 20:06 Pulmonology Consult Stat Comment: Consulting Provider: Rajiv Washington Consulting Physician: Rajiv Washington Reason for Consult: COPD 11/27/18 01:20 Social Work Referral Routine Comment: protocol Physician Instructions: Reason For Exam: screen needs Time Spent in preparation of Discharge (in minutes): 20 Hospital Course - Lab Results Lab Results: Most Recent Lab Values WBC 5.6 K/uL (4.8-10.8) 11/27/18 05:30 RBC 3.44 Mil/uL (3.80-5.20) L 11/27/18 05:30 Hgb 10.5 g/dL (12.0-16.0) L 11/27/18 05:30 Hct 31.6 % (34.0-47.0) L 11/27/18 05:30 MCV 91.9 fl (81.0-99.0) 11/27/18 05:30 MCH 30.6 pg (27.0-31.0) 11/27/18 05:30 MCHC 33.3 g/dL (33.0-37.0) 11/27/18 05:30 RDW 16.7 % (11.5-14.5) H 11/27/18 05:30 Plt Count 177 K/uL (130-400) 11/27/18 05:30 MPV 8.5 fl (7.2-11.7) 11/27/18 05:30 Neut % (Auto) 48.0 % (50.0-75.0) L 11/27/18 05:30 Lymph % (Auto) 39.3 % (20.0-40.0) 11/27/18 05:30 Kaufman % (Auto) 8.6 % (0.0-10.0) 11/27/18 05:30 Eos % (Auto) 3.2 % (0.0-4.0) 11/27/18 05:30 Baso % (Auto) 0.9 % (0.0-2.0) 11/27/18 05:30 Neut # (Auto) 2.7 K/uL (1.8-7.0) 11/27/18 05:30 Lymph # (Auto) 2.2 K/uL (1.0-4.3) 11/27/18 05:30 Kaufman # (Auto) 0.5 K/uL (0.0-0.8) 11/27/18 05:30 Eos # (Auto) 0.2 K/uL (0.0-0.7) 11/27/18 05:30 Baso # (Auto) 0.0 K/uL (0.0-0.2) 11/27/18 05:30 PT 10.5 Seconds (9.8-13.1) 11/26/18 15:45 INR 0.9 11/26/18 15:45 APTT 34.6 Seconds (25.6-37.1) 11/26/18 15:45 Sodium 138 mmol/l (132-148) 11/27/18 05:30 Potassium 3.7 MMOL/L (3.6-5.0) 11/27/18 05:30 Chloride 102 mmol/L (98-107) 11/27/18 05:30 Carbon Dioxide 29 mmol/L (22-30) 11/27/18 05:30 Anion Gap 11 (10-20) 11/27/18 05:30 BUN 18 mg/dl (7-17) H 11/27/18 05:30 Creatinine 1.0 mg/dl (0.7-1.2) 11/27/18 05:30 Est GFR ( Amer) > 60 11/27/18 05:30 Est GFR (Non-Af Amer) 52 11/27/18 05:30 Random Glucose 78 mg/dL (65-105) 11/27/18 05:30 Calcium 9.3 mg/dL (8.4-10.2) 11/27/18 05:30 Phosphorus 3.9 mg/dl (2.5-4.5) 11/27/18 05:30 Magnesium 2.1 MG/DL (1.6-2.3) 11/26/18 15:45 Total Bilirubin 0.4 mg/dl (0.2-1.3) 11/26/18 15:45 AST 31 U/L (14-36) 11/26/18 15:45 ALT 31 U/L (9-52) 11/26/18 15:45 Alkaline Phosphatase 114 U/L (38-126) 11/26/18 15:45 Troponin I < 0.0120 ng/mL (0.00-0.120) 11/26/18 15:45 Total Protein 7.1 G/DL (6.3-8.2) 11/26/18 15:45 Albumin 4.2 g/dL (3.5-5.0) 11/26/18 15:45 Globulin 2.9 gm/dL (2.2-3.9) 11/26/18 15:45 Albumin/Globulin Ratio 1.5 (1.0-2.1) 11/26/18 15:45 Free T4 1.01 ng/dL (0.78-2.19) 11/26/18 15:45 Thyroxine (T4) 8.69 ug/dl (5.5-11.0) 11/26/18 15:45 Free T3 pg/mL 2.73 pg/mL (2.77-5.27) L 11/26/18 15:45 Total T3 1.04 nmol/L (1.49-2.60) L 11/26/18 15:45 TSH 3rd Generation 6.84 mIU/ML (0.46-4.68) H 11/26/18 15:45 Influenza Typ A,B (EIA) Negative for flu a/b (NEGATIVE) 11/26/18 15:45 Blood Type Cancelled 11/26/18 16:27 Antibody Screen Cancelled 11/26/18 16:27 BBK History Checked Cancelled 11/26/18 16:27 - Hospital Course Hospital Course: 87 yo F with pmhx of COPD, Lung cancer (s/p R partial lobectomy 2016), hypothyroid, HTN, Depression, Anxiety, cognitive decline presents to the ED with parasthesia. CT HEAD: No acute intracranial abnormality. Mild chronic microangiopathic changes and mild age-related global parenchymal volume. CT cervical spine: 1. Apparent broad-based elliptical lesion abutting the C5 vertebral body, not characterized on this noncontrast CT examination. Please note. This examination is very limited for evaluation of the cervical spinal cord and intraspinal lesions. An MRI of the cervical spine without and with intravenous contrast is recommended for further characterization. 2. Multilevel degenerative disc disease, worse at C5-6 with a broad-based disc osteophyte complex, severe spinal canal stenosis and severe right neural foraminal narrowing. MRI cervical spine: cervical stenosis Pt was medically cleared for discharge to home to continue with home meds and an increase in Gabapentin as per Dr Costa. Discharge Exam - Head Exam Head Exam: ATRAUMATIC, NORMAL INSPECTION, NORMOCEPHALIC - Eye Exam Eye Exam: Normal appearance - ENT Exam ENT Exam: Mucous Membranes Moist - Respiratory Exam Respiratory Exam: NORMAL BREATHING PATTERN. absent: Respiratory Distress - Cardiovascular Exam Cardiovascular Exam: REGULAR RHYTHM - GI/Abdominal Exam GI & Abdominal Exam: Normal Bowel Sounds, Soft. absent: Tenderness - Extremities Exam Extremities exam: normal inspection - Neurological Exam Neurological exam: Alert, Oriented x3, Reflexes Normal - Psychiatric Exam Psychiatric exam: Normal Affect, Normal Mood - Skin Skin Exam: Normal Color, Warm Discharge Plan - Discharge Medications Prescriptions: Gabapentin 300 mg PO TID #90 capsule Simethicone [Mylicon Chew Tab] 80 mg PO Q8 PRN #30 chew PRN Reason: Flatulence - Follow Up Plan Condition: GOOD Disposition: HOME/ ROUTINE Instructions: Spinal Stenosis, Radiculopathy (DC), Paresthesias (DC) Additional Instructions: -follow up with primary MD and Dr. Panchal 1 week -follow up with neurology Dr. Costa within 2 weeks Referrals: Kodak Costa MD [Medical Doctor] - Rajiv Washington MD [Family Provider] - Jimmy Panchal MD [Staff Provider] - <Harish Dudley - Last Filed: 11/28/18 13:30> Provider - Provider Date of Admission: 11/26/18 19:16 Attending physician: Harish Dudley MD Consults: 11/26/18 19:58 Neurology Consult Stat Comment: Consulting Provider: Kodak Costa Consulting Physician: Kodak Costa Reason for Consult: paresthesia on all limbs 11/26/18 20:06 Pulmonology Consult Stat Comment: Consulting Provider: Rajiv Washington Consulting Physician: Rajiv Washington Reason for Consult: COPD 11/27/18 01:20 Social Work Referral Routine Comment: protocol Physician Instructions: Reason For Exam: screen needs Hospital Course - Lab Results Lab Results: Most Recent Lab Values WBC 5.6 K/uL (4.8-10.8) 11/27/18 05:30 RBC 3.44 Mil/uL (3.80-5.20) L 11/27/18 05:30 Hgb 10.5 g/dL (12.0-16.0) L 11/27/18 05:30 Hct 31.6 % (34.0-47.0) L 11/27/18 05:30 MCV 91.9 fl (81.0-99.0) 11/27/18 05:30 MCH 30.6 pg (27.0-31.0) 11/27/18 05:30 MCHC 33.3 g/dL (33.0-37.0) 11/27/18 05:30 RDW 16.7 % (11.5-14.5) H 11/27/18 05:30 Plt Count 177 K/uL (130-400) 11/27/18 05:30 MPV 8.5 fl (7.2-11.7) 11/27/18 05:30 Neut % (Auto) 48.0 % (50.0-75.0) L 11/27/18 05:30 Lymph % (Auto) 39.3 % (20.0-40.0) 11/27/18 05:30 Kaufman % (Auto) 8.6 % (0.0-10.0) 11/27/18 05:30 Eos % (Auto) 3.2 % (0.0-4.0) 11/27/18 05:30 Baso % (Auto) 0.9 % (0.0-2.0) 11/27/18 05:30 Neut # (Auto) 2.7 K/uL (1.8-7.0) 11/27/18 05:30 Lymph # (Auto) 2.2 K/uL (1.0-4.3) 11/27/18 05:30 Kaufman # (Auto) 0.5 K/uL (0.0-0.8) 11/27/18 05:30 Eos # (Auto) 0.2 K/uL (0.0-0.7) 11/27/18 05:30 Baso # (Auto) 0.0 K/uL (0.0-0.2) 11/27/18 05:30 PT 10.5 Seconds (9.8-13.1) 11/26/18 15:45 INR 0.9 11/26/18 15:45 APTT 34.6 Seconds (25.6-37.1) 11/26/18 15:45 Sodium 138 mmol/l (132-148) 11/27/18 05:30 Potassium 3.7 MMOL/L (3.6-5.0) 11/27/18 05:30 Chloride 102 mmol/L (98-107) 11/27/18 05:30 Carbon Dioxide 29 mmol/L (22-30) 11/27/18 05:30 Anion Gap 11 (10-20) 11/27/18 05:30 BUN 18 mg/dl (7-17) H 11/27/18 05:30 Creatinine 1.0 mg/dl (0.7-1.2) 11/27/18 05:30 Est GFR ( Amer) > 60 11/27/18 05:30 Est GFR (Non-Af Amer) 52 11/27/18 05:30 Random Glucose 78 mg/dL (65-105) 11/27/18 05:30 Calcium 9.3 mg/dL (8.4-10.2) 11/27/18 05:30 Phosphorus 3.9 mg/dl (2.5-4.5) 11/27/18 05:30 Magnesium 2.1 MG/DL (1.6-2.3) 11/26/18 15:45 Total Bilirubin 0.4 mg/dl (0.2-1.3) 11/26/18 15:45 AST 31 U/L (14-36) 11/26/18 15:45 ALT 31 U/L (9-52) 11/26/18 15:45 Alkaline Phosphatase 114 U/L (38-126) 11/26/18 15:45 Troponin I < 0.0120 ng/mL (0.00-0.120) 11/26/18 15:45 Total Protein 7.1 G/DL (6.3-8.2) 11/26/18 15:45 Albumin 4.2 g/dL (3.5-5.0) 11/26/18 15:45 Globulin 2.9 gm/dL (2.2-3.9) 11/26/18 15:45 Albumin/Globulin Ratio 1.5 (1.0-2.1) 11/26/18 15:45 Free T4 1.01 ng/dL (0.78-2.19) 11/26/18 15:45 Thyroxine (T4) 8.69 ug/dl (5.5-11.0) 11/26/18 15:45 Free T3 pg/mL 2.73 pg/mL (2.77-5.27) L 11/26/18 15:45 Total T3 1.04 nmol/L (1.49-2.60) L 11/26/18 15:45 TSH 3rd Generation 6.84 mIU/ML (0.46-4.68) H 11/26/18 15:45 Influenza Typ A,B (EIA) Negative for flu a/b (NEGATIVE) 11/26/18 15:45 Blood Type Cancelled 11/26/18 16:27 Antibody Screen Cancelled 11/26/18 16:27 BBK History Checked Cancelled 11/26/18 16:27 Attending/Attestation - Attestation I have personally seen and examined this patient.: Yes I have fully participated in the care of the patient.: Yes I have reviewed all pertinent clinical information, including history, physical exam and plan: Yes Notes (Text): 11/28/18 13:20 Patient seen and examined with resident. Case discussed and agreed with assessment. Patient discharged in stable condition.
[2018-11-28 16:02] VITALS: O2SAT 98
== END 2018-11-27 17:13 | disposition home or self-care (01) ==
LOC: H.ER 14:59 → H.ERHOLD 19:16 → H.MEDSURG1 22:25
DX: M48.02 Spinal stenosis, cervical region (principal); G95.29 Other cord compression; I50.32 Chronic diastolic (congestive) heart failure; I11.0 Hypertensive heart disease with heart failure; J43.9 Emphysema, unspecified; M25.78 Osteophyte, vertebrae; I48.91 Unspecified atrial fibrillation; E03.9 Hypothyroidism, unspecified; F03.90 Unspecified dementia, unspecified severity, without behavioral disturbance, psychotic disturbance, mood disturbance, and anxiety; F32.9 Major depressive disorder, single episode, unspecified; E78.00 Pure hypercholesterolemia, unspecified; F41.9 Anxiety disorder, unspecified; I73.9 Peripheral vascular disease, unspecified; Z85.118 Personal history of other malignant neoplasm of bronchus and lung; Z87.01 Personal history of pneumonia (recurrent); Z87.891 Personal history of nicotine dependence; Z79.82 Long term (current) use of aspirin; Z88.0 Allergy status to penicillin; Z88.2 Allergy status to sulfonamides
CPT/HCPCS: 36415; 70450; 71045; 72125; 72156; 80048; 80053; 83735; 84100; 84436; 84443; 84481; 84484; 85025; 85610; 85730; 87804; 93005; 99285; A9579; G0378